=== PATIENT | male | born 1950 | race Caucasian/White ===

== ENCOUNTER → 2017-01-14 | Outpatient (CLI) | payer MEDICARE, BC ==
[2017-01-14 16:30] LABS: Anisocytosis Slight; Basophils # (A) 0.1 k/uL (0-0.2); Basophils % (A) 1 %; CHCM 30.3; Eosinophils # (A) 0.1 k/uL (0-0.7); Eosinophils % (A) 2 %; HCT 40.8 % (39.0-53.0); HDW 3.12; HGB 12.5 gm/dL (13.0-17.5); Hypochromasia Marked; Luc # (Auto) 0.08; Luc % (Auto) 1; Lymphocytes # (A) 1.4 k/uL (1.0-4.8); Lymphocytes % (A) 18 %; MCH 23.4 pg (25.0-35.0); MCHC 30.7 g/dL (31.0-37.0); MCV 76.2 fL (80.0-100.0); Mean Platelet Volume 6.6; Microcytosis Moderate; Monocytes # (A) 0.4 k/uL (0-1.0); Monocytes % (A) 5 %; Neutrophils # (A) 5.6 k/uL (1.3-7.7); Neutrophils % (A) 73 %; RBC 5.36 m/uL (4.30-5.90); RDW 18.9 % (11.5-15.5); WBC 7.6 k/uL (3.8-10.6); WBC (Perox) 7.61
[2017-01-14 16:33] LABS: INR 4.1 (<1.2); Prothrombin Time 40.1 sec (9.0-12.0)
[2017-01-14 16:42] LABS: ALT 36 U/L (21-72); AST 30 U/L (17-59); Alkaline Phosphatase 122 U/L (38-126); Anion Gap 13 mmol/L; Blood Urea Nitrogen 13 mg/dL (9-20); Calcium 9.4 mg/dL (8.4-10.2); Carbon Dioxide 23 mmol/L (22-30); Chloride 103 mmol/L (98-107); Cholesterol 140 mg/dL (<200); Glucose 105 mg/dL (74-99); HDL Cholesterol 48 mg/dL (40-60); Non-African American GFR(MDRD) >60 (>60 ml/min/1.73 sqM); Potassium 4.1 mmol/L (3.5-5.1); Sodium 139 mmol/L (137-145); Total Bilirubin 0.8 mg/dL (0.2-1.3); Total Protein 6.9 g/dL (6.3-8.2)
[2017-01-14 17:29] LABS: Prostate Specific Antigen <0.10 ng/mL (0.00-4.00)
== END | disposition home or self-care (01) ==
LOC: LABWHC1 15:42
PROVIDERS: ATTEND Family Medicine
DX: Z00.00 Encounter for general adult medical examination without abnormal findings (principal); E11.65 Type 2 diabetes mellitus with hyperglycemia; E11.628 Type 2 diabetes mellitus with other skin complications; Z85.46 Personal history of malignant neoplasm of prostate; Z79.01 Long term (current) use of anticoagulants
CPT/HCPCS: 36415; 80053; 80061; 83036; 84153; 84443; 85025; 85610; 86803

== ENCOUNTER → 2017-01-19 | Outpatient (CLI) | payer MEDICARE, BC ==
[2017-01-19 11:59] LABS: INR 2.9 (<1.2); Prothrombin Time 27.5 sec (9.0-12.0)
== END | disposition home or self-care (01) ==
LOC: LABWHC1 11:07
PROVIDERS: ATTEND Family Medicine
DX: Z51.81 Encounter for therapeutic drug level monitoring (principal); Z79.01 Long term (current) use of anticoagulants
CPT/HCPCS: 36415; 85610

== ENCOUNTER → 2017-04-18 | Outpatient (CLI) | payer MEDICARE, BC ==
[2017-04-18 10:48] LABS: INR 1.2 (<1.2); Prothrombin Time 11.5 sec (9.0-12.0)
== END | disposition home or self-care (01) ==
LOC: LABWHC1 09:55
PROVIDERS: ATTEND Dentist Oral and Maxillofacial Surgery
DX: D68.9 Coagulation defect, unspecified (principal)
CPT/HCPCS: 36415; 85610

== ENCOUNTER → 2018-05-22 | Outpatient (CLI) | payer MEDICARE, BC ==
--- NOTE | 2018-05-22 15:09 | XR ---
Lumbosacral spine HISTORY: Back pain 5 views of the lumbosacral spine Postop changes status post multiple lumbar laminectomies. There is a marked S-shaped thoracic lumbar scoliosis. Surgical clips present in the pelvis and right upper quadrant.. There are vascular calcifi cations noted. Lumbar vertebral bodies show preserved height. There is no evident spondylolysis. Bone mineralization appears reduced. Marked sclerosis present in the posterior elements is compatible wit h facet arthropathy. Anterior flowing osteophytes in the lower thoracic spine with relative preservat ion of disc base could be indicative of diffuse idiopathic skeletal hyperostosis. Multilevel loss of disc height is present, spondylosis compatible with degenerative disc disease. The aorta shows ectati c appearance. Vascular calcifications. IMPRESSION: Scoliosis, degenerative disc disease, facet arthropathy, postop changes, additional findi ngs above.
== END | disposition home or self-care (01) ==
LOC: RADXRMAIN 13:52
PROVIDERS: ATTEND Family Medicine
DX: M51.37 Other intervertebral disc degeneration, lumbosacral region (principal); M46.97 Unspecified inflammatory spondylopathy, lumbosacral region; M41.85 Other forms of scoliosis, thoracolumbar region; Z98.890 Other specified postprocedural states
CPT/HCPCS: 72110

== ENCOUNTER → 2018-08-22 | Outpatient (CLI) | payer MEDICARE, BC ==
[2018-08-22 16:03] LABS: Basophils # (A) 0.1 k/uL (0-0.2); Basophils % (A) 1 %; Eosinophils # (A) 0.2 k/uL (0-0.7); Eosinophils % (A) 3 %; HCT 37.1 % (39.0-53.0); HGB 12.1 gm/dL (13.0-17.5); Lymphocytes # (A) 1.2 k/uL (1.0-4.8); Lymphocytes % (A) 15 %; MCH 27.9 pg (25.0-35.0); MCHC 32.6 g/dL (31.0-37.0); MCV 85.7 fL (80.0-100.0); Mean Platelet Volume 6.8; Monocytes # (A) 0.3 k/uL (0-1.0); Monocytes % (A) 4 %; Neutrophils # (A) 6.2 k/uL (1.3-7.7); Neutrophils % (A) 76 %; Platelet Count 261 k/uL (150-450); RBC 4.33 m/uL (4.30-5.90); RDW 14.8 % (11.5-15.5); WBC 8.1 k/uL (3.8-10.6)
[2018-08-22 23:08] LABS: African American GFR (CKD) 100.6 (60.0-200.0); Anion Gap 12.6 mmol/L (4.00-12.00); BUN/Creat Ratio 12.22 Ratio (12.00-20.00); Calcium 8.8 mg/dL (8.7-10.3); Carbon Dioxide 24.4 mmol/L (21.6-31.8); Potassium 3.7 mmol/L (3.5-5.5)
== END | disposition home or self-care (01) ==
LOC: LABWHC1 15:02
PROVIDERS: ATTEND Family Medicine
DX: E11.9 Type 2 diabetes mellitus without complications (principal); Z79.01 Long term (current) use of anticoagulants
CPT/HCPCS: 36415; 80048; 85025

== ENCOUNTER → 2019-05-07 | Outpatient (CLI) | payer MEDICARE, BC ==
--- NOTE | 2019-05-07 11:14 | XR ---
EXAMINATION TYPE: XR chest 2V DATE OF EXAM: 05/07/2019 COMPARISON: 02/03/2015 TECHNIQUE: PA and lateral views submitted. HISTORY: Cough FINDINGS: The lungs are clear and there is no pneumothorax, pleural effusion, or focal pneumonia. Worsened in terstitial markings with bilateral pleural thickening. Arthropathy of the shoulders. Atherosclerotic change aorta. Hypertrophic and degenerative change of the spine. IMPRESSION: 1. Correlate for bronchitis or interstitial pneumonitis.
== END | disposition home or self-care (01) ==
LOC: RADXRMAIN 10:49
PROVIDERS: ATTEND Family Medicine
DX: J20.9 Acute bronchitis, unspecified (principal)
CPT/HCPCS: 71046

== ENCOUNTER → 2019-09-16 | Outpatient (CLI) | payer MEDICARE, BC ==
--- NOTE | 2019-09-16 14:55 | MR ---
EXAMINATION TYPE: MR brain wo/w con DATE OF EXAM: 09/16/2019 COMPARISON: None HISTORY: Decreased sense of smell/taste; attention to Cribiform plate per order TECHNIQUE: Multiplanar, multisequence images of the brain and brainstem is performed without and with IV contras t, utilizing 13 mL intravenous Gadavist . FINDINGS: Diffusion weighted images demonstrate no evidence of a recent infarct or other diffusion ab normality. There is no extra-axial fluid collection.. There are scattered hyperintensities on invers ion recovery T2-weighted sequences in the periventricular white matter, subcortical white matter, rachna roximately 20 lesions are present The ventricular system and cisternal spaces are normal in size and appearance. The brain volume is age appropriate. Midline structures demonstrate normal morphology. The craniocervical junction appears within normal limits. Post contrast images demonstrate no abnormal enhancement. The dural venous sinuses appear pa tent. The visualized sinuses are clear and the globes are intact. IMPRESSION: Nonspecific white matter demyelination may be due to chronic small vessel ischemia.
== END | disposition home or self-care (01) ==
LOC: RADMRIMAIN 12:46
PROVIDERS: ATTEND Otolaryngology
DX: G37.9 Demyelinating disease of central nervous system, unspecified (principal); Z88.0 Allergy status to penicillin; Z88.1 Allergy status to other antibiotic agents
CPT/HCPCS: 70553; A9585

== ENCOUNTER → 2019-11-05 | Outpatient (CLI) | payer MEDICARE, BC ==
[2019-11-05 19:09] LABS: T4, Free (Free Thyroxine) 1.3 ng/dL (0.80-1.80)
[2019-11-05 19:13] LABS: Protein, Total 6.1 g/dL (6.2-8.2)
[2019-11-06 13:34] LABS: Albumin 3.65 g/dL (3.80-4.90); Gamma Globulin 0.71 g/dL (0.70-1.50)
== END | disposition home or self-care (01) ==
LOC: LABWHC1 14:52
PROVIDERS: ATTEND Psychiatry & Neurology Neurology
DX: G62.9 Polyneuropathy, unspecified (principal)
CPT/HCPCS: 36415; 82607; 84165; 84207; 84439; 84443; 85652; 86038; 86334

== ENCOUNTER → 2020-08-03 | Outpatient (CLI) | payer MEDICARE, BC ==
--- NOTE | 2020-08-03 12:04 | XR ---
EXAMINATION TYPE: XR cervical spine comp DATE OF EXAM: 08/03/2020 COMPARISON: NONE HISTORY: Pain TECHNIQUE: Four views are submitted. FINDINGS: The odontoid is intact. There are no compression deformities. The prevertebral soft tissue structur es are within normal limits. Large anterior hypertrophic spurs are noted. Moderate to severe multile tonia degenerative disc disease and facet arthropathy. Multilevel bilateral foraminal encroachment. IMPRESSION: 1. Severe multilevel degenerative disc disease, facet arthropathy with bilateral foraminal encroachme nt.
--- NOTE | 2020-08-03 12:05 | XR ---
EXAM TYPE: LUMBAR SPINE X RAY SERIES COMPARISON: NONE HISTORY: Pain TECHNIQUE: 4 views are submitted. FINDINGS: Alignment is anatomic. The pedicles are intact. The transverse processes are intact. There is scol iosis with diffuse osteopenia and multilevel hypertrophic and degenerative changes. Postsurgical danielson ge involving the lower lumbar spine. Vascular calcifications noted. Surgical clips are seen in the pe lvis and right upper quadrant of the abdomen. Sclerotic density overlying the right iliac bone is non specific. IMPRESSION: 1. Multilevel severe degenerative disc disease with postsurgical change and scoliosis. 2. Multilevel facet arthropathy and foraminal encroachment suspected.
== END | disposition home or self-care (01) ==
LOC: RADXRMAIN 11:21
PROVIDERS: ATTEND Family Medicine
DX: M50.30 Other cervical disc degeneration, unspecified cervical region (principal); M47.812 Spondylosis without myelopathy or radiculopathy, cervical region; M99.71 Connective tissue and disc stenosis of intervertebral foramina of cervical region; M51.36 Other intervertebral disc degeneration, lumbar region; M41.86 Other forms of scoliosis, lumbar region
CPT/HCPCS: 72050; 72110

== ENCOUNTER → 2021-01-11 | Outpatient (CLI) | payer MEDICARE, BC ==
[2021-01-11 13:25] VITALS: BP 124/76; PULSE 80; RESP 18; TEMP 98.3
--- NOTE | 2021-01-11 13:40 | P.PAINCN ---
History of Present Illness - Reason for Consult Consult date: 01/11/21 - Chief Complaint Low back pain - History of Present Illness Amilcar is a 70-year-old male presenting to clinic today for initial evaluation of his chronic low back pain. He was referred to our office from Dr. Oshea. He was a patient of the clinic many years ago where he received epidural injections. He has a history of lumbar spondylosis and facet arthropathy without myelopathy, lumbar radiculopathy, cervical spondylosis and facet arthropathy without myelopathy, and cervical radiculopathy. He reports that for the last 6-8 months he has had lower back pain which she describes an inguinal right quadrant area of his back. He describes it as a sharp stabbing pain. Pain is made worse with certain positions, laying on his side and laying flat. Pain is relieved with sitting and medications. He currently takes [place]mont 10 mg every [address] Oshea. He has had physical therapy in the past he completed about 2 months ago did not offer much help. He has seen the chiroprac tor that did not further benefit either. He currently has an open wound in his lower back is being treated by Dr. Oshea. When his active infection has cleared and he is no longer taking antibiotics we can move forward with interventions. He rates his pain as a 5 or 6 out of 10 on average with increasing up to 10 out of 10 at its worse. Latest MRI shows multiple levels of degenerative changes of facet arthropathy with a large disc bulge impeding nerve roots at L3 4. Denies any saddle anesthesia, bowel or bladder dysfunction, or any other red flag symptoms. Past Medical History Past Medical History: Cancer, Diabetes Mellitus, Deep Vein Thrombosis (DVT), GERD/Reflux, Hyperlipidemia, Hypertension, Osteoarthritis (OA), Pneumonia, Prostate Disorder, Pulmonary Embolus (PE), Skin Disorder, Sleep Apnea/CPAP/BIPAP Additional Past Medical History / Comment(s): open wound to back-has visiting nurse two times per weeks,prostate ca, rt leg dvt, diverticulitis, psoriases, abd hernia,no cpap History of Any Multi-Drug Resistant Organisms: None Reported Past Surgical History: Back Surgery, Cholecystectomy, Hernia Repair, Joint Replacement, Prostate Surgery, Tonsillectomy Additional Past Surgical History / Comment(s): prostectomy, had ruptured diver ticuli -colostomy and then reversed, abd hernia, tanisha cataracts, tubes in ears,total rt hip,[facility] Clinic Procedures Past Anesthesia/Blood Transfusion Reactions: No Reported Reaction Past Psychological History: No Psychological Hx Reported Additional Psychological History / Comment(s): uses a walker when up. Smoking Status: Former smoker Past Alcohol Use History: None Reported Additional Past Alcohol Use History / Comment(s): SMOKED X 28 YEARS 1PPD. Past Drug Use History: None Reported - Past Family History Father Family Medical History: Cancer Additional Family Medical History / Comment(s): prostate CA Mother Family Medical History: Deep Vein Thrombosis (DVT), Pulmonary Embolus Additional Family Medical History / Comment(s): PROSTATE CNACER Medications and Allergies Home Medications Medication Instructions Recorded Confirmed Type Atorvastatin Calcium [Lipitor] 30 mg PO HS 02/03/15 01/11/21 History Lansoprazole 30 - 60 mg PO DAILY 02/03/15 01/11/21 History Multivit-Min/FA/Lycopen/Lutein 1 tab PO DAILY 02/03/15 01/11/21 History [Centrum Silver Tablet] Nebivolol HCl [Bystolic] 5 mg PO DAILY 02/03/15 01/11/21 History Hydrocodone/Acetaminophen [[place]mont 1 tab PO TID PRN 02/16/16 01/11/21 History 10-325] Rivaroxaban [Xarelto] 10 mg PO DAILY 01/06/21 01/11/21 History Semaglutide [Ozempic] 1 mg SQ WE 01/06/21 01/11/21 History metFORMIN HCL [Glucophage] 1,000 mg PO BID 01/06/21 01/11/21 History rOPINIRole HCL [Requip] 0.5 mg PO HS 01/06/21 01/11/21 History Allergies Allergy/AdvReac Type Severity Reaction Status Date / Time cephalexin monohydrate Allergy Rash/Hives Verified 01/06/21 13:56 [From Keflex] Penicillins Allergy Rash/Hives Verified 01/06/21 13:56 Physical Exam REVIEW OF ORGAN SYSTEMS: CONSTITUTIONAL: No fevers or chills. No recent weight loss. EYES: denies troubles with vision. HEENT: No difficulties with hearing. No nosebleeds. No difficulty swallowing. RESPIRATORY: Denies any troubles with breathing or dyspnea on exertion. CARDIOVASCULAR: Denies any chest pain, palpitations, or recent heart attacks. GASTROINTESTINAL: Denies fatty food intolerance. Has change in bowel habits and gas bloat. GENITOURINARY: Denies any blood in urine. Has increased urinary frequency. NEUROLOGICAL: + numbness and tingling along the distal extremities. No seizure disorders or headaches. MUSCULOSKELETAL: Has back pain. SKIN:no skin cancer. No rash. Open wound to lumbar region PSYCHIATRIC: Denies current depression or suicidal thoughts. ENDOCRINE: Denies current thyroid disorders. [id number] HEME/LYMPHATIC: Denies any lumps and bumps around the neck. History of deep venous thrombosis. ALLERGY/IMMUNOLOGY: No immunoglobulin therapy. No immune deficiencies. BREAST: Denies current breast lumps, pain or nipple discharge. Physical Examinations : Constitutiona : Cooperative , not in acute distress morbidly obese in a wheelchair. HEENT : nech : supple , no Lymphadenopathy , normal thyroid size . : eyes no ptosis , no icterus, no photophobia . : ENT normal of hearing , normal oropharynx , no Thrush . Respiratory : Chest clear to auscultations Bilaterally , no wheezing , no Rhonchi . Cardiovascula : regular rate and rhythem , S1 , S2 , no S3 , no S4. Gastrointestina : abdomen soft no tenderness , bowel sounds , no organomegally . Genitourinary : Defferred . neurologic : Cranial nerve II to XII intact , no focal neurological deffecit . psychatric : alert , oriented X 3 , appropriate affect , intact judgment and insight . Lymphatic : no Lymphadenopathy . musculoskeltal : Cervical Spine motor stregnth in the deltoid and biceps, normal right side , normal Left side motor stregnth biceps and the wrist extensors normal right side ,normal left side . motor stregnth in the triceps muscle . normal Right side , normal Left side deep tendon reflexes= normal at the biceps , normal at Brachioradialis , normal at triceps. cervical facet loading test: Positive Bilaterally Spurling test= positive bilaterally. Neck distraction test= positive bilaterally. Max sign= negative Lumber spine moter stegnth lower extremities ,thigh and legs 5/5 Right side , 5/5 Left side deep tendon reflexes : normal Knee Jerk , normal ankle Jerk lumber facet Loading Test= positive Right , positive Left Range of motion of the lumbar spine Flexion 30 degrees, extension 10 degrees strait leg raising test , positive at 20 degree Fabere test= positive Right , and positive left . Sever tenderness over the Sacroiliac joint on the Right , and Left sides Gaenslen test= positive bilaterally. Seated flexion test= positive bilaterally. Assessment and Plan Assessment: Assessment and plan Assessment: Cervical spondylosis and facet arthropathy without myelopathy Cervical radiculopathy Lumbar spondylosis and facet arthropathy without myelopathy Lumbar radiculopathy Morbid obesity Type 2 diabetes mellitus Open wounds Plan: When patient has completed his wound care treatment and antibiotics consider right sacroiliac joint injection. Consider right medial branch block at L4 5 and L5-S1 Consider lumbar epidural steroid injection at L3 4 Dr. Dang was available by phone for consultation during his visit. I have spent 50 minutes on patient care today. The time was used to review the medical records including relevant urine studies and Prescription history (MAPs), review of the available imaging, evaluation and examination of the patient, coordination of care with the medical staff and if applicable referring physicians, as well as creation of the medical record. - PQRS measures = - Patient's medications are documented in the chart. -Tobacco use is negative -Patient's has not received pneumococcal vaccine. -Advanced care planning discussed, patient not eligible. -Opiate contract signed. -Pain positive and follow-up visit/procedure is scheduled. -Patient's blood pressure measured 124/76 , and documented in the record ,and patient will follow up with the primary care. -Patient was not identified as an unhealthy alcohol user Time with Patient: Greater than 30 PQRS Measure Charge Sheet - Pain Location Lower Back Non-Pharmacological Interventions: Elevation, Position/Reposition Pharmacological Interventions: Medication PQRS Narrative: Smoking Status Former smoker Scale Used Numeric (1 - 10) Hx Alcohol Use (MH) No Home Medications: Ambulatory Orders Atorvastatin Calcium [Lipitor] 30 mg PO HS 02/03/15 Lansoprazole 30 - 60 mg PO DAILY 02/03/15 Multivit-Min/FA/Lycopen/Lutein [Centrum Silver Tablet] 1 tab PO DAILY 02/03/15 Nebivolol HCl [Bystolic] 5 mg PO DAILY 02/03/15 Hydrocodone/Acetaminophen [[place]mont 10-325] 1 tab PO TID PRN 02/16/16 Rivaroxaban [Xarelto] 10 mg PO DAILY 01/06/21 Semaglutide [Ozempic] 1 mg SQ WE 01/06/21 metFORMIN HCL [Glucophage] 1,000 mg PO BID 01/06/21 rOPINIRole HCL [Requip] 0.5 mg PO HS 01/06/21
== END ==
LOC: PNWHC3 12:36
PROVIDERS: ATTEND Student in an Organized Health Care Education/Training Program
DX: M47.22 Other spondylosis with radiculopathy, cervical region (principal); M47.26 Other spondylosis with radiculopathy, lumbar region; E11.9 Type 2 diabetes mellitus without complications; E78.5 Hyperlipidemia, unspecified; I10 Essential (primary) hypertension; M19.90 Unspecified osteoarthritis, unspecified site; E66.01 Morbid (severe) obesity due to excess calories; T14.8XXA Other injury of unspecified body region, initial encounter; K21.9 Gastro-esophageal reflux disease without esophagitis; Z86.718 Personal history of other venous thrombosis and embolism; Z87.891 Personal history of nicotine dependence; Z79.84 Long term (current) use of oral hypoglycemic drugs; Z79.899 Other long term (current) drug therapy; Z88.0 Allergy status to penicillin; Z68.41 Body mass index [BMI] 40.0-44.9, adult
CPT/HCPCS: 99211

== ENCOUNTER → 2021-06-14 | Outpatient (CLI) | payer MEDICARE, BC ==
--- NOTE | 2021-06-14 15:22 | US ---
LOWER EXTREMITY VENOUS INSUFFICIENCY CLINICAL HISTORY: L97.922 ULCER, I83.029 VERICOSE VEINS, I87.8 VENOUS STASIS. Morbidly obese patient with extensive leg swelling. Technically difficult. SIDE PERFORMED: Bilateral 1) Color flow is present and patency is documented in the following vessels. No DVT or SVT is noted . Common Femoral Vein Deep Femoral Vein Femoral Vein Popliteal Vein Proximal Calf Veins Greater Saph Vein Upper Small Saph Vein 2) There is venous reflux noted at the following venous levels: Right: CFV, GSV, portions of the popliteal visualized. Left: CFV, mid FV, SSV Right femoral vein through popliteal vein shows thready flow that is probable chronic DVT. Unable to pick up truck driver doppler signal in femoral vein through proximal popliteal vein due to small caliber and threa dy flow in vessel. Unable to visualize distal femoral vein, this may be due to depth. IMPRESSION: 1. Suspected right lower extremity chronic venous thrombosis. 2. Venous reflux noted within the common femoral veins bilaterally and within the right greater saphe nous vein and popliteal vein and within the left mid femoral vein and superficial saphenous vein.
--- NOTE | 2021-06-16 06:55 | US ---
EXAMINATION TYPE: US arterial LE single level DATE OF EXAM: 06/14/2021 2:01 PM CLINICAL HISTORY: L97.922 ULCER, I83.029 VERICOSE VEINS, I87.8 VENOUS STASIS. Left leg wounds for 3 m onths. History of hypertension and hyperlipidemia. History of morbid obesity. Doppler Waveforms: Right: Biphasic Left: Biphasic Ankle-Brachial Indices: Right: 1.08 Left: Toe Brachial Indices: Right: 0.59 Left: 0.68 IMPRESSION: Suboptimal study. Likely no significant stenosis as TBI values are lower limits of kevin l.
== END | disposition home or self-care (01) ==
LOC: RADUSWWP 12:09
PROVIDERS: ATTEND Family Medicine
DX: L97.922 Non-pressure chronic ulcer of unspecified part of left lower leg with fat layer exposed (principal); E66.01 Morbid (severe) obesity due to excess calories; I87.8 Other specified disorders of veins; Z86.718 Personal history of other venous thrombosis and embolism; Z79.84 Long term (current) use of oral hypoglycemic drugs
CPT/HCPCS: 93922; 93970

== ENCOUNTER 2022-06-13 08:23 | Inpatient (IN) | payer BC, MEDICARE ==
--- NOTE | 2022-06-13 08:51 | ED ---
Weakness HPI - General Chief complaint: Weakness Stated complaint: weakness Time Seen by Provider: 06/13/22 08:36 Source: patient, EMS, RN notes reviewed, old records reviewed Mode of arrival: EMS Limitations: no limitations - History of Present Illness Initial comments: 71-year-old male alert and oriented 4 presents to the emergency room via EMS from his apartment. Patient for the past month has been feeling weak. Last week he slid out of his chair and was unable to get up had to call EMS for cyst. He was called EMS twice that day. States that his legs have been increasingly swollen and he has been increasingly weak with him to come to the emergency room today. Does have a history of diabetes, DVT, hypertension and PE. Denies any chest pain. No difficulty breathing. Oxygen saturation 89% during conversation MD Complaint: generalized weakness, difficulty walking -: week(s) (1) Severity scale (1-10): 2 - Related Data Home Medications Medication Instructions Recorded Confirmed Atorvastatin Calcium [Lipitor] 40 mg PO HS 02/03/15 06/13/22 Lansoprazole 30 mg PO BID 02/03/15 06/13/22 Nebivolol HCl [Bystolic] 5 mg PO DAILY 02/03/15 06/13/22 Rivaroxaban [Xarelto] 10 mg PO DAILY 01/06/21 06/13/22 Empagliflozin/Metformin HCl 2 tab PO W/BRKFST 06/13/22 06/13/22 [Synjardy Xr 12.5-1,000 mg Tab] Furosemide [Lasix] 40 mg PO DAILY 06/13/22 06/13/22 HYDROcodone/APAP 5-325MG [[place] 2 tab PO Q8H PRN 06/13/22 06/13/22 5-325] Naloxone HCl [Narcan] 4 mg NASAL ONCE PRN 06/13/22 06/13/22 Pioglitazone [Actos] 30 mg PO DAILY 06/13/22 06/13/22 Potassium Chloride ER [K-Dur 20] 20 meq PO DAILY 06/13/22 06/13/22 Pregabalin [Lyrica] 75 mg PO BID 06/13/22 06/13/22 Semaglutide [Ozempic] 2 mg SQ WE 06/13/22 06/13/22 Allergies Allergy/AdvReac Type Severity Reaction Status Date / Time cephalexin monohydrate Allergy Rash/Hives Verified 06/13/22 12:04 [From Keflex] on neck Penicillins Allergy Rash/Hives Verified 06/13/22 12:04 on neck Review of Systems ROS Statement: Those systems with pertinent positive or pertinent negative responses have been documented in the HPI. ROS Other: All systems not noted in ROS Statement are negative. Past Medical History Past Medical History: Cancer, Diabetes Mellitus, Deep Vein Thrombosis (DVT), GERD/Reflux, Hyperlipidemia, Hypertension, Osteoarthritis (OA), Pneumonia, Prostate Disorder, Pulmonary Embolus (PE), Skin Disorder, Sleep Apnea/CPAP/BIPAP Additional Past Medical History / Comment(s): open wound to back-has visiting nurse two times per weeks,prostate ca, rt leg dvt, diverticulitis, psoriases, abd hernia,no cpap History of Any Multi-Drug Resistant Organisms: None Reported Past Surgical History: Back Surgery, Cholecystectomy, Hernia Repair, Joint Replacement, Prostate Surgery, Tonsillectomy Additional Past Surgical History / Comment(s): prostectomy, had ruptured diverticuli -colostomy and then reversed, abd hernia, tanisha cataracts, tubes in ears,total rt hip,[facility] Procedures Past Anesthesia/Blood Transfusion Reactions: No Reported Reaction Past Psychological History: No Psychological Hx Reported Smoking Status: Former smoker Past Alcohol Use History: None Reported Past Drug Use History: None Reported - Past Family History Father Family Medical History: Cancer Additional Family Medical History / Comment(s): prostate CA Mother Family Medical History: Deep Vein Thrombosis (DVT), Pulmonary Embolus Additional Family Medical History / Comment(s): PROSTATE CNACER General Exam Limitations: no limitations General appearance: alert, in no apparent distress Head exam: Present: atraumatic Eye exam: Present: normal appearance. Absent: scleral icterus, conjunctival injection, periorbital swelling, periorbital tenderness ENT exam: Present: mucous membranes moist Neck exam: Absent: tenderness, meningismus Respiratory exam: Absent: respiratory distress, accessory muscle use Cardiovascular Exam: Present: regular rate GI/Abdominal exam: Present: soft. Absent: distended, tenderness, guarding, rebound, rigid Rectal exam: Present: normal inspection External exam: Present: lesions (1cm stage 2 pressure ulcer left buttock , no drainage or surrounding erythema) Extremities exam: Present: normal capillary refill, pedal edema (Bilateral lower extremity pitting edema) Left Lower Leg exam: Present: swelling, erythema. Absent: tenderness Ankle exam: Present: swelling. Absent: tenderness Foot/Toe exam: Present: swelling. Absent: tenderness Neurovascular tendon exam: Present: no vascular compromise. Absent: abnormal cap refill, extremity cold to touch, pallor, foot drop Right Lower Leg exam: Present: swelling, erythema. Absent: tenderness Ankle exam: Present: swelling. Absent: tenderness Foot/Toe exam: Present: swelling. Absent: tenderness Neurovascular tendon exam: Present: no vascular compromise. Absent: abnormal cap refill, extremity cold to touch, pallor, foot drop Neurological exam: Present: alert, oriented X3 Psychiatric exam: Present: normal affect, normal mood Skin exam: Present: warm, dry, normal color. Absent: cyanosis, diaphoretic, petechiae, pallor Course Vital Signs 06/13/22 06/13/22 06/13/22 08:26 09:00 10:00 Temperature 98.1 F Pulse Rate 79 Respiratory 22 18 19 Rate Blood Pressure 124/68 86/72 102/54 O2 Sat by Pulse 96 90 L 90 L Oximetry 06/13/22 11:00 Temperature Pulse Rate 80 Respiratory 22 Rate Blood Pressure 113/98 O2 Sat by Pulse 96 Oximetry - Reevaluation(s) Reevaluation #1: 06/13/22 11:16 Dr. Gabriel's nurse practitioner Mariam notified of patient per Dr Gabriel, neuro and cardiology consults placed Time: 11:16 Medical Decision Making - Medical Decision Making Patient's oxygen levels dropped to 89% on room air while in the emergency room. Improves to 96% on 2 L. Chest x-ray interpreted by me shows no evidence of focal consolidation, no masses, trachea is midline. Radiologist interpretation no acute process. EKG shows sinus rhythm with occasional supraventricular premature complexes. Ventricular rate 85, WY interval 0.146, QRS 0.100, QTC 0.449. No significant change compared to old 02/03/2015 Labs show no evidence of leukocytosis. Hemoglobin and hematocrit are stable. There is a slight lactic acidosis of 2.5. Magnesium 1.3 was given replacement Patient was given IV fluids. Troponin is negative at 0.012 Bilateral lower extremities erythematous with pitting edema. Will be treated for cellulitis after discussing with Dr. Gabriel. There is also a small 1 cm pressure ulcer to the left buttock No signs of erythema or drainage. Wound car e will be consult. Patient is agreeable to admission. He is also requesting physical therapy. Case discussed with Dr. Mccormack Was pt. sent in by a medical professional or institution (SUSIE Brewer, ORTHOTIC FINISH GRINDING TECHNICIAN, urgent care, hospital, or fpc...) When possible be specific @ -No Did you speak to anyone other than the patient for history (EMS, parent, family, police, friend...)? What history was obtained from this source @ -No Did you review nursing and triage notes (agree or disagree)? Why? @ -I reviewed and agree with nursing and triage notes Were old charts reviewed (outside hosp., previous admission, EMS record, old EKG, old radiological studies, urgent care reports/EKG's, fpc records)? Report findings @ -Previous EKG Differential Diagnosis (chest pain, altered mental status, abdominal pain women, abdominal pain men, vaginal bleeding, weakness, fever, dyspnea, syncope, headache, dizziness, GI bleed, back pain, seizure, CVA, palpatations, mental health, musculoskeletal)? @ -Differential Weakness: Hypoglycemia, shock, sepsis, hyponatremia, anemia, infection, ND, ETOH, adverse medicine reaction, overdose, stroke, this is not meant to be an all-inclusive list. EKG interpreted by me (3pts min.). @ -As above X-rays interpreted by me (1pt min.). @ -Yes as above CT interpreted by me (1pt min.). @ -None done U/S interpreted by me (1pt. min.). @ -None done What testing was considered but not performed or refused? (CT, X-rays, U/S, labs)? Why? @ -None What meds were considered but not given or refused? Why? @ -None Did you discuss the management of the patient with other professionals (professionals i.e. SUSIE Brewer, ORTHOTIC FINISH GRINDING TECHNICIAN, lab, RT, psych nurse, sexual assault social worker, gore inserter, teacher, boat officer, business case analyst)? Give summary @ -Dr. Gabriel Was smoking cessation discussed for >3mins.? @ -No Was critical care preformed (if so, how long)? @ -No Were there social determinants of health that impacted care today? How? (Homelessness, low income, unemployed, alcoholism, drug addiction, transportation, low edu. Level, literacy, decrease access to med. care, fpc, rehab)? @ -No Was there de-escalation of care discussed even if they declined (Discuss DNR or withdrawal of care, Hospice)? DNR status @ -No What co-morbidities impacted this encounter? (DM, HTN, Smoking, COPD, CAD, Cancer, CVA, ARF, Chemo, Hep., AIDS, mental health diagnosis, sleep apnea, morbid obesity)? @ -Diabetes, hypertension, PE Was patient admitted / discharged? Hospital course, mention meds given and route, prescriptions, significant lab abnormalities, going to OR and other pertinent info. @ -Admitted Undiagnosed new problem with uncertain prognosis? @ -No Drug Therapy requiring intensive monitoring for toxicity (Heparin, Nitro, Insulin, Cardizem)? @ -No Were any procedures done? @ -No Diagnosis/symptom? @ -Weakness, cellulitis, hypomagnesemia, hypoxia Acute, or Chronic, or Acute on Chronic? @ -Acute Uncomplicated (without systemic symptoms) or Complicated (systemic symptoms)? @ -Complicated Side effects of treatment? @ -No Exacerbation, Progression, or Severe Exacerbation? @ -No Poses a threat to life or bodily function? How? (Chest pain, USA, ND, pneumonia, PE, COPD, DKA, ARF, appy, cholecystitis, CVA, Diverticulitis, Homicidal, Suicidal, threat to staff... and all critical care pts) @ -No - Lab Data Result diagrams: 06/13/22 08:50 06/13/22 08:50 Lab Results 06/13/22 06/13/22 06/13/22 Range/Units 08:50 08:50 08:50 WBC 6.2 (3.8-10.6) k/uL RBC 5.06 (4.30-5.90) m/uL Hgb 13.3 (13.0-17.5) gm/dL Hct 41.4 (39.0-53.0) % MCV 81.9 (80.0-100.0) fL MCH 26.4 (25.0-35.0) pg MCHC 32.2 (31.0-37.0) g/dL RDW 17.8 H (11.5-15.5) % Plt Count 223 (150-450) k/uL MPV 6.6 Neutrophils % 72 % Lymphocytes % 17 % Monocytes % 5 % Eosinophils % 3 % Basophils % 1 % Neutrophils # 4.4 (1.3-7.7) k/uL Lymphocytes # 1.1 (1.0-4.8) k/uL Monocytes # 0.3 (0-1.0) k/uL Eosinophils # 0.2 (0-0.7) k/uL Basophils # 0.0 (0-0.2) k/uL Hypochromasia Slight Anisocytosis Slight Microcytosis Slight PT (9.0-12.0) sec INR (<1.2) APTT (22.0-30.0) sec Sodium 140 (137-145) mmol/L Potassium 3.5 (3.5-5.1) mmol/L Chloride 99 (98-107) mmol/L Carbon Dioxide 31 H (22-30) mmol/L Anion Gap 10 mmol/L BUN 14 (9-20) mg/dL Creatinine 0.86 (0.66-1.25) mg/dL Est GFR (CKD-EPI)AfAm >90 (>60 ml/min/1.73 sqM) Est GFR (CKD-EPI)NonAf 87 (>60 ml/min/1.73 sqM) Glucose 121 H (74-99) mg/dL Lactic Ac Sepsis Rflx Plasma Lactic Acid Clint 2.5 H* (0.7-2.0) mmol/L Calcium 8.8 (8.4-10.2) mg/dL Magnesium 1.3 L (1.6-2.3) mg/dL Total Bilirubin 1.0 (0.2-1.3) mg/dL AST 30 (17-59) U/L ALT 21 (4-49) U/L Alkaline Phosphatase 100 (38-126) U/L Troponin I (0.000-0.034) ng/mL NT-Pro-B Natriuret Pep pg/mL Total Protein 6.5 (6.3-8.2) g/dL Albumin 3.9 (3.5-5.0) g/dL Urine Color Urine Appearance (Clear) Urine pH (5.0-8.0) Ur Specific Dana (1.001-1.035) Urine Protein (Negative) Urine Glucose (UA) (Negative) Urine Ketones (Negative) Urine Blood (Negative) Urine Nitrite (Negative) Urine Bilirubin (Negative) Urine Urobilinogen (<2.0) mg/dL Ur Leukocyte Esterase (Negative) 06/13/22 06/13/22 06/13/22 Range/Units 08:50 08:50 08:50 WBC (3.8-10.6) k/uL RBC (4.30-5.90) m/uL Hgb (13.0-17.5) gm/dL Hct (39.0-53.0) % MCV (80.0-100.0) fL MCH (25.0-35.0) pg MCHC (31.0-37.0) g/dL RDW (11.5-15.5) % Plt Count (150-450) k/uL MPV Neutrophils % % Lymphocytes % % Monocytes % % Eosinophils % % Basophils % % Neutrophils # (1.3-7.7) k/uL Lymphocytes # (1.0-4.8) k/uL Monocytes # (0-1.0) k/uL Eosinophils # (0-0.7) k/uL Basophils # (0-0.2) k/uL Hypochromasia Anisocytosis Microcytosis PT (9.0-12.0) sec INR (<1.2) APTT (22.0-30.0) sec Sodium (137-145) mmol/L Potassium (3.5-5.1) mmol/L Chloride (98-107) mmol/L Carbon Dioxide (22-30) mmol/L Anion Gap mmol/L BUN (9-20) mg/dL Creatinine (0.66-1.25) mg/dL Est GFR (CKD-EPI)AfAm (>60 ml/min/1.73 sqM) Est GFR (CKD-EPI)NonAf (>60 ml/min/1.73 sqM) Glucose (74-99) mg/dL Lactic Ac Sepsis Rflx Plasma Lactic Acid Clint (0.7-2.0) mmol/L Calcium (8.4-10.2) mg/dL Magnesium (1.6-2.3) mg/dL Total Bilirubin (0.2-1.3) mg/dL AST (17-59) U/L ALT (4-49) U/L Alkaline Phosphatase (38-126) U/L Troponin I <0.012 (0.000-0.034) ng/mL NT-Pro-B Natriuret Pep 484 pg/mL Total Protein (6.3-8.2) g/dL Albumin (3.5-5.0) g/dL Urine Color Yellow Urine Appearance Clear (Clear) Urine pH 5.5 (5.0-8.0) Ur Specific [place] 1.017 (1.001-1.035) Urine Protein Trace H (Negative) Urine Glucose (UA) 4+ H (Negative) Urine Ketones Negative (Negative) Urine Blood Negative (Negative) Urine Nitrite Negative (Negative) Urine Bilirubin Negative (Negative) Urine Urobilinogen <2.0 (<2.0) mg/dL Ur Leukocyte Esterase Negative (Negative) 06/13/22 06/13/22 Range/Units 09:51 11:20 WBC (3.8-10.6) k/uL RBC (4.30-5.90) m/uL Hgb (13.0-17.5) gm/dL Hct (39.0-53.0) % MCV (80.0-100.0) fL MCH (25.0-35.0) pg MCHC (31.0-37.0) g/dL RDW (11.5-15.5) % Plt Count (150-450) k/uL MPV Neutrophils % % Lymphocytes % % Monocytes % % Eosinophils % % Basophils % % Neutrophils # (1.3-7.7) k/uL Lymphocytes # (1.0-4.8) k/uL Monocytes # (0-1.0) k/uL Eosinophils # (0-0.7) k/uL Basophils # (0-0.2) k/uL Hypochromasia Anisocytosis Microcytosis PT 11.9 (9.0-12.0) sec INR 1.1 (<1.2) APTT 27.9 (22.0-30.0) sec Sodium (137-145) mmol/L Potassium (3.5-5.1) mmol/L Chloride (98-107) mmol/L Carbon Dioxide (22-30) mmol/L Anion Gap mmol/L BUN (9-20) mg/dL Creatinine (0.66-1.25) mg/dL Est GFR (CKD-EPI)AfAm (>60 ml/min/1.73 sqM) Est GFR (CKD-EPI)NonAf (>60 ml/min/1.73 sqM) Glucose (74-99) mg/dL Lactic Ac Sepsis Rflx Y Plasma Lactic Acid Clint (0.7-2.0) mmol/L Calcium (8.4-10.2) mg/dL Magnesium (1.6-2.3) mg/dL Total Bilirubin (0.2-1.3) mg/dL AST (17-59) U/L ALT (4-49) U/L Alkaline Phosphatase (38-126) U/L Troponin I (0.000-0.034) ng/mL NT-Pro-B Natriuret Pep pg/mL Total Protein (6.3-8.2) g/dL Albumin (3.5-5.0) g/dL Urine Color Urine Appearance (Clear) Urine pH (5.0-8.0) Ur Specific [place] (1.001-1.035) Urine Protein (Negative) Urine Glucose (UA) (Negative) Urine Ketones (Negative) Urine Blood (Negative) Urine Nitrite (Negative) Urine Bilirubin (Negative) Urine Urobilinogen (<2.0) mg/dL Ur Leukocyte Esterase (Negative) - EKG Data EKG shows normal: sinus rhythm (Sinus rhythm with a ventricular rate of 85, WY interval 0.146, QRS 0.100, QTC 0.449) Disposition Clinical Impression: Weakness, Cellulitis, Hypomagnesemia Disposition: ADMITTED IP TO THIS HOSP Decision Date: 06/13/22
[2022-06-13 09:19] LABS: Anisocytosis Slight; Basophils % (A) 1 %; Eosinophils # (A) 0.2 k/uL (0-0.7); Eosinophils % (A) 3 %; HCT 41.4 % (39.0-53.0); HGB 13.3 gm/dL (13.0-17.5); Hypochromasia Slight; Lymphocytes # (A) 1.1 k/uL (1.0-4.8); Lymphocytes % (A) 17 %; MCH 26.4 pg (25.0-35.0); MCHC 32.2 g/dL (31.0-37.0); MCV 81.9 fL (80.0-100.0); Mean Platelet Volume 6.6; Microcytosis Slight; Monocytes # (A) 0.3 k/uL (0-1.0); Monocytes % (A) 5 %; Neutrophils # (A) 4.4 k/uL (1.3-7.7); Neutrophils % (A) 72 %; Platelet Count 223 k/uL (150-450); RBC 5.06 m/uL (4.30-5.90); RDW 17.8 % (11.5-15.5); WBC 6.2 k/uL (3.8-10.6)
--- NOTE | 2022-06-13 09:22 | XR ---
EXAMINATION TYPE: XR chest 2V DATE OF EXAM: 06/13/2022 COMPARISON: 05/07/2019 TECHNIQUE: PA and lateral views submitted. HISTORY: Weakness FINDINGS: The lungs are clear and there is no pneumothorax, pleural effusion, or focal pneumonia. Heart size normal and no overt failure. Osseous structures demonstrate hypertrophic and degenerative changes of the spine. Atherosclerotic change aorta. Arthropathy of the shoulders. Coarsened interstitium stable correlate for chronic interstitial lung disease. IMPRESSION: 1. No acute process.
[2022-06-13 09:25] LABS: Appearance,Urine Clear (Clear); Bilirubin,Urine Negative (Negative); Blood,Urine Negative (Negative); Color,Urine Yellow; Glucose,Urine (UA) 4+ (Negative); Ketones,Urine Negative (Negative); Leukocyte Esterase,Urine Negative (Negative); Nitrite,Urine Negative (Negative); PH, Urine 5.5 (5.0-8.0); Protein,Urine Trace (Negative); Specific Gravity,Urine 1.017 (1.001-1.035); Urobilinogen,Urine <2.0 mg/dL (<2.0)
[2022-06-13 09:26] LABS: ALT 21 U/L (4-49); AST 30 U/L (17-59); African American GFR (CKD) >90 (>60 ml/min/1.73 sqM); Albumin 3.9 g/dL (3.5-5.0); Alkaline Phosphatase 100 U/L (38-126); Anion Gap 10 mmol/L; Blood Urea Nitrogen 14 mg/dL (9-20); Calcium 8.8 mg/dL (8.4-10.2); Carbon Dioxide 31 mmol/L (22-30); Chloride 99 mmol/L (98-107); Glucose 121 mg/dL (74-99); Magnesium 1.3 mg/dL (1.6-2.3); Non-African American GFR(CKD) 87 (>60 ml/min/1.73 sqM); Potassium 3.5 mmol/L (3.5-5.1); Sodium 140 mmol/L (137-145); Total Protein 6.5 g/dL (6.3-8.2)
[2022-06-13 10:18] LABS: INR 1.1 (<1.2); Partial Thromboplastin Time 27.9 sec (22.0-30.0); Prothrombin Time 11.9 sec (9.0-12.0)
[2022-06-13] MEDS ORDERED: MORPHINE SULFATE 2 MG/ML SYRINGE IVP ONE (10:36)
[2022-06-13] MEDS ORDERED: Magnesium Replacement Protocol 1 EACH MISC MISCELLANE PRN (11:08)
[2022-06-13] MEDS ORDERED: NALOXONE 0.4 MG/ML 1 ML VIAL IV PRN (11:09)
[2022-06-13] MEDS: MAGNESIUM SULFATE-D5W PMX 1 GM in DEXTROSE/WATER 1 100ML.BAG IVPB SCH ×2 (12:20→13:31)
[2022-06-13] MEDS ORDERED: NON FORMULARY DRUG (Semaglutide [Ozempic] 2 MG/0.75 ML Pen.Injctr) SQ SCH ×2 (13:45→16:36)
[2022-06-13] MEDS ORDERED: ONDANSETRON 4 MG/2 ML VIAL IVP STA (13:49)
[2022-06-13] MEDS ORDERED: SODIUM CHLORIDE 0.9% 500 ML 500 ML IV ONE (14:21)
[2022-06-13] MEDS ORDERED: VANCOMYCIN 1,000 MG in SODIUM CHLORIDE 0.9% 250 ML IVPB STA (14:23)
[2022-06-13] MEDS ORDERED: VANCOMYCIN 2,000 MG in SODIUM CHLORIDE 0.9% 500 ML 500 ML IVPB STA (14:25)
[2022-06-13] MEDS ORDERED: VANCOMYCIN IV PER PHARMACY 1 EACH MISC MISCELLANE PRN (14:26)
[2022-06-13] MEDS ORDERED: Potassium Replacement Protocol 1 EACH MISC MISCELLANE PRN (16:15)
[2022-06-13] MEDS ORDERED: DEXTROSE 50% SYRINGE 50 ML IVP PRN ×2 (16:16)
--- NOTE | 2022-06-13 16:38 | P.HPIM ---
History of Present Illness H&P Date: 06/13/22 Chief Complaint: Cellulitis, increased lower extremity weakness Patient has a medical history significant for type 2 diabetes mellitus, GERD, hyperlipidemia, osteoarthritis, pneumonia, obstructive sleep apnea with home CPAP, diverticulitis, psoriasis, prostate cancer, bilateral legs DVT/pulmonary embolism on Xarelto , back surgery, former nicotine dependence, gait dysfunction and uses a walker provided and GERD a EMS for worsening generalized weakness times one month, cellulitis/edema of lower extremities. Reports over the last week his lower extremity weakness progressively worsened, slid out of his chair, multiple times, couldn't get up and called EMS for assistance. Positive bowel control. Chronic urinary incontinence. Denies chest pain, palpitations or shortn ess of breath. Troponin negative 1, proBNP 484, EKG reported- O2 sat on room air 93% on admission, decreased to 90%, requiring 2 L nasal cannula. Chest x- ray reported no acute process. Afebrile, normal WBC, unremarkable hematology panel, INR 1.1, sodium 140, potassium 3.5, bicarb 31, BUN 14, creatinine 0.86, glucose 121, lactic acid 2.5, magnesium 1.3, UA 4+ glucose. Received IV fluid hydration, antibiotics initiated. PCP reports patient has a history of MRSA. Review of Systems ROS Statement: Those systems with pertinent positive or pertinent negative responses have been documented in the HPI. ROS Other: All systems not noted in ROS Statement are negative. Past Medical History Past Medical History: Cancer, Diabetes Mellitus, Deep Vein Thrombosis (DVT), GERD/Reflux, Hyperlipidemia, Hypertension, Osteoarthritis (OA), Pneumonia, Prostate Disorder, Pulmonary Embolus (PE), Skin Disorder, Sleep Apnea/CPAP/BIPAP Additional Past Medical History / Comment(s): open wound to back-has visiting nurse two times per weeks,prostate ca, rt leg dvt, diverticulitis, psoriases, abd hernia,no cpap History of Any Multi-Drug Resistant Organisms: None Reported Past Surgical History: Back Surgery, Cholecystectomy, Hernia Repair, Joint Replacement, Prostate Surgery, Tonsillectomy Additional Past Surgical History / Comment(s): prostectomy, had ruptured diverticuli -colostomy and then reversed, abd hernia, tanisha cataracts, tubes in ears,total rt hip,[facility] Clinic Procedures Past Anesthesia/Blood Transfusion Reactions: No Reported Reaction Past Psychological History: No Psychological Hx Reported Smoking Status: Former smoker Past Alcohol Use History: None Reported Past Drug Use History: None Reported - Past Family History Father Family Medical History: Cancer Additional Family Medical History / Comment(s): prostate CA Mother Family Medical History: Deep Vein Thrombosis (DVT), Pulmonary Embolus Additional Family Medical History / Comment(s): PROSTATE CNACER Medications and Allergies Home Medications Medication Instructions Recorded Confirmed Type Atorvastatin Calcium [Lipitor] 40 mg PO HS 02/03/15 06/13/22 History Lansoprazole 30 mg PO BID 02/03/15 06/13/22 History Nebivolol HCl [Bystolic] 5 mg PO DAILY 02/03/15 06/13/22 History Rivaroxaban [Xarelto] 10 mg PO DAILY 01/06/21 06/13/22 History Empagliflozin/Metformin HCl 2 tab PO W/BRKFST 06/13/22 06/13/22 History [Synjardy Xr 12.5-1,000 mg Tab] Furosemide [Lasix] 40 mg PO DAILY 06/13/22 06/13/22 History HYDROcodone/APAP 5-325MG [[employer] 2 tab PO Q8H PRN 06/13/22 06/13/22 History 5-325] Naloxone HCl [Narcan] 4 mg NASAL ONCE PRN 06/13/22 06/13/22 History Pioglitazone [Actos] 30 mg PO DAILY 06/13/22 06/13/22 History Potassium Chloride ER [K-Dur 20] 20 meq PO DAILY 06/13/22 06/13/22 History Pregabalin [Lyrica] 75 mg PO BID 06/13/22 06/13/22 History Semaglutide [Ozempic] 2 mg SQ WE 06/13/22 06/13/22 History Allergies Allergy/AdvReac Type Severity Reaction Status Date / Time cephalexin monohydrate Allergy Rash/Hives Verified 06/13/22 12:04 [From Keflex] on neck Penicillins Allergy Rash/Hives Verified 06/13/22 12:04 on neck Physical Exam Vitals: Vital Signs Temp Pulse Resp BP Pulse Ox 06/13/22 11:00 80 22 113/98 96 06/13/22 10:00 19 102/54 90 L 06/13/22 09:00 18 86/72 90 L 06/13/22 08:26 98.1 F 79 22 124/68 96 Intake and Output 06/12/22 06/13/22 06/13/22 22:59 06:59 14:59 Other: Weight 134.717 kg - Exam GENERAL: Pt awake and alert, well-nourished, and in no acute distress. HEENT: Atraumatic, normocephalic, Pupils equal, round, and reactive to light, extraocular movements intact, sclera anicteric, conjunctiva are normal.MMM. NECK:Supple, no JVD,without lymphadenopathy. LUNGS:Unlabored, Breath sounds clear to auscultation bilaterally. No wheezes, rales, or rhonchi. HEART: Heart S1, S2, no S3 or S4. No murmurs, rubs or gallops. ABDOMEN: Soft, obese, nontender, nondistended, normoactive bowel sounds. No guarding, no rebound. No masses or organomegaly appreciated. EXTREMITIES: 2+ peripheral pulses. Bilateral lower extremity edema, erythema, cellulitis appearing. Nontender NEUROLOGICAL: Cranial nerves II through XII grossly intact. Generalized weakness of extremities with lower extremities weaker than upper. PSYCH: Alert and Oriented X 3, mood and affect WNL, SKIN: Warm, dry, No rashes, left buttock 1 cm ulcer-stage II without erythema ,drainage Results CBC & Chem 7: 06/13/22 08:50 06/13/22 08:50 Labs: Abnormal Lab Results - Last 24 Hours (Table) 06/13/22 06/13/22 06/13/22 Range/Units 08:50 08:50 08:50 RDW 17.8 H (11.5-15.5) % Carbon Dioxide 31 H (22-30) mmol/L Glucose 121 H (74-99) mg/dL Plasma Lactic Acid Clint 2.5 H* (0.7-2.0) mmol/L Magnesium 1.3 L (1.6-2.3) mg/dL Urine Protein (Negative) Urine Glucose (UA) (Negative) 06/13/22 Range/Units 08:50 RDW (11.5-15.5) % Carbon Dioxide (22-30) mmol/L Glucose (74-99) mg/dL Plasma Lactic Acid Clint (0.7-2.0) mmol/L Magnesium (1.6-2.3) mg/dL Urine Protein Trace H (Negative) Urine Glucose (UA) 4+ H (Negative) Assessment and Plan Assessment: Bilateral lower extremity cellulitis Increased generalized weakness Acute hypoxic respiratory failure Lactic acidosis Left buttock 1 cm ulcer, stage II, present on admission History of DVTs, PE on Xarelto Diabetes mellitus,II controlled Diabetic neuropathy GERD. Hyperlipidemia. Hypertension. Osteoarthritis. Obstructive Sleep apnea with home CPAP use. History of prostate cancer with prostatectomy. Morbid obesity. BMI 45.2 Medical debility, gait dysfunction, uses walker. History of back surgery Chronic urinary incontinence Formal nicotine dependence. Patient smoked a pack a day for more than 28 years. Hypomagnesemia Plan: Continue on current medication regime ,monitoring and symptomatic treatment. IV fluid resuscitation. Magnesium supplementation. Echo ordered. Cellulitis wound care with Silvadene , gauze , Nolan wrap .Neurology, cardiology consult in place, recommendations pending. PT/OT. SW consulted for discharge planning -Potential subacute rehab at discharge. Prognosis guarded given multiple complex medical issues. The impression and plan of care has been dictated as directed. : I performed a history and examination of this patient, discussed the same with the dictator. I agree with the dictator's note ,documented as a scribe. Any additional findings or plans will be noted.
[2022-06-13 17:40] LABS: Glucose,Whole Blood 131 mg/dL (70-110)
[2022-06-13] MEDS: INSULIN ASPART (NovoLOG) 100 UNIT/ML VIAL SQ SCH ×2 (17:41→22:33)
[2022-06-13] MEDS: HYDROcodone/APAP 5-325MG 1 EACH TAB PO PRN (17:51)
[2022-06-13] MEDS: PANTOPRAZOLE 40 MG TABLET PO SCH (17:55)
[2022-06-13 20:05] LABS: Glucose,Whole Blood 146 mg/dL (70-110)
[2022-06-13] MEDS: ATORVASTATIN 40 MG TAB PO SCH (20:40)
[2022-06-13] MEDS: PREGABALIN 75 MG CAP PO SCH (20:40)
[2022-06-13] MEDS: SILVER sulfADIAZINE Cream 400 GM 1 APPLIC APPLIC TOPICAL SCH (22:42)
[2022-06-14 03:12] LABS: Creatine Kinase 454 U/L (35-257)
[2022-06-14 05:30] LABS: Glucose,Whole Blood 119 mg/dL (70-110)
[2022-06-14] MEDS: VANCOMYCIN 2,000 MG in SODIUM CHLORIDE 0.9% 500 ML 500 ML IVPB SCH ×2 (06:14→23:08)
[2022-06-14] MEDS: metFORMIN 500 MG TAB PO SCH ×2 (06:19→17:43)
[2022-06-14] MEDS: DAPAGLIFLOZIN PROPANEDIOL 10 MG TABLET PO SCH (06:20)
[2022-06-14] MEDS: INSULIN ASPART (NovoLOG) 100 UNIT/ML VIAL SQ SCH ×4 (06:20→22:22)
[2022-06-14] MEDS: PANTOPRAZOLE 40 MG TABLET PO SCH ×2 (06:20→17:43)
[2022-06-14] MEDS: HYDROcodone/APAP 5-325MG 1 EACH TAB PO PRN ×2 (06:23→19:55)
[2022-06-14] MEDS: PREGABALIN 75 MG CAP PO SCH ×2 (07:01→22:23)
[2022-06-14] MEDS: FUROSEMIDE 40 MG TAB PO SCH (07:01)
[2022-06-14] MEDS: POTASSIUM CHLORIDE ER 20 MEQ TAB.ER PO SCH ×3 (07:01→16:23)
[2022-06-14] MEDS: PIOGLITAZONE 30 MG TAB PO SCH (07:02)
[2022-06-14] MEDS: NEBIVOLOL 5 MG TAB PO SCH (07:02)
[2022-06-14] MEDS ORDERED: RIVAROXABAN 10 MG TAB PO STA (08:59)
[2022-06-14] MEDS ORDERED: RIVAROXABAN 10 MG TAB PO SCH ×2 (09:00)
[2022-06-14] MEDS: CYANOCOBALAMIN 1,000 MCG/ML 1 ML VIAL IM SCH (10:06)
--- NOTE | 2022-06-14 10:15 | P.CRDCN ---
History of Present Illness Consult date: 06/14/22 History of present illness: HISTORY OF PRESENT ILLNESS: This is a 71-year-old male with a past medical history significant for on a embolism on Xarelto, diabetes, hyperlipidemia, hypertension, obstructive sleep apnea and morbid obesity. 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 We have been asked to see the patient in consultation for weakness. Patient examined at the bedside. Patient presented to the hospital with lower extremity weakness. The patient was found to have lower extremity cellulitis and is being treated with antibiotics. His legs are currently wrapped in Nolan bandages. The patient denied any chest pain or pressure. He denies any shortness of breath. He denies any palpitations. EKG on admission revealed atrial flutter. The patient denies a history of atrial flutter or fibrillation. His rates have been controlled. Blood pressure stable. * EKG reveals atrial flutter with controlled ventricular rates * Chest xray negative for acute process * Laboratory data: WBC 6.2. Hemoglobin 13.3. Platelet count 223. Sodium 140. Potassium 3.5. BUN 14. Creatinine 0.86. ProBNP 484. TSH 1.000. Troponin negative 2. * Current home cardiac medications include Xarelto 10 mg daily, Lasix 40 mg daily, Lipitor 40 mg at night, and Bystolic 5 mg daily REVIEW OF SYSTEMS: At the time of my exam: CONSTITUTIONAL: Denies fever or chills. HEENT: Denies blurred vision, vision changes, or eye pain. Denies hemoptysis CARDIOVASCULAR: Denies chest pain. Denies orthopnea. Denies PND. Denies palpitations RESPIRATORY: Denies shortness of breath. GASTROINTESTINAL: Denies abdominal pain. Denies nausea or vomiting. HEMATOLOGIC: Denies bleeding disorders. GENITOURINARY: Denies any blood in urine. SKIN: Denies pruitis. Denies rash. PHYSICAL EXAM: VITAL SIGNS: Reviewed. GENERAL: Well-developed in no acute distress. HEENT: Head is normocephalic. Pupils are equal, round. Sclerae anicteric. Mucous membranes of the mouth are moist. Neck supple. No JVD or thyromegaly LUNGS: Respirations even and unlabored. Lungs essentially clear to auscultation bilaterally. HEART: Regular rate and rhythm. S1 and S2 heard. ABDOMEN: Soft. Nondistended. Nontender. EXTREMITIES: Normal range of motion. No clubbing or cyanosis. Peripheral pulses intact. Bilateral lower extremities with nolan wraps noted. NEUROLOGIC: Awake and alert. Oriented x 3. ASSESSMENT: Weakness Bilateral lower extremity cellulitis New onset typical atrial flutter with controlled ventricular rates History of pulmonary embolism Hypertension Hyperlipidemia Diabetes Obstructive sleep apnea Morbid obesity PLAN: Increase Xarelto to 20 mg daily for thromboembolic protection Continue additional cardiac medications Obtain 2-D echo to assess cardiac structure and function Patient is stable from a cardiac standpoint We will follow on an as-needed basis. Please call with questions or concerns. He is to follow up outpatient with Dr. Zhou Nurse practitioner note has been reviewed by physician. Signing provider agrees with the documented findings, assessment, and plan of care. Past Medical History Past Medical History: Cancer, Diabetes Mellitus, Deep Vein Thrombosis (DVT), GERD/Reflux, Hyperlipidemia, Hypertension, Osteoarthritis (OA), Pneumonia, Prostate Disorder, Pulmonary Embolus (PE), Skin Disorder, Sleep Apnea/CPAP/BIPAP Additional Past Medical History / Comment(s): open wound to back-has visiting nurse two times per weeks,prostate ca, rt leg dvt, diverticulitis, psoriases, abd hernia,no cpap History of Any Multi-Drug Resistant Organisms: None Reported Past Surgical History: Back Surgery, Cholecystectomy, Hernia Repair, Joint Replacement, Prostate Surgery, Tonsillectomy Additional Past Surgical History / Comment(s): prostectomy, had ruptured diverticuli -colostomy and then reversed, abd hernia, tanisha cataracts, tubes in ears,total rt hip,[facility] Procedures Past Anesthesia/Blood Transfusion Reactions: No Reported Reaction Past Psychological History: No Psychological Hx Reported Additional Psychological History / Comment(s): uses a walker when up. Smoking Status: Former smoker Past Alcohol Use History: None Reported Additional Past Alcohol Use History / Comment(s): SMOKED X 28 YEARS 1PPD. Past Drug Use History: None Reported - Past Family History Father Family Medical History: Cancer Additional Family Medical History / Comment(s): prostate CA Mother Family Medical History: Deep Vein Thrombosis (DVT), Pulmonary Embolus Additional Family Medical History / Comment(s): PROSTATE CNACER Medications and Allergies Home Medications Medication Instructions Recorded Confirmed Type Atorvastatin Calcium [Lipitor] 40 mg PO HS 02/03/15 06/13/22 History Lansoprazole 30 mg PO BID 02/03/15 06/13/22 History Nebivolol HCl [Bystolic] 5 mg PO DAILY 02/03/15 06/13/22 History Empagliflozin/Metformin HCl 2 tab PO W/BRKFST 06/13/22 06/13/22 History [Synjardy Xr 12.5-1,000 mg Tab] Furosemide [Lasix] 40 mg PO DAILY 06/13/22 06/13/22 History HYDROcodone/APAP 5-325MG [[place] 2 tab PO Q8H PRN 06/13/22 06/13/22 History 5-325] Naloxone HCl [Narcan] 4 mg NASAL ONCE PRN 06/13/22 06/13/22 History Pioglitazone [Actos] 30 mg PO DAILY 06/13/22 06/13/22 History Potassium Chloride ER [K-Dur 20] 20 meq PO DAILY 06/13/22 06/13/22 History Pregabalin [Lyrica] 75 mg PO BID 06/13/22 06/13/22 History Semaglutide [Ozempic] 2 mg SQ WE 06/13/22 06/13/22 History Rivaroxaban [Xarelto] 20 mg PO DAILY #90 tab 06/14/22 Rx Allergies Allergy/AdvReac Type Severity Reaction Status Date / Time cephalexin monohydrate Allergy Rash/Hives Verified 06/13/22 12:04 [From Keflex] on neck Penicillins Allergy Rash/Hives Verified 06/13/22 12:04 on neck Physical Exam Vitals: Vital Signs Temp Pulse Pulse Resp BP BP BP 06/14/22 08:56 74 15 06/14/22 07:14 98.5 F 74 15 107/61 06/14/22 01:32 98.1 F 63 20 100/63 06/13/22 20:00 97.3 F L 20 99/62 06/13/22 17:56 98.2 F 80 20 109/50 06/13/22 11:00 80 22 113/98 Pulse Ox 06/14/22 08:56 06/14/22 07:14 96 06/14/22 01:32 95 06/13/22 20:00 96 06/13/22 17:56 95 06/13/22 11:00 96 Intake and Output 06/13/22 06/14/22 06/14/22 22:59 06:59 14:59 Intake Total 580 Output Total 500 450 Balance -500 130 Intake: Intake, IV Titration 100 Amount ceFAZolin 2 gm In Sodium 100 Chloride 0.9% 50 ml @ 100 mls/hr IVPB ONCE ONE Rx# :[id number] Oral 480 Output: Urine 500 450 Other: # Voids 1 Weight 134.717 kg Results 06/13/22 08:50 06/13/22 08:50 Cardiac Enzymes 06/13/22 06/13/22 Range/Units 08:50 17:32 Troponin I <0.012 <0.012 (0.000-0.034) ng/mL Coagulation 06/13/22 Range/Units 09:51 PT 11.9 (9.0-12.0) sec APTT 27.9 (22.0-30.0) sec Current Medications Generic Name Dose Route Start Last Admin Trade Name Freq PRN Reason Stop Dose Admin Hydrocodone Bitart/Acetaminophen 2 each 06/13/22 13:45 06/14/22 06:23 Hydrocodone/Apap 5-325mg 1 Each Tab PO 2 each Q8H PRN Administration Pain Atorvastatin Calcium 40 mg 06/13/22 21:00 06/13/22 20:40 Atorvastatin 40 Mg Tab PO 40 mg HS LORA Administration Cyanocobalamin 1,000 mcg 06/14/22 09:00 06/14/22 10:06 Cyanocobalamin 1,000 Mcg/Ml 1 Ml Vial IM 06/16/22 23:00 1,000 mcg DAILY LORA Administration Dapagliflozin 10 mg 06/14/22 07:30 06/14/22 06:20 Dapagliflozin Propanediol 10 Mg Tablet PO 10 mg W/BRKFST LORA Administration Dextrose/Water 25 ml 06/13/22 16:16 Dextrose 50% Syringe 50 Ml IVP PER PROTOCOL PRN Hypoglycemia Protocol Dextrose/Water 50 ml 06/13/22 16:16 Dextrose 50% Syringe 50 Ml IVP PER PROTOCOL PRN Hypoglycemia Protocol Furosemide 40 mg 06/14/22 09:00 06/14/22 07:01 Furosemide 40 Mg Tab PO 40 mg DAILY LORA Administration Vancomycin HCl 2,000 mg/ 500 mls @ 167 mls/hr 06/14/22 06:00 06/14/22 06:14 Sodium Chloride IVPB 167 mls/hr Q16H LORA Administration Insulin Aspart 0 unit 06/13/22 17:30 06/14/22 06:20 Insulin Aspart (Novolog) 100 Unit/Ml Vial SQ Not Given ACHS LORA Protocol Metformin HCl 1,000 mg 06/14/22 07:30 06/14/22 06:19 Metformin 500 Mg Tab PO 1,000 mg BID-W/MEALS LORA Administration Miscellaneous Information 1 each 06/13/22 11:08 Magnesium Replacement Protocol 1 Each Misc MISCELLANE DAILY PRN Per Protocol Protocol Miscellaneous Information 1 each 06/13/22 16:15 Potassium Replacement Protocol 1 Each Misc MISCELLANE DAILY PRN Per Protocol Protocol Naloxone HCl 0.2 mg 06/13/22 11:09 Naloxone 0.4 Mg/Ml 1 Ml Vial IV Q2M PRN Opioid Reversal Nebivolol 5 mg 06/14/22 09:00 06/14/22 07:02 Nebivolol 5 Mg Tab PO Not Given DAILY [facility] Non-Formulary Medication 2 mg 06/13/22 16:36 06/13/22 17:14 Semaglutide [Ozempic] SQ Not Given [facility] Pantoprazole Sodium 40 mg 06/13/22 17:30 06/14/22 06:20 Pantoprazole 40 Mg Tablet PO 40 mg AC-BID LORA Administration Pioglitazone HCl 30 mg 06/14/22 09:00 06/14/22 07:02 Pioglitazone 30 Mg Tab PO Not Given DAILY [facility] Potassium Chloride 20 meq 06/14/22 09:00 06/14/22 07:01 Potassium Chloride Er 20 Meq Tab.Er PO 20 meq DAILY LORA Administration Pregabalin 75 mg 06/13/22 21:00 06/14/22 07:01 Pregabalin 75 Mg Cap PO 75 mg BID LORA Administration Rivaroxaban 20 mg 06/15/22 09:00 Rivaroxaban 20 Mg Tab PO DAILY [facility] Protocol Silver Sulfadiazine 1 applic 06/13/22 17:30 06/13/22 22:42 Silver Sulfadiazine Cream 400 Gm 1 Applic Applic TOPICAL 1 applic DAILY LORA Administration Protocol Intake and Output 06/13/22 06/14/22 06/14/22 22:59 06:59 14:59 Intake Total 580 Output Total 500 450 Balance -500 130 Intake: Intake, IV Titration 100 Amount ceFAZolin 2 gm In Sodium 100 Chloride 0.9% 50 ml @ 100 mls/hr IVPB ONCE ONE Rx# :[id number] Oral 480 Output: Urine 500 450 Other: # Voids 1 Weight 134.717 kg 06/13/22 08:50 06/13/22 08:50
[2022-06-14 10:47] LABS: Basophils # (A) 0.06 X 10*3/uL (0.00-0.10); Basophils % (A) 0.8 %; Eosinophils # (A) 0.22 X 10*3/uL (0.04-0.35); HGB 11.2 g/dL (13.0-17.0); Immature Grans, Automated 0.4 %; Lymphocytes % (A) 14.9 %; MCH 25.2 pg (27.0-32.0); MCHC 29.5 g/dL (32.0-37.0); MCV 85.4 fL (80.0-97.0); Mean Platelet Volume 8.9 fL (9.5-12.2); Monocytes # (A) 0.57 X 10*3/uL (0.20-1.00); Monocytes % (A) 7.7 %; NRBC Per 100 WBC 0 /100 WBCS (0.0-0.0); Neutrophils # (A) 5.39 X 10*3/uL (1.80-7.70); Neutrophils % (A) 73.2 %; Platelet Count 220 X 10*3/uL (140-440); RBC 4.45 X 10*6/uL (4.40-5.60); RDW 18.6 % (11.5-14.5); WBC 7.37 X 10*3/uL (4.50-10.00)
[2022-06-14 11:14] LABS: Glucose,Whole Blood 115 mg/dL (70-110)
[2022-06-14 11:15] LABS: Anion Gap 10.6 mmol/L (10.00-18.00); BUN/Creat Ratio 9.72 Ratio (12.00-20.00); Blood Urea Nitrogen 8.5 mg/dL (9.0-27.0); Calcium 8.4 mg/dL (8.7-10.3); Carbon Dioxide 30.2 mmol/L (20.0-27.5); Magnesium 1.7 mg/dL (1.5-2.4); Non-African American GFR(CKD) 86.3 (60.0-200.0); Potassium 3.4 mmol/L (3.5-5.5)
--- NOTE | 2022-06-14 11:37 | P.CONS ---
History of Present Illness - Reason for Consult Consult date: 06/14/22 wound care - History of Present Illness This is a 71-year-old patient with history of a pressure ulceration to the right buttocks that has healed previously. Patient currently has a pressure ulcer to the left buttocks measuring approximately 0.6 x 0.6 x 0.1 cm ulceration has fat layer exposure with granulation noted within the wound bed the wound edges are attached to the wound base there is no tunneling or undermining. The periwound does not show any maceration or excoriation. Patient's past medical history significant for diabetes. Review Of Systems: Constitutional: No fever, no chills, no night sweats. No weight change. No weakness, fatigue or lethargy. No daytime sleepiness. Integumentary:reports wounds, no lesions. No rash or pruritus. No unusual bruising. No change in hair or nails. Physical exam: General Appearance: Alert, cooperative, no distress, appears stated age. Skin: See HPI all other Skin color, texture, tugor normal, no rashes or lesions. Neurologic: Alert oriented x3 Assessment: 1. Stage II pressure ulcer left buttocks 2. Diabetes with skin ulceration Plan: 1. Apply honey gel and border foam to the site change Saturday. Patient is unable to tolerate the border foam may apply triad daily to the site. Thank you for the consultation any questions was contact the wound care center DNP note has been reviewed and discussed with Dr. Marcus and the impression and plan of care has been directed as dictated. Past Medical History Past Medical History: Cancer, Diabetes Mellitus, Deep Vein Thrombosis (DVT), GERD/Reflux, Hyperlipidemia, Hypertension, Osteoarthritis (OA), Pneumonia, Prostate Disorder, Pulmonary Embolus (PE), Skin Disorder, Sleep Apnea/CPAP/BIPAP Additional Past Medical History / Comment(s): open wound to back-has visiting nurse two times per weeks,prostate ca, rt leg dvt, diverticulitis, psoriases, abd hernia,no cpap History of Any Multi-Drug Resistant Organisms: None Reported Past Surgical History: Back Surgery, Cholecystectomy, Hernia Repair, Joint Replacement, Prostate Surgery, Tonsillectomy Additional Past Surgical History / Comment(s): prostectomy, had ruptured diverticuli -colostomy and then reversed, abd hernia, tanisha cataracts, tubes in ears,total rt hip,[facility] Procedures Past Anesthesia/Blood Transfusion Reactions: No Reported Reaction Past Psychological History: No Psychological Hx Reported Additional Psychological History / Comment(s): uses a walker when up. Smoking Status: Former smoker Past Alcohol Use History: None Reported Additional Past Alcohol Use History / Comment(s): SMOKED X 28 YEARS 1PPD. Past Drug Use History: None Reported - Past Family History Father Family Medical History: Cancer Additional Family Medical History / Comment(s): prostate CA Mother Family Medical History: Deep Vein Thrombosis (DVT), Pulmonary Embolus Additional Family Medical History / Comment(s): PROSTATE CNACER Medications and Allergies Home Medications Medication Instructions Recorded Confirmed Type Atorvastatin Calcium [Lipitor] 40 mg PO HS 02/03/15 06/13/22 History Lansoprazole 30 mg PO BID 02/03/15 06/13/22 History Nebivolol HCl [Bystolic] 5 mg PO DAILY 02/03/15 06/13/22 History Empagliflozin/Metformin HCl 2 tab PO W/BRKFST 06/13/22 06/13/22 History [Synjardy Xr 12.5-1,000 mg Tab] Furosemide [Lasix] 40 mg PO DAILY 06/13/22 06/13/22 History HYDROcodone/APAP 5-325MG [[place] 2 tab PO Q8H PRN 06/13/22 06/13/22 History 5-325] Naloxone HCl [Narcan] 4 mg NASAL ONCE PRN 06/13/22 06/13/22 History Pioglitazone [Actos] 30 mg PO DAILY 06/13/22 06/13/22 History Potassium Chloride ER [K-Dur 20] 20 meq PO DAILY 06/13/22 06/13/22 History Pregabalin [Lyrica] 75 mg PO BID 06/13/22 06/13/22 History Semaglutide [Ozempic] 2 mg SQ WE 06/13/22 06/13/22 History Rivaroxaban [Xarelto] 20 mg PO DAILY #90 tab 06/14/22 Rx Allergies Allergy/AdvReac Type Severity Reaction Status Date / Time cephalexin monohydrate Allergy Rash/Hives Verified 06/13/22 12:04 [From Keflex] on neck Penicillins Allergy Rash/Hives Verified 06/13/22 12:04 on neck Physical Exam Vitals: Vital Signs Temp Pulse Pulse Resp BP BP BP 06/14/22 08:56 74 15 06/14/22 07:14 98.5 F 74 15 107/61 06/14/22 01:32 98.1 F 63 20 100/63 06/13/22 20:00 97.3 F L 20 99/62 06/13/22 17:56 98.2 F 80 20 109/50 Pulse Ox 06/14/22 08:56 06/14/22 07:14 96 06/14/22 01:32 95 06/13/22 20:00 96 06/13/22 17:56 95 Intake and Output 06/13/22 06/14/22 06/14/22 22:59 06:59 14:59 Intake Total 580 Output Total 500 450 Balance -500 130 Intake: Intake, IV Titration 100 Amount ceFAZolin 2 gm In Sodium 100 Chloride 0.9% 50 ml @ 100 mls/hr IVPB ONCE ONE Rx# :[id number] Oral 480 Output: Urine 500 450 Other: # Voids 1 Weight 134.717 kg Results CBC & Chem 7: 06/14/22 08:00 06/14/22 08:00 Labs: Abnormal Lab Results - Last 24 Hours (Table) 06/13/22 06/13/22 06/13/22 Range/Units 16:39 17:32 17:39 Hgb (13.0-17.0) g/dL Hct (39.6-50.0) % MCH (27.0-32.0) pg MCHC (32.0-37.0) g/dL RDW (11.5-14.5) % MPV (9.5-12.2) fL Sodium (135-145) mmol/L Potassium (3.5-5.5) mmol/L Carbon Dioxide (20.0-27.5) mmol/L BUN (9.0-27.0) mg/dL BUN/Creatinine Ratio (12.00-20.00) Ratio Glucose (70-110) mg/dL POC Glucose (mg/dL) 131 H (70-110) mg/dL Hemoglobin A1c (0.0-6.0) % Plasma Lactic Acid Clint 2.2 H* (0.7-2.0) mmol/L Calcium (8.7-10.3) mg/dL Creatine Kinase 454 H (35-257) U/L 06/13/22 06/14/22 06/14/22 Range/Units 20:04 05:29 08:00 Hgb (13.0-17.0) g/dL Hct (39.6-50.0) % MCH (27.0-32.0) pg MCHC (32.0-37.0) g/dL RDW (11.5-14.5) % MPV (9.5-12.2) fL Sodium (135-145) mmol/L Potassium (3.5-5.5) mmol/L Carbon Dioxide (20.0-27.5) mmol/L BUN (9.0-27.0) mg/dL BUN/Creatinine Ratio (12.00-20.00) Ratio Glucose (70-110) mg/dL POC Glucose (mg/dL) 146 H 119 H (70-110) mg/dL Hemoglobin A1c 6.8 H (0.0-6.0) % Plasma Lactic Acid Clint (0.7-2.0) mmol/L Calcium (8.7-10.3) mg/dL Creatine Kinase (35-257) U/L 06/14/22 06/14/22 06/14/22 Range/Units 08:00 08:00 11:13 Hgb 11.2 L (13.0-17.0) g/dL Hct 38.0 L (39.6-50.0) % MCH 25.2 L (27.0-32.0) pg MCHC 29.5 L (32.0-37.0) g/dL RDW 18.6 H (11.5-14.5) % MPV 8.9 L (9.5-12.2) fL Sodium 146 H (135-145) mmol/L Potassium 3.4 L (3.5-5.5) mmol/L Carbon Dioxide 30.2 H (20.0-27.5) mmol/L BUN 8.5 L (9.0-27.0) mg/dL BUN/Creatinine Ratio 9.72 L (12.00-20.00) Ratio Glucose 122 H (70-110) mg/dL POC Glucose (mg/dL) 115 H (70-110) mg/dL Hemoglobin A1c (0.0-6.0) % Plasma Lactic Acid Clint (0.7-2.0) mmol/L Calcium 8.4 L (8.7-10.3) mg/dL Creatine Kinase (35-257) U/L Assessment and Plan (1) Stage II pressure ulcer of left buttock Current Visit: Yes Status: Acute Code(s): L89.322 - PRESSURE ULCER OF LEFT BUTTOCK, STAGE 2 SNOMED Code(s): 21280243101261 (2) Diabetes mellitus with skin ulcer Current Visit: Yes Status: Acute Code(s): E11.622 - TYPE 2 DIABETES MELLITUS WITH OTHER SKIN ULCER; L98.499 - NON-PRESSURE CHRONIC ULCER OF SKIN OF SITES W UNSP SEVERITY SNOMED Code(s): 25354843
--- NOTE | 2022-06-14 12:13 | P.CNNES ---
History of Present Illness Consult date: 06/14/22 Requesting physician: Robert Meyer Reason for Consult: weakness History of Present Illness: This is a 71-year-old gentleman who presented emergency department via EMS because of weakness in his lower extremity. Patient stated that with the past 1 week he is having weakness in the legs and the usually uses able to walk with a walker for the past 1 week and he is even having a hard time getting out of the chair. His legs has been increasingly swollen. He does have history of DVT and pulmonary embolism. He does have a chronic lower back pain but feels somewhat worse and it's over the entire lower back pain but denies any radiation. He denies any worsening of the weakness in the beginning the day or the end of the day at. Denies any falls. Denies any ptosis. Denies any diplopia. Denies any difficulty swallowing. Denies any weakness of upper extremity. Of note per the ED the patient has a small 1 cm pressure ulcer in the left buttocks. Also the ED felt the patient has bilateral lower extremity isn't e rythematous with pitting edema and the patient will be treated for cellulitis. Some other workup during his hospital visit consisted of: CK level is 454 (normal is between 35-257) TSH is 1.0 Vitamin B12 is 286 and the serum folate is 24. Plasma Lactic acid vein initially is 2.5 and repeat was 2.2. Otherwise the glucose is 121. Calcium is normal magnesium is slightly low as 1.3. 18 ALTs within normal limits. Review of Systems Review of system: The 12 point system was reviewed and apparent positive and negative per HPI. Past Medical History Past Medical History: Cancer, Diabetes Mellitus, Deep Vein Thrombosis (DVT), GERD/Reflux, Hyperlipidemia, Hypertension, Osteoarthritis (OA), Pneumonia, Prostate Disorder, Pulmonary Embolus (PE), Skin Disorder, Sleep Apnea/CPAP/BIPAP Additional Past Medical History / Comment(s): open wound to back-has visiting nurse two times per weeks,prostate ca, rt leg dvt, diverticulitis, psoriases, abd hernia,no cpap History of Any Multi-Drug Resistant Organisms: None Reported Past Surgical History: Back Surgery, Cholecystectomy, Hernia Repair, Joint Replacement, Prostate Surgery, Tonsillectomy Additional Past Surgical History / Comment(s): prostectomy, had ruptured diverticuli -colostomy and then reversed, abd hernia, tanisha cataracts, tubes in ears,total rt hip,[facility] Procedures Past Anesthesia/Blood Transfusion Reactions: No Reported Reaction Past Psychological History: No Psychological Hx Reported Additional Psychological History / Comment(s): uses a walker when up. Smoking Status: Former smoker Past Alcohol Use History: None Reported Additional Past Alcohol Use History / Comment(s): SMOKED X 28 YEARS 1PPD. Past Drug Use History: None Reported - Past Family History Father Family Medical History: Cancer Additional Family Medical History / Comment(s): prostate CA Mother Family Medical History: Deep Vein Thrombosis (DVT), Pulmonary Embolus Additional Family Medical History / Comment(s): PROSTATE CNACER Medications and Allergies Home Medications Medication Instructions Recorded Confirmed Type Atorvastatin Calcium [Lipitor] 40 mg PO HS 02/03/15 06/13/22 History Lansoprazole 30 mg PO BID 02/03/15 06/13/22 History Nebivolol HCl [Bystolic] 5 mg PO DAILY 02/03/15 06/13/22 History Empagliflozin/Metformin HCl 2 tab PO W/BRKFST 06/13/22 06/13/22 History [Synjardy Xr 12.5-1,000 mg Tab] Furosemide [Lasix] 40 mg PO DAILY 06/13/22 06/13/22 History HYDROcodone/APAP 5-325MG [Alda 2 tab PO Q8H PRN 06/13/22 06/13/22 History 5-325] Naloxone HCl [Narcan] 4 mg NASAL ONCE PRN 06/13/22 06/13/22 History Pioglitazone [Actos] 30 mg PO DAILY 06/13/22 06/13/22 History Potassium Chloride ER [K-Dur 20] 20 meq PO DAILY 06/13/22 06/13/22 History Pregabalin [Lyrica] 75 mg PO BID 06/13/22 06/13/22 History Semaglutide [Ozempic] 2 mg SQ WE 06/13/22 06/13/22 History Rivaroxaban [Xarelto] 20 mg PO DAILY #90 tab 06/14/22 Rx Allergies Allergy/AdvReac Type Severity Reaction Status Date / Time cephalexin monohydrate Allergy Rash/Hives Verified 06/13/22 12:04 [From Keflex] on neck Penicillins Allergy Rash/Hives Verified 06/13/22 12:04 on neck Physical Examination - Vital Signs Vital Signs: Vital Signs Temp Pulse Pulse Resp BP BP BP 06/14/22 08:56 74 15 06/14/22 07:14 98.5 F 74 15 107/61 06/14/22 01:32 98.1 F 63 20 100/63 06/13/22 20:00 97.3 F L 20 99/62 06/13/22 17:56 98.2 F 80 20 109/50 Pulse Ox 06/14/22 08:56 06/14/22 07:14 96 06/14/22 01:32 95 06/13/22 20:00 96 06/13/22 17:56 95 Intake and Output 06/13/22 06/14/22 06/14/22 22:59 06:59 14:59 Intake Total 580 Output Total 500 450 Balance -500 130 Intake: Intake, IV Titration 100 Amount ceFAZolin 2 gm In Sodium 100 Chloride 0.9% 50 ml @ 100 mls/hr IVPB ONCE ONE Rx# :[id number] Oral 480 Output: Urine 500 450 Other: # Voids 1 Weight 134.717 kg GENERAL: The patient is lying in bed and is not in acute distress. CHEST: The heart rate is regular rate rhythm. No murmurs to auscultation. LUNG: Clear to auscultation bilaterally no wheezing noted throughout. Not labored breathing. ABDOMEN/GI: Bowel sounds present in all 4 quadrants. No tenderness to palpation throughout. INTEGUMENTARY: Lowers are wrapped. NEUROLOGICAL: Higher mental function: The patient is awake, alert, oriented to self, place and time. Patient is following commands. No aphasia and no neglect. Cranial nerves: The pupils are round, equal and reactive to light and accommodation. Visual neal are full to confrontation throughout. Extraocular movement is intact no nystagmus is noted. Facial sensation is normal to touch throughout. The facial strength is normal throughout. Hearing is normal bilaterally to hand rub. Tongue is midline and moved [id number] without any difficulty. No dysarthria is noted. Shoulder shrug is normal bilaterally. Motor: The strength is hard to assess individual muscle in lowers because edema but seems strong without any focality. Uppers are 5 over 5 throughout. Has edema in lower. Normal tone. Cerebellum: Normal finger to nose heel to chin bilaterally. Sensation: Sensation is normal to touch throughout. Reflexes (right/left): 1+ in uppers while lowers are hard to assess. Plantars are downgoing bilaterally. Results - Laboratory Findings CBC and BMP: 06/14/22 08:00 06/14/22 08:00 Abnormal Lab Findings: Abnormal Labs 06/13/22 06/13/22 06/13/22 08:50 08:50 08:50 Hgb Hct MCH MCHC RDW 17.8 H MPV Sodium Potassium Carbon Dioxide 31 H BUN BUN/Creatinine Ratio Glucose 121 H POC Glucose (mg/dL) Hemoglobin A1c Plasma Lactic Acid Clint 2.5 H* Calcium Magnesium 1.3 L Creatine Kinase Urine Protein Urine Glucose (UA) 06/13/22 06/13/22 06/13/22 08:50 16:39 17:32 Hgb Hct MCH MCHC RDW MPV Sodium Potassium Carbon Dioxide BUN BUN/Creatinine Ratio Glucose POC Glucose (mg/dL) Hemoglobin A1c Plasma Lactic Acid Clint 2.2 H* Calcium Magnesium Creatine Kinase 454 H Urine Protein Trace H Urine Glucose (UA) 4+ H 06/13/22 06/13/22 06/14/22 17:39 20:04 05:29 Hgb Hct MCH MCHC RDW MPV Sodium Potassium Carbon Dioxide BUN BUN/Creatinine Ratio Glucose POC Glucose (mg/dL) 131 H 146 H 119 H Hemoglobin A1c Plasma Lactic Acid Clint Calcium Magnesium Creatine Kinase Urine Protein Urine Glucose (UA) 06/14/22 06/14/22 06/14/22 08:00 08:00 08:00 Hgb 11.2 L Hct 38.0 L MCH 25.2 L MCHC 29.5 L RDW 18.6 H MPV 8.9 L Sodium 146 H Potassium 3.4 L Carbon Dioxide 30.2 H BUN 8.5 L BUN/Creatinine Ratio 9.72 L Glucose 122 H POC Glucose (mg/dL) Hemoglobin A1c 6.8 H Plasma Lactic Acid Clint Calcium 8.4 L Magnesium Creatine Kinase Urine Protein Urine Glucose (UA) 06/14/22 11:13 Hgb Hct MCH MCHC RDW MPV Sodium Potassium Carbon Dioxide BUN BUN/Creatinine Ratio Glucose POC Glucose (mg/dL) 115 H Hemoglobin A1c Plasma Lactic Acid Clint Calcium Magnesium Creatine Kinase Urine Protein Urine Glucose (UA) Assessment and Plan Assessment: Lower extremity weakness seems possible bilateral lower extremity edema and it w as felt has possible cellutlitis. No focality on examination. Chronic lower back pain Very Low normal vitamin B12 Pressure ulcer in the left buttock Diabetes mellitus Hypertension History of DVT History of pulmonary embolism Plan: I started the patient on the vitamin B12 [address] lumbar. PT OT are consulted Cardiology ordered a 2-D echo. One fears consulted We'll defer the rest of the medical management to primary team The plan was discussed with the patient. Thank you for the consultation. Time with Patient: Greater than 30
[2022-06-14] MEDS: SILVER sulfADIAZINE Cream 400 GM 1 APPLIC APPLIC TOPICAL SCH ×2 (12:18→23:02)
--- NOTE | 2022-06-14 13:30 | CT ---
EXAMINATION TYPE: CT lumbar spine wo con DATE OF EXAM: 06/14/2022 1:16 PM COMPARISON: Plain film 08/11/2020 HISTORY: Bilateral leg numbness and lower back pain. CT DLP: 1888.4 mGycm Automated exposure control for dose reduction was used. Unenhanced CT of the lumbar spine was performed. Bone and soft tissue window settings are submitted as well as coronal and sagittal reconstructions. Rotoscoliosis convex to the left. L1-L2: There is moderate disc desiccation noted with posterior disc bulge. Mild encapsulating spur re sulting in disc endplate complex. There is constriction of the thecal sac with borderline stenosis pr esent. Facet joint arthropathy with mild bilateral foraminal encroachment. L2-L3: There is moderate disc desiccation noted with posterior disc bulge. Mild encapsulating spur re sulting in disc endplate complex. There is constriction of the thecal sac with borderline stenosis pr esent. Facet joint arthropathy with mild bilateral foraminal encroachment. L3-L4: Vacuum disc noted with posterior disc bulge enlarging capsulating squared resulting in a disc endplate complex. Changes of decompressive laminectomy. Lack of contrast limits evaluation for recurr ent or residual disease. Suspect bilateral lateral recess stenosis and bilateral foraminal encroachme nt. L4-L5: Vacuum disc noted with posterior disc bulge enlarging capsulating squared resulting in a disc endplate complex. Changes of decompressive laminectomy. Lack of contrast limits evaluation for recurr ent or residual disease. Suspect bilateral lateral recess stenosis and bilateral foraminal encroachme nt. L5-S1: Moderate degenerative disc space narrowing with posterior disc bulge. Decompressive laminectom y. Bilateral foraminal encroachment. No evidence for recurrent or residual disease although lack of c ontrast limits evaluation. No evidence for fracture or malalignment. Large left renal cyst upper pole left kidney as well as non obstructing nephrolithiasis. Nonobstructing nephrolithiasis right kidney. IMPRESSION: 1. Rotoscoliosis convex to the left with multilevel degenerative disc disease as outlined above. 2. Decompressive laminectomy L3-L5 S1
[2022-06-14] MEDS ORDERED: Potassium Replacement Protocol 1 EACH MISC MISCELLANE PRN (13:35)
[2022-06-14] MEDS ORDERED: Magnesium Replacement Protocol 1 EACH MISC MISCELLANE PRN (13:35)
--- NOTE | 2022-06-14 13:59 | P.PN ---
Subjective Progress Note Date: 06/14/22 H&P Date: 06/13/22 Chief Complaint: Cellulitis, increased lower extremity weakness Patient has a medical history significant for type 2 diabetes mellitus, GERD, hyperlipidemia, osteoarthritis, pneumonia, obstructive sleep apnea with home CPAP, diverticulitis, psoriasis, prostate cancer, bilateral legs DVT/pulmonary embolism on Xarelto , back surgery, former nicotine dependence, gait dysfunction and uses a walker provided and GERD a EMS for worsening generalized weakness times one month, cellulitis/edema of lower extremities. Reports over the last we ek his lower extremity weakness progressively worsened, slid out of his chair, multiple times, couldn't get up and called EMS for assistance. Positive bowel control. Chronic urinary incontinence. Denies chest pain, palpitations or shortness of breath. Troponin negative 1, proBNP 484, EKG reported new onset a-flutter, O2 sat on room air 93% on admission, decreased to 90%, requiring 2 L nasal cannula. Chest x-ray reported no acute process. Afebrile, normal WBC, unremarkable hematology panel, INR 1.1, sodium 140, potassium 3.5, bicarb 31, BUN 14, creatinine 0.86, glucose 121, lactic acid 2.5, magnesium 1.3, UA 4+ glucose. Received IV fluid hydration, antibiotics initiated. PCP reports cheryl jaimes has a history of MRSA. 06/14/2022 maintained on IV fluid hydration, lactic acid now WNL.Continues on local wound care of bilateral lower extremities with Silvadene/Nolan wraps, vancomycin secondary to cellulitis with history of MRSA, renal function stable.afebrile, normal WBC.Complains of worsened lower mid back pain this morning, nonradiating. Evaluated by cardiology and wound care team with recommendations noted and appreciated. Positive diet intake. Denies nausea vomiting or diarrhea. Denies chest pain, palpitations or shortness of breath. Maintaining O2 sats of mid 90s on 2 L nasal cannula. Echo completed, results pending. Feels better this morning, acknowledges his significant weakness and asking to go to subacute rehab at discharge. Potassium 3.4, magnesium 1.7, replacement protocols ordered. Hemoglobin A1c 6.8. Objective - Vital Signs Vital signs: Vital Signs Temp 98.5 F 06/14/22 07:14 Pulse 74 06/14/22 08:56 Resp 15 06/14/22 08:56 BP 107/61 06/14/22 07:14 Pulse Ox 96 06/14/22 07:14 FiO2 Intake & Output 06/13/22 06/14/22 06/14/22 18:59 06:59 18:59 Intake Total 580 Output Total 950 Balance -370 Weight 134.717 kg 134.717 kg Intake: Intake, IV Titration 100 Amount ceFAZolin 2 gm In Sodium 100 Chloride 0.9% 50 ml @ 100 mls/hr IVPB ONCE ONE Rx# :[id number] Oral 480 Output: Urine 950 Other: # Voids 1 - Exam - Exam GENERAL: Alert and oriented 3, Sitting up in bed,NAD HEENT: Atraumatic, normocephalic, Pupils equal, round, and reactive to light, conjunctiva are normal.MMM. NECK:Supple, no JVD LUNGS:Unlabored, Breath sounds clear to auscultation bilaterally. No wheezes, rales, or rhonchi. HEART: Heart S1, S2, no S3 or S4. No murmurs, rubs or gallops. ABDOMEN: Soft, obese, nontender, nondistended, normoactive bowel sounds. No guarding, no rebound. No masses or organomegaly appreciated. EXTREMITIES: 2+ peripheral pulses. Bilateral lower extremity edema, Nolan wrapped, toes warm NEUROLOGICAL: Cranial nerves II through XII grossly intact. Lower extremities weakness. SKIN: Warm, dry, No rashes, left buttock ulcer dressing clean, dry and intact. - Labs CBC & Chem 7: 06/14/22 08:00 06/14/22 08:00 Labs: Abnormal Lab Results - Last 24 Hours (Table) 06/13/22 06/13/22 06/13/22 Range/Units 08:50 16:39 17:32 POC Glucose (mg/dL) (70-110) mg/dL Plasma Lactic Acid Clint 2.5 H* 2.2 H* (0.7-2.0) mmol/L Creatine Kinase 454 H (35-257) U/L 06/13/22 06/13/22 06/14/22 Range/Units 17:39 20:04 05:29 POC Glucose (mg/dL) 131 H 146 H 119 H (70-110) mg/dL Plasma Lactic Acid Clint (0.7-2.0) mmol/L Creatine Kinase (35-257) U/L Assessment and Plan Assessment: Bilateral lower extremity cellulitis Increased generalized weakness Atrial flutter, new onset. Acute hypoxic respiratory failure Lactic acidosis Left buttock 1 cm ulcer, stage II, present on admission History of DVTs, PE on Xarelto Diabetes mellitus,II controlled, hemoglobin A1c 6.8 Diabetic neuropathy GERD. Hyperlipidemia. Hypertension. Osteoarthritis. Obstructive Sleep apnea with home CPAP use. History of prostate cancer with prostatectomy. Morbid obesity. BMI 45.2 Medical debility, gait dysfunction, uses walker. History of back surgery Chronic urinary incontinence Formal nicotine dependence. Patient smoked a pack a day for more than 28 years. COPD,stable Hypomagnesemia Plan: Continue on current medication regime ,monitoring and symptomatic treatment. Potassium and Magnesium supplementation per replacement protocols ordered. Xarelto dose increased secondary to atrial flutter.Echo results pending. Local wound care of bilateral lower extremities and left buttock ulcer as ordered.Neurology consult in place, recommendations pending. PT/OT. Discharge planning in progress for subacute rehab at discharge. Prognosis guarded given multiple complex medical issues. The impression and plan of care has been dictated as directed. : I performed a history and examination of this patient, discussed the same with the dictator. I agree with the dictator's note ,documented as a scribe. Any additional findings or plans will be noted.
[2022-06-14] MEDS: HYDROPHILIC CREAM 180 GM TUBE TOPICAL SCH (14:23)
--- NOTE | 2022-06-14 15:53 | CA ---
Transthoracic Echo Report Name: Amilcar Mccarty Age: 71 Gender: M : 1950 Exam Date: 06/14/2022 09:34 Exam Location: [facility] Ht (in): 68 Wt (lb): 297 Ordering Physician: Rody Denton Attending/Referring Phys: Experimental Display Builder Tomasa Rock RDCS Procedure CPT: Indications: Increased generalized weakness, hypoxia Cardiac Hx: Technical Quality: Fair Contrast 1: Total Dose (mL): Contrast 2: Total Dose (mL): MEASUREMENTS (Male / Female) Normal Values 2D ECHO LV Diastolic Diameter PLAX 5.9 cm 4.2 - 5.9 / 3.9 - 5.3 cm LV Systolic Diameter PLAX 4.8 cm IVS Diastolic Thickness 1.3 cm 0.6 - 1.0 / 0.6 - 0.9 cm LVPW Diastolic Thickness 1.3 cm 0.6 - 1.0 / 0.6 - 0.9 cm LV Relative Wall Thickness 0.4 RV Internal Dim ED PLAX 3.8 cm LA Systolic Diameter LX 4.4 cm 3.0 - 4.0 / 2.7 - 3.8 cm LA Volume 64.5 cm??? 18 - 58 / 22 - 52 cm??? M-MODE Aortic Root Diameter MM 3.9 cm MV E Point Septal Separation 0.6 cm AV Cusp Separation MM 2.5 cm DOPPLER AV Peak Velocity 200.4 cm/s AV Peak Gradient 16.1 mmHg AV Mean Velocity 132.5 cm/s AV Mean Gradient 8.0 mmHg AV Velocity Time Integral 39.8 cm MV Area PHT 3.2 cm??? MV Deceleration Time 260.3 ms TR Peak Velocity 228.7 cm/s TR Peak Gradient 20.9 mmHg Right Ventricular Systolic Press 25.2 mmHg FINDINGS Left Ventricle Left ventricular ejection fraction is estimated at 50-55 %. Left ventricular cavity size normal. Mild concentric left ventricular hypertrophy. Normal left ventricular wall motion. Right Ventricle Moderate right ventricular dilatation. Right ventricular systolic pressure within normal limits. Right Atrium Normal right atrial size. Left Atrium Mildly increased left atrial diameter. Mildly increased left atrial volume. Mitral Valve Structurally normal mitral valve. No mitral stenosis. No evidence for mitral valve prolapse. Trace to mild mitral regurgitation. Aortic Valve Trileaflet aortic valve. Aortic valve sclerosis. Mild aortic stenosis with a peak gradient of 16 mmHg and a mean gradient of 8 trileaflet aortic valve. mmHg. Tricuspid Valve Structurally normal tricuspid valve. Mild tricuspid regurgitation. Pulmonic Valve Structurally normal pulmonic valve. Trace pulmonic regurgitation. Pericardium Normal pericardium. No pericardial effusion. Aorta Mild aortic dilatation at the level of the sinuses of valsalva 39 mm CONCLUSIONS LVH with ejection fraction of 50-55% RV enlargement Mild aortic stenosis, calcific Previewed by: Dr. Getachew Zhou MD (Electronically Signed) Final Date: 14 June 2022 15:52
[2022-06-14 16:32] LABS: Chol/HDL Ratio 2.67 Ratio; LDL Cholesterol,Calculated 34.6 mg/dL (0.0-131.0)
[2022-06-14 16:45] LABS: Glucose,Whole Blood 112 mg/dL (70-110)
[2022-06-14 20:25] LABS: Glucose,Whole Blood 129 mg/dL (70-110)
[2022-06-14] MEDS: ATORVASTATIN 40 MG TAB PO SCH (22:23)
[2022-06-15] MEDS: metFORMIN 500 MG TAB PO SCH ×2 (06:26→17:11)
[2022-06-15] MEDS: INSULIN ASPART (NovoLOG) 100 UNIT/ML VIAL SQ SCH ×4 (06:26→21:20)
[2022-06-15] MEDS: PANTOPRAZOLE 40 MG TABLET PO SCH ×2 (06:26→17:10)
[2022-06-15] MEDS: DAPAGLIFLOZIN PROPANEDIOL 10 MG TABLET PO SCH (06:26)
[2022-06-15 06:27] LABS: Glucose,Whole Blood 97 mg/dL (70-110)
[2022-06-15 07:23] LABS: African American GFR (CKD) >90 (>60 ml/min/1.73 sqM); Non-African American GFR(CKD) >90 (>60 ml/min/1.73 sqM)
[2022-06-15 07:36] LABS: Magnesium 1.5 mg/dL (1.6-2.3)
[2022-06-15] MEDS: PIOGLITAZONE 30 MG TAB PO SCH (09:15)
[2022-06-15] MEDS: POTASSIUM CHLORIDE ER 20 MEQ TAB.ER PO SCH (09:15)
[2022-06-15] MEDS: FUROSEMIDE 40 MG TAB PO SCH (09:15)
[2022-06-15] MEDS: PREGABALIN 75 MG CAP PO SCH ×2 (09:15→21:17)
[2022-06-15] MEDS: CYANOCOBALAMIN 1,000 MCG/ML 1 ML VIAL IM SCH (09:15)
[2022-06-15] MEDS: HYDROPHILIC CREAM 180 GM TUBE TOPICAL SCH (09:15)
[2022-06-15] MEDS: RIVAROXABAN 20 MG TAB PO SCH (09:15)
[2022-06-15] MEDS: NEBIVOLOL 5 MG TAB PO SCH (09:15)
[2022-06-15] MEDS ORDERED: Magnesium Replacement Protocol 1 EACH MISC MISCELLANE PRN ×2 (09:21→11:44)
[2022-06-15] MEDS: HYDROcodone/APAP 5-325MG 1 EACH TAB PO PRN (09:24)
--- NOTE | 2022-06-15 10:11 | P.DS ---
Providers Date of admission: 06/13/22 11:25 Expected date of discharge: 06/15/22 Attending physician: Sourav Gabriel Consults: 06/13/22 11:09 Consult Physician Routine Consulting Provider: Matias Marte Consult Reason/Comments: weakness Do you want consulting provider notified?: Yes, Notify in am Consult Physician Routine Consulting Provider: John Denis Consult Reason/Comments: weakness Do you want consulting provider notified?: Yes, Notify in am 06/15/22 08:54 Consult Physician Routine Consulting Provider: Adriel Talley Consult Reason/Comments: Abn Lumbar spine ct Do you want consulting provider notified?: Yes Primary care physician: Venu Oshea [facility] Course: Final Diagnoses: Bilateral lower extremity cellulitis, in a patient with history of MRSA Increased generalized weakness Atrial flutter, new onset. Xarelto dose adjusted. Acute hypoxic respiratory failure Low-normal Vitamin B12,286, oral vitamin B12 initiated Lactic acidosis, resolved Left buttock 1 cm ulcer, stage II, present on admission Mild aortic stenosis History of DVTs, PE on Xarelto Diabetes mellitus,II controlled, hemoglobin A1c 6.8 Diabetic neuropathy GERD. Hyperlipidemia. Hypertension. Osteoarthritis. Obstructive Sleep apnea with home CPAP use. History of prostate cancer with prostatectomy. Morbid obesity. BMI 45.2 Medical debility, gait dysfunction, uses walker. History of back surgery, chronic lower back pain, lumbar CT reporting rotoscoliosis convex to the left multilevel degenerative disc disease, decompressive laminectomy L3-L5 space S1. orthopedic spine following Chronic urinary incontinence Formal nicotine dependence. Patient smoked a pack a day for more than 28 years. COPD,stable Hypomagnesemia, supplemented Hospital course: Patient has a medical history significant for type 2 diabetes mellitus, GERD, hyperlipidemia, osteoarthritis, pneumonia, obstructive sleep apnea with home CPAP, diverticulitis, psoriasis, prostate cancer, bilateral legs DVT/pulmonary embolism on Xarelto , back surgery, former nicotine dependence, gait dysfunction and uses a walker provided and GERD a EMS for worsening generalized weakness times one month, cellulitis/edema of lower extremities. Reports over the last week his lower extremity weakness progressively worsened, slid out of his chair, multiple times, couldn't get up and called EMS for assistance. Positive bowel control. Chronic urinary incontinence. Denies chest pain, palpitations or shortness of breath. Troponin negative 1, proBNP 484, EKG reported new onset a-flutter, O2 sat on room air 93% on admission, decreased to 90%, requiring 2 L nasal cannula. Chest x-ray reported no acute process. Afebrile, normal WBC, unremarkable hematology panel, INR 1.1, sodium 140, potassium 3.5, bicarb 31, BUN 14, creatinine 0.86, glucose 121, lactic acid 2.5, magnesium 1.3, UA 4+ glucose. Received IV fluid hydration, antibiotics initiated. PCP reports patient has a history of MRSA. 06/14/2022 maintained on IV fluid hydration, lactic acid now WNL.Continues on local wound care of bilateral lower extremities with Silvadene/Nolan wraps, vancomycin secondary to cellulitis with history of MRSA, renal function st able.afebrile, normal WBC.Complains of worsened lower mid back pain this morning, nonradiating. Evaluated by cardiology and wound care team with recommendations noted and appreciated. Positive diet intake. Denies nausea vomiting or diarrhea. Denies chest pain, palpitations or shortness of breath. Maintaining O2 sats of mid 90s on 2 L nasal cannula. Echo completed, results pending. Feels better this morning, acknowledges his significant weakness and asking to go to subacute rehab at discharge. Potassium 3.4, magnesium 1.7, replacement protocols ordered. Hemoglobin A1c 6.8. 2-D echo reported LVH with EF of 5055%, RV enlargement, mild aortic stenosis, calcific .Evaluated by neurology. lumbar spine CT completed reporting rotoscoliosis convex to the left multilevel degenerative disc disease, decompressive laminectomy L3-L5 space S1. Further review of CT per orthopedic spine pending. Patient will be discharged to [facility] subacute rehab today in a stable condition with guarded prognosis pending final DC recommendations and clearance per neurology and orthopedic spine. The impression and plan of care has been dictated as directed. : I performed a history and examination of this patient, discussed the same with the dictator. I agree with the dictator's note ,documented as a scribe. Any additional findings or plans will be noted. Patient Condition at Discharge: Stable Plan - Discharge Summary Discharge Rx Participant: No New Discharge Prescriptions: New Rivaroxaban [Xarelto] 20 mg PO DAILY #90 tab INSULIN LISPRO (HumaLOG) [humaLOG] 0 unit SQ ACHS #10 ml Sulfamethox-Tmp 800-160Mg [Bactrim DS 800-160 mg] 1 tab PO BID #10 tab SILVER sulfADIAZINE Cream [Silvadene 1% Cream] 1 applic TOPICAL DAILY #400 gm Hydrophilic Cream [Triad (Kerodex geq)] 1 applic TOPICAL DAILY #71 gm Continue Nebivolol HCl [Bystolic] 5 mg PO DAILY Atorvastatin Calcium [Lipitor] 40 mg PO HS Lansoprazole 30 mg PO BID Semaglutide [Ozempic] 2 mg SQ WE Potassium Chloride ER [K-Dur 20] 20 meq PO DAILY Pioglitazone [Actos] 30 mg PO DAILY Furosemide [Lasix] 40 mg PO DAILY Naloxone HCl [Narcan] 4 mg NASAL ONCE PRN PRN Reason: Overdose Empagliflozin/Metformin HCl [Synjardy Xr 12.5-1,000 mg Tab] 2 tab PO W/BRKFST Pregabalin [Lyrica] 75 mg PO BID #6 cap HYDROcodone/APAP 5-325MG [[place] 5-325] 2 tab PO Q8H PRN #18 tab PRN Reason: Pain Discontinued Rivaroxaban [Xarelto] 10 mg PO DAILY Discharge Medication List Atorvastatin Calcium [Lipitor] 40 mg PO HS 02/03/15 [History] Lansoprazole 30 mg PO BID 02/03/15 [History] Nebivolol HCl [Bystolic] 5 mg PO DAILY 02/03/15 [History] Empagliflozin/Metformin HCl [Synjardy Xr 12.5-1,000 mg Tab] 2 tab PO W/BRKFST 06/13/22 [History] Furosemide [Lasix] 40 mg PO DAILY 06/13/22 [History] Naloxone HCl [Narcan] 4 mg NASAL ONCE PRN 06/13/22 [History] Pioglitazone [Actos] 30 mg PO DAILY 06/13/22 [History] Potassium Chloride ER [K-Dur 20] 20 meq PO DAILY 06/13/22 [History] Semaglutide [Ozempic] 2 mg SQ WE 06/13/22 [History] Rivaroxaban [Xarelto] 20 mg PO DAILY #90 tab 06/14/22 [Rx] HYDROcodone/APAP 5-325MG [[place] 5-325] 2 tab PO Q8H PRN #18 tab 06/15/22 [Rx] Hydrophilic Cream [Triad (Kerodex geq)] 1 applic TOPICAL DAILY #71 gm 06/15/22 [Rx] INSULIN LISPRO (HumaLOG) [humaLOG] 0 unit SQ ACHS #10 ml 06/15/22 [Rx] Pregabalin [Lyrica] 75 mg PO BID #6 cap 06/15/22 [Rx] SILVER sulfADIAZINE Cream [Silvadene 1% Cream] 1 applic TOPICAL DAILY #400 gm 06/15/22 [Rx] Sulfamethox-Tmp 800-160Mg [Bactrim DS 800-160 mg] 1 tab PO BID #10 tab 06/15/22 [Rx] Follow up Appointment(s)/Referral(s): Getachew Zhou MD [STAFF PHYSICIAN] - 1 Week Venu Oshea MD [Primary Care Provider] - 1-2 days Activity/Diet/Wound Care/Special Instructions: Rajiv DUNLAP CBC, BMP,Magnesium in 3 days Close monitoring of renal function, on Bactrim Discharge Disposition: TRANSFER TO SNF/ECF
--- NOTE | 2022-06-15 10:51 | P.PN ---
Subjective Progress Note Date: 06/15/22 HISTORY OF PRESENT ILLNESS: This is a 71-year-old male with a past medical history significant for on a embolism on Xarelto, diabetes, hyperlipidemia, hypertension, obstructive sleep apnea and morbid obesity. Patient has not followed with a organ fixer in almost 10 years. We have been asked to see the patient in consultation for weakness. Patient examined at the bedside. Patient presented to the hospital with lower extremity weakness. The patient was found to have lower extremity cellulitis and is being treated with antibiotics. His legs are currently wrapped in Nolan bandages. The patient denied any chest pain or pressure. He denies any shortness of breath. He denies any palpitations. EKG on admission revealed atrial flutter. The patient denies a history of atrial flutter or fibrillation. His rates have been controlled. Blood pressure stable. * EKG reveals atrial flutter with controlled ventricular rates * Chest xray negative for acute process * Laboratory data: WBC 6.2. Hemoglobin 13.3. Platelet count 223. Sodium 140. Potassium 3.5. BUN 14. Creatinine 0.86. ProBNP 484. TSH 1.000. Troponin negative 2. * Current home cardiac medications include Xarelto 10 mg daily, Lasix 40 mg daily, Lipitor 40 mg at night, and Bystolic 5 mg daily 06/15/2022 Patient examined this morning at the bedside. Patient denies chest pain or pressure. He denies shortness of breath. Vital signs are stable. Patient is hoping to be discharged home today. PHYSICAL EXAM: VITAL SIGNS: Reviewed. GENERAL: Well-developed in no acute distress. HEENT: Head is normocephalic. Pupils are equal, round. Sclerae anicteric. Mucous membranes of the mouth are moist. Neck supple. No JVD or thyromegaly LUNGS: Respirations even and unlabored. Lungs essentially clear to auscultation bilaterally. HEART: Regular rate and rhythm. S1 and S2 heard. ABDOMEN: Soft. Nondistended. Nontender. EXTREMITIES: Normal range of motion. No clubbing or cyanosis. Peripheral pulses intact. Bilateral lower extremities with nolan wraps noted. NEUROLOGIC: Awake and alert. Oriented x 3. ASSESSMENT: Weakness Bilateral lower extremity cellulitis New onset typical atrial flutter with controlled ventricular rates History of pulmonary embolism Hypertension Hyperlipidemia Diabetes Obstructive sleep apnea Morbid obesity PLAN: Continue anticoagulation with Xarelto Patient is stable for discharge home today from a cardiac standpoint We will sign off. Please reconsult if needed. He is to follow up outpatient with Dr. Zhou We'll discuss possible ablation at follow-up appointment Nurse practitioner note has been reviewed by physician. Signing provider agrees with the documented findings, assessment, and plan of care. Objective - Vital Signs Vital signs: Vital Signs Temp 97.5 F L 06/15/22 07:15 Pulse 85 06/15/22 07:15 Resp 16 06/15/22 07:15 BP 148/77 06/15/22 07:15 Pulse Ox 93 L 06/15/22 07:15 FiO2 Intake & Output 06/14/22 06/15/22 06/15/22 18:59 06:59 18:59 Intake Total 1460 Output Total 1500 650 300 Balance -1500 810 -300 Intake: Intake, IV Titration 500 Amount Vancomycin 2,000 mg In 500 Sodium Chloride 0.9% 500 ml 500 ml @ 167 mls/hr IVPB Q16H [facility] Rx#: [id number] Oral 960 Output: Urine 1500 650 300 Other: # Voids 2 - Labs CBC & Chem 7: 06/14/22 08:00 06/15/22 06:03 Labs: Abnormal Lab Results - Last 24 Hours (Table) 06/14/22 06/14/22 06/14/22 Range/Units 08:00 08:00 08:00 Sodium 146 H (135-145) mmol/L Potassium 3.4 L (3.5-5.5) mmol/L Carbon Dioxide 30.2 H (20.0-27.5) mmol/L BUN 8.5 L (9.0-27.0) mg/dL BUN/Creatinine Ratio 9.72 L (12.00-20.00) Ratio Glucose 122 H (70-110) mg/dL POC Glucose (mg/dL) (70-110) mg/dL Hemoglobin A1c 6.8 H (0.0-6.0) % Calcium 8.4 L (8.7-10.3) mg/dL Magnesium (1.6-2.3) mg/dL HDL Cholesterol 33.60 L (40.00-60.00) mg/dL 06/14/22 06/14/22 06/14/22 Range/Units 11:13 16:41 20:24 Sodium (135-145) mmol/L Potassium (3.5-5.5) mmol/L Carbon Dioxide (20.0-27.5) mmol/L BUN (9.0-27.0) mg/dL BUN/Creatinine Ratio (12.00-20.00) Ratio Glucose (70-110) mg/dL POC Glucose (mg/dL) 115 H 112 H 129 H (70-110) mg/dL Hemoglobin A1c (0.0-6.0) % Calcium (8.7-10.3) mg/dL Magnesium (1.6-2.3) mg/dL HDL Cholesterol (40.00-60.00) mg/dL 06/15/22 Range/Units 06:03 Sodium (135-145) mmol/L Potassium (3.5-5.5) mmol/L Carbon Dioxide (20.0-27.5) mmol/L BUN (9.0-27.0) mg/dL BUN/Creatinine Ratio (12.00-20.00) Ratio Glucose (70-110) mg/dL POC Glucose (mg/dL) (70-110) mg/dL Hemoglobin A1c (0.0-6.0) % Calcium (8.7-10.3) mg/dL Magnesium 1.5 L (1.6-2.3) mg/dL HDL Cholesterol (40.00-60.00) mg/dL Microbiology - Last 24 Hours (Table) 06/13/22 15:10 Blood Culture - Preliminary Blood No Growth after 24 hours 06/13/22 14:55 Blood Culture - Preliminary Blood No Growth after 24 hours
[2022-06-15 11:41] LABS: Glucose,Whole Blood 124 mg/dL (70-110)
[2022-06-15] MEDS: MAGNESIUM SULFATE-D5W PMX 1 GM in DEXTROSE/WATER 1 100ML.BAG IVPB SCH ×2 (12:02→13:51)
[2022-06-15 12:34] LABS: Chloride 106 mmol/L (98-107)
[2022-06-15 12:36] LABS: African American GFR (CKD) >90 (>60 ml/min/1.73 sqM); Anion Gap 7 mmol/L; Blood Urea Nitrogen 9 mg/dL (9-20); Calcium 8.2 mg/dL (8.4-10.2); Carbon Dioxide 27 mmol/L (22-30); Glucose 93 mg/dL (74-99); Non-African American GFR(CKD) >90 (>60 ml/min/1.73 sqM); Sodium 140 mmol/L (137-145)
[2022-06-15 12:44] LABS: Potassium 3.5 mmol/L (3.5-5.1)
--- NOTE | 2022-06-15 13:52 | P.CNOR ---
History of Present Illness - [facility] Consult date: 06/15/22 Consult reason: other (CT results lumbar spine) History of present illness: Patient is a 71-year-old male who presents to the emergency department at [facility] chief complaint of weakness in his lower extremities. Orthopedics has been consulted for results of computed tomography scan of lumbar spine. Patient does have a past medical history of diabetes, DVT, hypertension, previous total hip arthroplasty and spine surgery. Patient says he does spine surgery performed by Dr. Rodríguez out of the [facility] about 15-20 years ago where he had a laminectomy at several levels in the lumbar spine. Patient says he does live at home alone and normally ambulates with a walker. Patient says over the past week or so he has had issues getting up out of his chair. Patient says he did have an episode a few days ago where he was unable stand up on his chair so he slid down onto the floor onto his bottom. Patient denies any other injuries/trauma's. Patient also mentions he has some right upper extremity pain at this time. This started about 1 week ago and he says he does have a difficult time raising his right arm. Patient denies any significant bowel/bladder issues. Patient says he has had urinary issues over the past 10 years at least. Patient denies any genital numbness/tingling. Patient says he is having some low back pain at this time. Patient denies any radiation of pain down the legs. Patient says since he has been admitted to the hospital he has walked around the room a little bit with staff by his side. Neurology, medicine, wound care have been following as well. Computed tomography scan of the lumbar spine does show some generalized mild neural foraminal stenosis throughout the lumbar spine. Patient denies chest pain, fever, shortness of breath, nausea, vomiting, change in vision, loss of bowel/bladder control. Past Medical History Past Medical History: Cancer, Diabetes Mellitus, Deep Vein Thrombosis (DVT), GERD/Reflux, Hyperlipidemia, Hypertension, Osteoarthritis (OA), Pneumonia, Prostate Disorder, Pulmonary Embolus (PE), Skin Disorder, Sleep Apnea/CPAP/BIPAP Additional Past Medical History / Comment(s): open wound to back-has visiting nurse two times per weeks,prostate ca, rt leg dvt, diverticulitis, psoriases, abd hernia,no cpap History of Any Multi-Drug Resistant Organisms: None Reported Past Surgical History: Back Surgery, Cholecystectomy, Hernia Repair, Joint Replacement, Prostate Surgery, Tonsillectomy Additional Past Surgical History / Comment(s): prostectomy, had ruptured diverticuli -colostomy and then reversed, abd hernia, tanisha cataracts, tubes in ears,total rt hip,[facility] Procedures Past Anesthesia/Blood Transfusion Reactions: No Reported Reaction Past Psychological History: No Psychological Hx Reported Additional Psychological History / Comment(s): uses a walker when up. Smoking Status: Former smoker Past Alcohol Use History: None Reported Additional Past Alcohol Use History / Comment(s): SMOKED X 28 YEARS 1PPD. Past Drug Use History: None Reported - Past Family History Father Family Medical History: Cancer Additional Family Medical History / Comment(s): prostate CA Mother Family Medical History: Deep Vein Thrombosis (DVT), Pulmonary Embolus Additional Family Medical History / Comment(s): PROSTATE CNACER Medications and Allergies Home Medications Medication Instructions Recorded Confirmed Type Atorvastatin Calcium [Lipitor] 40 mg PO HS 02/03/15 06/13/22 History Lansoprazole 30 mg PO BID 02/03/15 06/13/22 History Nebivolol HCl [Bystolic] 5 mg PO DAILY 02/03/15 06/13/22 History Empagliflozin/Metformin HCl 2 tab PO W/BRKFST 06/13/22 06/13/22 History [Synjardy Xr 12.5-1,000 mg Tab] Furosemide [Lasix] 40 mg PO DAILY 06/13/22 06/13/22 History Naloxone HCl [Narcan] 4 mg NASAL ONCE PRN 06/13/22 06/13/22 History Pioglitazone [Actos] 30 mg PO DAILY 06/13/22 06/13/22 History Potassium Chloride ER [K-Dur 20] 20 meq PO DAILY 06/13/22 06/13/22 History Semaglutide [Ozempic] 2 mg SQ WE 06/13/22 06/13/22 History Rivaroxaban [Xarelto] 20 mg PO DAILY #90 tab 06/14/22 Rx Cyanocobalamin (Vitamin B-12) 1,000 mcg PO DAILY #1 tablet 06/15/22 Rx [Vitamin B-12] HYDROcodone/APAP 5-325MG [[place] 2 tab PO Q8H PRN #18 tab 06/15/22 Rx 5-325] Hydrophilic Cream [Triad (Kerodex 1 applic TOPICAL DAILY #71 gm 06/15/22 Rx geq)] INSULIN LISPRO (HumaLOG) [humaLOG] 0 unit SQ ACHS #10 ml 06/15/22 Rx Pregabalin [Lyrica] 75 mg PO BID #6 cap 06/15/22 Rx SILVER sulfADIAZINE Cream 1 applic TOPICAL DAILY #400 gm 06/15/22 Rx [Silvadene 1% Cream] Sulfamethox-Tmp 800-160Mg [Bactrim 1 tab PO BID #10 tab 06/15/22 Rx DS 800-160 mg] Allergies Allergy/AdvReac Type Severity Reaction Status Date / Time cephalexin monohydrate Allergy Rash/Hives Verified 06/13/22 12:04 [From Keflex] on neck Penicillins Allergy Rash/Hives Verified 06/13/22 12:04 on neck Physical Examination Inspection: Scoliosis throughout spine. Negative for any open fractures, significant ecchymosis. Wound care is following patient for stage II ulcer on the buttocks. Sensation: Sensation is equal, symmetric, bilaterally intact throughout the upper and lower extremities. Palpation: There is some mild tenderness to palpation throughout the lower lumbar spine. Nontender to palpation throughout rest of exam. Range of motion: Patient does have some limited range of motion in bilateral lower extremities and hip flexion/extension due to referred pain from the low back. Patient has full range of motion in the bilateral lower extremity knee flexion/extension and ankle dorsi/plantar flexion. There is some limited range of motion in the right shoulder and forward elevation, abduction and internal/external rotation secondary to pain. Patient has full range of motion throughout left upper extremity. Motor: 5/5 in all major motor groups in left upper extremity. 4-/5 in resisted right shoulder abduction, forward elevation, internal/external rotation. 5/5 in all other major motor groups in right upper extremity. 4+/5 coremaker supervisor strength bilaterally. 4/5 in bilateral hip flexion/extension. 5/5 in all other major motor groups in bilateral lower extremities. Neurovascular status: Radial pulses intact, 2+ bilaterally. Cap refill under 3 seconds in digits upper extremities. Special tests: Negative Homans bilaterally. Negative Max by. Negative clonus bilaterally. Results - Labs Labs: Abnormal Lab Results - Last 24 Hours (Table) 06/14/22 06/14/22 06/14/22 Range/Units 08:00 08:00 08:00 Hgb 11.2 L (13.0-17.0) g/dL Hct 38.0 L (39.6-50.0) % MCH 25.2 L (27.0-32.0) pg MCHC 29.5 L (32.0-37.0) g/dL RDW 18.6 H (11.5-14.5) % MPV 8.9 L (9.5-12.2) fL Sodium 146 H (135-145) mmol/L Potassium 3.4 L (3.5-5.5) mmol/L Carbon Dioxide 30.2 H (20.0-27.5) mmol/L BUN 8.5 L (9.0-27.0) mg/dL BUN/Creatinine Ratio 9.72 L (12.00-20.00) Ratio Glucose 122 H (70-110) mg/dL POC Glucose (mg/dL) (70-110) mg/dL Hemoglobin A1c 6.8 H (0.0-6.0) % Calcium 8.4 L (8.7-10.3) mg/dL Magnesium (1.6-2.3) mg/dL HDL Cholesterol (40.00-60.00) mg/dL 06/14/22 06/14/22 06/14/22 Range/Units 08:00 11:13 16:41 Hgb (13.0-17.0) g/dL Hct (39.6-50.0) % MCH (27.0-32.0) pg MCHC (32.0-37.0) g/dL RDW (11.5-14.5) % MPV (9.5-12.2) fL Sodium (135-145) mmol/L Potassium (3.5-5.5) mmol/L Carbon Dioxide (20.0-27.5) mmol/L BUN (9.0-27.0) mg/dL BUN/Creatinine Ratio (12.00-20.00) Ratio Glucose (70-110) mg/dL POC Glucose (mg/dL) 115 H 112 H (70-110) mg/dL Hemoglobin A1c (0.0-6.0) % Calcium (8.7-10.3) mg/dL Magnesium (1.6-2.3) mg/dL HDL Cholesterol 33.60 L (40.00-60.00) mg/dL 06/14/22 06/15/22 Range/Units 20:24 06:03 Hgb (13.0-17.0) g/dL Hct (39.6-50.0) % MCH (27.0-32.0) pg MCHC (32.0-37.0) g/dL RDW (11.5-14.5) % MPV (9.5-12.2) fL Sodium (135-145) mmol/L Potassium (3.5-5.5) mmol/L Carbon Dioxide (20.0-27.5) mmol/L BUN (9.0-27.0) mg/dL BUN/Creatinine Ratio (12.00-20.00) Ratio Glucose (70-110) mg/dL POC Glucose (mg/dL) 129 H (70-110) mg/dL Hemoglobin A1c (0.0-6.0) % Calcium (8.7-10.3) mg/dL Magnesium 1.5 L (1.6-2.3) mg/dL HDL Cholesterol (40.00-60.00) mg/dL Microbiology - Last 24 Hours (Table) 06/13/22 15:10 Blood Culture - Preliminary Blood No Growth after 24 hours 06/13/22 14:55 Blood Culture - Preliminary Blood No Growth after 24 hours H & H 06/13/22 06/14/22 Range/Units 08:50 08:00 Hgb 13.3 11.2 L (13.0-17.5) gm/dL Hct 41.4 38.0 L (39.0-53.0) % Coagulation 06/13/22 Range/Units 09:51 INR 1.1 (<1.2) Result Diagrams: 06/14/22 08:00 06/15/22 06:03 - Diagnostic results CT Scan - lumbar: report reviewed, image reviewed (computed tomography scan of lumbar spine does show scoliosis as well as neural foraminal stenosis throughout the lumbar spine. There is degenerative disc disease as well as previous laminectomy at several levels in the lumbar spine.) Assessment and Plan Assessment: 1. Low back pain; scoliosis; neural foraminal stenosis lumbar spine; degenerative disc disease; history of lumbar laminectomy 2. Multiple medical comorbidities Plan: 1. Low back pain; scoliosis; neural foraminal stenosis lumbar spine; degenerative disc disease; history of lumbar laminectomy - computed tomography scan of lumbar spine does show scoliosis as well as neural foraminal stenosis throughout the lumbar spine. There is degenerative disc disease as well as previous laminectomy at several levels in the lumbar spine. Negative for any fractures/spondylolisthesis. At this time we are not recommending any emergent/urgent orthopedic surgical intervention. We are recommending conservative measures at this time with pain medication and potential use for steroids. Patient may follow-up in the outpatient setting with Dr. Talley for further evaluation. Patient is stable from orthopedic standpoint for discharge home. Orthopedics is signing off at this time. Please do not hesitate to contact us for either questions. 2. Appreciate medical management 3. Pain management - Lyrica; [place] 4. DVT prophylaxis - Xarelto 5. GI prophylaxis - Protonix 6. PT/OT - weightbearing as tolerated with walker/assistance 7. Encourage incentive spirometer use 8. Appreciate consult Time with Patient: Less than 30
[2022-06-15] MEDS: VANCOMYCIN 2,000 MG in SODIUM CHLORIDE 0.9% 500 ML 500 ML IVPB SCH (14:53)
[2022-06-15 16:47] LABS: Glucose,Whole Blood 129 mg/dL (70-110)
--- NOTE | 2022-06-15 17:35 | P.PN ---
Subjective Progress Note Date: 06/15/22 The patient is seen as follow-up and feels doing better. Denies any new neurological issues. Objective - Vital Signs Vital signs: Vital Signs Temp 98.2 F 06/15/22 14:00 Pulse 70 06/15/22 14:00 Resp 16 06/15/22 14:00 BP 113/58 06/15/22 14:00 Pulse Ox 93 L 06/15/22 14:00 FiO2 Intake & Output 06/14/22 06/15/22 06/15/22 18:59 06:59 18:59 Intake Total 1460 Output Total 1500 650 300 Balance -1500 810 -300 Intake: Intake, IV Titration 500 Amount Vancomycin 2,000 mg In 500 Sodium Chloride 0.9% 500 ml 500 ml @ 167 mls/hr IVPB Q16H LORA Rx#: [id number] Oral 960 Output: Urine 1500 650 300 Other: # Voids 2 # Bowel Movements 1 - Exam GENERAL: The patient is sitting in recliner chair and is not in acute distress. NEUROLOGICAL: Higher mental function: The patient is awake, alert, oriented to self, place and time. Patient is following commands. No aphasia and no neglect. Cranial nerves: The pupils are round, equal and reactive to light and accommodation. Visual neal are full to confrontation throughout. Extraocular movement is intact no nystagmus is noted. Facial sensation is normal to touch throughout. The facial strength is normal throughout. Hearing is normal bilaterally to hand rub. Tongue is midline and moved [id number] without any difficulty. No dysarthria is noted. Shoulder shrug is normal bilaterally. Motor: The strength is hard to assess individual muscle in lowers because edema but seems strong without any focality. Uppers is somewhat limited in right upper extremity because of chronic right shoulder pain but otherwise are 5 over 5 throughout. Has edema in lower. Normal tone. Cerebellum: Normal finger to nose heel to chin bilaterally. Sensation: Sensation is normal to touch throughout. Reflexes (right/left): 1+ in uppers while lowers are hard to assess. Plantars are downgoing bilaterally. Some other workup during his hospital visit consisted of: CK level is 454 (normal is between 35-257) TSH is 1.0 Vitamin B12 is 286 and the serum folate is 24. Plasma Lactic acid vein initially is 2.5 and repeat was 2.2. Otherwise the glucose is 121. Calcium is normal magnesium is slightly low as 1.3. 18 ALTs w ithin normal limits. Ct lumbar spine is reported as Rotoscoliosis convex to the left with multilevel degenerative disc diseas. Decompressive laminectomy L3-L5 S1. - Labs CBC & Chem 7: 06/14/22 08:00 06/15/22 06:03 Labs: Abnormal Lab Results - Last 24 Hours (Table) 06/14/22 06/15/22 06/15/22 Range/Units 20:24 06:03 06:03 POC Glucose (mg/dL) 129 H (70-110) mg/dL Calcium 8.2 L (8.4-10.2) mg/dL Magnesium 1.5 L (1.6-2.3) mg/dL 06/15/22 06/15/22 Range/Units 11:39 16:45 POC Glucose (mg/dL) 124 H 129 H (70-110) mg/dL Calcium (8.4-10.2) mg/dL Magnesium (1.6-2.3) mg/dL Microbiology - Last 24 Hours (Table) 06/13/22 15:10 Blood Culture - Preliminary Blood No Growth after 24 hours 06/13/22 14:55 Blood Culture - Preliminary Blood No Growth after 24 hours Assessment and Plan Assessment: Lower extremity weakness seems possible bilateral lower extremity edema and it was felt has possible cellutlitis. No focality on examination. Chronic lower back pain Very Low normal vitamin B12 Pressure ulcer in the left buttock Diabetes mellitus Hypertension History of DVT History of pulmonary embolism Plan: I started the patient on the vitamin B12 1000 g daily. Orthopedic team is consulted by primary team for low back pain and they recommend conservative management. I recommend EMG nerve conduction study of the lowers and possibly upwards except at especially that the patient has some right shoulder pain. Coming the patient to follow-up with orthopedic team as an outpatient. PT OT are consulted Cardiology is on board. One fears consulted We'll defer the rest of the medical management to primary team The plan was discussed with the patient. There is no further neurological workup.
[2022-06-15] MEDS: ATORVASTATIN 40 MG TAB PO SCH (21:17)
[2022-06-15 21:19] LABS: Glucose,Whole Blood 132 mg/dL (70-110)
[2022-06-16] MEDS: HYDROcodone/APAP 5-325MG 1 EACH TAB PO PRN ×2 (00:10→15:25)
[2022-06-16] MEDS ORDERED: VANCOMYCIN TROUGH DUE 1 EACH MISC MISCELLANE ONE (05:00)
[2022-06-16] MEDS: PANTOPRAZOLE 40 MG TABLET PO SCH ×2 (06:31→16:50)
[2022-06-16] MEDS: metFORMIN 500 MG TAB PO SCH ×2 (06:31→16:50)
[2022-06-16] MEDS: VANCOMYCIN 2,000 MG in SODIUM CHLORIDE 0.9% 500 ML 500 ML IVPB SCH ×2 (06:31→21:28)
[2022-06-16] MEDS: DAPAGLIFLOZIN PROPANEDIOL 10 MG TABLET PO SCH (06:31)
[2022-06-16] MEDS: INSULIN ASPART (NovoLOG) 100 UNIT/ML VIAL SQ SCH ×4 (06:34→21:23)
[2022-06-16 06:35] LABS: Glucose,Whole Blood 142 mg/dL (70-110)
[2022-06-16] MEDS: POTASSIUM CHLORIDE ER 20 MEQ TAB.ER PO SCH (07:27)
[2022-06-16] MEDS: NEBIVOLOL 5 MG TAB PO SCH (07:28)
[2022-06-16] MEDS: FUROSEMIDE 40 MG TAB PO SCH (07:28)
[2022-06-16] MEDS: RIVAROXABAN 20 MG TAB PO SCH (07:28)
[2022-06-16] MEDS: PIOGLITAZONE 30 MG TAB PO SCH (07:28)
[2022-06-16] MEDS: PREGABALIN 75 MG CAP PO SCH ×2 (07:28→21:28)
[2022-06-16] MEDS: CYANOCOBALAMIN 1,000 MCG/ML 1 ML VIAL IM SCH (07:28)
[2022-06-16] MEDS: HYDROPHILIC CREAM 180 GM TUBE TOPICAL SCH (07:32)
[2022-06-16] MEDS: SILVER sulfADIAZINE Cream 400 GM 1 APPLIC APPLIC TOPICAL SCH (07:32)
[2022-06-16 08:07] LABS: African American GFR (CKD) >90 (>60 ml/min/1.73 sqM); Magnesium 1.7 mg/dL (1.6-2.3); Non-African American GFR(CKD) >90 (>60 ml/min/1.73 sqM)
[2022-06-16 11:32] LABS: Glucose,Whole Blood 123 mg/dL (70-110)
[2022-06-16 13:35] VITALS: BMI 45.1
[2022-06-16 16:37] LABS: Glucose,Whole Blood 125 mg/dL (70-110)
[2022-06-16 21:02] LABS: Glucose,Whole Blood 114 mg/dL (70-110)
[2022-06-16] MEDS: ATORVASTATIN 40 MG TAB PO SCH (21:28)
[2022-06-17] MEDS: HYDROcodone/APAP 5-325MG 1 EACH TAB PO PRN ×2 (02:37→20:27)
[2022-06-17 06:09] LABS: Glucose,Whole Blood 123 mg/dL (70-110)
[2022-06-17] MEDS: INSULIN ASPART (NovoLOG) 100 UNIT/ML VIAL SQ SCH ×4 (06:14→21:17)
[2022-06-17] MEDS: PANTOPRAZOLE 40 MG TABLET PO SCH ×2 (06:16→17:59)
[2022-06-17] MEDS: DAPAGLIFLOZIN PROPANEDIOL 10 MG TABLET PO SCH (06:16)
[2022-06-17] MEDS: metFORMIN 500 MG TAB PO SCH ×2 (06:16→17:59)
[2022-06-17 07:34] LABS: African American GFR (CKD) >90 (>60 ml/min/1.73 sqM); Non-African American GFR(CKD) >90 (>60 ml/min/1.73 sqM)
[2022-06-17] MEDS: POTASSIUM CHLORIDE ER 20 MEQ TAB.ER PO SCH (09:16)
[2022-06-17] MEDS: PREGABALIN 75 MG CAP PO SCH ×2 (09:16→20:18)
[2022-06-17] MEDS: FUROSEMIDE 40 MG TAB PO SCH (09:16)
[2022-06-17] MEDS: RIVAROXABAN 20 MG TAB PO SCH (09:17)
[2022-06-17] MEDS: NEBIVOLOL 5 MG TAB PO SCH (09:17)
[2022-06-17] MEDS: PIOGLITAZONE 30 MG TAB PO SCH (09:17)
[2022-06-17] MEDS: SILVER sulfADIAZINE Cream 400 GM 1 APPLIC APPLIC TOPICAL SCH (09:19)
[2022-06-17] MEDS: HYDROPHILIC CREAM 180 GM TUBE TOPICAL SCH (09:19)
[2022-06-17 11:25] LABS: Glucose,Whole Blood 116 mg/dL (70-110)
--- NOTE | 2022-06-17 13:19 | P.PN ---
Subjective Progress Note Date: 06/17/22 The patient is seen at bedside and states doing well. Denies of any new neurological issues. Objective - Vital Signs Vital signs: Vital Signs Temp 98.9 F 06/17/22 07:15 Pulse 78 06/17/22 07:15 Resp 17 06/17/22 07:15 BP 119/74 06/17/22 07:15 Pulse Ox 94 L 06/17/22 10:08 FiO2 Intake & Output 06/16/22 06/17/22 06/17/22 18:59 06:59 18:59 Output Total 700 300 Balance -700 -300 Weight 134.717 kg Output: Urine 700 300 Other: # Voids 4 4 1 # Bowel Movements 1 1 - Exam GENERAL: The patient is sitting in recliner chair and is not in acute distress. NEUROLOGICAL: Higher mental function: The patient is awake, alert, oriented to self, place and time. Patient is following commands. No aphasia and no neglect. Cranial nerves: The pupils are round, equal and reactive to light and accommodation. Visual neal are full to confrontation throughout. Extraocular movement is intact no nystagmus is noted. Facial sensation is normal to touch throughout. The facial strength is normal throughout. Hearing is normal bilaterally to hand rub. Tongue is midline and moved [id number] without any difficulty. No dysarthria is noted. Shoulder shrug is normal bilaterally. Motor: The strength is hard to assess individual muscle in lowers because edema but seems strong without any focality. Uppers is somewhat limited in right uppe r extremity because of chronic right shoulder pain but otherwise are 5 over 5 throughout. Has edema in lower. Normal tone. Cerebellum: Normal finger to nose heel to chin bilaterally. Sensation: Sensation is normal to touch throughout. Reflexes (right/left): 1+ in uppers while lowers are hard to assess. Plantars are downgoing bilaterally. Some other workup during his hospital visit consisted of: CK level is 454 (normal is between 35-257) TSH is 1.0 Vitamin B12 is 286 and the serum folate is 24. Plasma Lactic acid vein initially is 2.5 and repeat was 2.2. Otherwise the gluc ose is 121. Calcium is normal magnesium is slightly low as 1.3. 18 ALTs within normal limits. Ct lumbar spine is reported as Rotoscoliosis convex to the left with multilevel degenerative disc diseas. Decompressive laminectomy L3-L5 S1. - Labs CBC & Chem 7: 06/14/22 08:00 06/17/22 06:09 Labs: Abnormal Lab Results - Last 24 Hours (Table) 06/16/22 06/16/22 06/17/22 Range/Units 16:36 21:01 06:08 POC Glucose (mg/dL) 125 H 114 H 123 H (70-110) mg/dL 06/17/22 Range/Units 11:23 POC Glucose (mg/dL) 116 H (70-110) mg/dL Microbiology - Last 24 Hours (Table) 06/13/22 15:10 Blood Culture - Preliminary Blood No Growth after 72 hours 06/13/22 14:55 Blood Culture - Preliminary Blood No Growth after 72 hours Assessment and Plan Assessment: Lower extremity weakness seems possible bilateral lower extremity edema and it was felt has possible cellutlitis. No focality on examination. Chronic lower back pain Very Low normal vitamin B12 Pressure ulcer in the left buttock Diabetes mellitus Hypertension History of DVT History of pulmonary embolism Plan: Continue vitamin B12 1000 g daily. Orthopedic team is consulted by primary team for low back pain and they recommend conservative management. I recommend EMG nerve conduction study of the lowers and possibly upwards except at especially that the patient has some right shoulder pain. Coming the patient to follow-up with orthopedic team as an outpatient. PT OT are consulted Cardiology is on board. One fears consulted We'll defer the rest of the medical management to primary team The plan was discussed with the patient. There is no further neurological workup. Will sign off. Please reconsult if needed. Time with Patient: Less than 30
[2022-06-17] MEDS: VANCOMYCIN 2,000 MG in SODIUM CHLORIDE 0.9% 500 ML 500 ML IVPB SCH (14:49)
[2022-06-17 16:37] LABS: Glucose,Whole Blood 111 mg/dL (70-110)
[2022-06-17] MEDS: ATORVASTATIN 40 MG TAB PO SCH (20:18)
[2022-06-17 20:27] VITALS: RESP 18
[2022-06-17 20:54] LABS: Glucose,Whole Blood 159 mg/dL (70-110)
[2022-06-18 06:08] LABS: Glucose,Whole Blood 100 mg/dL (70-110)
[2022-06-18] MEDS: INSULIN ASPART (NovoLOG) 100 UNIT/ML VIAL SQ SCH ×2 (06:14→11:43)
[2022-06-18] MEDS: metFORMIN 500 MG TAB PO SCH (06:17)
[2022-06-18] MEDS: VANCOMYCIN 2,000 MG in SODIUM CHLORIDE 0.9% 500 ML 500 ML IVPB SCH (06:17)
[2022-06-18] MEDS: DAPAGLIFLOZIN PROPANEDIOL 10 MG TABLET PO SCH (06:17)
[2022-06-18] MEDS: PANTOPRAZOLE 40 MG TABLET PO SCH (06:17)
[2022-06-18 07:24] VITALS: BP 135/77; PULSE 80; TEMP 98.1
[2022-06-18] MEDS: HYDROcodone/APAP 5-325MG 1 EACH TAB PO PRN (08:06)
[2022-06-18] MEDS: PIOGLITAZONE 30 MG TAB PO SCH (09:40)
[2022-06-18] MEDS: FUROSEMIDE 40 MG TAB PO SCH (09:40)
[2022-06-18] MEDS: POTASSIUM CHLORIDE ER 20 MEQ TAB.ER PO SCH (09:40)
[2022-06-18] MEDS: PREGABALIN 75 MG CAP PO SCH (09:40)
[2022-06-18] MEDS: RIVAROXABAN 20 MG TAB PO SCH (09:40)
[2022-06-18] MEDS: HYDROPHILIC CREAM 180 GM TUBE TOPICAL SCH (09:41)
[2022-06-18] MEDS: NEBIVOLOL 5 MG TAB PO SCH (09:41)
[2022-06-18] MEDS: SILVER sulfADIAZINE Cream 400 GM 1 APPLIC APPLIC TOPICAL SCH (09:41)
[2022-06-18 11:26] LABS: Glucose,Whole Blood 116 mg/dL (70-110)
--- NOTE | 2022-06-20 09:17 | CDI ---
Documentation Clarification Form Date: 06/20/2022 9:05:58 AM From: Emily Langford Admit Date: 06/13/2022 11:25:00 AM Patient Name: Amilcar Mccarty Visit Number: [id number] Discharge Date: 06/18/2022 1:41:00 PM ATTENTION: The Clinical Documentation Specialists (CDI) and [facility] Coding Staff appreciate your assistance in clarifying documentation. Please respond to the clarification below the line at the bottom and electronically sign. The CDI & [facility] Coding staff will review the response and follow-up if needed. Please note: Queries are made part of the Legal Health Record. If you have any questions, please contact the author of this message via ITS. Dr. Sourav Gabriel Bilateral LE cellulitis and Diabetes type II controlled is documented throughout charts and in Final Diagnosis in [facility]. Please clarify if there is a relationship between the patient's cellulitis and diabetes. History/Risk Factors: Diabetic neuropathy and cellulitis Patient with ulcers Clinical Indicators: Treatment: Vancomycin, Kefzol, Insulin, So;vadene cream Please clarify the relationship, if any, which is clinically appropriate for this patient: [ x ] Bilateral LE cellulitis is related to diabetes type II [ ] Bilateral LE cellulitis is not related to diabetes type II [ ] Other explanation of clinical findings (please specify) [ ] Unable to determine (no explanation for clinical findings) MTDD
== END 2022-06-18 13:41 | DRG 637 ==
LOC: EC 08:23 → 4SSUR 11:25
PROVIDERS: ADMIT Family Medicine; ATTEND Family Medicine
DX: E11.628 Type 2 diabetes mellitus with other skin complications (principal); J96.01 Acute respiratory failure with hypoxia; L03.116 Cellulitis of left lower limb; E87.1 Hypo-osmolality and hyponatremia; Z68.42 Body mass index [BMI] 45.0-49.9, adult; I48.3 Typical atrial flutter; L03.115 Cellulitis of right lower limb; E78.5 Hyperlipidemia, unspecified; E11.40 Type 2 diabetes mellitus with diabetic neuropathy, unspecified; E11.622 Type 2 diabetes mellitus with other skin ulcer; E66.01 Morbid (severe) obesity due to excess calories; E83.42 Hypomagnesemia; Z28.310 Unvaccinated for COVID-19; K21.9 Gastro-esophageal reflux disease without esophagitis; Z87.891 Personal history of nicotine dependence; G47.33 Obstructive sleep apnea (adult) (pediatric); G89.29 Other chronic pain; I49.1 Atrial premature depolarization; Z20.822 Contact with and (suspected) exposure to COVID-19; J44.9 Chronic obstructive pulmonary disease, unspecified; L89.322 Pressure ulcer of left buttock, stage 2; L98.499 Non-pressure chronic ulcer of skin of other sites with unspecified severity; L40.9 Psoriasis, unspecified; I35.0 Nonrheumatic aortic (valve) stenosis; M19.90 Unspecified osteoarthritis, unspecified site; M41.9 Scoliosis, unspecified; M48.061 Spinal stenosis, lumbar region without neurogenic claudication; M51.36 Other intervertebral disc degeneration, lumbar region; E53.8 Deficiency of other specified B group vitamins; R53.81 Other malaise; R32 Unspecified urinary incontinence; R26.9 Unspecified abnormalities of gait and mobility; Z79.01 Long term (current) use of anticoagulants; Z79.4 Long term (current) use of insulin; Z79.84 Long term (current) use of oral hypoglycemic drugs; Z79.899 Other long term (current) drug therapy; Z80.42 Family history of malignant neoplasm of prostate; Z85.46 Personal history of malignant neoplasm of prostate; Z86.14 Personal history of Methicillin resistant Staphylococcus aureus infection; Z86.711 Personal history of pulmonary embolism; Z86.718 Personal history of other venous thrombosis and embolism; Z96.649 Presence of unspecified artificial hip joint; Z87.01 Personal history of pneumonia (recurrent); Z88.1 Allergy status to other antibiotic agents; Z88.0 Allergy status to penicillin; Z90.79 Acquired absence of other genital organ(s); Z71.3 Dietary counseling and surveillance
CPT/HCPCS: 36415; 71046; 72131; 80048; 80053; 80061; 80202; 81003; 82550; 82565; 82607; 82746; 83036; 83605; 83735; 83880; 84443; 84484; 85025; 85610; 85730; 87040; 87324; 87635; 93005; 93306; 94760; 96365; 96366; 96367; 96368; 96375; 99285

== ENCOUNTER → 2022-09-11 | Outpatient (CLI) | payer MEDICARE ==
--- NOTE | 2022-09-12 08:15 | MR ---
EXAMINATION TYPE: MR lumbar spine wo con DATE OF EXAM: 09/11/2022 4:38 PM COMPARISON: CT 06/14/2022. CLINICAL INDICATION: Male, 72 years old with history of M51.36 OTHER INTERVERTEBRAL DISC DEGENERATION , LUM; Low back pain that radiates down legs, trouble walking. TECHNIQUE: Multi planar, multi sequence imaging was performed utilizing: T1-weighted, T2-weighted, a nd turbo inversion recovery imaging of the lumbar spine. IV Contrast: None. FINDINGS: Alignment: The lumbar vertebral bodies have preserved heights. There is scoliotic alignment similar t o prior CT. Cord: The conus medullaris and the distal spinal cord appear unremarkable with regards to their signal intensity and morphology. Bones/Discs: Modic endplate changes seen throughout the spine with osteophyte formation, scoliosis ch anges, disc space narrowing and facet joint arthropathy. Some reactive bony edema noted at the adjoin ing endplates of L3-L4.. Multilevel disc desiccation is present. T12-L1: Central disc protrusion which effaces the nerve roots anteriorly. There is moderate to severe right and mild left neural foraminal stenosis. L1-L2: Disc degeneration with osteophyte with moderate to severe right neural foraminal stenosis. Mil d left neural foraminal stenosis. Spinal canal is patent. Disc bulging is also present is L2-L3: Osteophytes disc space narrowing result in mild spinal canal stenosis. There is moderate to se tara right and mild to moderate left neural foraminal stenosis. L3-L4: Rotation somewhat limits evaluation at this level there is right central disc protrusion witho ut significant spinal canal stenosis. There is facet joint arthropathy which results in moderate to s evere bilateral neural foraminal stenosis. L4-L5: Right central and central disc extrusion without significant spinal canal stenosis. Facet arth ropathy with moderate bilateral neural foraminal stenosis. L5-S1: Right posterior central annular tear without disc extrusion which results in mild to moderate right neural foraminal stenosis and effacement of the forming nerves. Moderate left neural foraminal stenosis. No significant spinal canal or neural foraminal stenosis in the remainder of the visualized levels. Other findings: None. IMPRESSION: Severe multilevel degeneration changes partially secondary to scoliotic curvature. Overall the spinal canal canal is patent. There is multilevel areas of disc herniations scattered throughout the spine. As well as moderate and moderate to severe neural foraminal stenosis scattered throughout the lumbar spine.
== END | disposition home or self-care (01) ==
LOC: RADMRIMAIN 15:33
PROVIDERS: ATTEND Family Medicine
DX: M51.16 Intervertebral disc disorders with radiculopathy, lumbar region (principal); M48.061 Spinal stenosis, lumbar region without neurogenic claudication; M47.26 Other spondylosis with radiculopathy, lumbar region
CPT/HCPCS: 72148

== ENCOUNTER → 2022-10-24 | Outpatient (CLI) | payer MEDICARE ==
[2022-10-24 12:04] VITALS: BP 136/64; PULSE 92; RESP 15; TEMP 97.2
--- NOTE | 2022-10-24 15:15 | P.PAINPG ---
PQRS Measure Charge Sheet Comment: HISTORY OF PRESENT ILLNESS: 72 yr old male presents today as a referral from Dr Fernandez childers severe and chronic LBP x 2 yrs secondary to DDD, spondylosis and facet arthropathy without myelopathy for evaluation. Pt states pain level is provoked at 6/10 in intensity, constant, localized in the lower lumbar spine, achy in character w shooting pain towards the BLEs. Pain is provoked by standing/ walking for periods of 5 min or more, bending, or lifting. Pain is alleviated by medications (Hawley), heat, PT x 6wks which was completed in Sep 2022, repositoning and rest . Oswestry axial pain score at 39 . PMH: OA, Prostate CA, DM II, DVT, GERD, Hyperlipidemia, HTN, OA, BPH, PE, Skin Disorder, KIRSTIN PSH: Cholecystectomy, Colostomy, Hernia Repair, Total R Hip Replacement, Prostatectomy, Tonsillectomy, BL Cataract Surgery, BL Ear Tubes, SH: 28 pack/ yr former tobacco user, No ETOH use, No illicit drug use . Uses a walker for ambulatory assistance FH: Fa- Prostate CA. Mo- DVT, PE. All: See list Meds: See list REVIEW OF ORGAN SYSTEMS: CONSTITUTIONAL: No fevers or chills. No recent weight loss. NEUROLOGICAL: + numbness and tingling along the distal extremities. No seizure disorders or headaches. MUSCULOSKELETAL: + pain PSYCHIATRIC: Denies current depression or suicidal thoughts. Physical Examinations : Constitutional : Cooperative , not in acute distress . Neurologic : Cranial nerve II to XII intact. No focal neurological deficits. Psychiatric : alert & oriented x 3. Matching mood & appropriate affect. Judgment & insight intact. Musculoskeletal : Cervical Spine Motor strength in the deltoid and biceps: Normal right side. Normal Left side Motor strength biceps and the wrist extensors: Normal right side . Normal left side Motor strength in the triceps muscle: Normal right side. Normal left side Deep tendon reflexes: Normal at the biceps. Normal at Brachioradialis. Normal at triceps Vertebral body tenderness to deep palpation over Cervical facet loading test: positive bilaterally Spurling test: positive bilaterally Neck distraction test: positive bilaterally Max sign: positive bilaterally Lumbar spine Motor strength lower extremities ,thigh and legs 5/5 Right side , 5/5 Left side Deep tendon reflexes : Normal Knee Jerk. Normal Ankle Jerk Vertebral body tenderness over L5 Sol Test positive Lumbar facet Loading Test: positive Right / positive Left Range of motion of the lumbar spine Flexion 30 degrees, extension 10 degrees Straight Leg Raise test: Left/ Right positive at 35 degrees Oscar test: positive right / positive left. Severe tenderness over the Sacroiliac joint on the Right / Left sides Gaenslen test: positive bilaterally Seated flexion test: positive bilaterally. Sacral spine : Severe tenderness over the Sacroiliac joint: right side / left side Range of motion: Flexion of the lumbar spine <60 degrees Range of motion: Extension of the lumbar spine <20 degrees Gaenslen's Test positive Ramin's Test positive Oscar test: positive right side / left side Thigh Thrust Test Sacral Thrust Test Imaging: MRI non contrast of the lumbar spine from 09/11/22 reviewed Assessment/ Plan : Lumbar DDD Recommendation of MAURILIO L5-S1 #1. May need a series of injections for optimal pain relief. Risks, benefits of procedure discussed and patient verbalized understanding. Admits to aspirin or anti- coagulant use or medical history of diabetes. Protocol for discontinuation/ continuation of medications patsy procedure discussed. Minimal anesthesia provided, if clinically indicated, consisting of Versed and Fentanyl. All questions answered. I have spent greater than 30 minutes on patient care today. Dr Dang was jayjay ilable by phone for the evaluation of this patient. The time was used to review the medical records including relevant urine studies and Prescription history (MAPs), review of the available imaging, evaluation and examination of the patient, coordination of care with the medical staff and if applicable referring physicians, as well as creation of the medical record PQRS Narrative: Smoking Status Former smoker Hx Alcohol Use (MH) No Home Medications: Ambulatory Orders Atorvastatin Calcium [Lipitor] 40 mg PO HS 02/03/15 Lansoprazole 30 mg PO BID 02/03/15 Nebivolol HCl [Bystolic] 5 mg PO DAILY 02/03/15 Empagliflozin/Metformin HCl [Synjardy Xr 12.5-1,000 mg Tab] 2 tab PO W/BRKFST 06/13/22 Furosemide [Lasix] 40 mg PO DAILY 06/13/22 Naloxone HCl [Narcan] 4 mg NASAL ONCE PRN 06/13/22 Pioglitazone [Actos] 30 mg PO DAILY 06/13/22 Potassium Chloride ER [K-Dur 20] 20 meq PO DAILY 06/13/22 Semaglutide [Ozempic] 2 mg SQ WE 06/13/22 Rivaroxaban [Xarelto] 20 mg PO DAILY #90 tab 06/14/22 Cyanocobalamin (Vitamin B-12) [Vitamin B-12] 1,000 mcg PO DAILY #1 tablet 06/15/22 HYDROcodone/APAP 5-325MG [Hawley 5-325] 2 tab PO Q8H PRN #18 tab 06/15/22 Hydrophilic Cream [Triad (Kerodex geq)] 1 applic TOPICAL DAILY #71 gm 06/15/22 INSULIN LISPRO (HumaLOG) [humaLOG] 0 unit SQ ACHS #10 ml 06/15/22 Pregabalin [Lyrica] 75 mg PO BID #6 cap 06/15/22 SILVER sulfADIAZINE Cream [Silvadene 1% Cream] 1 applic TOPICAL DAILY #400 gm 06/15/22 Sulfamethox-Tmp 800-160Mg [Bactrim DS 800-160 mg] 1 tab PO BID #10 tab 06/15/22 Controlled Substance Measures - Controlled Substance Measures Is patient prescribed a controlled substance at discharge?: No
== END ==
LOC: PNWHC3 11:10
PROVIDERS: ATTEND Specialist
DX: M51.36 Other intervertebral disc degeneration, lumbar region (principal); M19.90 Unspecified osteoarthritis, unspecified site; E11.9 Type 2 diabetes mellitus without complications; I10 Essential (primary) hypertension; K21.9 Gastro-esophageal reflux disease without esophagitis; N40.0 Benign prostatic hyperplasia without lower urinary tract symptoms; G47.33 Obstructive sleep apnea (adult) (pediatric); I26.99 Other pulmonary embolism without acute cor pulmonale; E78.5 Hyperlipidemia, unspecified; Z85.46 Personal history of malignant neoplasm of prostate; Z86.718 Personal history of other venous thrombosis and embolism; Z87.891 Personal history of nicotine dependence; Z79.4 Long term (current) use of insulin; Z79.84 Long term (current) use of oral hypoglycemic drugs; Z88.0 Allergy status to penicillin; Z88.8 Allergy status to other drugs, medicaments and biological substances; Z79.01 Long term (current) use of anticoagulants
CPT/HCPCS: 99211

== ENCOUNTER 2023-01-02 11:57 | Inpatient (IN) | payer MEDICARE ==
--- NOTE | 2023-01-02 12:38 | ED ---
General Adult HPI - General Chief complaint: Neuro Symptoms/Deficit Stated complaint: Altered Mental Status Time Seen by Provider: 01/02/23 12:05 Source: patient, EMS, RN notes reviewed, old records reviewed Mode of arrival: EMS Limitations: no limitations - History of Present Illness Initial comments: This is a 72-year-old male who presents emergency Department stating he just doesn't feel right. Patient states the symptoms started yesterday. Patient was being told by friends today just wasn't acting quite right. Patient states he is finding it difficult to remember what month or year it is. Patient states she just doesn't seem to be is clear minded and she used to be. Patient denies any headache patient denies focal numbness weakness. Patient denies any fever chills or cough. Patient denies chest pain palpitations difficulty breathing or shortness of breath. Patient denies any abdominal pain patient denies nausea vomiting diarrhea. Patient states he has been eating normally. - Related Data Home Medications Medication Instructions Recorded Confirmed Atorvastatin Calcium [Lipitor] 40 mg PO HS 02/03/15 01/02/23 Lansoprazole 30 mg PO DAILY 02/03/15 01/02/23 Empagliflozin/Metformin HCl 2 tab PO W/BRKFST 06/13/22 01/02/23 [Synjardy Xr 12.5-1,000 mg Tab] Furosemide [Lasix] 40 mg PO DAILY PRN 06/13/22 01/02/23 Naloxone HCl [Narcan] 4 mg NASAL ONCE PRN 06/13/22 01/02/23 Pioglitazone [Actos] 30 mg PO DAILY 06/13/22 01/02/23 Potassium Chloride ER [K-Dur 20] 20 meq PO DAILY PRN 06/13/22 01/02/23 Amitriptyline HCl [Elavil] 25 mg PO HS 01/02/23 01/02/23 Cholecalciferol [Vitamin D3 (125 125 mcg PO DAILY 01/02/23 01/02/23 Mcg = 5000 Iu)] Fexofenadine HCl [Nikia Allergy] 180 mg PO DAILY 01/02/23 01/02/23 HYDROcodone/APAP 10-325MG [[place] 1 tab PO Q6H PRN 01/02/23 01/02/23 10-325] Losartan [Cozaar] 12.5 mg PO DAILY 01/02/23 01/02/23 Pramipexole [Mirapex] 0.5 mg PO BID@1200,1800 01/02/23 01/02/23 Semaglutide [Ozempic] 1 mg SQ WE 01/02/23 01/02/23 Previous Rx's Medication Instructions Recorded Rivaroxaban [Xarelto] 20 mg PO DAILY #90 tab 06/14/22 Cyanocobalamin (Vitamin B-12) 1,000 mcg PO DAILY #1 tablet 06/15/22 [Vitamin B-12] Pregabalin [Lyrica] 75 mg PO BID #6 cap 06/15/22 Allergies Allergy/AdvReac Type Severity Reaction Status Date / Time cephalexin monohydrate Allergy Rash/Hives Verified 01/02/23 13:53 [From Keflex] on neck Penicillins Allergy Rash/Hives Verified 01/02/23 13:53 on neck Review of Systems ROS Statement: Those systems with pertinent positive or pertinent negative responses have been documented in the HPI. ROS Other: All systems not noted in ROS Statement are negative. Past Medical History Past Medical History: Cancer, Diabetes Mellitus, Deep Vein Thrombosis (DVT), GERD/Reflux, Hyperlipidemia, Hypertension, Osteoarthritis (OA), Pneumonia, Prostate Disorder, Pulmonary Embolus (PE), Skin Disorder, Sleep Apnea/CPAP/BIPAP Additional Past Medical History / Comment(s): open wound to back-has visiting nurse two times per weeks,prostate ca, rt leg dvt, diverticulitis, psoriases, abd hernia,no cpap History of Any Multi-Drug Resistant Organisms: None Reported Past Surgical History: Back Surgery, Cholecystectomy, Hernia Repair, Joint Replacement, Prostate Surgery, Tonsillectomy Additional Past Surgical History / Comment(s): prostectomy, had ruptured diverticuli -colostomy and then reversed, abd hernia, tanisha cataracts, tubes in ears,total rt hip,[facility] Procedures Past Anesthesia/Blood Transfusion Reactions: No Reported Reaction Past Psychological History: No Psychological Hx Reported Smoking Status: Former smoker Past Alcohol Use History: None Reported Past Drug Use History: None Reported - Past Family History Father Family Medical History: Cancer Additional Family Medical History / Comment(s): prostate CA Mother Family Medical History: Deep Vein Thrombosis (DVT), Pulmonary Embolus Additional Family Medical History / Comment(s): PROSTATE CNACER General Exam - General Exam Comments Initial Comments: GENERAL: Patient is well-developed and well-nourished. Patient is nontoxic and well- hydrated and is in no acute distress. ENT: Neck is soft and supple. No significant lymphadenopathy is noted. Oropharynx is clear. Moist mucous membranes. Neck has full range of motion without eliciting any pain. EYES: The sclera were anicteric and conjunctiva were pink and moist. Extraocular movements were intact and pupils were equal round and reactive to light. Eyelids were unremarkable. PULMONARY: Unlabored respirations. Good breath sounds bilaterally. No audible rales rhonchi or wheezing was noted. CARDIOVASCULAR: There is a regular rate and rhythm without any murmurs gallops or rubs. ABDOMEN: Soft and nontender with normal bowel sounds. SKIN: Skin is clear with no lesions or rashes and otherwise unremarkable. NEUROLOGIC: Patient is alert and oriented x3 but is slow to give you the right answer and he states this is not normal. Cranial nerves II through XII are grossly intact. Motor and sensory are also intact. Normal speech, volume and content. S ymmetrical smile. NIH is 0 MUSCULOSKELETAL: Normal extremities with adequate strength and full range of motion. No lower extremity swelling or edema. No calf tenderness. LYMPHATICS: No significant lymphadenopathy is noted PSYCHIATRIC: Normal psychiatric evaluation. Limitations: no limitations Course Vital Signs 01/02/23 12:01 Temperature 97.5 F L Pulse Rate 84 Respiratory 18 Rate Blood Pressure 153/70 O2 Sat by Pulse 98 Oximetry Medical Decision Making - Medical Decision Making EKG is interpreted by myself. EKG shows atrial flutter at 77 bpm QRS is under 4 QT interval 416 QTC is 448. Patient's EKG shows no ST segment patient or depression. Was pt. sent in by a medical professional or institution (, PA, SHEET ROCK APPLICATOR, urgent c are, hospital, or senior care...) When possible be specific @ -No Did you speak to anyone other than the patient for history (EMS, parent, family, police, friend...)? What history was obtained from this source @ -No Did you review nursing and triage notes (agree or disagree)? Why? @ -I reviewed and agree with nursing and triage notes Were old charts reviewed (outside hosp., previous admission, EMS record, old EKG, old radiological studies, urgent care reports/EKG's, senior care records)? Report findings @ -I reviewed prior to prior lab work on this patient Differential Diagnosis (chest pain, altered mental status, abdominal pain women, abdominal pain men, vaginal bleeding, weakness, fever, dyspnea, syncope, headache, dizziness, GI bleed, back pain, seizure, CVA, palpatations, mental health, musculoskeletal)? @ -Differential Altered Mental Status: Hypoglycemia, DKA, hypercapnia, ETOH, overdose, CO poisoning, trauma, myxedema coma, HTN encephalopathy, infection, encephalitis, psychosis, intercranial hemorrhage, hepatic encephalopathy, meningitis, CVA, this is not meant to be an all-inclusive list EKG interpreted by me (3pts min.). @ -As above X-rays interpreted by me (1pt min.). @ -Chest x-ray shows small pleural effusion CT interpreted by me (1pt min.). @ -CT of the brain shows no acute abnormality U/S interpreted by me (1pt. min.). @ -None done What testing was considered but not performed or refused? (CT, X-rays, U/S, labs)? Why? @ -None What meds were considered but not given or refused? Why? @ -None Did you discuss the management of the patient with other professionals (professionals i.e. Dr., PA, SHEET ROCK APPLICATOR, lab, RT, psych nurse, social worker aide, race car mechanic, teacher, business development officer, case briefer)? Give summary @ -I spoke with Dr. Kearney the order entry specialist and informed him that the patient's troponin was elevated and he will see the patient on consult. I spoke with Dr. Oshea he agreed to admit the patient. Was smoking cessation discussed for >3mins.? @ -No Was critical care preformed (if so, how long)? @ -No Were there social determinants of health that impacted care today? How? (Homelessness, low income, unemployed, alcoholism, drug addiction, transportation, low edu. Level, literacy, decrease access to med. care, half-way, rehab)? @ -No Was there de-escalation of care discussed even if they declined (Discuss DNR or withdrawal of care, Hospice)? DNR status @ -No What co-morbidities impacted this encounter? (DM, HTN, Smoking, COPD, CAD, Cancer, CVA, ARF, Chemo, Hep., AIDS, mental health diagnosis, sleep apnea, morbid obesity)? @ -None Was patient admitted / discharged? Hospital course, mention meds given and rout e, prescriptions, significant lab abnormalities, going to OR and other pertinent info. @ -Patient had lab work done CAT scan of the chest x-ray there was no explanation for the patient's feeling that he was unable to think as quickly as she normally did patient still remained chest pain-free was not short of breath. Patient's troponin was elevated however he was already on a blood thinner so no heparin was started. I admitted the patient wrote admitting orders and consult to cardiology Undiagnosed new problem with uncertain prognosis? @ -No Drug Therapy requiring intensive monitoring for toxicity (Heparin, Nitro, Insulin, Cardizem)? @ -No Were any procedures done? @ -No Diagnosis/symptom? @ -NSTEMI Acute, or Chronic, or Acute on Chronic? @ -Acute Uncomplicated (without systemic symptoms) or Complicated (systemic symptoms)? @ -Complicated Side effects of treatment? @ -No Exacerbation, Progression, or Severe Exacerbation? @ -No Poses a threat to life or bodily function? How? (Chest pain, [place], [place], pneumonia, PE, COPD, DKA, ARF, appy, cholecystitis, CVA, Diverticulitis, Homicidal, Suicidal, threat to staff... and all critical care pts) @ -Yes this could lead to an [place] in leads end organ dysfunction - Lab Data Result diagrams: 01/02/23 12:35 01/02/23 12:35 Lab Results 01/02/23 01/02/23 01/02/23 Range/Units 12:35 12:35 12:35 WBC 6.0 (3.8-10.6) k/uL RBC 4.38 (4.30-5.90) m/uL Hgb 12.2 L (13.0-17.5) gm/dL Hct 38.1 L (39.0-53.0) % MCV 87.1 (80.0-100.0) fL MCH 27.8 (25.0-35.0) pg MCHC 31.9 (31.0-37.0) g/dL RDW 15.2 (11.5-15.5) % Plt Count 116 L (150-450) k/uL MPV 7.8 Neutrophils % 70 % Lymphocytes % 16 % Monocytes % 5 % Eosinophils % 6 % Basophils % 0 % Neutrophils # 4.2 (1.3-7.7) k/uL Lymphocytes # 1.0 (1.0-4.8) k/uL Monocytes # 0.3 (0-1.0) k/uL Eosinophils # 0.4 (0-0.7) k/uL Basophils # 0.0 (0-0.2) k/uL Hypochromasia Slight Sodium 135 L (137-145) mmol/L Potassium 5.1 (3.5-5.1) mmol/L Chloride 99 (98-107) mmol/L Carbon Dioxide 24 (22-30) mmol/L Anion Gap 12 mmol/L BUN 12 (9-20) mg/dL Creatinine 0.72 (0.66-1.25) mg/dL Est GFR (CKD-EPI)AfAm >90 (>60 ml/min/1.73 sqM) Est GFR (CKD-EPI)NonAf >90 (>60 ml/min/1.73 sqM) Glucose 79 (74-99) mg/dL POC Glucose (mg/dL) (70-110) mg/dL POC Glu Audio/Visual Operator ID Calcium 9.8 (8.4-10.2) mg/dL Total Bilirubin 1.3 (0.2-1.3) mg/dL AST 34 (17-59) U/L ALT 13 (4-49) U/L Alkaline Phosphatase 208 H (38-126) U/L Troponin I (0.000-0.034) ng/mL Total Protein 7.2 (6.3-8.2) g/dL Albumin 4.0 (3.5-5.0) g/dL Urine Color Light Yellow Urine Appearance Clear (Clear) Urine pH 6.0 (5.0-8.0) Ur Specific [place] 1.013 (1.001-1.035) Urine Protein Negative (Negative) Urine Glucose (UA) 4+ H (Negative) Urine Ketones 1+ H (Negative) Urine Blood Small H (Negative) Urine Nitrite Negative (Negative) Urine Bilirubin Negative (Negative) Urine Urobilinogen <2.0 (<2.0) mg/dL Ur Leukocyte Esterase Negative (Negative) Urine RBC 25 H (0-5) /hpf Urine WBC 2 (0-5) /hpf Ur Squamous Epith Cells 1 (0-4) /hpf Urine Mucus Occasional H (None) /hpf Urine Opiates Screen Detected H (NotDetected) Ur Oxycodone Screen Not Detected (NotDetected) Urine Methadone Screen Not Detected (NotDetected) Ur Propoxyphene Screen Not Detected (NotDetected) Ur Barbiturates Screen Not Detected (NotDetected) U Tricyclic Antidepress Detected H (NotDetected) Ur Phencyclidine Scrn Not Detected (NotDetected) Ur Amphetamines Screen Not Detected (NotDetected) U Methamphetamines Scrn Not Detected (NotDetected) U Benzodiazepines Scrn Not Detected (NotDetected) Urine Cocaine Screen Not Detected (NotDetected) U Marijuana (THC) Screen Not Detected (NotDetected) 01/02/23 01/02/23 01/02/23 Range/Units 12:35 13:07 13:09 WBC (3.8-10.6) k/uL RBC (4.30-5.90) m/uL Hgb (13.0-17.5) gm/dL Hct (39.0-53.0) % MCV (80.0-100.0) fL MCH (25.0-35.0) pg MCHC (31.0-37.0) g/dL RDW (11.5-15.5) % Plt Count (150-450) k/uL MPV Neutrophils % % Lymphocytes % % Monocytes % % Eosinophils % % Basophils % % Neutrophils # (1.3-7.7) k/uL Lymphocytes # (1.0-4.8) k/uL Monocytes # (0-1.0) k/uL Eosinophils # (0-0.7) k/uL Basophils # (0-0.2) k/uL Hypochromasia Sodium (137-145) mmol/L Potassium (3.5-5.1) mmol/L Chloride (98-107) mmol/L Carbon Dioxide (22-30) mmol/L Anion Gap mmol/L BUN (9-20) mg/dL Creatinine (0.66-1.25) mg/dL Est GFR (CKD-EPI)AfAm (>60 ml/min/1.73 sqM) Est GFR (CKD-EPI)NonAf (>60 ml/min/1.73 sqM) Glucose (74-99) mg/dL POC Glucose (mg/dL) 66 L 75 (70-110) mg/dL POC Glu Audio/Visual Operator ID Phuong Frias Elizabeth Calcium (8.4-10.2) mg/dL Total Bilirubin (0.2-1.3) mg/dL AST (17-59) U/L ALT (4-49) U/L Alkaline Phosphatase (38-126) U/L Troponin I 0.115 H* (0.000-0.034) ng/mL Total Protein (6.3-8.2) g/dL Albumin (3.5-5.0) g/dL Urine Color Urine Appearance (Clear) Urine pH (5.0-8.0) Ur Specific [place] (1.001-1.035) Urine Protein (Negative) Urine Glucose (UA) (Negative) Urine Ketones (Negative) Urine Blood (Negative) Urine Nitrite (Negative) Urine Bilirubin (Negative) Urine Urobilinogen (<2.0) mg/dL Ur Leukocyte Esterase (Negative) Urine RBC (0-5) /hpf Urine WBC (0-5) /hpf Ur Squamous Epith Cells (0-4) /hpf Urine Mucus (None) /hpf Urine Opiates Screen (NotDetected) Ur Oxycodone Screen (NotDetected) Urine Methadone Screen (NotDetected) Ur Propoxyphene Screen (NotDetected) Ur Barbiturates Screen (NotDetected) U Tricyclic Antidepress (NotDetected) Ur Phencyclidine Scrn (NotDetected) Ur Amphetamines Screen (NotDetected) U Methamphetamines Scrn (NotDetected) U Benzodiazepines Scrn (NotDetected) Urine Cocaine Screen (NotDetected) U Marijuana (THC) Screen (NotDetected) Disposition Clinical Impression: Non-STEMI (non-ST elevated myocardial infarction) Disposition: ADMITTED IP TO THIS HOSP Referrals: Venu Oshea MD [Primary Care Provider] - 1-2 days Time of Disposition: 15:54
--- NOTE | 2023-01-02 13:02 | XR ---
EXAMINATION TYPE: XR chest 2V DATE OF EXAM: 01/02/2023 12:55 PM COMPARISON: Chest radiographs from 06/13/2022 TECHNIQUE: XR chest 2V Frontal and lateral views of the chest. CLINICAL INDICATION:Male, 72 years old with history of altered mental status; FINDINGS: Lungs/Pleura: Trace right pleural effusion on the lateral view. No focal consolidation or pneumothora x. Chronic interstitial prominence. Heart/mediastinum: Cardiomediastinal silhouette is enlarged and stable. Atherosclerotic calcificatio ns are seen in the aorta. Musculoskeletal: Multiple level degenerative disc disease changes seen throughout the spine. IMPRESSION: 1. Trace right pleural effusion. 2. Chronic interstitial prominence. Correlate for interstitial lung disease.
[2023-01-02 13:12] LABS: Glucose,Whole Blood 66 mg/dL (70-110)
[2023-01-02 13:12] LABS: Glucose,Whole Blood 75 mg/dL (70-110)
[2023-01-02 13:20] LABS: Basophils % (A) 0 %; Eosinophils # (A) 0.4 k/uL (0-0.7); Eosinophils % (A) 6 %; HCT 38.1 % (39.0-53.0); HGB 12.2 gm/dL (13.0-17.5); Hypochromasia Slight; Lymphocytes % (A) 16 %; MCH 27.8 pg (25.0-35.0); MCHC 31.9 g/dL (31.0-37.0); MCV 87.1 fL (80.0-100.0); Mean Platelet Volume 7.8; Monocytes # (A) 0.3 k/uL (0-1.0); Monocytes % (A) 5 %; Neutrophils # (A) 4.2 k/uL (1.3-7.7); Neutrophils % (A) 70 %; Platelet Count 116 k/uL (150-450); RBC 4.38 m/uL (4.30-5.90); RDW 15.2 % (11.5-15.5)
[2023-01-02 13:32] LABS: ALT 13 U/L (4-49); African American GFR (CKD) >90 (>60 ml/min/1.73 sqM); Anion Gap 12 mmol/L; Blood Urea Nitrogen 12 mg/dL (9-20); Calcium 9.8 mg/dL (8.4-10.2); Carbon Dioxide 24 mmol/L (22-30); Chloride 99 mmol/L (98-107); Glucose 79 mg/dL (74-99); Non-African American GFR(CKD) >90 (>60 ml/min/1.73 sqM); Sodium 135 mmol/L (137-145); Total Bilirubin 1.3 mg/dL (0.2-1.3); Total Protein 7.2 g/dL (6.3-8.2)
[2023-01-02 13:34] LABS: Potassium 5.1 mmol/L (3.5-5.1)
[2023-01-02 13:35] LABS: AST 34 U/L (17-59); Alkaline Phosphatase 208 U/L (38-126)
--- NOTE | 2023-01-02 14:28 | CT ---
EXAMINATION TYPE: CT brain wo con CT DLP: 1135 mGycm, Automated exposure control for dose reduction was used. DATE OF EXAM: 01/02/2023 2:20 PM COMPARISON: None. CLINICAL INDICATION:Male, 72 years old with history of Altered mental status, TECHNIQUE: Brain: Axial CT images of the brain were obtained with coronal and sagittal reformats created and rev iewed. Contrast used: None. Oral contrast used: None. FINDINGS: Brain: Extra-axial spaces: No abnormal extra-axial fluid collections. Ventricular system: Dilatation in proportion to cerebral atrophy. Cerebral parenchyma: Cerebral atrophy. No acute intraparenchymal hemorrhage or mass effect. The no -white junction is well differentiated. Scattered hypoattenuating areas are seen within the white mat ter. Cerebellum: Unremarkable. Mass effect: No evidence of midline shift. Intracranial vasculature: Atherosclerotic calcifications of the intracranial vessels. Soft tissues: Normal. Calvarium/osseous structures: No depressed skull fracture. Paranasal sinuses and mastoid air cells: Mild scattered paranasal sinus disease. Visualized orbits: Bilateral aphakia IMPRESSION: 1. No acute intracranial process. 2. Nonspecific white matter changes, likely secondary to chronic small vessel ischemic disease.
[2023-01-02 15:19] LABS: Appearance,Urine Clear (Clear); Bilirubin,Urine Negative (Negative); Blood,Urine Small (Negative); Color,Urine Light Yellow; Glucose,Urine (UA) 4+ (Negative); Ketones,Urine 1+ (Negative); Leukocyte Esterase,Urine Negative (Negative); Mucus,Urine Occasional /hpf; Nitrite,Urine Negative (Negative); Protein,Urine Negative (Negative); RBC,Urine 25 /hpf (0-5); Specific Gravity,Urine 1.013 (1.001-1.035); Squamous Epithelial Cell,Urine 1 /hpf (0-4); Urobilinogen,Urine <2.0 mg/dL (<2.0); WBC,Urine 2 /hpf (0-5)
[2023-01-02 15:25] LABS: Amphetamine Screen,Urine Not Detected (NotDetected); Benzodiazepines Screen,Urine Not Detected (NotDetected); Cocaine Screen,Urine Not Detected (NotDetected); Opiate Screen,Urine Detected (NotDetected); Phencyclidine Screen,Urine Not Detected (NotDetected); Tricyclic Antidepressant,Urine Detected (NotDetected); Urn Cannabinoid Scrn Not Detected (NotDetected)
[2023-01-02 15:26] LABS: Barbiturate Screen,Urine Not Detected (NotDetected); Methadone Screen, Urine Not Detected (NotDetected); Oxycodone Screen, Urine Not Detected (NotDetected)
[2023-01-02] MEDS ORDERED: HEPARIN SODIUM 1,000 UN/ML (10ML VL) IV ONE (15:38)
[2023-01-02] MEDS ORDERED: HEPARIN SOD,PORK IN 0.45% NACL 25,000 UNIT in 0.45% NACL 1 250ML.BAG IV SCH (15:45)
[2023-01-02] MEDS ORDERED: ASPIRIN 81 MG PO STA (15:54)
[2023-01-02] MEDS ORDERED: NITROGLYCERIN SL TABS 0.4 MG TAB SUBLINGUAL PRN (15:54)
[2023-01-02] MEDS: NITROGLYCERIN OINT 1 INCH/GM PACKET TOPICAL SCH (17:23)
[2023-01-02] MEDS ORDERED: POTASSIUM CHLORIDE ER 20 MEQ TAB.ER PO PRN (18:49)
[2023-01-02] MEDS ORDERED: FUROSEMIDE 40 MG TAB PO PRN (18:49)
[2023-01-02] MEDS: PREGABALIN 75 MG CAP PO SCH (21:01)
[2023-01-02] MEDS: AMITRIPTYLINE HCL 25 MG TAB PO SCH (21:01)
[2023-01-02] MEDS: HYDROcodone/APAP 10-325MG 1 EACH TAB PO PRN (21:01)
[2023-01-02] MEDS: NON FORMULARY DRUG (Semaglutide [Ozempic] 1 MG/0.75 ML Each) SQ SCH (23:32)
[2023-01-02] MEDS: ATORVASTATIN 40 MG TAB PO SCH (23:32)
[2023-01-03] MEDS: NITROGLYCERIN OINT 1 INCH/GM PACKET TOPICAL SCH ×2 (03:49→07:14)
[2023-01-03 06:54] LABS: Glucose,Whole Blood 100 mg/dL (70-110)
[2023-01-03] MEDS: metFORMIN 500 MG TAB PO SCH ×2 (07:13→17:21)
[2023-01-03] MEDS: DAPAGLIFLOZIN PROPANEDIOL 10 MG TABLET PO SCH (07:14)
[2023-01-03] MEDS ORDERED: ASPIRIN 325 MG TAB PO SCH (09:00)
[2023-01-03] MEDS: RIVAROXABAN 20 MG TAB PO SCH (09:40)
[2023-01-03] MEDS: CHOLECALCIFEROL 125 MCG (5000 IU) TABLET PO SCH (09:40)
[2023-01-03] MEDS: LORATADINE 10 MG TAB PO SCH (09:41)
[2023-01-03] MEDS: PREGABALIN 75 MG CAP PO SCH ×2 (09:41→19:32)
[2023-01-03] MEDS: LOSARTAN 25 MG TAB PO SCH (09:42)
[2023-01-03] MEDS: PIOGLITAZONE 30 MG TAB PO SCH (09:44)
[2023-01-03] MEDS: HYDROcodone/APAP 10-325MG 1 EACH TAB PO PRN ×2 (09:45→21:57)
[2023-01-03] MEDS: CYANOCOBALAMIN 500 MCG TAB PO SCH (09:49)
--- NOTE | 2023-01-03 09:57 | P.CRDCN ---
History of Present Illness History of present illness: HISTORY OF PRESENT ILLNESS: This is a 72-year-old male with a past medical history significant for congestive heart failure, mild aortic stenosis, atrial flutter, diabetes, hypertension, and hyperlipidemia. Patient follows in the office with Dr. Zhou. We have been asked to see the patient in consultation for abnormal troponins. Patient examined at the bedside. Patient states he came to the hospital because he has having trouble finding the words to speak. He felt as though he really had to concentrate on what he wanted to say and felt like it was difficult to carry on a conversation. The patient denied having any chest pain or pressure. He denies any shortness of breath. Patient's vital signs are stable. * EKG reveals atrial flutter with controlled ventricular rate * Chest xray trace right pleural effusion. Chronic interstitial prominence. * Laboratory data: Significant for troponin 0.115. 0.126. * Current home cardiac medications include losartan 12.5 mg daily, Xarelto 20 mg daily, Lasix 40 mg daily as needed, and atorvastatin 40 mg at night * Most recent echocardiogram obtained in June 2022 revealed ejection fraction 50-55%, mild aortic stenosis, mild tricuspid regurgitation trace to mild mitral regurgitation * Patient underwent Gabrielle scan in November 2022 which was negative for ischemia REVIEW OF SYSTEMS: At the time of my exam: CONSTITUTIONAL: Denies fever or chills. HEENT: Denies blurred vision, vision changes, or eye pain. Denies hemoptysis CARDIOVASCULAR: Denies chest pain. Denies orthopnea. Denies PND. Denies palpitations RESPIRATORY: Denies shortness of breath. GASTROINTESTINAL: Denies abdominal pain. Denies nausea or vomiting. HEMATOLOGIC: Denies bleeding disorders. GENITOURINARY: Denies any blood in urine. SKIN: Denies pruitis. Denies rash. PHYSICAL EXAM: VITAL SIGNS: Reviewed. GENERAL: Well-developed in no acute distress. HEENT: Head is normocephalic. Pupils are equal, round. Sclerae anicteric. Mucous membranes of the mouth are moist. Neck supple. No JVD or thyromegaly LUNGS: Respirations even and unlabored. Lungs essentially clear to auscultation bilaterally. HEART: Irregular rate and rhythm. S1 and S2 heard. + systolic murmur ABDOMEN: Soft. Nondistended. Nontender. EXTREMITIES: Normal range of motion. No clubbing or cyanosis. Peripheral pulses intact. No lower extremity edema NEUROLOGIC: Awake and alert. Oriented x 3. ASSESSMENT: Altered mental status, patient states he is unable to find the correct words to carry on a conversation Abnormal troponin, not suggestive of primary myocardial injury Persistent typical atrial flutter with controlled ventricular rate Chronic congestive heart failure with preserved ejection fraction Mild aortic stenosis Hypertension Hyperlipidemia Diabetes PLAN: Preliminary echo completed at the bedside reveals preserved LV systolic function It is noted the patient underwent Lexiscan stress test in the office in November 2022 which was negative for ischemia An acute coronary event has been ruled out Resume home cardiac mediations Continue anticoagulation with Xarelto Consult neurology for evaluation Further recommendations pending patient's course Nurse practitioner note has been reviewed by physician. Signing provider agrees with the documented findings, assessment, and plan of care. Past Medical History Past Medical History: Atrial Fibrillation, Cancer, Diabetes Mellitus, Deep Vein Thrombosis (DVT), GERD/Reflux, Hyperlipidemia, Hypertension, Osteoarthritis (OA), Pneumonia, Prostate Disorder, Pulmonary Embolus (PE), Skin Disorder, Sleep Apnea/CPAP/BIPAP Additional Past Medical History / Comment(s): open wound to back-has visiting nurse two times per weeks,prostate ca, rt leg dvt, diverticulitis, psoriases, abd hernia,no cpap History of Any Multi-Drug Resistant Organisms: None Reported Past Surgical History: Back Surgery, Cholecystectomy, Hernia Repair, Joint Replacement, Prostate Surgery, Tonsillectomy Additional Past Surgical History / Comment(s): prostectomy, had ruptured diverticuli -colostomy and then reversed, abd hernia, tanisha cataracts, tubes in ears,total rt hip,[facility] Procedures Past Anesthesia/Blood Transfusion Reactions: No Reported Reaction Past Psychological History: No Psychological Hx Reported Additional Psychological History / Comment(s): uses a walker when up. Smoking Status: Former smoker Past Alcohol Use History: None Reported Additional Past Alcohol Use History / Comment(s): SMOKED X 28 YEARS 1PPD. Past Drug Use History: None Reported - Past Family History Father Family Medical History: Cancer Additional Family Medical History / Comment(s): prostate CA Mother Family Medical History: Deep Vein Thrombosis (DVT), Pulmonary Embolus Additional Family Medical History / Comment(s): PROSTATE CNACER Medications and Allergies Home Medications Medication Instructions Recorded Confirmed Type Atorvastatin Calcium [Lipitor] 40 mg PO HS 02/03/15 01/02/23 History Lansoprazole 30 mg PO DAILY 02/03/15 01/02/23 History Empagliflozin/Metformin HCl 2 tab PO W/BRKFST 06/13/22 01/02/23 History [Synjardy Xr 12.5-1,000 mg Tab] Furosemide [Lasix] 40 mg PO DAILY PRN 06/13/22 01/02/23 History Naloxone HCl [Narcan] 4 mg NASAL ONCE PRN 06/13/22 01/02/23 History Pioglitazone [Actos] 30 mg PO DAILY 06/13/22 01/02/23 History Potassium Chloride ER [K-Dur 20] 20 meq PO DAILY PRN 06/13/22 01/02/23 History Rivaroxaban [Xarelto] 20 mg PO DAILY #90 tab 06/14/22 01/02/23 Rx Cyanocobalamin (Vitamin B-12) 1,000 mcg PO DAILY #1 tablet 06/15/22 01/02/23 Rx [Vitamin B-12] Pregabalin [Lyrica] 75 mg PO BID #6 cap 06/15/22 01/02/23 Rx Amitriptyline HCl [Elavil] 25 mg PO HS 01/02/23 01/02/23 History Cholecalciferol [Vitamin D3 (125 125 mcg PO DAILY 01/02/23 01/02/23 History Mcg = 5000 Iu)] Fexofenadine HCl [Nikia Allergy] 180 mg PO DAILY 01/02/23 01/02/23 History HYDROcodone/APAP 10-325MG [[place] 1 tab PO Q6H PRN 01/02/23 01/02/23 History 10-325] Losartan [Cozaar] 12.5 mg PO DAILY 01/02/23 01/02/23 History Pramipexole [Mirapex] 0.5 mg PO BID@1200,1800 01/02/23 01/02/23 History Semaglutide [Ozempic] 1 mg SQ WE 01/02/23 01/02/23 History Allergies Allergy/AdvReac Type Severity Reaction Status Date / Time cephalexin monohydrate Allergy Rash/Hives Verified 01/02/23 13:53 [From Keflex] on neck Penicillins Allergy Rash/Hives Verified 01/02/23 13:53 on neck Physical Exam Vitals: Vital Signs Temp Pulse Pulse Pulse Resp BP BP 01/03/23 04:00 97.7 F 78 18 111/66 01/03/23 02:00 76 80 18 01/03/23 00:00 97.4 F L 80 18 117/69 01/02/23 20:00 97.5 F L 76 76 18 131/63 01/02/23 18:32 98 F 71 18 137/76 01/02/23 18:23 98.5 F 74 18 121/73 01/02/23 17:22 82 18 119/69 01/02/23 12:01 97.5 F L 84 18 153/70 Pulse Ox 01/03/23 04:00 96 01/03/23 02:00 01/03/23 00:00 96 01/02/23 20:00 96 01/02/23 18:32 97 01/02/23 18:23 99 01/02/23 17:22 97 01/02/23 12:01 98 Intake and Output 01/02/23 01/03/23 01/03/23 22:59 06:59 14:59 Output Total 1150 Balance -1150 Output: Urine 1150 Other: Voiding Method Urinal # Voids 1 Weight 99.79 kg Results 01/02/23 12:35 01/02/23 12:35 Cardiac Enzymes 01/02/23 01/02/23 01/02/23 Range/Units 12:35 12:35 17:14 AST 34 (17-59) U/L Troponin I 0.115 H* 0.126 H* (0.000-0.034) ng/mL CBC 01/02/23 Range/Units 12:35 WBC 6.0 (3.8-10.6) k/uL RBC 4.38 (4.30-5.90) m/uL Hgb 12.2 L (13.0-17.5) gm/dL Hct 38.1 L (39.0-53.0) % Plt Count 116 L (150-450) k/uL Comprehensive Metabolic Panel 01/02/23 Range/Units 12:35 Sodium 135 L (137-145) mmol/L Potassium 5.1 (3.5-5.1) mmol/L Chloride 99 (98-107) mmol/L Carbon Dioxide 24 (22-30) mmol/L BUN 12 (9-20) mg/dL Creatinine 0.72 (0.66-1.25) mg/dL Glucose 79 (74-99) mg/dL Calcium 9.8 (8.4-10.2) mg/dL AST 34 (17-59) U/L ALT 13 (4-49) U/L Alkaline Phosphatase 208 H (38-126) U/L Total Protein 7.2 (6.3-8.2) g/dL Albumin 4.0 (3.5-5.0) g/dL Current Medications Generic Name Dose Route Start Last Admin Trade Name Freq PRN Reason Stop Dose Admin Hydrocodone Bitart/Acetaminophen 1 each 01/02/23 18:49 01/02/23 21:01 Hydrocodone/Apap 10-325mg 1 Each Tab PO 1 each Q6H PRN Administration Pain Amitriptyline HCl 25 mg 01/02/23 21:00 01/02/23 21:01 Amitriptyline Hcl 25 Mg Tab PO 25 mg HS [facility] Administration Aspirin 325 mg 01/03/23 09:00 Aspirin 325 Mg Tab PO DAILY [facility] Atorvastatin Calcium 40 mg 01/02/23 21:00 01/02/23 23:32 Atorvastatin 40 Mg Tab PO Not Given HS [facility] Cholecalciferol 125 mcg 01/03/23 09:00 Cholecalciferol 125 Mcg (5000 Iu) Tablet PO DAILY [facility] Cyanocobalamin 1,000 mcg 01/03/23 09:00 Cyanocobalamin 500 Mcg Tab PO DAILY [facility] Dapagliflozin 10 mg 01/03/23 07:30 01/03/23 07:14 Dapagliflozin Propanediol 10 Mg Tablet PO 10 mg W/BRKFST [facility] Administration Furosemide 40 mg 01/02/23 18:49 Furosemide 40 Mg Tab PO DAILY PRN Edema Loratadine 10 mg 01/03/23 09:00 Loratadine 10 Mg Tab PO DAILY [facility] Losartan Potassium 12.5 mg 01/03/23 09:00 Losartan 25 Mg Tab PO DAILY [facility] Metformin HCl 1,000 mg 01/03/23 07:30 01/03/23 07:13 Metformin 500 Mg Tab PO 1,000 mg BID-W/MEALS [facility] Administration Nitroglycerin 0.4 mg 01/02/23 15:54 Nitroglycerin Sl Tabs 0.4 Mg Tab SUBLINGUAL Q5M PRN Chest Pain Nitroglycerin 1 inch 01/02/23 18:00 01/03/23 07:14 Nitroglycerin Oint 1 Inch/Gm Packet TOPICAL 1 inch Q6HR [facility] Administration Non-Formulary Medication 1 mg 01/02/23 19:00 01/02/23 23:32 Semaglutide [Ozempic] SQ Not Given We@0900 [facility] Pioglitazone HCl 30 mg 01/03/23 09:00 Pioglitazone 30 Mg Tab PO DAILY [facility] Potassium Chloride 20 meq 01/02/23 18:49 Potassium Chloride Er 20 Meq Tab.Er PO DAILY PRN with lasix Pramipexole Dihydrochloride 0.5 mg 01/03/23 12:00 Pramipexole 0.5 Mg Tab PO BID@1200,1800 [facility] Pregabalin 75 mg 01/02/23 21:00 01/02/23 21:01 Pregabalin 75 Mg Cap PO 75 mg BID [facility] Administration Rivaroxaban 20 mg 01/03/23 09:00 Rivaroxaban 20 Mg Tab PO 01/12/23 08:59 DAILY [facility] Taper Protocol Intake and Output 01/02/23 01/03/23 01/03/23 22:59 06:59 14:59 Output Total 1150 Balance -1150 Output: Urine 1150 Other: Voiding Method Urinal # Voids 1 Weight 99.79 kg 01/02/23 12:35 01/02/23 12:35
[2023-01-03 10:14] LABS: Basophils % (A) 1 %; Eosinophils # (A) 0.5 k/uL (0-0.7); Eosinophils % (A) 8 %; HCT 39.8 % (39.0-53.0); HGB 12.2 gm/dL (13.0-17.5); Hypochromasia Moderate; Lymphocytes # (A) 0.8 k/uL (1.0-4.8); Lymphocytes % (A) 13 %; MCH 27.1 pg (25.0-35.0); MCHC 30.7 g/dL (31.0-37.0); MCV 88.3 fL (80.0-100.0); Mean Platelet Volume 7.5; Monocytes # (A) 0.3 k/uL (0-1.0); Monocytes % (A) 5 %; Neutrophils # (A) 4.1 k/uL (1.3-7.7); Neutrophils % (A) 72 %; Platelet Count 125 k/uL (150-450); RBC 4.51 m/uL (4.30-5.90); RDW 15.3 % (11.5-15.5); WBC 5.8 k/uL (3.8-10.6)
[2023-01-03 10:31] LABS: African American GFR (CKD) >90 (>60 ml/min/1.73 sqM); Anion Gap 9 mmol/L; Blood Urea Nitrogen 10 mg/dL (9-20); Calcium 9.4 mg/dL (8.4-10.2); Carbon Dioxide 27 mmol/L (22-30); Chloride 101 mmol/L (98-107); Glucose 100 mg/dL (74-99); Non-African American GFR(CKD) >90 (>60 ml/min/1.73 sqM); Potassium 4.1 mmol/L (3.5-5.1); Sodium 137 mmol/L (137-145)
[2023-01-03] MEDS: PRAMIPEXOLE 0.5 MG TAB PO SCH ×2 (11:08→17:21)
[2023-01-03 11:47] LABS: Glucose,Whole Blood 83 mg/dL (70-110)
--- NOTE | 2023-01-03 12:47 | CA ---
Transthoracic Echo Report Name: Amilcar Mccarty Age: 72 Gender: M : 1950 Exam Date: 01/03/2023 08:42 Exam Location: [place] [facility] Ht (in): 63 Wt (lb): 220 Ordering Physician: Deven Topete MD Attending/Referring Phys: Assistant Professor Of English Radha Chaney [facility] Procedure CPT: Indications: elevated troponin Cardiac Hx: Technical Quality: Fair Contrast 1: Total Dose (mL): Contrast 2: Total Dose (mL): MEASUREMENTS (Male / Female) Normal Values 2D ECHO LV Diastolic Diameter PLAX 5.0 cm 4.2 - 5.9 / 3.9 - 5.3 cm LV Systolic Diameter PLAX 3.2 cm IVS Diastolic Thickness 1.0 cm 0.6 - 1.0 / 0.6 - 0.9 cm LVPW Diastolic Thickness 1.0 cm 0.6 - 1.0 / 0.6 - 0.9 cm LV Relative Wall Thickness 0.4 LVOT Diameter 2.1 cm Ascending Aorta Diameter 3.7 cm M-MODE Aortic Root Diameter MM 2.6 cm LA Systolic Diameter MM 4.7 cm LA Ao Ratio MM 1.8 AV Cusp Separation MM 2.2 cm DOPPLER AV Peak Velocity 252.1 cm/s AV Peak Gradient 25.4 mmHg AV Mean Velocity 180.0 cm/s AV Mean Gradient 14.6 mmHg AV Velocity Time Integral 49.8 cm AI Peak Velocity 432.7 cm/s AI Peak Gradient 74.9 mmHg AI Pressure Half Time 690.0 ms LVOT Peak Velocity 128.2 cm/s LVOT Peak Gradient 6.6 mmHg LVOT Velocity Time Integral 27.1 cm LVOT Stroke Volume 91.1 cm??? LVOT Stroke Volume Index 45.2 ml/m??? LVOT Cardiac Index 3251.5 cm???/min???m??? AV Area Cont Eq vti 1.8 cm??? AV Area Cont Eq pk 1.7 cm??? Mitral E Point Velocity 107.2 cm/s MV Deceleration Time 140.5 ms LV E' Lateral Velocity 8.1 cm/s Mitral E to LV E' Lateral Ratio 13.3 LV E' Septal Velocity 13.7 cm/s Mitral E to LV E' Septal Ratio 7.8 TR Peak Velocity 253.1 cm/s TR Peak Gradient 25.6 mmHg Right Atrial Pressure 8.0 mmHg Pulmonary Artery Systolic Pressu 33.6 mmHg Right Ventricular Systolic Press 33.6 mmHg FINDINGS Left Ventricle Left ventricular wall thickness normal. Left ventricular cavity size normal. Normal left ventricular systolic function with no obvious regional wall motion abnormalities. Left ventricular ejection fraction is estimated at 55-60%. Right Ventricle Mild right ventricular dilatation. Right Atrium Moderate right atrial dilatation. Left Atrium Severe left atrial dilatation. Mitral Valve Mitral valve thickened. mild mitral regurgitation. Aortic Valve Trileaflet aortic valve. Thickening of the aortic valve cusps. Aortic valve sclerosis. Moderate aortic regurgitation. Tricuspid Valve Structurally normal tricuspid valve. Mild tricuspid regurgitation. Pulmonic Valve Pulmonic valve not well visualized. Pericardium No pericardial effusion. Echo free space anterior to the right ventricle likely represents a fat pad. Aorta Normal size aortic root and upper normal proximal ascending aorta. CONCLUSIONS 1. Normal left ventricular size and systolic function 2. Moderate aortic with mild mitral and tricuspid regurgitation Previewed by: Dr. Fortunato Tena MD (Electronically Signed) Final Date: 03 January 2023 12:46
--- NOTE | 2023-01-03 16:02 | P.HPIM ---
History of Present Illness H&P Date: 01/03/23 Chief Complaint: Altered mental status This is a 72-year-old gentleman with past medical history significant for atrial flutter, CHF, mild aortic stenosis ,type 2 diabetes mellitus, GERD, hyperlipidemia, osteoarthritis, pneumonia, obstructive sleep apnea with home CPAP, diverticulitis, psoriasis, prostate cancer, bilateral legs DVT/pulmonary embolism, back surgery, former nicotine dependence, gait dysfunction and multiple other medical issues presented to the ER with complaints of memory impairment, confusion 2-3 days. Currently does not know the day of the week. "States he is having difficulty with expressing himself, sometimes at a loss for words ".Reports he was having episodic right eye blurred vision times a few weeks and followed up with stadium manager Dr. Khoa Ambriz, stating possibly related to carotid stenosis and had recommended vascular workup. Currently denies headache, lightheadedness or dizziness. Currently no blurred vision. Once in the ER, noted troponins elevated, 0.115, 0.126, and consulted cardiology. EKG reporting atrial flutter with controlled ventricular rate, chronic. Echo pending. Denies chest pain, palpitations or shortness of breath. Afebrile, normal WBC. Hemoglobin 12.2, platelets 125. Electrolytes within normal limits, renal function stable, blood sugars controlled. Chest x-ray reported trace right pleural effusion, chronic interstitial prominence. Brain CT reported no acute intracranial process, nonspecific white matter changes likely secondary to chronic small vessel ischemic disease. Review of Systems ROS Statement: Those systems with pertinent positive or pertinent negative responses have been documented in the HPI. ROS Other: All systems not noted in ROS Statement are negative. Past Medical History Past Medical History: Atrial Fibrillation, Cancer, Diabetes Mellitus, Deep Vein Thrombosis (DVT), GERD/Reflux, Hyperlipidemia, Hypertension, Osteoarthritis (OA), Pneumonia, Prostate Disorder, Pulmonary Embolus (PE), Skin Disorder, Sleep Apnea/CPAP/BIPAP Additional Past Medical History / Comment(s): open wound to back-has visiting nurse two times per weeks,prostate ca, rt leg dvt, diverticulitis, psoriases, abd hernia,no cpap History of Any Multi-Drug Resistant Organisms: None Reported Past Surgical History: Back Surgery, Cholecystectomy, Hernia Repair, Joint Replacement, Prostate Surgery, Tonsillectomy Additional Past Surgical History / Comment(s): prostectomy, had ruptured diver ticuli -colostomy and then reversed, abd hernia, tanisha cataracts, tubes in ears,total rt hip,[facility] Procedures Past Anesthesia/Blood Transfusion Reactions: No Reported Reaction Past Psychological History: No Psychological Hx Reported Additional Psychological History / Comment(s): uses a walker when up. Smoking Status: Former smoker Past Alcohol Use History: None Reported Additional Past Alcohol Use History / Comment(s): SMOKED X 28 YEARS 1PPD. Past Drug Use History: None Reported - Past Family History Father Family Medical History: Cancer Additional Family Medical History / Comment(s): prostate CA Mother Family Medical History: Deep Vein Thrombosis (DVT), Pulmonary Embolus Additional Family Medical History / Comment(s): PROSTATE CNACER Medications and Allergies Home Medications Medication Instructions Recorded Confirmed Type Atorvastatin Calcium [Lipitor] 40 mg PO HS 02/03/15 01/02/23 History Lansoprazole 30 mg PO DAILY 02/03/15 01/02/23 History Empagliflozin/Metformin HCl 2 tab PO W/BRKFST 06/13/22 01/02/23 History [Synjardy Xr 12.5-1,000 mg Tab] Furosemide [Lasix] 40 mg PO DAILY PRN 06/13/22 01/02/23 History Naloxone HCl [Narcan] 4 mg NASAL ONCE PRN 06/13/22 01/02/23 History Pioglitazone [Actos] 30 mg PO DAILY 06/13/22 01/02/23 History Potassium Chloride ER [K-Dur 20] 20 meq PO DAILY PRN 06/13/22 01/02/23 History Rivaroxaban [Xarelto] 20 mg PO DAILY #90 tab 06/14/22 01/02/23 Rx Cyanocobalamin (Vitamin B-12) 1,000 mcg PO DAILY #1 tablet 06/15/22 01/02/23 Rx [Vitamin B-12] Pregabalin [Lyrica] 75 mg PO BID #6 cap 06/15/22 01/02/23 Rx Amitriptyline HCl [Elavil] 25 mg PO HS 01/02/23 01/02/23 History Cholecalciferol [Vitamin D3 (125 125 mcg PO DAILY 01/02/23 01/02/23 History Mcg = 5000 Iu)] Fexofenadine HCl [Nikia Allergy] 180 mg PO DAILY 01/02/23 01/02/23 History HYDROcodone/APAP 10-325MG [[place] 1 tab PO Q6H PRN 01/02/23 01/02/23 History 10-325] Losartan [Cozaar] 12.5 mg PO DAILY 01/02/23 01/02/23 History Pramipexole [Mirapex] 0.5 mg PO BID@1200,1800 01/02/23 01/02/23 History Semaglutide [Ozempic] 1 mg SQ WE 01/02/23 01/02/23 History Allergies Allergy/AdvReac Type Severity Reaction Status Date / Time cephalexin monohydrate Allergy Rash/Hives Verified 01/02/23 13:53 [From Keflex] on neck Penicillins Allergy Rash/Hives Verified 01/02/23 13:53 on neck Physical Exam Vitals: Vital Signs Temp Pulse Pulse Pulse Resp BP BP 01/03/23 04:00 97.7 F 78 18 111/66 01/03/23 02:00 76 80 18 01/03/23 00:00 97.4 F L 80 18 117/69 01/02/23 20:00 97.5 F L 76 76 18 131/63 01/02/23 18:32 98 F 71 18 137/76 01/02/23 18:23 98.5 F 74 18 121/73 01/02/23 17:22 82 18 119/69 01/02/23 12:01 97.5 F L 84 18 153/70 Pulse Ox 01/03/23 04:00 96 01/03/23 02:00 01/03/23 00:00 96 01/02/23 20:00 96 01/02/23 18:32 97 01/02/23 18:23 99 01/02/23 17:22 97 01/02/23 12:01 98 Intake and Output 01/02/23 01/03/23 01/03/23 22:59 06:59 14:59 Output Total 1150 Balance -1150 Output: Urine 1150 Other: Voiding Method Urinal # Voids 1 Weight 99.79 kg - Exam GENERAL: Pt awake, alert, well-nourished, sitting up in chair, no acute distress. Speaking fluently sometimes searching for words. HEENT: Atraumatic, normocephalic, Pupils equal, round, and reactive to light, e xtraocular movements intact, sclera anicteric, conjunctiva are normal.MMM. NECK:Supple, no JVD,without lymphadenopathy. LUNGS:Unlabored, Breath sounds clear to auscultation bilaterally. No wheezes, rales, or rhonchi. HEART: Heart S1, S2, no S3 or S4. No murmurs, rubs or gallops. ABDOMEN: Soft, obese, nontender, nondistended, normoactive bowel sounds. No guarding, no rebound. No masses or organomegaly appreciated. EXTREMITIES: 2+ peripheral pulses. No edema. NEUROLOGICAL: Cranial nerves II through XII grossly intact. PSYCH: Alert and Oriented X 2, disoriented to date, mood and affect WNL, SKIN: Warm, dry, no rashes noted. Results CBC & Chem 7: 01/03/23 10:01 01/03/23 10:01 Labs: Abnormal Lab Results - Last 24 Hours (Table) 01/02/23 01/02/23 01/02/23 Range/Units 12:35 12:35 12:35 Hgb 12.2 L (13.0-17.5) gm/dL Hct 38.1 L (39.0-53.0) % Plt Count 116 L (150-450) k/uL Sodium 135 L (137-145) mmol/L POC Glucose (mg/dL) (70-110) mg/dL Alkaline Phosphatase 208 H (38-126) U/L Troponin I (0.000-0.034) ng/mL Urine Glucose (UA) 4+ H (Negative) Urine Ketones 1+ H (Negative) Urine Blood Small H (Negative) Urine RBC 25 H (0-5) /hpf Urine Mucus Occasional H (None) /hpf Urine Opiates Screen Detected H (NotDetected) U Tricyclic Antidepress Detected H (NotDetected) 01/02/23 01/02/23 01/02/23 Range/Units 12:35 13:07 17:14 Hgb (13.0-17.5) gm/dL Hct (39.0-53.0) % Plt Count (150-450) k/uL Sodium (137-145) mmol/L POC Glucose (mg/dL) 66 L (70-110) mg/dL Alkaline Phosphatase (38-126) U/L Troponin I 0.115 H* 0.126 H* (0.000-0.034) ng/mL Urine Glucose (UA) (Negative) Urine Ketones (Negative) Urine Blood (Negative) Urine RBC (0-5) /hpf Urine Mucus (None) /hpf Urine Opiates Screen (NotDetected) U Tricyclic Antidepress (NotDetected) Thrombosis Risk Factor Assmnt - Choose All That Apply Each Factor Represents 1 point: Obesity (BMI >25) Each Risk Factor Represents 2 Points: Age 61-74 years Thrombosis Risk Factor Assessment Total Risk Factor Score: 3 Thrombosis Risk Factor Assessment Level: Moderate Risk Assessment and Plan Assessment: Altered mental status, reports confusion 2-3 days associated with memory im pairment ,acute metabolic encephalopathy, etiology unclear. Episodic right eye blurred vision times a few weeks, worked up outpatient with Dr. Khoa Ambriz Elevated troponins, 0.115, 0.126, cardiology following COPD, stable Persistent atrial flutter on Xarelto Chronic congestive heart failure with diastolic dysfunction Mild aortic stenosis History of DVTs, PE Diabetes mellitus,II controlled Diabetic neuropathy GERD. Hyperlipidemia. Hypertension. Osteoarthritis. Obstructive Sleep apnea with home CPAP use. History of prostate cancer with prostatectomy. Morbid obesity. BMI 39 Medical debility, gait dysfunction, uses walker. History of back surgery, chronic back pain Chronic urinary incontinence Formal nicotine dependence. Patient smoked a pack a day for more than 28 years. Plan: Continue on current medication regime ,monitoring and symptomatic treatment. Echo pending . IV fluid resuscitation.Neurology, cardiology consult in place, recommendations pending. cardiology reporting normal Lexiscan stress test in office November 2022 .ST/PT/OT consulted . The impression and plan of care has been dictated as directed. : I performed a history and examination of this patient, discussed the same with the dictator. I agree with the dictator's note ,documented as a scribe. Any additional findings or plans will be noted.
[2023-01-03 17:05] LABS: Glucose,Whole Blood 103 mg/dL (70-110)
[2023-01-03] MEDS: ASPIRIN 81 MG PO SCH (17:21)
[2023-01-03 19:06] LABS: Glucose,Whole Blood 95 mg/dL (70-110)
[2023-01-03] MEDS: AMITRIPTYLINE HCL 25 MG TAB PO SCH (19:32)
[2023-01-03] MEDS: ATORVASTATIN 40 MG TAB PO SCH (19:32)
[2023-01-04 06:21] LABS: Glucose,Whole Blood 84 mg/dL (70-110)
--- NOTE | 2023-01-04 09:30 | P.CNNES ---
History of Present Illness Consult date: 01/03/23 Requesting physician: Amaris Dubois Reason for Consult: Confusion History of Present Illness: Patient is a 72-year-old right-handed male came to the hospital by ambulance yesterday at 11:57 AM for memory disturbance and forget fullness. Patient states that symptoms started 1 day prior to arrival as he would keep forgetting staff. He states that he cannot make things together. He states that he knows in his thought, but cannot make or put things together. He believes that his speech fluency is affected and sometimes cannot make sense what he is saying. He stayed home for one day but as the symptoms persisted, decided to come to the hospital the following day. He denies any facial droop, focal numbness, tingling or focal weakness. Patient states that in the last 2-3 weeks, he had about 10 episodes of amaurosis fugax, in which he would lose vision of the altitudinal lower half of the vision of the right eye. It only involved the right eye, and the left eye was completely normal. The symptoms would last for about 10-20 seconds max, and resolves. The last episode was about a week ago. He saw an eye doctor, who wanted him to go to the ER. Patient denies any history of seizures, no passing out. As per EMS flow sheet, it was reported patient has been having intermittent confusion and difficulty in coming up with his words for the past 24 hours. Patient's vitals at the scene was blood pressure 143/66, pulse rate 81, respiratory 20, saturation 99% and blood sugar 122, temperature 98.2. Blood tests with hemoglobin 12.2, platelets 416. Sodium 135, normal potassium, renal functions and hepatic panel. Troponin is mildly elevated 0.115. UA shows negative leukocyte esterase. Urine drug screen positive for opiates and tricyclics. CT head revealed no acute intracranial process, nonspecific white matter changes, likely secondary to chronic small vessel ischemic disease. I personally reviewed CT head, agree with the findings. Chest x-ray showed trace right pleural effusion. Chronic interstitial prominence. Correlate for interstitial lung disease. EKG shows atrial flutter/tachycardia. Patient is being seen by Dr. Marte on 06/17/2022 for lower extremity weakness which was felt to be related to edema and cellulitis. Patient has vitamin B12 deficiency, chronic back pain, pressure ulcer in the left buttock, diabetes hypertension history of DVT and pulmonary embolism. Patient states he is very compliant with his medication including Xarelto, does not miss the dose. Patient has history of diabetes for 10 years, hypertension, hyperlipidemia. She smoked 1 pack per day for 20 years, quit 20 years ago. Denies any alcohol use. Review of Systems Constitutional: Reports weight loss, Denies chills, Denies fever Eyes: right tunnel vision/blind spots, denies blurred vision, denies diplopia, denies pain Ears: deny: decreased hearing, ear discharge Ears, nose, mouth and throat: Denies headache, Denies sore throat Cardiovascular: Denies chest pain, Denies shortness of breath Respiratory: Reports cough (Every once in a while), Reports excessive sputum Gastrointestinal: Reports diarrhea, Denies abdominal pain, Denies nausea, Denies vomiting Genitourinary: Reports incontinence, Reports urinary frequency, Denies dysuria, Denies flank pain Musculoskeletal: Reports low back pain, Denies myalgias, Denies neck pain Integumentary: Reports rash, Denies pruritus Neurological: Reports as per HPI Psychiatric: Denies anxiety, Denies depression Endocrine: Reports fatigue, Reports weight change Hematologic/Lymphatic: Denies easy bleeding, Denies easy bruising Past Medical History Past Medical History: Atrial Fibrillation, Cancer, Diabetes Mellitus, Deep Vein Thrombosis (DVT), GERD/Reflux, Hyperlipidemia, Hypertension, Osteoarthritis (OA), Pneumonia, Prostate Disorder, Pulmonary Embolus (PE), Skin Disorder, Sleep Apnea/CPAP/BIPAP Additional Past Medical History / Comment(s): open wound to back-has visiting nurse two times per weeks,prostate ca, rt leg dvt, diverticulitis, psoriases, abd hernia,no cpap History of Any Multi-Drug Resistant Organisms: None Reported Past Surgical History: Back Surgery, Cholecystectomy, Hernia Repair, Joint Replacement, Prostate Surgery, Tonsillectomy Additional Past Surgical History / Comment(s): prostectomy, had ruptured di verticuli -colostomy and then reversed, abd hernia, tanisha cataracts, tubes in ears,total rt hip,[facility] Procedures Past Anesthesia/Blood Transfusion Reactions: No Reported Reaction Past Psychological History: No Psychological Hx Reported Additional Psychological History / Comment(s): uses a walker when up. Smoking Status: Former smoker Past Alcohol Use History: None Reported Additional Past Alcohol Use History / Comment(s): SMOKED X 28 YEARS 1PPD. Past Drug Use History: None Reported - Past Family History Father Family Medical History: Cancer Additional Family Medical History / Comment(s): prostate CA Mother Family Medical History: Deep Vein Thrombosis (DVT), Pulmonary Embolus Additional Family Medical History / Comment(s): PROSTATE CNACER Medications and Allergies Home Medications Medication Instructions Recorded Confirmed Type Atorvastatin Calcium [Lipitor] 40 mg PO HS 02/03/15 01/02/23 History Lansoprazole 30 mg PO DAILY 02/03/15 01/02/23 History Empagliflozin/Metformin HCl 2 tab PO W/BRKFST 06/13/22 01/02/23 History [Synjardy Xr 12.5-1,000 mg Tab] Furosemide [Lasix] 40 mg PO DAILY PRN 06/13/22 01/02/23 History Naloxone HCl [Narcan] 4 mg NASAL ONCE PRN 06/13/22 01/02/23 History Pioglitazone [Actos] 30 mg PO DAILY 06/13/22 01/02/23 History Potassium Chloride ER [K-Dur 20] 20 meq PO DAILY PRN 06/13/22 01/02/23 History Rivaroxaban [Xarelto] 20 mg PO DAILY #90 tab 06/14/22 01/02/23 Rx Cyanocobalamin (Vitamin B-12) 1,000 mcg PO DAILY #1 tablet 06/15/22 01/02/23 Rx [Vitamin B-12] Pregabalin [Lyrica] 75 mg PO BID #6 cap 06/15/22 01/02/23 Rx Amitriptyline HCl [Elavil] 25 mg PO HS 01/02/23 01/02/23 History Cholecalciferol [Vitamin D3 (125 125 mcg PO DAILY 01/02/23 01/02/23 History Mcg = 5000 Iu)] Fexofenadine HCl [Nikia Allergy] 180 mg PO DAILY 01/02/23 01/02/23 History HYDROcodone/APAP 10-325MG [Corbin 1 tab PO Q6H PRN 01/02/23 01/02/23 History 10-325] Losartan [Cozaar] 12.5 mg PO DAILY 01/02/23 01/02/23 History Pramipexole [Mirapex] 0.5 mg PO BID@1200,1800 01/02/23 01/02/23 History Semaglutide [Ozempic] 1 mg SQ WE 01/02/23 01/02/23 History Allergies Allergy/AdvReac Type Severity Reaction Status Date / Time cephalexin monohydrate Allergy Rash/Hives Verified 01/02/23 13:53 [From Keflex] on neck Penicillins Allergy Rash/Hives Verified 01/02/23 13:53 on neck Physical Examination - Vital Signs Vital Signs: Vital Signs Temp Pulse Pulse Pulse Resp BP BP 01/03/23 12:07 97.9 F 82 16 108/55 01/03/23 08:49 72 01/03/23 08:00 98.2 F 72 16 119/91 01/03/23 04:00 97.7 F 78 18 111/66 01/03/23 02:00 76 80 18 01/03/23 00:00 97.4 F L 80 18 117/69 01/02/23 20:00 97.5 F L 76 76 18 131/63 01/02/23 18:32 98 F 71 18 137/76 01/02/23 18:23 98.5 F 74 18 121/73 01/02/23 17:22 82 18 119/69 Pulse Ox 01/03/23 12:07 95 01/03/23 08:49 01/03/23 08:00 95 01/03/23 04:00 96 01/03/23 02:00 01/03/23 00:00 96 01/02/23 20:00 96 01/02/23 18:32 97 01/02/23 18:23 99 01/02/23 17:22 97 Intake and Output 01/02/23 01/03/23 01/03/23 22:59 06:59 14:59 Intake Total 240 Output Total 1150 250 Balance -1150 -10 Intake: Oral 240 Output: Urine 1150 250 Other: Voiding Method Urinal Urinal # Voids 1 1 # Bowel Movements 1 Weight 99.79 kg Patient is an elderly male, very pleasant, in no acute distress. Patient is alert awake oriented to time place and person. Patient knows it is January 2023, but says he is in [facility] in [place]. He knows that he is in [facility] and knows name of the current president and his date of . Speech is mildly dysarthric and language functions revealed mild expressive aphasia. Patient has some paraphasic errors. Patient was able to name simple objects like fist, collar, thumb, but could not name knuckles and for earlobe patient says "ear dobe" and for button, patient said "Bill". Patient has problems with repetition as well particularly longer sentences. He has some word finding difficulty with routine conversation as well. Patient was able to read with some errors. He was able to write "" without any problem. Attention, concentration and fund of knowledge is adequate. On cranial nerve examination, pupils are equal, round and reacting to light, visual neal are full on confrontation, with no neglect on double simultaneous stimulation. Extraocular muscles are intact with no nystagmus. Face is symmetric, tongue protrudes to the midline. Palatal elevation and sensation normal, hearing and shoulder shrug normal, facial sensation normal. On muscle strength testing, there is no pronator drift and the strength is normal in arms and legs distally and proximally. Deep tendon reflexes are symmetric and trace at the biceps but absent at the brachioradialis, knees and ankles. (right/left) Sensory to touch is equal with no neglect on double simultaneous stimulation. Cerebellar function showed no ataxia for [id number] testing. No dysdiadochokinesia. No ataxia for [id number] testing on either side. Tone and bulk of muscles normal. Gait deferred.. On general examination, there is no carotid bruit or murmur, S1-S2 audible. Chest is clear on consultation. Abdomen is soft nontender. No organomegaly, bowel sounds present. Peripheral pulses are present. Patient has moderate peripheral edema. Results - Laboratory Findings CBC and BMP: 01/03/23 10:01 01/03/23 10:01 Abnormal Lab Findings: Abnormal Labs 01/02/23 01/02/23 01/02/23 12:35 12:35 12:35 Hgb 12.2 L Hct 38.1 L MCHC Plt Count 116 L Lymphocytes # Sodium 135 L Glucose POC Glucose (mg/dL) Alkaline Phosphatase 208 H Troponin I Urine Glucose (UA) 4+ H Urine Ketones 1+ H Urine Blood Small H Urine RBC 25 H Urine Mucus Occasional H Urine Opiates Screen Detected H U Tricyclic Antidepress Detected H 01/02/23 01/02/23 01/02/23 12:35 13:07 17:14 Hgb Hct MCHC Plt Count Lymphocytes # Sodium Glucose POC Glucose (mg/dL) 66 L Alkaline Phosphatase Troponin I 0.115 H* 0.126 H* Urine Glucose (UA) Urine Ketones Urine Blood Urine RBC Urine Mucus Urine Opiates Screen U Tricyclic Antidepress 01/03/23 01/03/23 10:01 10:01 Hgb 12.2 L Hct MCHC 30.7 L Plt Count 125 L Lymphocytes # 0.8 L Sodium Glucose 100 H POC Glucose (mg/dL) Alkaline Phosphatase Troponin I Urine Glucose (UA) Urine Ketones Urine Blood Urine RBC Urine Mucus Urine Opiates Screen U Tricyclic Antidepress Assessment and Plan Assessment: * Probable acute ischemic stroke, manifesting with expressive aphasia. Patient's current NIH stroke scale is 2. Patient not a candidate for TPA, as he came to the hospital 24 hours after onset of symptoms. * Recurrent episodes of amaurosis fugax (x10 times in the last 2-3 weeks), with involvement of lower altitudinal visual field defect, only the right eye. Symptoms resolved in 10-20 seconds each time. Rule out carotid stenosis. * Atrial fibrillation, on Xarelto * History of DVT * Diabetes * Hypertension * Hyperlipidemia * X tobacco use * Peripheral edema. Plan: * Patient has presented with acute ischemic stroke with expressive aphasia. Patient not a candidate for TPA because he came outside the window for TPA and also on anticoagulation with Xarelto. Patient is compliant with medication and does not miss a dose. Exact cause of CVA uncertain. Patient is also having recurrent amaurosis fugax, therefore need to rule out vascular disease. * MRI of the brain without contrast, evaluate for acute CVA * 2-D echo revealed normal left-ventricular size and systolic function with EF 55-60%. No obvious regional wall motion abnormalities. Severe left atrial dilation. Moderate aortic with mild mitral and tricuspid regurgitation. * CTA head and neck evaluate for carotid or MCA stenosis. * Fasting a.m. lipid panel * Hemoglobin A1c * ESR, CRP * Continue Xarelto 20 mg daily for stroke prevention related to atrial fibrillation. Patient was given a loading dose of aspirin 324 mg in the ER. We will start aspirin 81 mg daily for stroke prevention related to vascular disease. * Permissive hypertension for next 24-48 hours * Neuro checks every shift. * Telemetry monitoring rule out any arrhythmia * PT, OT, speech therapy * DVT prophylaxis: Patient on Xarelto. * Neurology will continue to follow. Thank you for the consult. Time with Patient: Greater than 30
[2023-01-04] MEDS: metFORMIN 500 MG TAB PO SCH ×2 (11:00→17:19)
[2023-01-04] MEDS: PREGABALIN 75 MG CAP PO SCH ×2 (11:00→19:45)
[2023-01-04] MEDS: LOSARTAN 25 MG TAB PO SCH (11:00)
[2023-01-04] MEDS: CYANOCOBALAMIN 500 MCG TAB PO SCH (11:00)
[2023-01-04] MEDS: CHOLECALCIFEROL 125 MCG (5000 IU) TABLET PO SCH (11:01)
[2023-01-04] MEDS: PIOGLITAZONE 30 MG TAB PO SCH (11:01)
[2023-01-04] MEDS: LORATADINE 10 MG TAB PO SCH (11:01)
[2023-01-04] MEDS: RIVAROXABAN 20 MG TAB PO SCH (11:01)
[2023-01-04] MEDS: PRAMIPEXOLE 0.5 MG TAB PO SCH ×2 (11:01→17:19)
[2023-01-04] MEDS: ASPIRIN 81 MG PO SCH (11:01)
[2023-01-04] MEDS: DAPAGLIFLOZIN PROPANEDIOL 10 MG TABLET PO SCH (11:02)
--- NOTE | 2023-01-04 11:13 | MR ---
EXAMINATION TYPE: MR brain wo con DATE OF EXAM: 01/04/2023 10:51 AM CLINICAL INDICATION:Male, 72 years old with history of CVA; PHH, Altered mental status. COMPARISON: CT Head same day.. TECHNIQUE: Multi planar, multi sequence imaging was performed through the brain including: T1, T2, In version recovery, Diffusion weighted imaging, and gradient echo imaging. No gadolinium was given. FINDINGS: Scattered areas of restricted diffusion within the cerebrum at least 5 areas in the left te mporal lobe and left parietal region. T2 shine through within the right frontal lobe. Additional foci of restricted diffusion within the right balbir. Additional focus within the left occipital, left insu lar cortex also present. Mild cerebral atrophy with proportional dilation of ventricular system. The no-white junctions, yonas tricular system, and cisterns appear unremarkable. Scattered foci of high T2 signal intensity are se en within the periventricular white matter. Midline structures show no abnormality. The susceptibilit y weighted images do not reveal any evidence for micro-hemorrhage. The bone marrow signal is within normal limits. Paranasal sinuses and mastoid air cells: No significant paranasal sinus disease. Visualized orbits: Orbital contents are intact. IMPRESSION: 1. Scattered microinfarcts throughout the left temporal, parietal and occipital lobes as well as left insular cortex and right balbir. 2. Nonspecific white matter changes, likely secondary to small vessel ischemic disease.
[2023-01-04 11:22] LABS: Glucose,Whole Blood 79 mg/dL (70-110)
--- NOTE | 2023-01-04 12:16 | CT ---
EXAMINATION TYPE: CT angio head neck DATE OF EXAM: 01/04/2023 COMPARISON: MRI brain 01/04/[address] chest 02/16/2016 HISTORY: 72-year-old male follow-up CVA TECHNIQUE: Contiguous axial scanning of the head and neck performed with IV Contrast, patient injecte d with 65 mL of Isovue 370. Coronal/sagittal reconstructions performed. 3-D reconstructions generated on a dedicated independent workstation. CT DLP: 392 mGycm Automated exposure control for dose reduction was used. FINDINGS: NECK: Small left pleural effusion. Similar left apical pleural parenchymal scarring. There is conventional arch vessel branching anatomy. The left vertebral artery is slightly more dominant. Otherwise, the vertebral arteries are patent thr oughout the course. The right common carotid artery is patent. There is mild atherosclerotic change at the right carotid bifurcation with mild, less than 15% proxim al right ICA narrowing. Right ICA otherwise patent. NASCET criteria is utilized. The left common carotid artery is patent. Mild atelectatic change at the left carotid bifurcation wit h mild, less than 15 % proximal ICA narrowing. Retropharyngeal course mid to lower left ICA. Bulky anterior endplate spondylosis throughout the thoracic spine. HEAD: The V4 segment right vertebral artery becomes even more diminutive after the PICA takeoff. Vertebral and basilar arteries otherwise patent as is the remainder of the posterior circulation. The bilateral internal carotid arteries and remainder of the anterior circulation is patent. No aneurysmal change is seen. Dural venous sinuses are patent. IMPRESSION: NECK: 1. SMALL LEFT PLEURAL EFFUSION. CORRELATE FOR FLUID OVERLOAD STATE. 2. DOMINANT LEFT VERTEBRAL ARTERY. 3. MILD ATELECTATIC CHANGE AT THE CAROTID BIFURCATIONS. NO SIGNIFICANT CAROTID OR VERTEBRAL ARTERY ST ENOSIS ON EITHER SIDE. HEAD: 4. NO LARGE VESSEL INTRACRANIAL ARTERIAL OCCLUSION, SIGNIFICANT STENOSIS, OR ANEURYSMAL CHANGE IS SEE N.
--- NOTE | 2023-01-04 13:53 | PN ---
PROGRESS NOTE SUBJECTIVE: This is a 72-year-old gentleman with a chronic atrial flutter, came in with some confusion and cardiac-maldonado stable. Rate control is good. He has been compliant with Xarelto anticoagulation. However, I requested neurology evaluation and the patient is more confused yesterday afternoon and today MRI suggested multiple emboli. We will await further input from Neurology and he may require a transesophageal echo, although I am not sure if it will alter the management. The patient has been anticoagulated. He is also on aspirin in addition to Xarelto. We will await further recommendation from Neurology. OBJECTIVE: VITALS: Stable. HEART: S1, S2 heard normally, irregular rhythm noted, short systolic murmur noted. LUNGS: Clear. ABDOMEN: Soft, nontender. NEUROLOGIC: Central nervous system exam revealed no focal deficits, but the patient seems confused and has some difficulty organizing his thought. MMODL / IJN: [id number] /
[2023-01-04 16:34] LABS: Glucose,Whole Blood 173 mg/dL (70-110)
[2023-01-04 16:44] LABS: Chol/HDL Ratio 2.24 Ratio; LDL Cholesterol,Calculated 33.4 mg/dL (0.0-131.0)
[2023-01-04] MEDS: AMITRIPTYLINE HCL 25 MG TAB PO SCH (19:44)
[2023-01-04] MEDS: ATORVASTATIN 40 MG TAB PO SCH (19:44)
[2023-01-04 20:24] LABS: Glucose,Whole Blood 98 mg/dL (70-110)
--- NOTE | 2023-01-04 21:30 | P.PN ---
Subjective Progress Note Date: 01/04/23 H&P Date: 01/03/23 Chief Complaint: Altered mental status This is a 72-year-old gentleman with past medical history significant for atrial flutter, CHF, mild aortic stenosis ,type 2 diabetes mellitus, GERD, hyperlipidemia, osteoarthritis, pneumonia, obstructive sleep apnea with home CPAP, diverticulitis, psoriasis, prostate cancer, bilateral legs DVT/pulmonary embolism, back surgery, former nicotine dependence, gait dysfunction and multiple other medical issues presented to the ER with complaints of memory impairment, confusion 2-3 days. Currently does not know the day of the week. "States he is having difficulty with expressing himself, sometimes at a loss for words ".Reports he was having episodic right eye blurred vision times a few weeks and followed up with assistant superintendent for curriculum Dr. Khoa Ambriz, stating possibly related to carotid stenosis and had recommended vascular workup. Currently denies headache, lightheadedness or dizziness. Currently no blurred vision. Once in the ER, noted troponins elevated, 0.115, 0.126, and consulted cardio logy. EKG reporting atrial flutter with controlled ventricular rate, chronic. Echo pending. Denies chest pain, palpitations or shortness of breath. Afebrile, normal WBC. Hemoglobin 12.2, platelets 125. Electrolytes within normal limits, renal function stable, blood sugars controlled. Chest x-ray reported trace right pleural effusion, chronic interstitial prominence. Brain CT reported no acute intracranial process, nonspecific white matter changes likely secondary to chronic small vessel ischemic disease. 12/04/2022 brain MRI reported scattered microinfarcts throughout the left temp oral parietal and occipital lobes as well as left insular cortex and right balbir nonspecific white matter changes likely secondary to small vessel ischemic disease. Currently on aspirin and Xarelto- further recommendations from neurology pending. CTA pending. Ambulating in room with walker, complains of increased weakness. Echo reported normal EF 55-60%. Afebrile, normal WBC. Telemetry atrial fibrillation with controlled ventricular response. Denies chest pain, palpitations or shortness of breath. Objective - Vital Signs Vital signs: Vital Signs Temp 98.5 F 01/04/23 20:00 Pulse 86 01/04/23 20:00 Resp 16 01/04/23 20:00 BP 123/63 01/04/23 20:00 Pulse Ox 94 L 01/04/23 20:00 FiO2 Intake & Output 01/04/23 01/04/23 01/05/23 06:59 18:59 06:59 Intake Total 1080 595 Balance 1080 595 Intake: Oral 1080 595 Other: Voiding Method Urinal Urinal # Voids 1 2 - Exam - Exam GENERAL: Pt awake, alert, well-nourished, sitting up in chair, no acute distress. Aphasic HEENT: Atraumatic, normocephalic, Pupils equal, round, and reactive to light, extraocular movements intact, sclera anicteric, conjunctiva are normal.MMM. NECK:Supple, no JVD,without lymphadenopathy. LUNGS:Unlabored, Breath sounds clear to auscultation bilaterally. No wheezes, rales, or rhonchi. HEART: Heart S1, S2, no S3 or S4. No murmurs, rubs or gallops. ABDOMEN: Soft, obese, nontender, nondistended, normoactive bowel sounds. No g uarding, no rebound. No masses or organomegaly appreciated. EXTREMITIES: 2+ peripheral pulses. No edema. NEUROLOGICAL: Cranial nerves II through XII grossly intact. PSYCH: Alert and Oriented X 2, disoriented to date, mood and affect WNL, SKIN: Warm, dry, no rashes noted. - Labs CBC & Chem 7: 01/03/23 10:01 01/03/23 10:01 Labs: Abnormal Lab Results - Last 24 Hours (Table) 01/04/23 Range/Units 16:33 POC Glucose (mg/dL) 173 H (70-110) mg/dL Assessment and Plan Assessment: Altered mental status, reports confusion 2-3 days associated with memory impairment ,acute metabolic encephalopathy, etiology unclear.Brain MRI reporting scattered macular infarcts throughout the left temporal, parietal and occipital lobes as well as left insular cortex and right balbir. Neurology following Episodic right eye blurred vision times a few weeks, worked up outpatient with Dr. Khoa Ambriz Elevated troponins, 0.115, 0.126, cardiology following COPD, stable Persistent atrial flutter on Xarelto Chronic congestive heart failure with diastolic dysfunction Mild aortic stenosis History of DVTs, PE Diabetes mellitus,II controlled Diabetic neuropathy GERD. Hyperlipidemia. Hypertension. Osteoarthritis. Obstructive Sleep apnea with home CPAP use. History of prostate cancer with prostatectomy. Morbid obesity. BMI 39 Medical debility, gait dysfunction, uses walker. History of back surgery, chronic back pain Chronic urinary incontinence Formal nicotine dependence. Patient smoked a pack a day for more than 28 years. Plan: Continue on current medication regime ,monitoring and symptomatic treatment. Currently on aspirin and Xarelto. Further recommendations from neurology pending. CTA pending. Evaluated by PT with subacute rehab recommended at discharge. Patient is agreeable to subacute rehab. The impression and plan of care has been dictated as directed. : I performed a history and examination of this patient, discussed the same with the dictator. I agree with the dictator's note ,documented as a scribe. Any additional findings or plans will be noted.
[2023-01-04] MEDS: HYDROcodone/APAP 10-325MG 1 EACH TAB PO PRN (22:53)
--- NOTE | 2023-01-05 01:16 | P.PN ---
Subjective Progress Note Date: 01/04/23 Patient was seen for a follow-up. Patient states he is still having problem with speech. Patient states that yesterday he was having pain in the legs and more weakness. Left leg was hurting, and he was not walking as well as the day prior. He had some headache yesterday from the test, but no headache at this time. Objective - Vital Signs Vital signs: Vital Signs Temp 98.4 F 01/04/23 16:00 Pulse 87 01/04/23 16:00 Resp 16 01/04/23 16:00 BP 116/62 01/04/23 16:00 Pulse Ox 97 01/04/23 16:00 FiO2 Intake & Output 01/03/23 01/04/23 01/04/23 18:59 06:59 18:59 Intake Total 1140 1080 355 Output Total 250 Balance 890 1080 355 Intake: Oral 1140 1080 355 Output: Urine 250 Other: Voiding Method Urinal Urinal # Voids 2 1 1 # Bowel Movements 2 - Exam Patient is alert and awake in no distress. Sitting comfortably in the recliner. Speech has mild expressive aphasia. Face is symmetric. No pronator drift. In the strength is normal. Sensations equal. No ataxia. - Labs CBC & Chem 7: 01/03/23 10:01 01/03/23 10:01 Labs: Abnormal Lab Results - Last 24 Hours (Table) 01/03/23 01/04/23 Range/Units 10:01 16:33 POC Glucose (mg/dL) 173 H (70-110) mg/dL C-Reactive Protein 3.3 H (<1.0) mg/dL Assessment and Plan Assessment: * Acute ischemic stroke, manifesting with expressive aphasia. Patient's current NIH stroke scale is 2. Patient not a candidate for TPA, as he came to the hospital 24 hours after onset of symptoms. * Recurrent episodes of amaurosis fugax (x10 times in the last 2-3 weeks), with involvement of lower altitudinal visual field defect, only the right eye. Symptoms resolved in 10-20 seconds each time. Carotid stenosis ruled out. * Atrial fibrillation, on Xarelto * History of DVT * Diabetes * Hypertension * Hyperlipidemia * X tobacco use * Peripheral edema. Plan: * Patient has presented with acute ischemic stroke with expressive aphasia. Patient not a candidate for TPA because he came outside the window for TPA and also on anticoagulation with Xarelto. Patient is compliant with medication and does not miss a dose. Exact cause of CVA uncertain. Patient is also having recurrent amaurosis fugax, therefore need to rule out vascular disease. * MRI of the brain without contrast revealed scattered microinfarcts throughout the left temporal, parietal and occipital lobes as well as the left insular cortex and right balbir. Nonspecific white matter changes, likely secondary to small vessel ischemic disease. I personally reviewed MRI agree with the findings. * 2-D echo revealed normal left-ventricular size and systolic function with EF 55-60%. No obvious regional wall motion abnormalities. Severe left atrial dilation. Moderate aortic with mild mitral and tricuspid regurgitation. * CTA head and neck revealed mild atherosclerotic change at the carotid bifurcations. No significant carotid or vertebral artery stenosis on either side. No large vessel intracranial arterial occlusion, significant stenosis or aneurysmal change.. * Patient had embolic strokes, highly suggestive of cardioembolism. No vascular stenosis identified. Recommend COLTEN to evaluate for embolic source. * Fasting a.m. lipid panel cholesterol 100, LDL 33, HDL 44, triglycerides 110. * Hemoglobin A1c 5.8 * ESR 7, CRP minimally elevated 3.3. * Continue Xarelto 20 mg daily for stroke prevention related to atrial fibrillation. Patient was given a loading dose of aspirin 324 mg in the ER. We will start aspirin 81 mg daily for stroke prevention related to vascular disease. * Optimize control of blood pressure. * Neuro checks every shift. * Telemetry monitoring rule out any arrhythmia * PT, OT, speech therapy * DVT prophylaxis: Patient on Xarelto. * Dr. Maki Will resume neurology service over the weekend.
[2023-01-05 05:50] LABS: Glucose,Whole Blood 96 mg/dL (70-110)
[2023-01-05] MEDS: LOSARTAN 25 MG TAB PO SCH (08:03)
[2023-01-05] MEDS: LORATADINE 10 MG TAB PO SCH (08:03)
[2023-01-05] MEDS: PIOGLITAZONE 30 MG TAB PO SCH (08:03)
[2023-01-05] MEDS: ASPIRIN 81 MG PO SCH (08:03)
[2023-01-05] MEDS: PREGABALIN 75 MG CAP PO SCH ×2 (08:04→20:09)
[2023-01-05] MEDS: CYANOCOBALAMIN 500 MCG TAB PO SCH (08:04)
[2023-01-05] MEDS: CHOLECALCIFEROL 125 MCG (5000 IU) TABLET PO SCH (08:04)
[2023-01-05] MEDS: RIVAROXABAN 20 MG TAB PO SCH (08:04)
[2023-01-05 11:28] LABS: Glucose,Whole Blood 93 mg/dL (70-110)
[2023-01-05] MEDS: metFORMIN 500 MG TAB PO SCH ×2 (11:56→16:45)
[2023-01-05] MEDS: DAPAGLIFLOZIN PROPANEDIOL 10 MG TABLET PO SCH (11:56)
[2023-01-05] MEDS: PRAMIPEXOLE 0.5 MG TAB PO SCH ×2 (11:56→16:45)
--- NOTE | 2023-01-05 12:33 | P.PN ---
Subjective Progress Note Date: 01/05/23 This is a pleasant 72-year-old gentleman with history of chronic atrial flutter, follows with Dr. Zhou in the office. Came to the hospital because some aphasia. MRI of the brain suggested multiple emboli despite being on Xarelto and aspirin. A followed by neurology for requesting transesophageal echo cardiogram. Upon examination patient is resting comfortably in bed. He denies complaints of chest discomfort, palpitations, dizziness or lightheadedness. He is complaining of some difficulty finding his words. He remains anticoagulated. Objective - Vital Signs Vital signs: Vital Signs Temp 97.8 F 01/05/23 11:59 Pulse 83 01/05/23 11:59 Resp 16 01/05/23 11:59 BP 121/57 01/05/23 11:59 Pulse Ox 97 01/05/23 11:59 FiO2 Intake & Output 01/04/23 01/05/23 01/05/23 18:59 06:59 18:59 Intake Total 595 540 20 Output Total 175 Balance 595 540 -155 Intake: IV 20 Invasive Line 3 10 Invasive Line 4 10 Oral 595 540 Output: Urine 175 Other: Voiding Method Urinal Toilet Urinal # Voids 2 2 1 - Exam PHYSICAL EXAMINATION: HEENT: Head is atraumatic, normocephalic. Pupils equal, round. Neck is supple. There is no elevated jugular venous pressure. HEART EXAMINATION: Heart sounds irregular rate and rhythm, S1 and S2 normal. Systolic murmur. CHEST EXAMINATION: Lungs are clear to auscultation and precussion. No chest wall tenderness is noted on palpation or with deep breathing. ABDOMEN: Soft, nontender. Bowel sounds are heard. No organomegaly noted. EXTREMITIES: 2+ peripheral pulses with no evidence of peripheral edema and no calf tenderness noted. NEUROLOGIC patient is awake, alert and oriented x3 with mild expressive aphasia noted. . - Labs CBC & Chem 7: 01/03/23 10:01 01/03/23 10:01 Labs: Abnormal Lab Results - Last 24 Hours (Table) 01/04/23 Range/Units 16:33 POC Glucose (mg/dL) 173 H (70-110) mg/dL Assessment and Plan Assessment: #1 CVA #2 abnormal troponin not suggestive of primary myocardial injury 3 persistent typical atrial flutter with controlled ventricular rate #4 chronic heart failure with preserved ejection fraction 5 hypertension 6 hyperlipidemia 7 diabetes Plan: From cardiology's perspective medications were reviewed and we will continue the same. Discussed transesophageal echocardiogram with the patient including rationale, risks and benefits. Patient is in agreement. We will tentatively schedule the patient to undergo COLTEN on Saturday. BATH MIX OPERATOR note has been reviewed, I agree with a documented findings and plan of care. Patient was seen and examined.
--- NOTE | 2023-01-05 14:04 | P.PN ---
Subjective Progress Note Date: 01/05/23 This is a 72-year-old gentleman with past medical history significant for atrial flutter, CHF, mild aortic stenosis ,type 2 diabetes mellitus, GERD, hyperlipidemia, osteoarthritis, pneumonia, obstructive sleep apnea with home CPAP, diverticulitis, psoriasis, prostate cancer, bilateral legs DVT/pulmonary embolism, back surgery, former nicotine dependence, gait dysfunction and multiple other medical issues presented to the ER with complaints of memory impairment, confusion 2-3 days. Currently does not know the day of the week. "States he is having difficulty with expressing himself, sometimes at a loss for words ".Reports he was having episodic right eye blurred vision times a few weeks and followed up with shell molding roller blast operator Dr. Khoa Ambriz, stating possibly related to carotid stenosis and had recommended vascular workup. Currently denies headache, lightheadedness or dizziness. Currently no blurred vision. Once in the ER, noted troponins elevated, 0.115, 0.126, and consulted cardiology. EKG reporting atrial flutter with controlled ventricular rate, chronic. Echo pending. Denies chest pain, palpitations or shortness of breath. Afebrile, normal WBC. Hemoglobin 12.2, platelets 125. Electrolytes within normal limits, renal function stable, blood sugars controlled. Chest x-ray rep orted trace right pleural effusion, chronic interstitial prominence. Brain CT reported no acute intracranial process, nonspecific white matter changes likely secondary to chronic small vessel ischemic disease. 01/04/2023 brain MRI reported scattered microinfarcts throughout the left temporal parietal and occipital lobes as well as left insular cortex and right balbir nonspecific white matter changes likely secondary to small vessel ischemic disease. Currently on aspirin and Xarelto- further recommendations from neurology pending. CTA pending. Ambulating in room with walker, complains of increased weakness. Echo reported normal EF 55-60%. Afebrile, normal WBC. Telemetry atrial fibrillation with controlled ventricular response. Denies chest pain, palpitations or shortness of breath. 01/05/2023: Patient is reevaluated for his multiple CVAs. Neurology is recommending a COLTEN. Continue his current medication. His MRI of the brain and CT reviewed. I had ordered this morning a venous Doppler of his lower extremities since he does have a history of DVT and was anticoagulated for this before he developed atrial flutter. His history diabetes as well. He is currently improved slightly. He still does have complaints of vision issues in his left eye. He is awaiting walker to the toilet which is his baseline. He denies any chest pains pressures or shortness breath right at this moment. Nursing staff indicating is been doing well. Objective - Vital Signs Vital signs: Vital Signs Temp 97.8 F 01/05/23 11:59 Pulse 83 01/05/23 11:59 Resp 16 01/05/23 11:59 BP 121/57 01/05/23 11:59 Pulse Ox 97 01/05/23 11:59 FiO2 Intake & Output 01/04/23 01/05/23 01/05/23 18:59 06:59 18:59 Intake Total 595 540 450 Output Total 175 Balance 595 540 275 Intake: IV 20 Invasive Line 3 10 Invasive Line 4 10 Oral 595 540 430 Output: Urine 175 Other: Voiding Method Urinal Toilet Urinal # Voids 2 2 1 # Bowel Movements 1 - Exam General: The patient is awake and alert, in no distress, and does not appear acutely ill. This is a morbidly obese male with a walker Neck: The neck is supple, there is no thyromegaly, lymphadenopathy, tenderness or JVD. Cardiovascular: S1S2 is normal, There is a regular rate and rhythm. No rub or gallop is appreciated. Over 6 systolic ejection murmur Respiratory: Lungs are slightly coarse and diminished, but no wheezes rales or crackles this time Gastrointestinal: Soft, non-distended, non-tender abdomen without masses or organomegaly noted. There is no rebound or guarding present. Bowel sounds are unremarkable. Musculoskeletal: Normal ROM, no tenderness, There is no calf tenderness or swelling. No cords were appreciated. He has +2 pedal edema. There is no compression in place. Neurological: CN II-XII intact, there are no obvious motor or sensory deficits. Coordination appears grossly intact. Speech is normal. Skin: Skin is warm and dry and no rashes or lesions are noted. - Labs CBC & Chem 7: 01/03/23 10:01 01/03/23 10:01 Labs: Abnormal Lab Results - Last 24 Hours (Table) 01/04/23 Range/Units 16:33 POC Glucose (mg/dL) 173 H (70-110) mg/dL Assessment and Plan (1) CVA (cerebral vascular accident) Current Visit: Yes Status: Acute Code(s): I63.9 - CEREBRAL INFARCTION, UNSPECIFIED SNOMED Code(s): 393726491 (2) Elevated troponin Current Visit: Yes Status: Acute Code(s): R79.89 - OTHER SPECIFIED ABNORMAL FINDINGS OF BLOOD CHEMISTRY SNOMED Code(s): 396141010 (3) Atrial flutter Current Visit: Yes Status: Acute Code(s): I48.92 - UNSPECIFIED ATRIAL FLUTTER SNOMED Code(s): 7242256 (4) Chronic diastolic CHF (congestive heart failure) Current Visit: Yes Status: Acute Code(s): I50.32 - CHRONIC DIASTOLIC (CONGESTIVE) HEART FAILURE SNOMED Code(s): 829750165 (5) Aortic stenosis Current Visit: Yes Status: Acute Code(s): I35.0 - NONRHEUMATIC AORTIC (VALVE) STENOSIS SNOMED Code(s): 75063276 (6) H/O deep venous thrombosis Current Visit: Yes Status: Acute Code(s): Z86.718 - PERSONAL HISTORY OF OTHER VENOUS THROMBOSIS AND EMBOLISM SNOMED Code(s): 057393323 (7) Hx of pulmonary embolus Current Visit: Yes Status: Acute Code(s): Z86.711 - PERSONAL HISTORY OF PULMONARY EMBOLISM SNOMED Code(s): 259079461 (8) Essential (primary) hypertension Current Visit: Yes Status: Acute Code(s): I10 - ESSENTIAL (PRIMARY) HYPERTENSION SNOMED Code(s): 36747621 (9) Type 2 diabetes mellitus with other specified complication Current Visit: Yes Status: Acute Code(s): E11.69 - TYPE 2 DIABETES MELLITUS WITH OTHER SPECIFIED COMPLICATION SNOMED Code(s): 28666295 (10) Mixed hyperlipidemia Current Visit: Yes Status: Acute Code(s): E78.2 - MIXED HYPERLIPIDEMIA SNOMED Code(s): 831906402 (11) KIRSTIN on CPAP Current Visit: Yes Status: Acute Code(s): G47.33 - OBSTRUCTIVE SLEEP APNEA (ADULT) (PEDIATRIC) SNOMED Code(s): 27593650 (12) Morbid obesity Current Visit: Yes Status: Acute Code(s): E66.01 - MORBID (SEVERE) OBESITY DUE TO EXCESS CALORIES SNOMED Code(s): 979953402 Plan: We'll await on the plan to the on Saturday. He'll continue his current medications. We'll obtain a venous Dopplers lower extremity to rule out worsening DVT as he does have a history. I'll add compression hose to his lower extremities. Repeat labs in a.m. he'll be reevaluated in the next 24 hours.
[2023-01-05 16:39] LABS: Glucose,Whole Blood 120 mg/dL (70-110)
--- NOTE | 2023-01-05 17:32 | US ---
EXAMINATION TYPE: US venous doppler duplex LE BI DATE OF EXAM: 01/05/2023 5:14 PM COMPARISON: NONE CLINICAL INDICATION: Male, 72 years old with history of edema, embolic CVA; History of DVT, edema SIDE PERFORMED: Bilateral TECHNIQUE: The lower extremity deep venous system is examined utilizing real time linear array sonog daniel with graded compression, doppler sonography and color-flow sonography. VESSELS IMAGED: Common Femoral Vein Deep Femoral Vein Greater Saphenous Vein * Femoral Vein Popliteal Vein Small Saphenous Vein * Proximal Calf Veins (* superficial vessels) Right Leg: positive for DVT. thready flow with partial compression right femoral vein extending into popliteal vein Left Leg: positive for DVT. thready flow with partial compression left distal femoral vein extending into popliteal vein IMPRESSION Mild decreased flow and compressibility in the bilateral femoral veins extending into the popliteal v eins. The findings are most consistent with chronic bilateral lower extremity DVT.
[2023-01-05 19:40] LABS: Glucose,Whole Blood 102 mg/dL (70-110)
[2023-01-05] MEDS: AMITRIPTYLINE HCL 25 MG TAB PO SCH (20:09)
[2023-01-05] MEDS: ATORVASTATIN 40 MG TAB PO SCH (20:09)
[2023-01-05] MEDS: HYDROcodone/APAP 10-325MG 1 EACH TAB PO PRN (21:38)
[2023-01-06 05:54] LABS: Glucose,Whole Blood 100 mg/dL (70-110)
[2023-01-06] MEDS: DAPAGLIFLOZIN PROPANEDIOL 10 MG TABLET PO SCH (06:12)
[2023-01-06] MEDS: metFORMIN 500 MG TAB PO SCH ×2 (06:12→16:51)
[2023-01-06 08:09] LABS: Basophils % (A) 0 %; Eosinophils # (A) 0.5 k/uL (0-0.7); Eosinophils % (A) 9 %; HCT 37.9 % (39.0-53.0); HGB 12.2 gm/dL (13.0-17.5); Hypochromasia Slight; Lymphocytes # (A) 1.1 k/uL (1.0-4.8); Lymphocytes % (A) 19 %; MCH 27.8 pg (25.0-35.0); MCHC 32.1 g/dL (31.0-37.0); MCV 86.6 fL (80.0-100.0); Mean Platelet Volume 7.3; Monocytes # (A) 0.4 k/uL (0-1.0); Monocytes % (A) 6 %; Neutrophils # (A) 3.8 k/uL (1.3-7.7); Neutrophils % (A) 65 %; Platelet Count 138 k/uL (150-450); RBC 4.38 m/uL (4.30-5.90); RDW 15.4 % (11.5-15.5); WBC 5.8 k/uL (3.8-10.6)
[2023-01-06 09:09] LABS: African American GFR (CKD) >90 (>60 ml/min/1.73 sqM); Anion Gap 8 mmol/L; Blood Urea Nitrogen 13 mg/dL (9-20); Calcium 9.5 mg/dL (8.4-10.2); Carbon Dioxide 29 mmol/L (22-30); Chloride 100 mmol/L (98-107); Glucose 84 mg/dL (74-99); Magnesium 1.4 mg/dL (1.6-2.3); Non-African American GFR(CKD) >90 (>60 ml/min/1.73 sqM); Sodium 137 mmol/L (137-145)
[2023-01-06] MEDS: LOSARTAN 25 MG TAB PO SCH (09:21)
[2023-01-06] MEDS: LORATADINE 10 MG TAB PO SCH (09:21)
[2023-01-06] MEDS: CHOLECALCIFEROL 125 MCG (5000 IU) TABLET PO SCH (09:21)
[2023-01-06] MEDS: RIVAROXABAN 20 MG TAB PO SCH (09:21)
[2023-01-06] MEDS: PREGABALIN 75 MG CAP PO SCH ×2 (09:21→21:07)
[2023-01-06] MEDS: PIOGLITAZONE 30 MG TAB PO SCH (09:21)
[2023-01-06] MEDS: ASPIRIN 81 MG PO SCH (09:21)
[2023-01-06] MEDS: CYANOCOBALAMIN 500 MCG TAB PO SCH (09:21)
[2023-01-06] MEDS ORDERED: Magnesium Replacement Protocol 1 EACH MISC MISCELLANE PRN (11:21)
[2023-01-06 11:39] LABS: Glucose,Whole Blood 86 mg/dL (70-110)
--- NOTE | 2023-01-06 12:40 | P.PN ---
Subjective Progress Note Date: 01/06/23 This is a pleasant 72-year-old gentleman with history of chronic atrial flutter, follows with Dr. Zhou in the office. Came to the hospital because some aphasia. MRI of the brain suggested multiple emboli despite being on Xarelto and aspirin. A followed by neurology for requesting transesophageal echo cardiogram. Upon examination patient is resting comfortably in bed. He denies complaints of chest discomfort, palpitations, dizziness or lightheadedness. He is complaining of some difficulty finding his words. He remains anticoagulated. 01/06/2023 Patient was seen and examined resting comfortably chair at the bedside. Underwent ultrasound of lower extremities which showed bilateral DVTs. He verbalizes compliance with anticoagulation at home. He's been initiated on aspirin in addition to Xarelto. Objective - Vital Signs Vital signs: Vital Signs Temp 97.8 F 01/06/23 11:01 Pulse 76 01/06/23 11:01 Resp 18 01/06/23 11:01 BP 130/60 01/06/23 11:01 Pulse Ox 98 01/06/23 11:01 FiO2 Intake & Output 01/05/23 01/06/23 01/06/23 19:59 06:59 18:59 Intake Total 260 Output Total Balance 260 Intake: IV 20 Invasive Line 3 10 Invasive Line 4 10 Oral 240 Output: Urine Other: Voiding Method Toilet Urinal # Voids 1 # Bowel Movements 1 - Exam PHYSICAL EXAMINATION: HEENT: Head is atraumatic, normocephalic. Pupils equal, round. Neck is supple. There is no elevated jugular venous pressure. HEART EXAMINATION: Heart sounds irregular rate and rhythm, S1 and S2 normal. Systolic murmur. CHEST EXAMINATION: Lungs are clear to auscultation and precussion. No chest wall tenderness is noted on palpation or with deep breathing. ABDOMEN: Soft, nontender. Bowel sounds are heard. No organomegaly noted. EXTREMITIES: 2+ peripheral pulses with no evidence of peripheral edema and no calf tenderness noted. NEUROLOGIC patient is awake, alert and oriented x3 with mild expressive aphasia noted. . - Labs CBC & Chem 7: 01/06/23 07:38 01/06/23 07:38 Labs: Abnormal Lab Results - Last 24 Hours (Table) 01/05/23 01/06/23 01/06/23 Range/Units 16:38 07:38 07:38 Hgb 12.2 L (13.0-17.5) gm/dL Hct 37.9 L (39.0-53.0) % Plt Count 138 L (150-450) k/uL POC Glucose (mg/dL) 120 H (70-110) mg/dL Magnesium 1.4 L (1.6-2.3) mg/dL Assessment and Plan Assessment: #1 CVA #2 abnormal troponin not suggestive of primary myocardial injury 3 persistent typical atrial flutter with controlled ventricular rate #4 chronic heart failure with preserved ejection fraction 5 hypertension 6 hyperlipidemia 7 diabetes 8 bilateral DVTs Plan: From cardiology's perspective medications were reviewed and we will continue the same. Discussed with the patient again transesophageal echocardiogram including rationale, risks and benefits. Patient is in agreement. We will schedule the patient to undergo COLTEN tomorrow. SUPERINTENDENT JOB note has been reviewed, I agree with a documented findings and plan of care. Patient was seen and examined.
[2023-01-06] MEDS: MAGNESIUM SULFATE-D5W PMX 1 GM in DEXTROSE/WATER 1 100ML.BAG IVPB SCH ×2 (12:42→14:04)
[2023-01-06] MEDS: PRAMIPEXOLE 0.5 MG TAB PO SCH ×2 (12:42→16:52)
--- NOTE | 2023-01-06 12:52 | P.PN ---
Subjective This is a 72-year-old gentleman with past medical history significant for atrial flutter, CHF, mild aortic stenosis ,type 2 diabetes mellitus, GERD, hyperlipidemia, osteoarthritis, pneumonia, obstructive sleep apnea with home CPAP, diverticulitis, psoriasis, prostate cancer, bilateral legs DVT/pulmonary embolism, back surgery, former nicotine dependence, gait dysfunction and multiple other medical issues presented to the ER with complaints of memory impairment, confusion 2-3 days. Currently does not know the day of the week. "States he is having difficulty with expressing himself, sometimes at a loss for words ".Reports he was having episodic right eye blurred vision times a few weeks and followed up with steward/stewardess tourist class Dr. Khoa Ambriz, stating possibly related to carotid stenosis and had recommended vascular workup. Currently de nies headache, lightheadedness or dizziness. Currently no blurred vision. Once in the ER, noted troponins elevated, 0.115, 0.126, and consulted cardiology. EKG reporting atrial flutter with controlled ventricular rate, chronic. Echo pending. Denies chest pain, palpitations or shortness of breath. Afebrile, normal WBC. Hemoglobin 12.2, platelets 125. Electrolytes within normal limits, renal function stable, blood sugars controlled. Chest x-ray reported trace right pleural effusion, chronic interstitial prominence. Brain CT reported no acute intracranial process, nonspecific white matter changes likely secondary to chronic small vessel ischemic disease. 01/04/2023 brain MRI reported scattered microinfarcts throughout the left temporal parietal and occipital lobes as well as left insular cortex and right balbir nonspecific white matter changes likely secondary to small vessel ischemic disease. Currently on aspirin and Xarelto- further recommendations from neurology pending. CTA pending. Ambulating in room with walker, complains of increased weakness. Echo reported normal EF 55-60%. Afebrile, normal WBC. Telemetry atrial fibrillation with controlled ventricular response. Denies chest pain, palpitations or shortness of breath. 01/05/2023: Patient is reevaluated for his multiple CVAs. Neurology is recommending a COLTEN. Continue his current medication. His MRI of the brain and CT reviewed. I had ordered this morning a venous Doppler of his lower extremities since he does have a history of DVT and was anticoagulated for this before he developed atrial flutter. His history diabetes as well. He is currently improved slightly. He still does have complaints of vision issues in his left eye. He is awaiting walker to the toilet which is his baseline. He denies any chest pains pressures or shortness breath right at this moment. Nursing staff indicating is been doing well. 01/06/2023: Patient is pending a COLTEN tomorrow morning. He is in the hospital for multiple mini CVAs and vision troubles related this along with balance difficulty. MRI and CT bradycardia been reviewed. Neurology is following along with cardiology as he has atrial fibrillation. He is anticoagulated with Xarelto. He is a type II diabetic and remains on pioglitazone and metformin. He takes a medical malpractice paralegal weekly and was on Jardianceat home. he continues on atorvastatin for hyperlipidemia He denies any new complaints this morning. No chest pain pressure shortness of breath. Heart rate rest her rate is temperature and pulse oximetry stable. Labs are essentially normal with the exception of magnesium 1.4. Ultrasound yesterday did show chronic bilateral DVTs Objective - Vital Signs Vital signs: Vital Signs Temp 97.8 F 01/06/23 11:01 Pulse 76 01/06/23 11:01 Resp 18 01/06/23 11:01 BP 130/60 01/06/23 11:01 Pulse Ox 98 01/06/23 11:01 FiO2 Intake & Output 01/05/23 01/06/23 01/06/23 19:59 06:59 18:59 Intake Total 260 Output Total Balance 260 Intake: IV 20 Invasive Line 3 10 Invasive Line 4 10 Oral 240 Output: Urine Other: Voiding Method Toilet Urinal # Voids 1 # Bowel Movements 1 - Exam General: The patient is awake and alert, in no distress, and does not appear acutely ill. This is a morbidly obese male with a walker, resting comfortably in the chair Neck: The neck is supple, there is no thyromegaly, lymphadenopathy, tenderness or JVD. Cardiovascular: S1S2 is normal, There is a regular rate and rhythm. No rub or gallop is appreciated. Over 6 systolic ejection murmur Respiratory: Lungs are slightly coarse and diminished, but no wheezes rales or crackles this time Gastrointestinal: Soft, non-distended, non-tender abdomen without masses or organomegaly noted. There is no rebound or guarding present. Bowel sounds are unremarkable. Musculoskeletal: Normal ROM, no tenderness, There is no calf tenderness or swelling. No cords were appreciated. He has +2 pedal edema. There is no compression in place. Neurological: CN II-XII intact, there are no obvious motor or sensory deficits. Coordination appears grossly intact. Speech is normal. Skin: Skin is warm and dry and no rashes or lesions are noted. - Labs CBC & Chem 7: 01/06/23 07:38 01/06/23 07:38 Labs: Abnormal Lab Results - Last 24 Hours (Table) 01/05/23 01/06/23 01/06/23 Range/Units 16:38 07:38 07:38 Hgb 12.2 L (13.0-17.5) gm/dL Hct 37.9 L (39.0-53.0) % Plt Count 138 L (150-450) k/uL POC Glucose (mg/dL) 120 H (70-110) mg/dL Magnesium 1.4 L (1.6-2.3) mg/dL Assessment and Plan (1) CVA (cerebral vascular accident) Current Visit: Yes Status: Acute Code(s): I63.9 - CEREBRAL INFARCTION, UNSPECIFIED SNOMED Code(s): 643943084 (2) Elevated troponin Current Visit: Yes Status: Acute Code(s): R79.89 - OTHER SPECIFIED ABNORMAL FINDINGS OF BLOOD CHEMISTRY SNOMED Code(s): 025733598 (3) Atrial flutter Current Visit: Yes Status: Acute Code(s): I48.92 - UNSPECIFIED ATRIAL FLUTTER SNOMED Code(s): 0205772 (4) Chronic diastolic CHF (congestive heart failure) Current Visit: Yes Status: Acute Code(s): I50.32 - CHRONIC DIASTOLIC (CONGESTIVE) HEART FAILURE SNOMED Code(s): 001904945 (5) Aortic stenosis Current Visit: Yes Status: Acute Code(s): I35.0 - NONRHEUMATIC AORTIC (VALVE) STENOSIS SNOMED Code(s): 09033155 (6) H/O deep venous thrombosis Current Visit: Yes Status: Acute Code(s): Z86.718 - PERSONAL HISTORY OF OTH ER VENOUS THROMBOSIS AND EMBOLISM SNOMED Code(s): 372213639 (7) Hx of pulmonary embolus Current Visit: Yes Status: Acute Code(s): Z86.711 - PERSONAL HISTORY OF PULMONARY EMBOLISM SNOMED Code(s): 861741435 (8) Essential (primary) hypertension Current Visit: Yes Status: Acute Code(s): I10 - ESSENTIAL (PRIMARY) HYPERTENSION SNOMED Code(s): 13621340 (9) Type 2 diabetes mellitus with other specified complication Current Visit: Yes Status: Acute Code(s): E11.69 - TYPE 2 DIABETES MELLITUS WITH OTHER SPECIFIED COMPLICATION SNOMED Code(s): 76421217 (10) Mixed hyperlipidemia Current Visit: Yes Status: Acute Code(s): E78.2 - MIXED HYPERLIPIDEMIA SNOMED Code(s): 345930309 (11) KIRSTIN on CPAP Current Visit: Yes Status: Acute Code(s): G47.33 - OBSTRUCTIVE SLEEP APNEA (ADULT) (PEDIATRIC) SNOMED Code(s): 58643508 (12) Morbid obesity Current Visit: Yes Status: Acute Code(s): E66.01 - MORBID (SEVERE) OBESITY DUE TO EXCESS CALORIES SNOMED Code(s): 337425236 Plan: COLTEN planned for tomorrow. He'll continue on his current medications as ordered. Repeat labs in a.m. Magnesium replacement protocol. He'll be reevaluated in the next 24 hours
[2023-01-06 16:19] LABS: Glucose,Whole Blood 96 mg/dL (70-110)
--- NOTE | 2023-01-06 19:42 | P.PN ---
Subjective Progress Note Date: 01/06/23 The pt is seen in neurologic follow up on 2022,in collaboration with Virginia Pina, via teleneurology. The pt is sitting up in the chair. He reports feeling better. He continues to have difficulty with word finding. COLTEN was rescheduled to Saturday. Objective - Vital Signs Vital signs: Vital Signs Temp 98 F 01/05/23 20:00 Pulse 92 01/06/23 04:00 Resp 16 01/06/23 04:00 BP 123/58 01/06/23 04:00 Pulse Ox 93 L 01/06/23 04:00 FiO2 Intake & Output 01/05/23 01/06/23 01/06/23 19:59 06:59 18:59 Intake Total Output Total Balance Intake: IV Invasive Line 3 Invasive Line 4 Oral Output: Urine Other: Voiding Method # Voids # Bowel Movements - Exam General: the pt is seated in the chair. He is in no distress HEENT: Head is atraumatic, normocephalic. Neurological The pt is able to name "Pen". He is able to name "watch" with cueing. - Labs CBC & Chem 7: 01/06/23 07:38 01/06/23 07:38 Labs: Abnormal Lab Results - Last 24 Hours (Table) 01/05/23 Range/Units 16:38 POC Glucose (mg/dL) 120 H (70-110) mg/dL Assessment and Plan Assessment: Acute ischemic stroke, manifesting with expressive aphasia. * Recurrent episodes of amaurosis fugax (x10 times in the last 2-3 weeks), with involvement of lower altitudinal visual field defect, only the right eye. Symptoms resolved in 10-20 seconds each time. Carotid stenosis ruled out. * Atrial fibrillation, on Xarelto * History of DVT * Diabetes * Hypertension * Hyperlipidemia * X tobacco use * Peripheral edema Plan: 1. COLTEN to be performed on Saturday 2. continue Xarelto and ASA 81 mg at this time 3. If COLTEN positive for embolus, may consider change to Eliquis 4. Poss. inpt rehab transfer Time with Patient: Less than 30
[2023-01-06] MEDS: AMITRIPTYLINE HCL 25 MG TAB PO SCH (21:07)
[2023-01-06] MEDS: ATORVASTATIN 40 MG TAB PO SCH (21:07)
[2023-01-06] MEDS: HYDROcodone/APAP 10-325MG 1 EACH TAB PO PRN (21:10)
[2023-01-07 06:21] LABS: Glucose,Whole Blood 87 mg/dL (70-110)
[2023-01-07 09:02] LABS: African American GFR (CKD) >90 (>60 ml/min/1.73 sqM); Anion Gap 8 mmol/L; Blood Urea Nitrogen 14 mg/dL (9-20); Carbon Dioxide 26 mmol/L (22-30); Chloride 101 mmol/L (98-107); Glucose 77 mg/dL (74-99); Magnesium 1.7 mg/dL (1.6-2.3); Non-African American GFR(CKD) >90 (>60 ml/min/1.73 sqM); Potassium 3.9 mmol/L (3.5-5.1); Sodium 135 mmol/L (137-145)
[2023-01-07] MEDS: metFORMIN 500 MG TAB PO SCH ×2 (09:08→17:00)
[2023-01-07] MEDS: DAPAGLIFLOZIN PROPANEDIOL 10 MG TABLET PO SCH (09:08)
[2023-01-07] MEDS: RIVAROXABAN 20 MG TAB PO SCH (09:11)
[2023-01-07] MEDS: LORATADINE 10 MG TAB PO SCH (09:12)
[2023-01-07] MEDS: ASPIRIN 81 MG PO SCH (09:12)
[2023-01-07] MEDS: LOSARTAN 25 MG TAB PO SCH (09:12)
[2023-01-07] MEDS: CYANOCOBALAMIN 500 MCG TAB PO SCH (09:12)
[2023-01-07] MEDS: CHOLECALCIFEROL 125 MCG (5000 IU) TABLET PO SCH (09:12)
[2023-01-07] MEDS: PIOGLITAZONE 30 MG TAB PO SCH (09:12)
[2023-01-07] MEDS: PREGABALIN 75 MG CAP PO SCH ×2 (09:12→20:39)
[2023-01-07] MEDS: HYDROcodone/APAP 10-325MG 1 EACH TAB PO PRN ×3 (09:16→22:47)
[2023-01-07] MEDS: BENZOCAINE SPRAY 1 CAN TOPICAL ONE ×2 (10:27→10:28)
[2023-01-07] MEDS ORDERED: SODIUM CHLORIDE 0.9% 500 ML 500 ML IV ONE (10:27)
[2023-01-07] MEDS ORDERED: MIDAZOLAM 2 MG/2 ML VIAL IVP ONE (10:28)
[2023-01-07] MEDS ORDERED: fentaNYL (PF) 50 MCG/ML 2 ML AMP IVP ONE (10:28)
--- NOTE | 2023-01-07 10:48 | P.PCN ---
Date of Procedure: 01/07/23 Description of Procedure: Indication: CVA Procedure Description: After explaining the procedure to the patient, it's risk and complications, blood pressure, heart rate and O2 saturation were monitored. The throat was sprayed with Cetacaine. Patient received 2 mg intravenous Versed, 50 mcg intravenous fentanyl. The probe was introduced into the esophagus without difficulty. Images were obtained. Following that, the probe was removed. There was no immediate complication. Findings: Left atrial size is dilated, left atrial appendage is normal. Left ventricular size and systolic function are normal. The mitral valve revealed mild thickening of the leaflets. The aortic valve is tricuspid with evidence of calcification and thickening. Filaments were noted that could represent Lambl's excrescence. Descending thoracic aorta revealed mild atherosclerotic changes. No pericardial effusion was noted. Contrast bubble study revealed no shunting across the intra-atrial septum. Doppler: Pulse wave and color Doppler were obtained, and revealed moderate aortic with mild to moderate mitral and mild tricuspid regurgitation. There was no shunting by color Doppler study. Conclusion: 1. Dilated left atrium with normal appearance of the left atrial appendage 2. Normal in ventricle size and systolic function 3. Mild to moderate mitral with moderate aortic regurgitation and mild tricuspid regurgitation 4. And aortic sclerosis and thickening was possible Lambl's excrescence 5. Mild atherosclerotic changes of the descending thoracic aorta 6. No shunting across the interatrial septum
[2023-01-07] MEDS: SODIUM CHLORIDE 0.9% 1,000 ML IV SCH (11:14)
[2023-01-07] MEDS: PRAMIPEXOLE 0.5 MG TAB PO SCH ×2 (11:16→17:00)
[2023-01-07 12:10] LABS: Glucose,Whole Blood 79 mg/dL (70-110)
--- NOTE | 2023-01-07 15:51 | P.PN ---
Subjective Progress Note Date: 01/07/23 I am seeing the patient for the first time during this admission and he stated he presented to the hospital because of speech difficulty, with difficulty getting word out and difficulty others understanding him with some leg weakness. He has history of atrial fibrillation and is on Xarelto. Today he had COLTEN which reported as possible Laml's excrescences but otherwise was negative for thrombus or PFO. Please refer to Dr. Conner's and Shanthi's notes for further details. Objective - Vital Signs Vital signs: Vital Signs Temp 98.1 F 01/07/23 09:06 Pulse 84 01/07/23 14:15 Resp 16 01/07/23 11:17 BP 124/62 01/07/23 11:17 Pulse Ox 96 01/07/23 11:17 FiO2 Intake & Output 01/06/23 01/07/23 01/07/23 18:59 06:59 18:59 Intake Total 942 200 Output Total 500 375 850 Balance 442 375 -650 Weight 102.5 kg Intake: IV 40 100 Invasive Line 3 20 Invasive Line 4 20 Intake, IV Titration 200 Amount Magnesium Sulfate-D5w Pmx 200 1 gm In Dextrose/Water 1 100ml.bag @ 100 mls/hr IVPB Q1H [facility] Rx#: [id number] Oral 702 100 Output: Urine 500 375 850 Other: Voiding Method Toilet Toilet Urinal Urinal Urinal # Voids 1 1 # Bowel Movements 1 - Exam General: Sitting in a recliner chair and is not in acute distress. Neuro: The patient is awake, alert, oriented to self, place and time. He has expressive aphasia. No neglect. Pupils are round, equal and reactive to light. Visual field are full to confrontation. No facial weakness. No dysarthria. Motor: Moving bilateral uppers above gravity as well lowers and seems symmetrical. - Labs CBC & Chem 7: 01/06/23 07:38 01/07/23 07:24 Labs: Abnormal Lab Results - Last 24 Hours (Table) 01/07/23 Range/Units 07:24 Sodium 135 L (137-145) mmol/L Creatinine 0.65 L (0.66-1.25) mg/dL Assessment and Plan Assessment: * Acute ischemic stroke, manifesting with expressive aphasia. Patient's current NIH stroke scale is 2. Patient not a candidate for TPA, as he came to the hospital 24 hours after onset of symptoms and also on anticoagulation with Xarelto. Patient is compliant with medication and does not miss a dose. Exact cause of CVA uncertain. Patient had embolic strokes, highly suggestive of cardioembolism * Recurrent episodes of amaurosis fugax (x10 times in the last 2-3 weeks), with involvement of lower altitudinal visual field defect, only the right eye. Symptoms resolved in 10-20 seconds each time. Carotid stenosis ruled out. * Atrial fibrillation, on Xarelto * History of DVT * Diabetes * Hypertension * Hyperlipidemia * X tobacco use * Peripheral edema. Plan: * MRI of the brain without contrast revealed scattered microinfarcts throughout the left temporal, parietal and occipital lobes as well as the left insular cortex and right balbir. Nonspecific white matter changes, likely secondary to small vessel ischemic disease. I personally reviewed MRI agree with the findings. * 2-D echo revealed normal left-ventricular size and systolic function with EF 55-60%. No obvious regional wall motion abnormalities. Severe left atrial dilation. Moderate aortic with mild mitral and tricuspid regurgitation. * CTA head and neck revealed mild atherosclerotic change at the carotid bifurcations. No significant carotid or vertebral artery stenosis on either s marilee. No large vessel intracranial arterial occlusion, significant stenosis or aneurysmal change.. * COLTEN: * 1. Dilated left atrium with normal appearance of the left atrial appendage * 2. Normal in ventricle size and systolic function * 3. Mild to moderate mitral with moderate aortic regurgitation and mild tricuspid regurgitation * 4. 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 Mild atherosclerotic changes of the descending thoracic aorta * 6. No shunting across the interatrial septum Will discuss with cardiology team regarding "possible Lambl's escrescence" * Fasting a.m. lipid panel cholesterol 100, LDL 33, HDL 44, triglycerides 110. * Hemoglobin A1c 5.8 * ESR 7, CRP minimally elevated 3.3. * Continue Xarelto 20 mg daily for stroke prevention related to atrial fib rillation. Patient was given a loading dose of aspirin 324 mg in the ER then was started aspirin 81 mg daily for stroke prevention related to vascular disease. * Optimize control of blood pressure. * Neuro checks every shift. * Telemetry monitoring rule out any arrhythmia * PT, OT, speech therapy * DVT prophylaxis: Patient on Xarelto. The plan is discussed with patient. Will continue to follow. Time with Patient: Less than 30
--- NOTE | 2023-01-07 16:38 | P.PN ---
Subjective Progress Note Date: 01/07/23 H&P Date: 01/03/23 Chief Complaint: Altered mental status This is a 72-year-old gentleman with past medical history significant for atrial flutter, CHF, mild aortic stenosis ,type 2 diabetes mellitus, GERD, hyperlipidemia, osteoarthritis, pneumonia, obstructive sleep apnea with home CPAP, diverticulitis, psoriasis, prostate cancer, bilateral legs DVT/pulmonary embolism, back surgery, former nicotine dependence, gait dysfunction and multiple other medical issues presented to the ER with complaints of memory impairment, confusion 2-3 days. Currently does not know the day of the week. "States he is having difficulty with expressing himself, sometimes at a loss for words ".Reports he was having episodic right eye blurred vision times a few weeks and followed up with concrete vibrator operator Dr. Khoa Ambriz, stating possibly related to carotid stenosis and had recommended vascular workup. Currently denies headache, lightheadedness or dizziness. Currently no blurred vision. Once in the ER, noted troponins elevated, 0.115, 0.126, and consulted cardio logy. EKG reporting atrial flutter with controlled ventricular rate, chronic. Echo pending. Denies chest pain, palpitations or shortness of breath. Afebrile, normal WBC. Hemoglobin 12.2, platelets 125. Electrolytes within normal limits, renal function stable, blood sugars controlled. Chest x-ray reported trace right pleural effusion, chronic interstitial prominence. Brain CT reported no acute intracranial process, nonspecific white matter changes likely secondary to chronic small vessel ischemic disease. 12/04/2022 brain MRI reported scattered microinfarcts throughout the left temp oral parietal and occipital lobes as well as left insular cortex and right balbir nonspecific white matter changes likely secondary to small vessel ischemic disease. Currently on aspirin and Xarelto- further recommendations from neurology pending. CTA pending. Ambulating in room with walker, complains of increased weakness. Echo reported normal EF 55-60%. Afebrile, normal WBC. Telemetry atrial fibrillation with controlled ventricular response. Denies chest pain, palpitations or shortness of breath. 01/05/2023: Patient is reevaluated for his multiple CVAs. Neurology is recommending a COLTEN. Continue his current medication. His MRI of the brain and CT reviewed. I had ordered this morning a venous Doppler of his lower extremities since he does have a history of DVT and was anticoagulated for this before he developed atrial flutter. His history diabetes as well. He is currently improved slightly. He still does have complaints of vision issues in his left eye. He is awaiting walker to the toilet which is his baseline. He denies any chest pains pressures or shortness breath right at this moment. Nursing staff indicating is been doing well. 01/06/2023: Patient is pending a COLTEN tomorrow morning. He is in the hospital for multiple mini CVAs and vision troubles related this along with balance difficulty. MRI and CT bradycardia been reviewed. Neurology is following along with cardiology as he has atrial fibrillation. He is anticoagulated with Xarelto. He is a type II diabetic and remains on pioglitazone and metformin. He takes a chief medical director weekly and was on Jardianceat home. he continues on atorvastatin for hyperlipidemia He denies any new complaints this morning. No chest pain pressure shortness of breath. Heart rate rest her rate is temperature and pulse oximetry stable. Labs are essentially normal with the exception of magnesium 1.4. Ultrasound yes terday did show chronic bilateral DVTs 01/07/2023 COLTEN performed this morning, reporting aortic sclerosis and thickening, possible Lambl's excrescence, no shunting or thrombus. Denies chest pain, palpitations or shortness of breath, maintaining O2 sats in the 90s on room air. Denies lightheadedness dizziness or focal deficits. Objective - Vital Signs Vital signs: Vital Signs Temp 98.1 F 01/07/23 09:06 Pulse 84 01/07/23 14:15 Resp 16 01/07/23 11:17 BP 124/62 01/07/23 11:17 Pulse Ox 96 01/07/23 11:17 FiO2 Intake & Output 01/06/23 01/07/23 01/07/23 18:59 06:59 18:59 Intake Total 942 200 Output Total 500 375 850 Balance 442 375 650 Weight 102.5 kg Intake: IV 40 100 Invasive Line 3 20 Invasive Line 4 20 Intake, IV Titration 200 Amount Magnesium Sulfate-D5w Pmx 200 1 gm In Dextrose/Water 1 100ml.bag @ 100 mls/hr IVPB Q1H [facility] Rx#: [id number] Oral 702 100 Output: Urine 500 375 850 Other: Voiding Method Toilet Toilet Urinal Urinal Urinal # Voids 1 1 # Bowel Movements 1 - Exam - Exam GENERAL: Alert and oriented 3, obese, sitting up in chair, no acute distress. HEENT: Atraumatic, normocephalic, Pupils equal, round, and reactive to light,conjunctiva are normal.MMM. NECK:Supple, no JVD,without lymphadenopathy. LUNGS:Unlabored, Breath sounds clear to auscultation bilaterally. No wheezes, rales, or rhonchi. HEART: S1, S2, regular. Systolic murmur. ABDOMEN: Soft, obese, nontender, nondistended, normoactive bowel sounds. No guarding, no rebound. Positive bowel sounds EXTREMITIES: 2+ peripheral pulses. No edema. NEUROLOGICAL: Cranial nerves II through XII grossly intact. SKIN: Warm, dry, no rashes noted. - Labs CBC & Chem 7: 01/06/23 07:38 01/07/23 07:24 Labs: Abnormal Lab Results - Last 24 Hours (Table) 01/07/23 Range/Units 07:24 Sodium 135 L (137-145) mmol/L Creatinine 0.65 L (0.66-1.25) mg/dL Assessment and Plan Assessment: Altered mental status, reports confusion 2-3 days associated with memory impairment ,acute metabolic encephalopathy, etiology unclear.Brain MRI reporting scattered macular infarcts throughout the left temporal, parietal and occipital lobes as well as left insular cortex and right balbir. Neurology following Episodic right eye blurred vision times a few weeks, worked up outpatient with Dr. Khoa Ambriz Elevated troponins, 0.115, 0.126, cardiology following COPD, stable Persistent atrial flutter on Xarelto Chronic congestive heart failure with diastolic dysfunction Mild aortic stenosis History of DVTs, PE Diabetes mellitus,II controlled Diabetic neuropathy GERD. Hyperlipidemia. Hypertension. Osteoarthritis. Obstructive Sleep apnea with home CPAP use. History of prostate cancer with prostatectomy. Morbid obesity. BMI 39 Medical debility, gait dysfunction, uses walker. History of back surgery, chronic back pain Chronic urinary incontinence Formal nicotine dependence. Patient smoked a pack a day for more than 28 years. Plan: Continue on current medication regime ,monitoring and symptomatic treatment. Magnesium to be supplemented as per replacement protocol previously ordered. Currently on aspirin and Xarelto. COLTEN mentioned possible Lambl's excrescence-being discussed between cardiology and neurology .Discharge planning in progress to subacute rehab pending neurology and cardiology's final DC r ecommendations and clearance. The impression and plan of care has been dictated as directed. : I performed a history and examination of this patient, discussed the same with the dictator. I agree with the dictator's note ,documented as a scribe. Any additional findings or plans will be noted.
[2023-01-07 16:49] LABS: Glucose,Whole Blood 84 mg/dL (70-110)
[2023-01-07 20:30] LABS: Glucose,Whole Blood 97 mg/dL (70-110)
[2023-01-07] MEDS: AMITRIPTYLINE HCL 25 MG TAB PO SCH (20:39)
[2023-01-07] MEDS: ATORVASTATIN 40 MG TAB PO SCH (20:39)
[2023-01-08 06:12] LABS: Glucose,Whole Blood 86 mg/dL (70-110)
[2023-01-08] MEDS: metFORMIN 500 MG TAB PO SCH ×2 (06:38→16:44)
[2023-01-08] MEDS: DAPAGLIFLOZIN PROPANEDIOL 10 MG TABLET PO SCH (06:39)
[2023-01-08] MEDS: HYDROcodone/APAP 10-325MG 1 EACH TAB PO PRN ×2 (08:15→21:58)
[2023-01-08] MEDS: ASPIRIN 81 MG PO SCH (08:15)
[2023-01-08] MEDS: LORATADINE 10 MG TAB PO SCH (08:15)
[2023-01-08] MEDS: PREGABALIN 75 MG CAP PO SCH ×2 (08:17→20:07)
[2023-01-08] MEDS: LOSARTAN 25 MG TAB PO SCH (08:17)
[2023-01-08] MEDS: CHOLECALCIFEROL 125 MCG (5000 IU) TABLET PO SCH (08:17)
[2023-01-08] MEDS: CYANOCOBALAMIN 500 MCG TAB PO SCH (08:17)
[2023-01-08] MEDS: RIVAROXABAN 20 MG TAB PO SCH (08:17)
[2023-01-08] MEDS: PIOGLITAZONE 30 MG TAB PO SCH (08:17)
[2023-01-08] MEDS: PANTOPRAZOLE 40 MG TABLET PO SCH (09:04)
[2023-01-08 10:03] LABS: African American GFR (CKD) >90 (>60 ml/min/1.73 sqM); Anion Gap 11 mmol/L; Blood Urea Nitrogen 14 mg/dL (9-20); Calcium 9.3 mg/dL (8.4-10.2); Carbon Dioxide 25 mmol/L (22-30); Chloride 100 mmol/L (98-107); Glucose 99 mg/dL (74-99); Magnesium 1.6 mg/dL (1.6-2.3); Non-African American GFR(CKD) >90 (>60 ml/min/1.73 sqM); Potassium 3.9 mmol/L (3.5-5.1); Sodium 136 mmol/L (137-145)
[2023-01-08 11:42] LABS: Glucose,Whole Blood 94 mg/dL (70-110)
--- NOTE | 2023-01-08 12:11 | P.DS ---
Providers Date of admission: 01/02/23 16:06 Expected date of discharge: 01/08/23 Attending physician: Venu Oshea Consults: 01/02/23 15:54 Consult Physician Urgent Consulting Provider: [facility] Consult Reason/Comments: Non-STEMI Do you want consulting provider notified?: Yes 01/03/23 08:43 Consult Physician Routine Consulting Provider: Matias Marte Consult Reason/Comments: confusion Do you want consulting provider notified?: Yes Primary care physician: Venu Oshea Hospital Course: Final Diagnoses: Altered mental status, reports confusion 2-3 days associated with memory impairment ,acute metabolic encephalopathy, etiology unclear.Brain MRI reporting scattered macular infarcts throughout the left temporal, parietal and occipital lobes as well as left insular cortex and right balbir. Neurology following Episodic right eye blurred vision times a few weeks, worked up outpatient with Dr. Khoa Ambriz Elevated troponins, 0.115, 0.126, cardiology following COPD, stable Persistent atrial flutter on Xarelto Chronic congestive heart failure with diastolic dysfunction Mild aortic stenosis History of DVTs, PE Diabetes mellitus,II controlled Diabetic neuropathy GERD. Hyperlipidemia. Hypertension. Osteoarthritis. Obstructive Sleep apnea with home CPAP use. History of prostate cancer with prostatectomy. Morbid obesity. BMI 39 Medical debility, gait dysfunction, uses walker. History of back surgery, chronic back pain Chronic urinary incontinence Formal nicotine dependence. Patient smoked a pack a day for more than 28 years. Hospital course:This is a 72-year-old gentleman with past medical history significant for atrial flutter, CHF, mild aortic stenosis ,type 2 diabetes mellitus, GERD, hyperlipidemia, osteoarthritis, pneumonia, obstructive sleep apnea with home CPAP, diverticulitis, psoriasis, prostate cancer, bilateral legs DVT/pulmonary embolism, back surgery, former nicotine dependence, gait dysfunction and multiple other medical issues presented to the ER with complaints of memory impairment, confusion 2-3 days. Currently does not know the day of the week. "States he is having difficulty with expressing himself, sometimes at a loss for words ".Reports he was having episodic right eye blurred vision times a few weeks and followed up with farrowing worker Dr. Khoa Ambriz, stating possibly related to carotid stenosis and had recommended vascular workup. Currently denies headache, lightheadedness or dizziness. Currently no blurred vision. Once in the ER, noted troponins elevated, 0.115, 0.126, and consulted cardiology. EKG reporting atrial flutter with controlled ventricular rate, chronic. Echo pending. Denies chest pain, palpitations or shortness of breath. Afebrile, normal WBC. Hemoglobin 12.2, platelets 125. Electrolytes within normal limits, renal function stable, blood sugars controlled. Chest x- ray reported trace right pleural effusion, chronic interstitial prominence. Brain CT reported no acute intracranial process, nonspecific white matter changes likely secondary to chronic small vessel ischemic disease. 12/04/2022 brain MRI reported scattered microinfarcts throughout the left temporal parietal and occipital lobes as well as left insular cortex and right balbir nonspecific white matter changes likely secondary to small vessel ischemic disease. Currently on aspirin and Xarelto- further recommendations from neurology pending. CTA pending. Ambulating in room with walker, complains of increased weakness. Echo reported normal EF 55-60%. Afebrile, normal WBC. Telemetry atrial fibrillation with controlled ventricular response. Denies chest pain, palpitations or shortness of breath. 01/05/2023: Patient is reevaluated for his multiple CVAs. Neurology is recommending a COLTEN. Continue his current medication. His MRI of the brain and CT reviewed. I had ordered this morning a venous Doppler of his lower extremities since he does have a history of DVT and was anticoagulated for this before he developed atrial flutter. His history diabetes as well. He is currently improved slightly. He still does have complaints of vision issues in his left eye. He is awaiting walker to the toilet which is his baseline. He denies any chest pains pressures or shortness breath right at this moment. Nursing staff indicating is been doing well. 01/06/2023: Patient is pending a COLTEN tomorrow morning. He is in the hospital for multiple mini CVAs and vision troubles related this along with balance difficulty. MRI and CT bradycardia been reviewed. Neurology is following along with cardiology as he has atrial fibrillation. He is anticoagulated with Xarelto. He is a type II diabetic and remains on pioglitazone and metformin. He takes a medical grade shoemaker weekly and was on Jardianceat home. he continues on atorvastatin for hyperlipidemia He denies any new complaints this morning. No chest pain pressure shortness of breath. Heart rate rest her rate is temperature and pulse oximetry stable. Labs are essentially normal with the exception of magnesium 1.4. 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 Denies chest pain, palpitations or shortness of breath, maintaining O2 sats in the 90s on room air. Denies lightheadedness dizziness or focal deficits. Magnesium to be supplemented as per replacement protocol previously ordered. Currently on aspirin and Xarelto. COLTEN mentioned possible Lambl's excrescence-being discussed between cardiology and neurology .[facility]charge planning [facility] subacute rehab pending neurology and cardiology's final DC recommendations and clearance. The impression and plan of care has been dictated as directed. : I performed a history and examination of this patient, discussed the same with the dictator. I agree with the dictator's note ,documented as a scribe. Any additional findings or plans will be noted. Patient Condition at Discharge: Stable Plan - Discharge Summary Discharge Rx Participant: No New Discharge Prescriptions: New Aspirin 81 mg PO DAILY tab Nitroglycerin Sl Tabs [Nitrostat] 0.4 mg SUBLINGUAL Q5M PRN tab PRN Reason: Chest Pain INSULIN LISPRO (HumaLOG) [humaLOG] 0 unit SQ ACHS #10 ml Continue Atorvastatin Calcium [Lipitor] 40 mg PO HS Lansoprazole 30 mg PO DAILY Potassium Chloride ER [K-Dur 20] 20 meq PO DAILY PRN PRN Reason: with lasix Rivaroxaban [Xarelto] 20 mg PO DAILY #90 tab Amitriptyline HCl [Elavil] 25 mg PO HS Cholecalciferol [Vitamin D3 (125 Mcg = 5000 Iu)] 125 mcg PO DAILY Fexofenadine HCl [Nikia Allergy] 180 mg PO DAILY Semaglutide [Ozempic] 1 mg SQ WE Pregabalin [Lyrica] 75 mg PO BID #6 cap HYDROcodone/APAP 10-325MG [[place] 10-325] 1 tab PO Q6H PRN #12 tab PRN Reason: Pain Pioglitazone [Actos] 30 mg PO DAILY Furosemide [Lasix] 40 mg PO DAILY PRN PRN Reason: Edema Naloxone HCl [Narcan] 4 mg NASAL ONCE PRN PRN Reason: Overdose Empagliflozin/Metformin HCl [Synjardy Xr 12.5-1,000 mg Tab] 2 tab PO W/BRKFST Cyanocobalamin (Vitamin B-12) [Vitamin B-12] 1,000 mcg PO DAILY #1 tablet Losartan [Cozaar] 12.5 mg PO DAILY Pramipexole [Mirapex] 0.5 mg PO BID@1200,1800 Discharge Medication List Atorvastatin Calcium [Lipitor] 40 mg PO HS 02/03/15 [History] Lansoprazole 30 mg PO DAILY 02/03/15 [History] Empagliflozin/Metformin HCl [Synjardy Xr 12.5-1,000 mg Tab] 2 tab PO W/BRKFST 06/13/22 [History] Furosemide [Lasix] 40 mg PO DAILY PRN 06/13/22 [History] Naloxone HCl [Narcan] 4 mg NASAL ONCE PRN 06/13/22 [History] Pioglitazone [Actos] 30 mg PO DAILY 06/13/22 [History] Potassium Chloride ER [K-Dur 20] 20 meq PO DAILY PRN 06/13/22 [History] Rivaroxaban [Xarelto] 20 mg PO DAILY #90 tab 06/14/22 [Rx] Cyanocobalamin (Vitamin B-12) [Vitamin B-12] 1,000 mcg PO DAILY #1 tablet 06/15/22 [Rx] Amitriptyline HCl [Elavil] 25 mg PO HS 01/02/23 [History] Cholecalciferol [Vitamin D3 (125 Mcg = 5000 Iu)] 125 mcg PO DAILY 01/02/23 [History] Fexofenadine HCl [Nikia Allergy] 180 mg PO DAILY 01/02/23 [History] Losartan [Cozaar] 12.5 mg PO DAILY 01/02/23 [History] Pramipexole [Mirapex] 0.5 mg PO BID@1200,1800 01/02/23 [History] Semaglutide [Ozempic] 1 mg SQ WE 01/02/23 [History] Aspirin 81 mg PO DAILY tab 01/08/23 [Rx] HYDROcodone/APAP 10-325MG [[place] 10-325] 1 tab PO Q6H PRN #12 tab 01/08/23 [Rx] INSULIN LISPRO (HumaLOG) [humaLOG] 0 unit SQ ACHS #10 ml 01/08/23 [Rx] Nitroglycerin Sl Tabs [Nitrostat] 0.4 mg SUBLINGUAL Q5M PRN tab 01/08/23 [Rx] Pregabalin [Lyrica] 75 mg PO BID #6 cap 01/08/23 [Rx] Follow up Appointment(s)/Referral(s): Krystin Taveras NPC [Nurse Practitioner] - 2 Weeks Venu Oshea MD [Primary Care Provider] - 3 Days Activity/Diet/Wound Care/Special Instructions: GERMÁN: Rajiv Speech Therapy CBC, BMP, magnesium in 3 days Discharge Disposition: TRANSFER TO SNF/ECF
[2023-01-08] MEDS: MAGNESIUM SULFATE-D5W PMX 1 GM in DEXTROSE/WATER 1 100ML.BAG IVPB SCH ×2 (12:13→14:02)
[2023-01-08] MEDS: PRAMIPEXOLE 0.5 MG TAB PO SCH ×2 (12:14→16:44)
--- NOTE | 2023-01-08 13:39 | P.PN ---
Subjective Progress Note Date: 01/08/23 History of present illness: This is a pleasant 72-year-old gentleman with history of chronic atrial flutter, follows with Dr. Zhou in the office. Came to the hospital because some aphasia. MRI of the brain suggested multiple emboli despite being on Xarelto and aspirin. A followed by neurology for requesting transesophageal echocardiogram. Upon examination patient is resting comfortably in bed. He denies complaints of chest discomfort, palpitations, dizziness or lightheadedness. He is complaining of some difficulty finding his words. He remains anticoagulated. 01/06/2023 Patient was seen and examined resting comfortably chair at the bedside. Underwent ultrasound of lower extremities which showed bilateral DVTs. He verbalizes compliance with anticoagulation at home. He's been initiated on aspirin in addition to Xarelto. 01/08 Yesterday, patient underwent COLTEN with Dr. Tena which revealed no cardiac source for stroke. There was mention of possible Lambls' excrescence but this would not contribute to causing a stroke. Discharge plan is for rehab. Blood pressure 131/62, heart rate in the 80s. Physical examination: Gen: This is a 72-year-old male sitting in chair and appears to be in no acute distress VS: reviewed HEENT: Head is atraumatic, normocephalic. Pupils equal, round. Sclerae is anicteric. NECK: Supple. No JVD. . LUNGS: Clear to auscultation. No wheezes or rhonchi. No intercostal retractions. HEART: Irregular rate and rhythm. Systolic murmur. EXTREMITIES: No pedal edema. No calf tenderness. NEUROLOGICAL: Patient is awake, alert and oriented x3. Assessment: CVA Abnormal troponin suggestive primary myocardial injury Persistent typical atrial flutter with controlled ventricular rate Chronic heart failure with preserved EF Hypertension Hyperlipidemia Diabetes Bilateral DVTs Plan: Continue patient on current cardiac medications Patient is cleared for discharge from cardiology Nurse practitioner note has been reviewed, I agree with documented findings and plan of care. Patient was seen and examined. Objective - Vital Signs Vital signs: Vital Signs Temp 98.1 F 01/08/23 08:00 Pulse 89 01/08/23 08:00 Resp 20 01/08/23 08:00 BP 129/61 01/08/23 08:00 Pulse Ox 94 L 01/08/23 08:00 FiO2 Intake & Output 01/07/23 01/08/23 01/08/23 18:59 06:59 18:59 Intake Total 320 180 Output Total 1250 525 Balance -930 -525 180 Intake: IV 100 Oral 220 180 Output: Urine 1250 525 Other: Voiding Method Urinal Urinal # Voids 1 # Bowel Movements 0 - Labs CBC & Chem 7: 01/06/23 07:38 01/08/23 09:25 Labs: Abnormal Lab Results - Last 24 Hours (Table) 01/08/23 Range/Units 09:25 Sodium 136 L (137-145) mmol/L
[2023-01-08] MEDS ORDERED: PANTOPRAZOLE 40 MG/10 ML VIAL IVP ONE (14:15)
[2023-01-08] MEDS ORDERED: CALCIUM CARBONATE 500 MG CHEWABLE PO PRN (14:36)
--- NOTE | 2023-01-08 14:53 | P.PN ---
Subjective Progress Note Date: 01/08/23 I am follow-up with the patient and he feels about the same. Denies of any neurological issues. Objective - Vital Signs Vital signs: Vital Signs Temp 98.9 F 01/08/23 12:00 Pulse 85 01/08/23 12:00 Resp 18 01/08/23 12:00 BP 131/62 01/08/23 12:00 Pulse Ox 95 01/08/23 12:00 FiO2 Intake & Output 01/07/23 01/08/23 01/08/23 18:59 06:59 18:59 Intake Total 320 360 Output Total 1250 525 Balance -930 -525 360 Intake: IV 100 Oral 220 360 Output: Urine 1250 525 Other: Voiding Method Urinal Urinal # Voids 1 # Bowel Movements 0 - Exam General: Sitting in a recliner chair and is not in acute distress. Neuro: The patient is awake, alert, oriented to self, place and time. He has expressive aphasia. No neglect. Pupils are round, equal and reactive to light. Visual field are full to confrontation. No facial weakness. No dysarthria. Motor: Moving bilateral uppers above gravity as well lowers and seems symmetrical. - Labs CBC & Chem 7: 01/06/23 07:38 01/08/23 09:25 Labs: Abnormal Lab Results - Last 24 Hours (Table) 01/08/23 Range/Units 09:25 Sodium 136 L (137-145) mmol/L Assessment and Plan Assessment: * Acute ischemic stroke, manifesting with expressive aphasia. Patient's current NIH stroke scale is 2. Patient not a candidate for TPA, as he came to the hospital 24 hours after onset of symptoms and also on anticoagulation with Xarelto. Patient is compliant with medication and does not miss a dose. Exact cause of CVA uncertain. Patient had embolic strokes, highly suggestive of cardioembolism * Recurrent episodes of amaurosis fugax (x10 times in the last 2-3 weeks), with involvement of lower altitudinal visual field defect, only the right eye. Symptoms resolved in 10-20 seconds each time. Carotid stenosis ruled out. * Atrial fibrillation, on Xarelto * History of DVT * Diabetes * Hypertension * Hyperlipidemia * X tobacco use * Peripheral edema. Plan: * MRI of the brain without contrast revealed scattered microinfarcts throughout the left temporal, parietal and occipital lobes as well as the left insular cortex and right ablbir. Nonspecific white matter changes, likely secondary to small vessel ischemic disease. I personally reviewed MRI agree with the findings. * 2-D echo revealed normal left-ventricular size and systolic function with EF 55-60%. No obvious regional wall motion abnormalities. Severe left atrial dilation. Moderate aortic with mild mitral and tricuspid regurgitation. * CTA head and neck revealed mild atherosclerotic change at the carotid bifurcations. No significant carotid or vertebral artery stenosis on either side. No large vessel intracranial arterial occlusion, significant stenosis or aneurysmal change.. * COLTEN: * 1. Dilated left atrium with normal appearance of the left atrial appendage * 2. Normal in ventricle size and systolic function * 3. Mild to moderate mitral with moderate aortic regurgitation and mild tricuspid regurgitation * 4. 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 Mild atherosclerotic changes of the descending thoracic aorta * 6. No shunting across the interatrial septum * Regarding "possible Lambl's escrescence": Per cardiology this would not contribute to stroke. * Fasting a.m. lipid panel cholesterol 100, LDL 33, HDL 44, triglycerides 110. * Hemoglobin A1c 5.8 * ESR 7, CRP minimally elevated 3.3. * Continue Xarelto 20 mg daily for stroke prevention related to atrial fibrillation. Patient was given a loading dose of aspirin 324 mg in the ER then was started aspirin 81 mg daily for stroke prevention related to vascular disease. * Optimize control of blood pressure. * Neuro checks every shift. * Telemetry monitoring rule out any arrhythmia * PT, OT, speech therapy * DVT prophylaxis: Patient on Xarelto. * Upon discharge recommend the patient to follow-up with a neurologist within 2 weeks as well as I would highly recommend to follow-up with a cardiology team as outpatient. The plan is discussed with patient and his nurse. There is no further neurological workup. Will sign off. Please notify neurology team if any further concerns. Time with Patient: Less than 30
[2023-01-08 16:38] LABS: Glucose,Whole Blood 136 mg/dL (70-110)
[2023-01-08] MEDS: ATORVASTATIN 40 MG TAB PO SCH (20:07)
[2023-01-08] MEDS: AMITRIPTYLINE HCL 25 MG TAB PO SCH (20:07)
[2023-01-08 20:12] LABS: Glucose,Whole Blood 100 mg/dL (70-110)
[2023-01-08] MEDS: SODIUM CHLORIDE 0.9% 1,000 ML IV SCH (22:03)
[2023-01-09] MEDS: HYDROcodone/APAP 10-325MG 1 EACH TAB PO PRN (04:34)
[2023-01-09 04:49] VITALS: TEMP 98.1
[2023-01-09 05:53] LABS: Glucose,Whole Blood 96 mg/dL (70-110)
[2023-01-09] MEDS: metFORMIN 500 MG TAB PO SCH (06:02)
[2023-01-09] MEDS: DAPAGLIFLOZIN PROPANEDIOL 10 MG TABLET PO SCH (06:02)
[2023-01-09] MEDS: CHOLECALCIFEROL 125 MCG (5000 IU) TABLET PO SCH (08:41)
[2023-01-09] MEDS: CYANOCOBALAMIN 500 MCG TAB PO SCH (08:41)
[2023-01-09] MEDS: RIVAROXABAN 20 MG TAB PO SCH (08:41)
[2023-01-09] MEDS: LOSARTAN 25 MG TAB PO SCH (08:41)
[2023-01-09] MEDS: ASPIRIN 81 MG PO SCH (08:41)
[2023-01-09] MEDS: LORATADINE 10 MG TAB PO SCH (08:42)
[2023-01-09] MEDS: NON FORMULARY DRUG (Semaglutide [Ozempic] 1 MG/0.75 ML Each) SQ SCH (08:42)
[2023-01-09] MEDS: PREGABALIN 75 MG CAP PO SCH (08:42)
[2023-01-09] MEDS: PANTOPRAZOLE 40 MG TABLET PO SCH (08:42)
[2023-01-09 09:01] VITALS: BP 111/67; PULSE 103; RESP 15
== END 2023-01-09 10:41 | DRG 64 ==
LOC: EC 11:57 → 3SCARD 16:06 → UNDODISIN 18:08
PROVIDERS: ADMIT Family Medicine; ATTEND Family Medicine
DX: I63.40 Cerebral infarction due to embolism of unspecified cerebral artery (principal); G93.41 Metabolic encephalopathy; I48.92 Unspecified atrial flutter; I50.32 Chronic diastolic (congestive) heart failure; G45.3 Amaurosis fugax; J44.9 Chronic obstructive pulmonary disease, unspecified; I11.0 Hypertensive heart disease with heart failure; E11.42 Type 2 diabetes mellitus with diabetic polyneuropathy; E66.01 Morbid (severe) obesity due to excess calories; I70.0 Atherosclerosis of aorta; I48.91 Unspecified atrial fibrillation; S21.209A Unspecified open wound of unspecified back wall of thorax without penetration into thoracic cavity, initial encounter; R47.01 Aphasia; E53.8 Deficiency of other specified B group vitamins; H53.8 Other visual disturbances; K21.9 Gastro-esophageal reflux disease without esophagitis; M19.90 Unspecified osteoarthritis, unspecified site; G47.33 Obstructive sleep apnea (adult) (pediatric); M54.9 Dorsalgia, unspecified; G47.30 Sleep apnea, unspecified; I08.3 Combined rheumatic disorders of mitral, aortic and tricuspid valves; G89.29 Other chronic pain; H53.40 Unspecified visual field defects; E78.2 Mixed hyperlipidemia; R29.702 NIHSS score 2; R41.3 Other amnesia; R47.1 Dysarthria and anarthria; R47.02 Dysphasia; R26.9 Unspecified abnormalities of gait and mobility; R32 Unspecified urinary incontinence; Z96.641 Presence of right artificial hip joint; Z68.39 Body mass index [BMI] 39.0-39.9, adult; Z85.46 Personal history of malignant neoplasm of prostate; Z87.891 Personal history of nicotine dependence; Z86.711 Personal history of pulmonary embolism; Z86.718 Personal history of other venous thrombosis and embolism; Z79.899 Other long term (current) drug therapy; Z90.79 Acquired absence of other genital organ(s); Z79.84 Long term (current) use of oral hypoglycemic drugs; Z79.85 Long-term (current) use of injectable non-insulin antidiabetic drugs; Z79.01 Long term (current) use of anticoagulants; Z88.0 Allergy status to penicillin; Z88.1 Allergy status to other antibiotic agents; Z87.19 Personal history of other diseases of the digestive system; Z86.73 Personal history of transient ischemic attack (TIA), and cerebral infarction without residual deficits
CPT/HCPCS: 36410; 36415; 70450; 70496; 70498; 70551; 71046; 76937; 80048; 80053; 80061; 80306; 81001; 83036; 83735; 84484; 85025; 85652; 86140; 93005; 93306; 93312; 93320; 93325; 93970; 94760; 99285

== ENCOUNTER 2023-01-15 10:45 | Inpatient (IN) | payer MEDICARE ==
[2023-01-15] MEDS ORDERED: SODIUM CHLORIDE 0.9% 500 ML 500 ML IV STA (11:27)
--- NOTE | 2023-01-15 11:45 | ED ---
General Adult HPI - General Chief complaint: Dizziness Stated complaint: dizziness Time Seen by Provider: 01/15/23 11:13 Source: patient, EMS, RN notes reviewed Mode of arrival: EMS Limitations: physical limitation - History of Present Illness Initial comments: 72-year-old male presents emergency Department from snf for evaluation of increasing weakness. Patient stated on the toilet to get dressed but states that he had some difficulty getting up. He felt that he is more weak he did have episode of dizziness but has resolved he has no with dizziness. He has had recent CVA states he has difficulty forming words seems to be better and worse on other days. He states he had a worse this morning but now feels like he is at his baseline. Patient denies any chest pain shortness breath abdominal pain no fevers or chills no other associated symptoms. - Related Data Home Medications Medication Instructions Recorded Confirmed Atorvastatin Calcium [Lipitor] 40 mg PO HS 02/03/15 01/15/23 Lansoprazole 30 mg PO DAILY 02/03/15 01/15/23 Empagliflozin/Metformin HCl 2 tab PO W/BRKFST 06/13/22 01/15/23 [Synjardy Xr 12.5-1,000 mg Tab] Furosemide [Lasix] 40 mg PO DAILY PRN 06/13/22 01/15/23 Naloxone HCl [Narcan] 4 mg NASAL ONCE PRN 06/13/22 01/15/23 Pioglitazone [Actos] 30 mg PO DAILY 06/13/22 01/15/23 Potassium Chloride ER [K-Dur 20] 20 meq PO DAILY PRN 06/13/22 01/15/23 Amitriptyline HCl [Elavil] 25 mg PO HS 01/02/23 01/15/23 Cholecalciferol [Vitamin D3 (125 125 mcg PO DAILY 01/02/23 01/15/23 Mcg = 5000 Iu)] Fexofenadine HCl [Nikia Allergy] 180 mg PO DAILY 01/02/23 01/15/23 Losartan [Cozaar] 12.5 mg PO DAILY 01/02/23 01/15/23 Pramipexole [Mirapex] 0.5 mg PO BID@1200,1800 01/02/23 01/15/23 Semaglutide [Ozempic] 1 mg SQ WE 01/02/23 01/15/23 INSULIN LISPRO (HumaLOG) [humaLOG] See Protocol SQ ACHS 01/15/23 01/15/23 Magnesium Hydroxide [Milk of 7,200 mg PO Q48H PRN 01/15/23 01/15/23 Magnesia Concentrate] Na Phos,M-B/Na Phos,Di-Ba [Fleet 133 ml RECTAL DAILY PRN 01/15/23 01/15/23 Adult] Pregabalin [Lyrica] 75 mg PO BID@0800,1700 01/15/23 01/15/23 bisacodyL [Dulcolax] 10 mg RECTAL DAILY PRN 01/15/23 01/15/23 Previous Rx's Medication Instructions Recorded Rivaroxaban [Xarelto] 20 mg PO DAILY #90 tab 06/14/22 Cyanocobalamin (Vitamin B-12) 1,000 mcg PO DAILY #1 tablet 06/15/22 [Vitamin B-12] Aspirin 81 mg PO DAILY tab 01/08/23 HYDROcodone/APAP 10-325MG [[place] 1 tab PO Q6H PRN #12 tab 01/08/23 10-325] Nitroglycerin Sl Tabs [Nitrostat] 0.4 mg SUBLINGUAL Q5M PRN tab 01/08/23 Allergies Allergy/AdvReac Type Severity Reaction Status Date / Time cephalexin monohydrate Allergy Rash/Hives Verified 01/15/23 11:51 [From Keflex] on neck Penicillins Allergy Rash/Hives Verified 01/15/23 11:51 on neck Review of Systems ROS Statement: Those systems with pertinent positive or pertinent negative responses have been documented in the HPI. ROS Other: All systems not noted in ROS Statement are negative. Past Medical History Past Medical History: Atrial Fibrillation, Cancer, Diabetes Mellitus, Deep Vein Thrombosis (DVT), GERD/Reflux, Hyperlipidemia, Hypertension, Osteoarthritis (OA), Pneumonia, Prostate Disorder, Pulmonary Embolus (PE), Skin Disorder, Sleep Apnea/CPAP/BIPAP Additional Past Medical History / Comment(s): open wound to back-has visiting nurse two times per weeks,prostate ca, rt leg dvt, diverticulitis, psoriases, abd hernia,no cpap History of Any Multi-Drug Resistant Organisms: None Reported Past Surgical History: Back Surgery, Cholecystectomy, Hernia Repair, Joint Replacement, Prostate Surgery, Tonsillectomy Additional Past Surgical History / Comment(s): prostectomy, had ruptured diverticuli -colostomy and then reversed, abd hernia, tanisha cataracts, tubes in ears,total rt hip,[facility] Procedures Past Anesthesia/Blood Transfusion Reactions: No Reported Reaction Past Psychological History: No Psychological Hx Reported Smoking Status: Former smoker Past Alcohol Use History: None Reported Past Drug Use History: None Reported - Past Family History Father Family Medical History: Cancer Additional Family Medical History / Comment(s): prostate CA Mother Family Medical History: Deep Vein Thrombosis (DVT), Pulmonary Embolus Additional Family Medical History / Comment(s): PROSTATE CNACER General Exam Limitations: physical limitation General appearance: alert, in no apparent distress Head exam: Present: atraumatic, normocephalic, normal inspection Eye exam: Present: normal appearance, PERRL, EOMI. Absent: scleral icterus, conjunctival injection, periorbital swelling ENT exam: Present: normal exam, normal oropharynx, mucous membranes moist Neck exam: Present: normal inspection, full ROM. Absent: tenderness, meningismus, lymphadenopathy Respiratory exam: Present: normal lung sounds bilaterally. Absent: respiratory distress, wheezes, rales, rhonchi, stridor Cardiovascular Exam: Present: regular rate, normal rhythm, normal heart sounds. Absent: systolic murmur, diastolic murmur, rubs, gallop, clicks GI/Abdominal exam: Present: soft, normal bowel sounds. Absent: distended, tenderness, guarding, rebound, rigid Extremities exam: Present: normal inspection, full ROM, normal capillary refill. Absent: tenderness, pedal edema, joint swelling, calf tenderness Neurological exam: Present: alert, oriented X3, CN II-XII intact, reflexes normal. Absent: motor sensory deficit Skin exam: Present: warm, dry, intact, normal color. Absent: rash Course Vital Signs 01/15/23 01/15/23 01/15/23 10:53 11:35 13:53 Temperature 97.0 F L Pulse Rate 99 104 H 80 Respiratory 18 18 20 Rate Blood Pressure 120/49 116/83 102/53 O2 Sat by Pulse 96 98 97 Oximetry EKG Findings - EKG Comments: EKG Findings:: EKG upon 11:27 atrial flutter rate of 97 QRS 117 QT/QTC 350/405 - EKG Results: EKG: interpreted by DIANE Medical Decision Making - Medical Decision Making Was pt. sent in by a medical professional or institution (, SUSIE, CLIENT DIRECTOR, urgent care, hospital, or snf...) When possible be specific @ -shelter Did you speak to anyone other than the patient for history (EMS, parent, family, police, friend...)? What history was obtained from this source @ -No Did you review nursing and triage notes (agree or disagree)? Why? @ -I reviewed and agree with nursing and triage notes Were old charts reviewed (outside hosp., previous admission, EMS record, old EKG, old radiological studies, urgent care reports/EKG's, snf records)? Report findings @ -Reviewed recent laboratory studies, charts, admission Differential Diagnosis (chest pain, altered mental status, abdominal pain women, abdominal pain men, vaginal bleeding, weakness, fever, dyspnea, syncope, headache, dizziness, GI bleed, back pain, seizure, CVA, palpatations, mental health, musculoskeletal)? @ -Differential Dizziness: Benign paroxysmal positional Vertigo, Menieres disease, otitis media, acoustic neuroma, vertebrobasilar insufficiency, cerebellar stroke, encephalitis, hypovolemic, arrhythmia, coronary artery syndrome, anemia, this is not meant to be an all-inclusive list EKG interpreted by me (3pts min.). @ -As above X-rays interpreted by me (1pt min.). @ -None done CT interpreted by me (1pt min.). @ -CT brain shows no acute intracranial process U/S interpreted by me (1pt. min.). @ -None done What testing was considered but not performed or refused? (CT, X-rays, U/S, labs)? Why? @ -None What meds were considered but not given or refused? Why? @ -None Did you discuss the management of the patient with other professionals (professionals i.e. SUSIE Brewer, CLIENT DIRECTOR, lab, RT, psych nurse, neonatal social worker, third helper, teacher, chief administrative officer, pillowcase maker)? Give summary @ -Dr. Oshea for admission secondary to hemoglobin of 8.6 with recent 4 g drop Was smoking cessation discussed for >3mins.? @ -No Was critical care preformed (if so, how long)? @ -No Were there social determinants of health that impacted care today? How? (Homelessness, low income, unemployed, alcoholism, drug addiction, transportation, low edu. Level, literacy, decrease access to med. care, half-way, rehab)? @ -No Was there de-escalation of care discussed even if they declined (Discuss DNR or withdrawal of care, Hospice)? DNR status @ -No What co-morbidities impacted this encounter? (DM, HTN, Smoking, COPD, CAD, Cancer, CVA, ARF, Chemo, Hep., AIDS, mental health diagnosis, sleep apnea, morbid obesity)? @ -None Was patient admitted / discharged? Hospital course, mention meds given and route, prescriptions, significant lab abnormalities, going to OR and other pertinent info. @ -Admitted patient's daughter have some increasing weakness he did have some complaint of dizziness which resolved. He does not have any acute CVA symptoms he had recent CVA. Patient is found to have a hemoglobin 8.6 down from 12.2. He is Hemoccult positive. Patient was given Protonix, case discussed with admitting physician will hold Xarelto currently have evaluation by GI for further recommendations and treatment Undiagnosed new problem with uncertain prognosis? @ -No Drug Therapy requiring intensive monitoring for toxicity (Heparin, Nitro, Insulin, Cardizem)? @ -No Were any procedures done? @ -No Diagnosis/symptom? @ -Anemia, GI bleed, weakness, dizziness Acute, or Chronic, or Acute on Chronic? @ -[Acute Uncomplicated (without systemic symptoms) or Complicated (systemic symptoms)? @ -Complicated Side effects of treatment? @ -No Exacerbation, Progression, or Severe Exacerbation? @ -No Poses a threat to life or bodily function? How? (Chest pain, [place], [place], pneumonia, PE, COPD, DKA, ARF, appy, cholecystitis, CVA, Diverticulitis, Homicidal, Suicidal, threat to staff... and all critical care pts) @ -yes patient hasintestinal hemorrhage - Lab Data Result diagrams: 01/15/23 11:01/15/23 11: Lab Results 01/15/23 01/15/23 01/15/23 Range/Units 11:30 11: 11:30 WBC 7.0 (3.8-10.6) k/uL RBC 3.12 L (4.30-5.90) m/uL Hgb 8.6 L D (13.0-17.5) gm/dL Hct 26.5 L (39.0-53.0) % MCV 84.9 (80.0-100.0) fL MCH 27.5 (25.0-35.0) pg MCHC 32.3 (31.0-37.0) g/dL RDW 16.5 H (11.5-15.5) % Plt Count 208 (150-450) k/uL MPV 7.4 Neutrophils % 76 % Lymphocytes % 10 % Monocytes % 6 % Eosinophils % 7 % Basophils % 0 % Neutrophils # 5.3 (1.3-7.7) k/uL Lymphocytes # 0.7 L (1.0-4.8) k/uL Monocytes # 0.4 (0-1.0) k/uL Eosinophils # 0.5 (0-0.7) k/uL Basophils # 0.0 (0-0.2) k/uL Hypochromasia Slight Anisocytosis Slight Sodium 135 L (137-145) mmol/L Potassium 3.8 (3.5-5.1) mmol/L Chloride 98 (98-107) mmol/L Carbon Dioxide 28 (22-30) mmol/L Anion Gap 9 mmol/L BUN 22 H (9-20) mg/dL Creatinine 0.85 (0.66-1.25) mg/dL Est GFR (CKD-EPI)AfAm >90 (>60 ml/min/1.73 sqM) Est GFR (CKD-EPI)NonAf 87 (>60 ml/min/1.73 sqM) Glucose 99 (74-99) mg/dL Calcium 9.5 (8.4-10.2) mg/dL Magnesium 1.6 (1.6-2.3) mg/dL Total Bilirubin 0.9 (0.2-1.3) mg/dL AST 28 (17-59) U/L ALT 17 (4-49) U/L Alkaline Phosphatase 220 H (38-126) U/L Troponin I (0.000-0.034) ng/mL Total Protein 5.9 L (6.3-8.2) g/dL Albumin 3.3 L (3.5-5.0) g/dL Urine Color Light Yellow Urine Appearance Clear (Clear) Urine pH 5.5 (5.0-8.0) Ur Specific Sunray 1.016 (1.001-1.035) Urine Protein Negative (Negative) Urine Glucose (UA) 4+ H (Negative) Urine Ketones Negative (Negative) Urine Blood Negative (Negative) Urine Nitrite Negative (Negative) Urine Bilirubin Negative (Negative) Urine Urobilinogen <2.0 (<2.0) mg/dL Ur Leukocyte Esterase Negative (Negative) Stool Occult Blood (Negative) 01/15/23 01/15/23 Range/Units 11:30 13:00 WBC (3.8-10.6) k/uL RBC (4.30-5.90) m/uL Hgb (13.0-17.5) gm/dL Hct (39.0-53.0) % MCV (80.0-100.0) fL MCH (25.0-35.0) pg MCHC (31.0-37.0) g/dL RDW (11.5-15.5) % Plt Count (150-450) k/uL MPV Neutrophils % % Lymphocytes % % Monocytes % % Eosinophils % % Basophils % % Neutrophils # (1.3-7.7) k/uL Lymphocytes # (1.0-4.8) k/uL Monocytes # (0-1.0) k/uL Eosinophils # (0-0.7) k/uL Basophils # (0-0.2) k/uL Hypochromasia Anisocytosis Sodium (137-145) mmol/L Potassium (3.5-5.1) mmol/L Chloride (98-107) mmol/L Carbon Dioxide (22-30) mmol/L Anion Gap mmol/L BUN (9-20) mg/dL Creatinine (0.66-1.25) mg/dL Est GFR (CKD-EPI)AfAm (>60 ml/min/1.73 sqM) Est GFR (CKD-EPI)NonAf (>60 ml/min/1.73 sqM) Glucose (74-99) mg/dL Calcium (8.4-10.2) mg/dL Magnesium (1.6-2.3) mg/dL Total Bilirubin (0.2-1.3) mg/dL AST (17-59) U/L ALT (4-49) U/L Alkaline Phosphatase (38-126) U/L Troponin I 0.046 H* (0.000-0.034) ng/mL Total Protein (6.3-8.2) g/dL Albumin (3.5-5.0) g/dL Urine Color Urine Appearance (Clear) Urine pH (5.0-8.0) Ur Specific [place] (1.001-1.035) Urine Protein (Negative) Urine Glucose (UA) (Negative) Urine Ketones (Negative) Urine Blood (Negative) Urine Nitrite (Negative) Urine Bilirubin (Negative) Urine Urobilinogen (<2.0) mg/dL Ur Leukocyte Esterase (Negative) Stool Occult Blood Positive (Negative) Disposition Clinical Impression: GI bleed, Anemia, Weakness, Dizziness Disposition: ADMITTED IP TO THIS HOSP Condition: Fair Referrals: Venu Oshea MD [Primary Care Provider] - 1-2 days Time of Disposition: 14:06
--- NOTE | 2023-01-15 11:56 | CT ---
EXAMINATION TYPE: CT brain wo con DATE OF EXAM: 01/15/2023 COMPARISON: 01/02/2023 HISTORY: dizzy CT DLP: 1212.[address] of the brain was performed. The ventricles, basal cisterns and sulci overlying the cerebral convexities demonstrate mild enlargem ent. There is no evidence for intracranial hemorrhage or sulcal effacement. There is decreased attenuation about the periventricular white matter and deep white matter of both c erebral hemispheres, compatible with chronic small vessel ischemia. Differential diagnosis does inclu de demyelination. No mass effects are seen.No midline shift. Osseous calvarium is intact. If symptoms persist consider MRI. IMPRESSION: 1. Age related atrophic and chronic small vessel ischemic change without acute intracranial process s een at this time.
--- NOTE | 2023-01-15 11:57 | XR ---
EXAMINATION TYPE: XR chest 2V DATE OF EXAM: 01/15/2023 11:53 AM COMPARISON: Chest radiographs from TECHNIQUE: XR chest 2V . CLINICAL INDICATION:Male, 72 years old with history of weakness; FINDINGS: Lungs/Pleura: There is no evidence of pleural effusion, focal consolidation, or pneumothorax. Hyperin flation with flattening of the hemidiaphragms. Redemonstration of coarse interstitium. Correlate for chronic interstitial lung disease. Pulmonary vascularity: Unremarkable. Heart/mediastinum: Cardiomediastinal silhouette is enlarged and stable. Atherosclerotic calcificatio ns are seen in the aorta. Musculoskeletal: No acute osseous pathology. Degenerative changes of the thoracic spine. IMPRESSION: Chronic changes without acute pulmonary process.
[2023-01-15 12:01] LABS: ALT 17 U/L (4-49); AST 28 U/L (17-59); African American GFR (CKD) >90 (>60 ml/min/1.73 sqM); Albumin 3.3 g/dL (3.5-5.0); Alkaline Phosphatase 220 U/L (38-126); Anion Gap 9 mmol/L; Blood Urea Nitrogen 22 mg/dL (9-20); Calcium 9.5 mg/dL (8.4-10.2); Carbon Dioxide 28 mmol/L (22-30); Chloride 98 mmol/L (98-107); Glucose 99 mg/dL (74-99); Magnesium 1.6 mg/dL (1.6-2.3); Non-African American GFR(CKD) 87 (>60 ml/min/1.73 sqM); Potassium 3.8 mmol/L (3.5-5.1); Sodium 135 mmol/L (137-145); Total Bilirubin 0.9 mg/dL (0.2-1.3); Total Protein 5.9 g/dL (6.3-8.2)
[2023-01-15 12:05] LABS: Anisocytosis Slight; Basophils % (A) 0 %; Eosinophils # (A) 0.5 k/uL (0-0.7); Eosinophils % (A) 7 %; HCT 26.5 % (39.0-53.0); Hypochromasia Slight; Lymphocytes # (A) 0.7 k/uL (1.0-4.8); Lymphocytes % (A) 10 %; MCH 27.5 pg (25.0-35.0); MCHC 32.3 g/dL (31.0-37.0); MCV 84.9 fL (80.0-100.0); Mean Platelet Volume 7.4; Monocytes # (A) 0.4 k/uL (0-1.0); Monocytes % (A) 6 %; Neutrophils # (A) 5.3 k/uL (1.3-7.7); Neutrophils % (A) 76 %; Platelet Count 208 k/uL (150-450); RBC 3.12 m/uL (4.30-5.90); RDW 16.5 % (11.5-15.5)
[2023-01-15 12:14] LABS: HGB 8.6 gm/dL (13.0-17.5)
[2023-01-15 12:39] LABS: Appearance,Urine Clear (Clear); Bilirubin,Urine Negative (Negative); Blood,Urine Negative (Negative); Color,Urine Light Yellow; Glucose,Urine (UA) 4+ (Negative); Ketones,Urine Negative (Negative); Leukocyte Esterase,Urine Negative (Negative); Nitrite,Urine Negative (Negative); PH, Urine 5.5 (5.0-8.0); Protein,Urine Negative (Negative); Specific Gravity,Urine 1.016 (1.001-1.035); Urobilinogen,Urine <2.0 mg/dL (<2.0)
[2023-01-15] MEDS ORDERED: PANTOPRAZOLE 40 MG/10 ML VIAL IVP STA (14:03)
[2023-01-15] MEDS ORDERED: NALOXONE 0.4 MG/ML 1 ML VIAL IV PRN (14:06)
[2023-01-15] MEDS ORDERED: NITROGLYCERIN SL TABS 0.4 MG TAB SUBLINGUAL PRN (14:10)
[2023-01-15] MEDS ORDERED: bisacodyL 10 MG SUPP RECTAL PRN (14:10)
[2023-01-15] MEDS ORDERED: POTASSIUM CHLORIDE ER 20 MEQ TAB.ER PO PRN (14:10)
[2023-01-15] MEDS ORDERED: NA PHOS,M-B/NA PHOS,DI-BA 133 ML ENEMA RECTAL PRN (14:10)
[2023-01-15] MEDS ORDERED: FUROSEMIDE 40 MG TAB PO PRN (14:10)
[2023-01-15] MEDS ORDERED: MAGNESIUM HYDROXIDE 2,400 MG/30 ML CUP PO PRN (14:10)
[2023-01-15] MEDS: PREGABALIN 75 MG CAP PO SCH (17:21)
[2023-01-15 18:17] LABS: Glucose,Whole Blood 92 mg/dL (70-110)
[2023-01-15] MEDS: INSULIN ASPART (NovoLOG) 100 UNIT/ML VIAL SQ SCH ×2 (18:24→20:34)
[2023-01-15 20:25] LABS: Glucose,Whole Blood 92 mg/dL (70-110)
[2023-01-15] MEDS: AMITRIPTYLINE HCL 25 MG TAB PO SCH (20:37)
[2023-01-15] MEDS: ATORVASTATIN 40 MG TAB PO SCH (20:37)
[2023-01-15] MEDS: PRAMIPEXOLE 0.5 MG TAB PO SCH (20:38)
[2023-01-15] MEDS: HYDROcodone/APAP 10-325MG 1 EACH TAB PO PRN (20:38)
[2023-01-15 21:23] LABS: Anisocytosis Slight; Basophils % (A) 1 %; Eosinophils # (A) 0.5 k/uL (0-0.7); Eosinophils % (A) 8 %; HGB 8.3 gm/dL (13.0-17.5); Hypochromasia Moderate; Lymphocytes # (A) 1.1 k/uL (1.0-4.8); Lymphocytes % (A) 19 %; MCH 27.7 pg (25.0-35.0); MCV 86.4 fL (80.0-100.0); Mean Platelet Volume 7.5; Monocytes # (A) 0.4 k/uL (0-1.0); Monocytes % (A) 7 %; Neutrophils # (A) 3.8 k/uL (1.3-7.7); Neutrophils % (A) 64 %; Platelet Count 195 k/uL (150-450); RBC 3.01 m/uL (4.30-5.90); RDW 16.4 % (11.5-15.5)
[2023-01-16] MEDS: HYDROcodone/APAP 10-325MG 1 EACH TAB PO PRN ×2 (04:21→15:52)
[2023-01-16 04:44] LABS: Anisocytosis Slight; Basophils % (A) 1 %; Eosinophils # (A) 0.5 k/uL (0-0.7); Eosinophils % (A) 9 %; HCT 24.8 % (39.0-53.0); HGB 7.8 gm/dL (13.0-17.5); Hypochromasia Slight; Lymphocytes # (A) 1.2 k/uL (1.0-4.8); Lymphocytes % (A) 21 %; MCH 27.3 pg (25.0-35.0); MCHC 31.7 g/dL (31.0-37.0); MCV 86.2 fL (80.0-100.0); Mean Platelet Volume 8.4; Monocytes # (A) 0.4 k/uL (0-1.0); Monocytes % (A) 7 %; Neutrophils # (A) 3.6 k/uL (1.3-7.7); Neutrophils % (A) 63 %; Platelet Count 181 k/uL (150-450); RBC 2.87 m/uL (4.30-5.90); RDW 16.4 % (11.5-15.5); WBC 5.7 k/uL (3.8-10.6)
[2023-01-16 06:07] LABS: Glucose,Whole Blood 102 mg/dL (70-110)
[2023-01-16] MEDS: INSULIN ASPART (NovoLOG) 100 UNIT/ML VIAL SQ SCH ×3 (06:12→16:21)
[2023-01-16] MEDS: metFORMIN 500 MG TAB PO SCH ×2 (06:17→17:07)
[2023-01-16] MEDS: DAPAGLIFLOZIN PROPANEDIOL 10 MG TABLET PO SCH (06:39)
[2023-01-16] MEDS: CHOLECALCIFEROL 125 MCG (5000 IU) TABLET PO SCH (08:15)
[2023-01-16] MEDS: LORATADINE 10 MG TAB PO SCH (08:15)
[2023-01-16] MEDS: PREGABALIN 75 MG CAP PO SCH ×2 (08:15→17:07)
[2023-01-16] MEDS: LOSARTAN 25 MG TAB PO SCH (08:15)
[2023-01-16] MEDS: CYANOCOBALAMIN 500 MCG TAB PO SCH (08:15)
[2023-01-16] MEDS: PIOGLITAZONE 30 MG TAB PO SCH (08:15)
[2023-01-16] MEDS: PANTOPRAZOLE 40 MG/10 ML VIAL IV SCH (08:16)
[2023-01-16] MEDS ORDERED: NON FORMULARY DRUG (Semaglutide [Ozempic] 1 MG/0.75 ML Each) SQ SCH (09:00)
[2023-01-16] MEDS ORDERED: NON FORMULARY DRUG (Lansoprazole [Lansoprazole] 30 MG Capsule.Dr) PO SCH (09:00)
[2023-01-16] MEDS: PRAMIPEXOLE 0.5 MG TAB PO SCH ×2 (11:00→17:07)
[2023-01-16 11:54] LABS: Glucose,Whole Blood 143 mg/dL (70-110)
--- NOTE | 2023-01-16 13:03 | P.CONS ---
History of Present Illness - Reason for Consult Consult date: 01/16/23 GI bleed Requesting physician: Flex Pimentel - Chief Complaint Weakness, dizziness - History of Present Illness This a pleasant 72-year-old male who was recently hospitalized for CVA in rehab that was brought into the emergency department for concerns of weakness and dizz iness. He has a past medical history included atrial fibrillation, CVA, DVT, diabetes mellitus, diverticulitis, prostate cancer, hypertension and hyperlipidemia. He is on Xarelto 10 mg daily and aspirin 81 mg daily. Last taken yesterday. Patient does state that he had black stool 2 prior to coming into the emergency department. States he had been constipated for a few days and he was given something to help him have a bowel movement and he had to dark black bowel movements. Denies any previous history of GI bleed. On this admission he was noted to have anemia with a current hemoglobin of 7.8 with a hemoglobin of 12.2 on his last admission on 01/06/2023. Last colonoscopy was October [address] [facility] with findings of 3 polyps status post polypectomy in the ascending and transverse colon. Patient does have some residual speech and thought deficits from recent stroke. He denies any abdominal pain, nausea or vomiting. Review of Systems REVIEW OF SYSTEMS: CARDIOPULMONARY: No chest pain or shortness of breath. Gastrointestinal: No abdominal pain. No nausea or vomiting. No hematemesis, coffee-ground emesis. No rectal bleeding, did report black stool 2. GENITOURINARY: No dysuria or hematuria. MUSCULOSKELETAL: Reports normal range of motion. SKIN: No rashes. No jaundice. ENDOCRINE: No chills, fevers. No excessive weight gain or loss. No polydipsia or polyuria. PSYCHIATRIC: Unremarkable. NEUROLOGY: Recent stroke with residual speech deficits. Denies dizziness, headache. ENT: Vision unremarkable. CONSTITUTIONAL: No recent weight loss. No fever, chills, night sweats. Past Medical History Past Medical History: Atrial Fibrillation, Cancer, Diabetes Mellitus, Deep Vein Thrombosis (DVT), GERD/Reflux, Hyperlipidemia, Hypertension, Osteoarthritis (OA), Pneumonia, Prostate Disorder, Pulmonary Embolus (PE), Skin Disorder, Sleep Apnea/CPAP/BIPAP Additional Past Medical History / Comment(s): open wound to back-has visiting nurse two times per weeks,prostate ca, rt leg dvt, diverticulitis, psoriases, abd hernia,no cpap History of Any Multi-Drug Resistant Organisms: None Reported Past Surgical History: Back Surgery, Cholecystectomy, Hernia Repair, Joint Replacement, Prostate Surgery, Tonsillectomy Additional Past Surgical History / Comment(s): prostectomy, had ruptured diverticuli -colostomy and then reversed, abd hernia, tanisha cataracts, tubes in ears,total rt hip,[facility] Procedures Past Anesthesia/Blood Transfusion Reactions: No Reported Reaction Past Psychological History: No Psychological Hx Reported Additional Psychological History / Comment(s): uses a walker when up. Smoking Status: Former smoker Past Alcohol Use History: None Reported Additional Past Alcohol Use History / Comment(s): SMOKED X 28 YEARS 1PPD. Past Drug Use History: None Reported - Past Family History Father Family Medical History: Cancer Additional Family Medical History / Comment(s): prostate CA Mother Family Medical History: Deep Vein Thrombosis (DVT), Pulmonary Embolus Additional Family Medical History / Comment(s): PROSTATE CNACER Medications and Allergies Home Medications Medication Instructions Recorded Confirmed Type Atorvastatin Calcium [Lipitor] 40 mg PO HS 02/03/15 01/15/23 History Lansoprazole 30 mg PO DAILY 02/03/15 01/15/23 History Empagliflozin/Metformin HCl 2 tab PO W/BRKFST 06/13/22 01/15/23 History [Synjardy Xr 12.5-1,000 mg Tab] Furosemide [Lasix] 40 mg PO DAILY PRN 06/13/22 01/15/23 History Naloxone HCl [Narcan] 4 mg NASAL ONCE PRN 06/13/22 01/15/23 History Pioglitazone [Actos] 30 mg PO DAILY 06/13/22 01/15/23 History Potassium Chloride ER [K-Dur 20] 20 meq PO DAILY PRN 06/13/22 01/15/23 History Rivaroxaban [Xarelto] 20 mg PO DAILY #90 tab 06/14/22 01/15/23 Rx Cyanocobalamin (Vitamin B-12) 1,000 mcg PO DAILY #1 tablet 06/15/22 01/15/23 Rx [Vitamin B-12] Amitriptyline HCl [Elavil] 25 mg PO HS 01/02/23 01/15/23 History Cholecalciferol [Vitamin D3 (125 125 mcg PO DAILY 01/02/23 01/15/23 History Mcg = 5000 Iu)] Fexofenadine HCl [Nikia Allergy] 180 mg PO DAILY 01/02/23 01/15/23 History Losartan [Cozaar] 12.5 mg PO DAILY 01/02/23 01/15/23 History Pramipexole [Mirapex] 0.5 mg PO BID@1200,1800 01/02/23 01/15/23 History Semaglutide [Ozempic] 1 mg SQ WE 01/02/23 01/15/23 History Aspirin 81 mg PO DAILY tab 01/08/23 01/15/23 Rx HYDROcodone/APAP 10-325MG [[place] 1 tab PO Q6H PRN #12 tab 01/08/23 01/15/23 Rx 10-325] Nitroglycerin Sl Tabs [Nitrostat] 0.4 mg SUBLINGUAL Q5M PRN tab 01/08/23 01/15/23 Rx INSULIN LISPRO (HumaLOG) [humaLOG] See Protocol SQ ACHS 01/15/23 01/15/23 History Magnesium Hydroxide [Milk of 7,200 mg PO Q48H PRN 01/15/23 01/15/23 History Magnesia Concentrate] Na Phos,M-B/Na Phos,Di-Ba [Fleet 133 ml RECTAL DAILY PRN 01/15/23 01/15/23 History Adult] Pregabalin [Lyrica] 75 mg PO BID@0800,1700 01/15/23 01/15/23 History bisacodyL [Dulcolax] 10 mg RECTAL DAILY PRN 01/15/23 01/15/23 History Allergies Allergy/AdvReac Type Severity Reaction Status Date / Time cephalexin monohydrate Allergy Rash/Hives Verified 01/15/23 11:51 [From Keflex] on neck Penicillins Allergy Rash/Hives Verified 01/15/23 11:51 on neck Physical Exam Vitals: Vital Signs Temp Pulse Pulse Resp BP BP Pulse Ox 01/16/23 03:45 97.7 F 89 18 110/60 96 01/16/23 00:00 97.4 F L 83 18 97/51 94 L 01/15/23 21:26 97.7 F 84 18 101/58 99 01/15/23 20:12 97.7 F 84 18 101/58 99 01/15/23 17:18 96 20 112/48 96 01/15/23 15:07 81 20 113/50 98 01/15/23 13:53 80 20 102/53 97 01/15/23 11:35 104 H 18 116/83 98 01/15/23 10:53 97.0 F L 99 18 120/49 96 Intake and Output 01/15/23 01/16/23 01/16/23 22:59 06:59 14:59 Output Total 200 150 Balance -200 -150 Output: Urine 200 150 Other: Voiding Method Urinal Urinal Weight 104.326 kg General appearance: The patient is alert, oriented, appears in no acute distress. HET: Head is normocephalic and atraumatic. Conjunctiva pink. Sclera anicteric. Neck: Supple without lymphadenopathy. Trachea midline. Heart: Regular. Lungs: Equal expansion, normal respiratory effort. Abdomen: Soft, nontender, nondistended with bowel sounds. No guarding or rigidity. Skin: No rashes. No jaundice. Extremities: Normal skin color and turgor. No pedal edema. Neurological: No focal deficits. Alert and oriented x3. Results CBC & Chem 7: 01/16/23 02:06 01/15/23 11:30 Labs: Abnormal Lab Results - Last 24 Hours (Table) 01/15/23 01/15/23 01/15/23 Range/Units 11:30 11:30 11:30 RBC 3.12 L (4.30-5.90) m/uL Hgb 8.6 L D (13.0-17.5) gm/dL Hct 26.5 L (39.0-53.0) % RDW 16.5 H (11.5-15.5) % Lymphocytes # 0.7 L (1.0-4.8) k/uL Sodium 135 L (137-145) mmol/L BUN 22 H (9-20) mg/dL Alkaline Phosphatase 220 H (38-126) U/L Troponin I (0.000-0.034) ng/mL Total Protein 5.9 L (6.3-8.2) g/dL Albumin 3.3 L (3.5-5.0) g/dL Urine Glucose (UA) 4+ H (Negative) 01/15/23 01/15/23 01/15/23 Range/Units 11:30 15:43 18:05 RBC (4.30-5.90) m/uL Hgb (13.0-17.5) gm/dL Hct (39.0-53.0) % RDW (11.5-15.5) % Lymphocytes # (1.0-4.8) k/uL Sodium (137-145) mmol/L BUN (9-20) mg/dL Alkaline Phosphatase (38-126) U/L Troponin I 0.046 H* 0.041 H* 0.045 H* (0.000-0.034) ng/mL Total Protein (6.3-8.2) g/dL Albumin (3.5-5.0) g/dL Urine Glucose (UA) (Negative) 01/15/23 01/16/23 Range/Units 20:18 02:06 RBC 3.01 L 2.87 L (4.30-5.90) m/uL Hgb 8.3 L 7.8 L (13.0-17.5) gm/dL Hct 26.0 L 24.8 L (39.0-53.0) % RDW 16.4 H 16.4 H (11.5-15.5) % Lymphocytes # (1.0-4.8) k/uL Sodium (137-145) mmol/L BUN (9-20) mg/dL Alkaline Phosphatase (38-126) U/L Troponin I (0.000-0.034) ng/mL Total Protein (6.3-8.2) g/dL Albumin (3.5-5.0) g/dL Urine Glucose (UA) (Negative) Assessment and Plan (1) Symptomatic anemia Narrative/Plan: 72-year-old male who was recently admitted to the hospital with a normal hemoglobin of 12.2 presented back with generalized weakness, dizziness and hemoglobin of 8.3 on admission with a drop to 7.8 today. Patient has atrial fibrillation and history of DVT and is currently on anticoagulation which he states he has been on for 8 years. He was constipated had 2 large bowel movements that were black. He does have an elevated BUN consistent with possible upper GI bleed. No previous history of peptic ulcer disease or previous GI bleed. Last colonoscopy October 2019 significant for 3 colon polyps status post polypectomy. Unclear etiology of anemia, have to rule out GI source most likely upper GI source such as gastritis, peptic ulcer disease, esophagitis, AVM or other possible etiologies. Will proceed with holding anticoagulation and upper endoscopy tomorrow. Current Visit: Yes Status: Acute Code(s): D64.9 - ANEMIA, UNSPECIFIED SNOMED Code(s): 148633364 (2) History of CVA (cerebrovascular accident) Current Visit: Yes Status: Acute Code(s): Z86.73 - PRSNL HX OF TIA (TIA), AND CEREB INFRC W/O RESID DEFICITS SNOMED Code(s): 072947629 (3) Atrial fibrillation Current Visit: Yes Status: Acute Code(s): I48.91 - UNSPECIFIED ATRIAL FIBRILLATION SNOMED Code(s): 85245919 (4) Type 2 diabetes mellitus Current Visit: Yes Status: Acute Code(s): E11.9 - TYPE 2 DIABETES MELLITUS WITHOUT COMPLICATIONS SNOMED Code(s): 24313265 (5) Weakness Current Visit: Yes Status: Acute Code(s): R53.1 - WEAKNESS SNOMED Code(s): 21798842 (6) H/O deep venous thrombosis Current Visit: No Status: Acute Code(s): Z86.718 - PERSONAL HISTORY OF OTHER VENOUS THROMBOSIS AND EMBOLISM SNOMED Code(s): 816395901 Plan: 1. Continue symptomatic and supportive care 2. Daily CBC, transfuse for hemoglobin less than 7 3. Protonix 40 mg daily GI prophylaxis 4. Hold aspirin and Xarelto 5. Patient may have consistent carbohydrate diet, nothing by mouth after midnight 6. Plan for EGD tomorrow Thank you for this consultation, we will continue to follow. Dr. Jonathan Arevalo I agree with the dictator's note, documented as a scribe by Katya Toledo.
[2023-01-16 16:15] LABS: Glucose,Whole Blood 121 mg/dL (70-110)
--- NOTE | 2023-01-16 16:58 | P.HPIM ---
History of Present Illness H&P Date: 01/16/23 Chief Complaint: Weakness, dizziness, dark stools This is a 72-year-old gentleman with past medical history significant for atrial flutter/fib on xarelto, CHF, mild aortic stenosis ,type 2 diabetes mellitus, GERD, hyperlipidemia, osteoarthritis, pneumonia, obstructive sleep apnea with home CPAP, diverticulitis, psoriasis, prostate cancer, bilateral legs DVT/pulmonary embolism, back surgery, former nicotine dependence, gait dysfunction and multiple other medical issues recently discharged to [facility] subacute rehab on 01 08 23 with diagnosis of acute ischemic stroke with expressive aphasia.On discharge patient's hemoglobin was 12.2. At the subacute rehab patient developed progressive weakness accompanied by dizziness, ongoing expressive aphasia, developed black stools after receiving something for constipation. On admission hemoglobin had dropped to 7.8. Platelets 181. Prior colonoscopy was performed a few years ago by Dr. Holbrook-report currently not available. Denies nausea, vomiting. Denies abdominal pain. Denies chest pain, palpitations or shortness of breath. Afebrile, normal WBC, maintaining O2 sats in the high 90s on room air. Review of Systems ROS Statement: Those systems with pertinent positive or pertinent negative responses have been documented in the HPI. ROS Other: All systems not noted in ROS Statement are negative. Past Medical History Past Medical History: Atrial Fibrillation, Cancer, Diabetes Mellitus, Deep Vein Thrombosis (DVT), GERD/Reflux, Hyperlipidemia, Hypertension, Osteoarthritis (OA), Pneumonia, Prostate Disorder, Pulmonary Embolus (PE), Skin Disorder, Sleep Apnea/CPAP/BIPAP Additional Past Medical History / Comment(s): open wound to back-has visiting nurse two times per weeks,prostate ca, rt leg dvt, diverticulitis, psoriases, abd hernia,no cpap History of Any Multi-Drug Resistant Organisms: None Reported Past Surgical History: Back Surgery, Cholecystectomy, Hernia Repair, Joint Replacement, Prostate Surgery, Tonsillectomy Additional Past Surgical History / Comment(s): prostectomy, had ruptured divert iculi -colostomy and then reversed, abd hernia, tanisha cataracts, tubes in ears,total rt hip,[facility] Clinic Procedures Past Anesthesia/Blood Transfusion Reactions: No Reported Reaction Past Psychological History: No Psychological Hx Reported Additional Psychological History / Comment(s): uses a walker when up. Smoking Status: Former smoker Past Alcohol Use History: None Reported Additional Past Alcohol Use History / Comment(s): SMOKED X 28 YEARS 1PPD. Past Drug Use History: None Reported - Past Family History Father Family Medical History: Cancer Additional Family Medical History / Comment(s): prostate CA Mother Family Medical History: Deep Vein Thrombosis (DVT), Pulmonary Embolus Additional Family Medical History / Comment(s): PROSTATE CNACER Medications and Allergies Home Medications Medication Instructions Recorded Confirmed Type Atorvastatin Calcium [Lipitor] 40 mg PO HS 02/03/15 01/15/23 History Lansoprazole 30 mg PO DAILY 02/03/15 01/15/23 History Empagliflozin/Metformin HCl 2 tab PO W/BRKFST 06/13/22 01/15/23 History [Synjardy Xr 12.5-1,000 mg Tab] Furosemide [Lasix] 40 mg PO DAILY PRN 06/13/22 01/15/23 History Naloxone HCl [Narcan] 4 mg NASAL ONCE PRN 06/13/22 01/15/23 History Pioglitazone [Actos] 30 mg PO DAILY 06/13/22 01/15/23 History Potassium Chloride ER [K-Dur 20] 20 meq PO DAILY PRN 06/13/22 01/15/23 History Rivaroxaban [Xarelto] 20 mg PO DAILY #90 tab 06/14/22 01/15/23 Rx Cyanocobalamin (Vitamin B-12) 1,000 mcg PO DAILY #1 tablet 06/15/22 01/15/23 Rx [Vitamin B-12] Amitriptyline HCl [Elavil] 25 mg PO HS 01/02/23 01/15/23 History Cholecalciferol [Vitamin D3 (125 125 mcg PO DAILY 01/02/23 01/15/23 History Mcg = 5000 Iu)] Fexofenadine HCl [Nikia Allergy] 180 mg PO DAILY 01/02/23 01/15/23 History Losartan [Cozaar] 12.5 mg PO DAILY 01/02/23 01/15/23 History Pramipexole [Mirapex] 0.5 mg PO BID@1200,1800 01/02/23 01/15/23 History Semaglutide [Ozempic] 1 mg SQ WE 01/02/23 01/15/23 History Aspirin 81 mg PO DAILY tab 01/08/23 01/15/23 Rx HYDROcodone/APAP 10-325MG [[place] 1 tab PO Q6H PRN #12 tab 01/08/23 01/15/23 Rx 10-325] Nitroglycerin Sl Tabs [Nitrostat] 0.4 mg SUBLINGUAL Q5M PRN tab 01/08/23 01/15/23 Rx INSULIN LISPRO (HumaLOG) [humaLOG] See Protocol SQ ACHS 01/15/23 01/15/23 History Magnesium Hydroxide [Milk of 7,200 mg PO Q48H PRN 01/15/23 01/15/23 History Magnesia Concentrate] Na Phos,M-B/Na Phos,Di-Ba [Fleet 133 ml RECTAL DAILY PRN 01/15/23 01/15/23 History Adult] Pregabalin [Lyrica] 75 mg PO BID@0800,1700 01/15/23 01/15/23 History bisacodyL [Dulcolax] 10 mg RECTAL DAILY PRN 01/15/23 01/15/23 History Allergies Allergy/AdvReac Type Severity Reaction Status Date / Time cephalexin monohydrate Allergy Rash/Hives Verified 01/15/23 11:51 [From Keflex] on neck Penicillins Allergy Rash/Hives Verified 01/15/23 11:51 on neck Physical Exam Vitals: Vital Signs Temp Pulse Pulse Resp BP BP Pulse Ox 01/16/23 08:00 98 F 95 18 97/59 95 01/16/23 03:45 97.7 F 89 18 110/60 96 01/16/23 00:00 97.4 F L 83 18 97/51 94 L 01/15/23 21:26 97.7 F 84 18 101/58 99 01/15/23 20:12 97.7 F 84 18 101/58 99 01/15/23 17:18 96 20 112/48 96 01/15/23 15:07 81 20 113/50 98 01/15/23 13:53 80 20 102/53 97 01/15/23 11:35 104 H 18 116/83 98 Intake and Output 01/15/23 01/16/23 01/16/23 22:59 06:59 14:59 Intake Total 180 Output Total 200 150 Balance -200 -150 180 Intake: Oral 180 Output: Urine 200 150 Other: Voiding Method Urinal Urinal Urinal # Bowel Movements 1 Weight 104.326 kg GENERAL: Alert and oriented 3, obese, sitting up in chair, no acute distress. Expressive aphasia. HEENT: Atraumatic, normocephalic, Pupils equal, round, and reactive to light,con junctiva are normal.MMM. NECK:Supple, no JVD,without lymphadenopathy. LUNGS:Unlabored, Breath sounds clear to auscultation bilaterally. No wheezes, rales, or rhonchi. HEART: S1, S2, regular. Systolic murmur. ABDOMEN: Soft, obese, nontender, nondistended, normoactive bowel sounds. No guarding, no rebound. Positive bowel sounds EXTREMITIES: 2+ peripheral pulses. No edema. NEUROLOGICAL: Cranial nerves II through XII grossly intact. SKIN: Warm, dry, no rashes noted. Results CBC & Chem 7: 01/16/23 02:06 01/15/23 11: Labs: Abnormal Lab Results - Last 24 Hours (Table) 01/15/23 01/15/23 01/15/23 Range/Units 11: 11: 11:30 RBC 3.12 L (4.30-5.90) m/uL Hgb 8.6 L D (13.0-17.5) gm/dL Hct 26.5 L (39.0-53.0) % RDW 16.5 H (11.5-15.5) % Lymphocytes # 0.7 L (1.0-4.8) k/uL Sodium 135 L (137-145) mmol/L BUN 22 H (9-20) mg/dL Alkaline Phosphatase 220 H (38-126) U/L Troponin I (0.000-0.034) ng/mL Total Protein 5.9 L (6.3-8.2) g/dL Albumin 3.3 L (3.5-5.0) g/dL Urine Glucose (UA) 4+ H (Negative) 01/15/23 01/15/23 01/15/23 Range/Units : 15:43 18:05 RBC (4.30-5.90) m/uL Hgb (13.0-17.5) gm/dL Hct (39.0-53.0) % RDW (11.5-15.5) % Lymphocytes # (1.0-4.8) k/uL Sodium (137-145) mmol/L BUN (9-20) mg/dL Alkaline Phosphatase (38-126) U/L Troponin I 0.046 H* 0.041 H* 0.045 H* (0.000-0.034) ng/mL Total Protein (6.3-8.2) g/dL Albumin (3.5-5.0) g/dL Urine Glucose (UA) (Negative) 01/15/23 01/16/23 Range/Units 20:18 02:06 RBC 3.01 L 2.87 L (4.30-5.90) m/uL Hgb 8.3 L 7.8 L (13.0-17.5) gm/dL Hct 26.0 L 24.8 L (39.0-53.0) % RDW 16.4 H 16.4 H (11.5-15.5) % Lymphocytes # (1.0-4.8) k/uL Sodium (137-145) mmol/L BUN (9-20) mg/dL Alkaline Phosphatase (38-126) U/L Troponin I (0.000-0.034) ng/mL Total Protein (6.3-8.2) g/dL Albumin (3.5-5.0) g/dL Urine Glucose (UA) (Negative) Thrombosis Risk Factor Assmnt - Choose All That Apply Any of the Below Risk Factors Present?: Yes Each Factor Represents 1 point: Obesity (BMI >25), Swollen legs (current) Other Risk Factors: Yes Each Risk Factor Represents 2 Points: Age 61-74 years Each Risk Factor Represents 3 Points: History of DVT/PE Other congenital or acquired thrombophilia - If yes, enter type in comment: No Thrombosis Risk Factor Assessment Total Risk Factor Score: 7 Thrombosis Risk Factor Assessment Level: High Risk Assessment and Plan Assessment: Symptomatic blood loss anemia Recent acute ischemic stroke with expressive aphasia 01/02/23, discharged to [facility] subacute rehab on 01/08/2023 COPD, stable Persistent atrial flutter on Xarelto Chronic congestive heart failure with diastolic dysfunction Mild aortic stenosis History of DVTs, PE Diabetes mellitus,II controlled Diabetic neuropathy GERD. Hyperlipidemia. Hypertension. Osteoarthritis. Obstructive Sleep apnea with home CPAP use. History of prostate cancer with prostatectomy. Morbid obesity. BMI 39 Medical debility, gait dysfunction, uses walker. History of back surgery, chronic back pain Chronic urinary incontinence Formal nicotine dependence. Patient smoked a pack a day for more than 28 years. Plan: Continue on current medication regime ,monitoring and symptomatic treatment. Aspirin and Xarelto placed on hold. Evaluated by GI and patient is scheduled for EGD tomorrow. Nothing by mouth at midnight. Close monitoring of CBC with repeat labs ordered for a.m. The impression and plan of care has been dictated as directed. : I performed a history and examination of this patient, discussed the same with the dictator. I agree with the dictator's note ,documented as a scribe. Any additional findings or plans will be noted.
[2023-01-16] MEDS: ATORVASTATIN 40 MG TAB PO SCH (19:47)
[2023-01-16] MEDS: AMITRIPTYLINE HCL 25 MG TAB PO SCH (19:47)
[2023-01-16 21:53] LABS: Glucose,Whole Blood 126 mg/dL (70-110)
[2023-01-17] MEDS: INSULIN ASPART (NovoLOG) 100 UNIT/ML VIAL SQ SCH ×5 (00:20→20:04)
[2023-01-17] MEDS: HYDROcodone/APAP 10-325MG 1 EACH TAB PO PRN ×2 (01:53→20:07)
[2023-01-17 06:11] LABS: Glucose,Whole Blood 104 mg/dL (70-110)
[2023-01-17] MEDS: metFORMIN 500 MG TAB PO SCH ×2 (06:11→17:31)
[2023-01-17] MEDS: PIOGLITAZONE 30 MG TAB PO SCH (06:11)
[2023-01-17] MEDS: CYANOCOBALAMIN 500 MCG TAB PO SCH (06:16)
[2023-01-17] MEDS: PREGABALIN 75 MG CAP PO SCH ×2 (06:16→17:31)
[2023-01-17] MEDS: DAPAGLIFLOZIN PROPANEDIOL 10 MG TABLET PO SCH (06:16)
[2023-01-17] MEDS: LOSARTAN 25 MG TAB PO SCH (06:16)
[2023-01-17] MEDS: CHOLECALCIFEROL 125 MCG (5000 IU) TABLET PO SCH (06:16)
[2023-01-17] MEDS: PANTOPRAZOLE 40 MG/10 ML VIAL IV SCH (06:16)
[2023-01-17] MEDS: LORATADINE 10 MG TAB PO SCH (06:16)
[2023-01-17 09:54] LABS: Anisocytosis Slight; Basophils % (A) 0 %; Eosinophils # (A) 0.6 k/uL (0-0.7); Eosinophils % (A) 10 %; HCT 26.8 % (39.0-53.0); HGB 8.7 gm/dL (13.0-17.5); Hypochromasia Moderate; Lymphocytes # (A) 1.3 k/uL (1.0-4.8); Lymphocytes % (A) 21 %; MCH 27.8 pg (25.0-35.0); MCHC 32.4 g/dL (31.0-37.0); MCV 85.8 fL (80.0-100.0); Monocytes # (A) 0.4 k/uL (0-1.0); Monocytes % (A) 6 %; Neutrophils # (A) 3.7 k/uL (1.3-7.7); Neutrophils % (A) 61 %; Platelet Count 200 k/uL (150-450); RBC 3.12 m/uL (4.30-5.90); RDW 16.2 % (11.5-15.5); WBC 6.1 k/uL (3.8-10.6)
[2023-01-17] MEDS: PRAMIPEXOLE 0.5 MG TAB PO SCH ×2 (11:16→17:31)
[2023-01-17 11:40] LABS: Glucose,Whole Blood 110 mg/dL (70-110)
[2023-01-17 12:00] LABS: African American GFR (CKD) >90 (>60 ml/min/1.73 sqM); Anion Gap 8 mmol/L; Blood Urea Nitrogen 17 mg/dL (9-20); Calcium 9.2 mg/dL (8.4-10.2); Carbon Dioxide 25 mmol/L (22-30); Chloride 102 mmol/L (98-107); Glucose 85 mg/dL (74-99); Magnesium 1.5 mg/dL (1.6-2.3); Non-African American GFR(CKD) >90 (>60 ml/min/1.73 sqM); Potassium 3.8 mmol/L (3.5-5.1); Sodium 135 mmol/L (137-145)
[2023-01-17] MEDS ORDERED: Magnesium Replacement Protocol 1 EACH MISC MISCELLANE PRN (12:31)
[2023-01-17] MEDS: MAGNESIUM SULFATE-D5W PMX 1 GM in DEXTROSE/WATER 1 100ML.BAG IVPB SCH ×2 (12:42→15:19)
--- NOTE | 2023-01-17 13:23 | P.PN ---
Subjective Progress Note Date: 01/17/23 H&P Date: 01/16/23 Chief Complaint: Weakness, dizziness, dark stools This is a 72-year-old gentleman with past medical history significant for atrial flutter/fib on xarelto, CHF, mild aortic stenosis ,type 2 diabetes mellitus, GERD, hyperlipidemia, osteoarthritis, pneumonia, obstructive sleep apnea with home CPAP, diverticulitis, psoriasis, prostate cancer, bilateral legs DVT/pulmonary embolism, back surgery, former nicotine dependence, gait dysfuncti on and multiple other medical issues recently discharged to [facility] subacute rehab on 01 08 23 with diagnosis of acute ischemic stroke with expressive aphasia.On discharge patient's hemoglobin was 12.2. At the subacute rehab patient developed progressive weakness accompanied by dizziness, ongoing ex pressive aphasia, developed black stools after receiving something for constipation. On admission hemoglobin had dropped to 7.8. Platelets 181. Prior colonoscopy was performed a few years ago by Dr. Holbrook-report currently not available. Denies nausea, vomiting. Denies abdominal pain. Denies chest pain, palpitations or shortness of breath. Afebrile, normal WBC, maintaining O2 sats in the high 90s on room air. 01/17/2023 Aspirin and Xarelto remain on hold ,NPO, awaiting EGD. Denies chest pain, palpitations or shortness of breath. Afebrile, normal WBC, hemoglobin 8.7, platelets 200, renal function stable. Blood sugars controlled. Magnesium 1.5, supplementation ordered. Objective - Vital Signs Vital signs: Vital Signs Temp 97.7 F 01/17/23 11:37 Pulse 107 H 01/17/23 11:37 Resp 16 01/17/23 11:37 BP 113/57 01/17/23 11:37 Pulse Ox 98 01/17/23 11:37 FiO2 Intake & Output 01/16/23 01/17/23 01/17/23 18:59 06:59 18:59 Intake Total 540 360 Output Total 200 Balance 540 360 -200 Intake: Oral 540 360 Output: Urine 200 Other: Voiding Method Urinal Urinal Urinal # Voids 2 1 # Bowel Movements 1 - Exam GENERAL: Alert and oriented 3, obese, sitting up in chair, no acute distress. Expressive aphasia improved this morning. HEENT: Atraumatic, normocephalic, Pupils equal, round, and reactive to light ,conjunctiva are normal.MMM. NECK:Supple, no JVD LUNGS:Unlabored, Breath sounds clear to auscultation bilaterally. HEART: S1, S2, regular. Systolic murmur. ABDOMEN: Soft, obese, nontender, nondistended, +BS. No guarding, no rebound. Positive bowel sounds EXTREMITIES: 2+ peripheral pulses. No edema. NEUROLOGICAL: Cranial nerves II through XII grossly intact. SKIN: Warm, dry, no rashes noted. - Labs CBC & Chem 7: 01/17/23 08:55 01/17/23 08:55 Labs: Abnormal Lab Results - Last 24 Hours (Table) 01/16/23 01/16/23 01/17/23 Range/Units 16:14 21:51 08:55 RBC 3.12 L (4.30-5.90) m/uL Hgb 8.7 L (13.0-17.5) gm/dL Hct 26.8 L (39.0-53.0) % RDW 16.2 H (11.5-15.5) % Sodium (137-145) mmol/L POC Glucose (mg/dL) 121 H 126 H (70-110) mg/dL Magnesium (1.6-2.3) mg/dL 01/17/23 Range/Units 08:55 RBC (4.30-5.90) m/uL Hgb (13.0-17.5) gm/dL Hct (39.0-53.0) % RDW (11.5-15.5) % Sodium 135 L (137-145) mmol/L POC Glucose (mg/dL) (70-110) mg/dL Magnesium 1.5 L (1.6-2.3) mg/dL Assessment and Plan Assessment: Symptomatic blood loss anemia Recent acute ischemic stroke with expressive aphasia 01/02/23, discharged to [facility] subacute rehab on 01/08/2023 COPD, stable Persistent atrial flutter on Xarelto Chronic congestive heart failure with diastolic dysfunction Mild aortic stenosis History of DVTs, PE Diabetes mellitus,II controlled Diabetic neuropathy GERD. Hyperlipidemia. Hypertension. Osteoarthritis. Obstructive Sleep apnea with home CPAP use. History of prostate cancer with prostatectomy. Morbid obesity. BMI 39 Medical debility, gait dysfunction, uses walker. History of back surgery, chronic back pain Chronic urinary incontinence Formal nicotine dependence. Patient smoked a pack a day for more than 28 years. Plan: Continue on current medication regime ,monitoring and symptomatic treatment. Continue holding Aspirin and Xarelto.NPO. EGD pending. Close monitoring of CBC with repeat labs ordered for a.m. The impression and plan of care has been dictated as directed. : I performed a history and examination of this patient, discussed the same with the dictator. I agree with the dictator's note ,documented as a scribe. Any additional findings or plans will be noted.
[2023-01-17] MEDS ORDERED: LACTATED RINGERS 1,000 ML IV ONE (13:34)
[2023-01-17] MEDS ORDERED: LIDOCAINE 1% INJ 10MG/ML (20 ML MDV) ONE (13:46)
[2023-01-17] MEDS ORDERED: PROPOFOL 10 MG/ML 20 ML VIAL IV ONE (13:46)
--- NOTE | 2023-01-17 14:00 | P.PCN ---
Date of Procedure: 01/17/23 Procedure(s) Performed: BRIEF HISTORY: Patient is a 72-year-old, pleasant, white male admitted hospital with symptomatic anemia and hemoglobin of 7.2 g/dL. History of A. fib and recent CVA a month ago and has been i on Xarelto which has been on hold for 2 days. He scheduled for an upper endoscopy to evaluate for upper GI source of blood loss. His last coloscopy was 3 years ago. PROCEDURE PERFORMED: Esophagogastroduodenoscopy with cautery using cold. PREOPERATIVE DIAGNOSIS: Anemia and black tarry stools. IV sedation per anesthesia. PROCEDURE: After informed consent was obtained, the patient was brought into the endoscopy unit. IV sedation was administered by Anesthesia under continuous monitoring. Initially the Olympus GIF-140 video endoscope was inserted into the mouth. Esophagus intubated without any difficulty. It was gradually advanced into the stomach and duodenum and carefully examined. The bulb and the second part of the duodenum appeared normal. The scope at this time was withdrawn to the stomach, adequately insufflated with air, and upon careful examination, mucosa of the antrum, appeared normal. In the proximal body the stomach there were 3 small nonbleeding angiectasia identified which were cauterized using a cold. Rest of the body, cardia and the fundus appeared normal. The scope was then withdrawn into the esophagus. The GE junction was located at 39 cm from the incisors. The esophagus appeared normal. There were no erosions or ulcerations seen and the patient tolerated the procedure well. IMPRESSION: 1. 3 small nonbleeding angiectasia in the proximal gastric body status post cautery using a gold probe. 2. No evidence of peptic ulcer disease. RECOMMENDATIONS: The findings of this examination were discussed with the patient . Resume Xarelto today. Start on regular diet. Monitor CBC daily..
[2023-01-17 16:16] LABS: Glucose,Whole Blood 107 mg/dL (70-110)
--- NOTE | 2023-01-17 16:25 | P.DS ---
Providers Date of admission: 01/15/23 13:48 Expected date of discharge: 01/17/23 Attending physician: Venu Oshea Consults: 01/15/23 14:06 Consult Physician Urgent Consulting Provider: Lynne Arevalo Consult Reason/Comments: Anemia, GI bleed Do you want consulting provider notified?: Yes 01/16/23 11:54 Consult Physician Routine Consulting Provider: Rosalia Conner Consult Reason/Comments: recent CVA Do you want consulting provider notified?: Yes Primary care physician: Venu Oshea Hospital Course: Final Diagnoses: Symptomatic blood loss anemia Recent acute ischemic stroke with expressive aphasia 01/02/23, discharged to [facility] subacute rehab on 01/08/2023 COPD, stable Persistent atrial flutter on Xarelto Chronic congestive heart failure with diastolic dysfunction Mild aortic stenosis History of DVTs, PE Diabetes mellitus,II controlled Diabetic neuropathy GERD. Hyperlipidemia. Hypertension. Osteoarthritis. Obstructive Sleep apnea with home CPAP use. History of prostate cancer with prostatectomy. Morbid obesity. BMI 39 Medical debility, gait dysfunction, uses walker. History of back surgery, chronic back pain Chronic urinary incontinence Formal nicotine dependence. Patient smoked a pack a day for more than 28 years. This is a 72-year-old gentleman with past medical history significant for atrial flutter/fib on xarelto, CHF, mild aortic stenosis ,type 2 diabetes mellitus, GERD, hyperlipidemia, osteoarthritis, pneumonia, obstructive sleep apnea with home CPAP, diverticulitis, psoriasis, prostate cancer, bilateral legs DVT/pulmonary embolism, back surgery, former nicotine dependence, gait dysfunction and multiple other medical issues recently discharged to [facility] subacute rehab on 01 08 23 with diagnosis of acute ischemic stroke with express macey aphasia.On discharge patient's hemoglobin was 12.2. At the subacute rehab patient developed progressive weakness accompanied by dizziness, ongoing expressive aphasia, developed black stools after receiving something for constipation. On admission hemoglobin had dropped to 7.8. Platelets 181. Prior colonoscopy was performed a few years ago by Dr. Holbrook-report currently not available. Denies nausea, vomiting. Denies abdominal pain. Denies chest pain, palpitations or shortness of breath. Afebrile, normal WBC, maintaining O2 sats in the high 90s on room air. 01/17/2023 Aspirin and Xarelto remain on hold ,NPO, awaiting EGD. Denies chest pain, palpitations or shortness of breath. Afebrile, normal WBC, hemoglobin 8.7, platelets 200, renal function stable. Blood sugars controlled. Magnesium 1.5, supplementation ordered. Neurology consult in place with recommendations pending. Patient will be discharged back to [facility] rehab today, in a stable condition with guarded prognosis pending EGD results and final DC recommendations regarding anticoagulation as per both GI and neurology. Patient is a recent acute ischemic CVA initially on aspirin and Xarelto. The impression and plan of care has been dictated as directed. : I performed a history and examination of this patient, discussed the same with the dictator. I agree with the dictator's note ,documented as a scribe. Any additional findings or plans will be noted. Patient Condition at Discharge: Stable Plan - Discharge Summary New Discharge Prescriptions: Continue Atorvastatin Calcium [Lipitor] 40 mg PO HS Lansoprazole 30 mg PO DAILY Potassium Chloride ER [K-Dur 20] 20 meq PO DAILY PRN PRN Reason: with lasix Rivaroxaban [Xarelto] 20 mg PO DAILY #90 tab Amitriptyline HCl [Elavil] 25 mg PO HS Cholecalciferol [Vitamin D3 (125 Mcg = 5000 Iu)] 125 mcg PO DAILY Fexofenadine HCl [Nikia Allergy] 180 mg PO DAILY Semaglutide [Ozempic] 1 mg SQ WE Nitroglycerin Sl Tabs [Nitrostat] 0.4 mg SUBLINGUAL Q5M PRN tab PRN Reason: Chest Pain bisacodyL [Dulcolax] 10 mg RECTAL DAILY PRN PRN Reason: Constipation Na Phos,M-B/Na Phos,Di-Ba [Fleet Adult] 133 ml RECTAL DAILY PRN PRN Reason: Constipation Pioglitazone [Actos] 30 mg PO DAILY Furosemide [Lasix] 40 mg PO DAILY PRN PRN Reason: Edema Naloxone HCl [Narcan] 4 mg NASAL ONCE PRN PRN Reason: Overdose Empagliflozin/Metformin HCl [Synjardy Xr 12.5-1,000 mg Tab] 2 tab PO W/BRKFST Cyanocobalamin (Vitamin B-12) [Vitamin B-12] 1,000 mcg PO DAILY #1 tablet Losartan [Cozaar] 12.5 mg PO DAILY Pramipexole [Mirapex] 0.5 mg PO BID@1200,1800 INSULIN LISPRO (HumaLOG) [humaLOG] See Protocol SQ ACHS Magnesium Hydroxide [Milk of Magnesia Concentrate] 7,200 mg PO Q48H PRN PRN Reason: Constipation HYDROcodone/APAP 10-325MG [[place] 10-325] 1 tab PO Q6H PRN 3 Days #12 tab PRN Reason: Pain Changed Pregabalin [Lyrica] 75 mg PO BID@0800,1700 #6 cap No Action Aspirin 81 mg PO DAILY tab Discharge Medication List Atorvastatin Calcium [Lipitor] 40 mg PO HS 02/03/15 [History] Lansoprazole 30 mg PO DAILY 02/03/15 [History] Empagliflozin/Metformin HCl [Synjardy Xr 12.5-1,000 mg Tab] 2 tab PO W/BRKFST 06/13/22 [History] Furosemide [Lasix] 40 mg PO DAILY PRN 06/13/22 [History] Naloxone HCl [Narcan] 4 mg NASAL ONCE PRN 06/13/22 [History] Pioglitazone [Actos] 30 mg PO DAILY 06/13/22 [History] Potassium Chloride ER [K-Dur 20] 20 meq PO DAILY PRN 06/13/22 [History] Rivaroxaban [Xarelto] 20 mg PO DAILY #90 tab 06/14/22 [Rx] Cyanocobalamin (Vitamin B-12) [Vitamin B-12] 1,000 mcg PO DAILY #1 tablet 06/15/22 [Rx] Amitriptyline HCl [Elavil] 25 mg PO HS 01/02/23 [History] Cholecalciferol [Vitamin D3 (125 Mcg = 5000 Iu)] 125 mcg PO DAILY 01/02/23 [History] Fexofenadine HCl [Nikia Allergy] 180 mg PO DAILY 01/02/23 [History] Losartan [Cozaar] 12.5 mg PO DAILY 01/02/23 [History] Pramipexole [Mirapex] 0.5 mg PO BID@1200,1800 01/02/23 [History] Semaglutide [Ozempic] 1 mg SQ WE 01/02/23 [History] Aspirin 81 mg PO DAILY tab 01/08/23 [Rx] Nitroglycerin Sl Tabs [Nitrostat] 0.4 mg SUBLINGUAL Q5M PRN tab 01/08/23 [Rx] INSULIN LISPRO (HumaLOG) [humaLOG] See Protocol SQ ACHS 01/15/23 [History] Magnesium Hydroxide [Milk of Magnesia Concentrate] 7,200 mg PO Q48H PRN 01/15/23 [History] Na Phos,M-B/Na Phos,Di-Ba [Fleet Adult] 133 ml RECTAL DAILY PRN 01/15/23 [History] bisacodyL [Dulcolax] 10 mg RECTAL DAILY PRN 01/15/23 [History] HYDROcodone/APAP 10-325MG [[place] 10-325] 1 tab PO Q6H PRN 3 Days #12 tab 01/17/23 [Rx] Pregabalin [Lyrica] 75 mg PO BID@0800,1700 #6 cap 01/17/23 [Rx] Follow up Appointment(s)/Referral(s): Venu Oshea MD [Primary Care Provider] - 3 Days Activity/Diet/Wound Care/Special Instructions: Rajiv DUNLAP CBC,BMP in 3 days Discharge Disposition: TRANSFER TO SNF/ECF
--- NOTE | 2023-01-17 18:19 | P.CNNES ---
History of Present Illness Consult date: 01/17/23 Requesting physician: Venu Oshea Reason for Consult: Recent CVA History of Present Illness: Patient is a 72-year-old male, who came to the hospital by ambulance on 01/15/2023 at 10:45 AM. As per EMS flow sheet, and the right, patient was complaining of dizziness, increased weakness and lower extremity tremors. Staff states that patient was going to the bathroom when he began complaining of feeling dizzy and short of breath. Patient has also been having difficult time talking since last night. Patient states it seems like he is having difficulty figuring out what words he wants to use. Patient mentions that his legs have also been shaking all morning and he can't control it. No other complaints like chest pain difficulty breathing shortness of breath headaches blurred vision, tinnitus jaw pain. Patient's GCS was 15, and skin was warm. Stroke assessment scale was performed which was negative by EMS. Patient had no obvious aphasia. Patient's vitals in the scene was blood pressure 128/62, pulse rate 88, saturation 98% and blood glucose 138 mg/dL. Patient at this time tells me that he came because he was concerned of having a stroke. He states that he was at [facility], and got up and went to the bathroom, got dressed and cleaned up. Suddenly he could not remember what he was therefore, tried to communicate and he couldn't talk back. The staff got concerned if he was having a stroke and wanted him to go to the hospital. He felt that he was "out of sorts". This episode lasted for about 20-30 minutes. Patient states that yesterday while he was in the hospital, he had another spell of dizziness, couldn't stand up, and he did not remember why he was here. This episode lasted for slightly over 10 minutes. There was no associated focal numbness, tingling, or any visual disturbance. Patient's blood test shows normal WBC, hemoglobin 8.6, platelets 208. Sodium 135 potassium 3.8, normal renal functions. Hepatic panel is normal, troponin is mildly elevated. UA is negative. Stool occult blood positive. CT head revealed age-related atrophic and chronic small vessel ischemic change, without acute intracranial process seen at this time. I personally reviewed CT, agree with the findings. EKG shows atrial fibrillation. At present patient's legs are constantly jerking, which he believes is from restless leg syndrome. Patient was seen by myself on 01/03/2023 for multifocal ischemic strokes which were felt to be related to cardioembolism. He also has history of recurrent episodes of amaurosis fugax with involvement of the lower altitudinal visual field defect, only the right eye. There was no carotid stenosis noted on the CTA. Patient was diagnosed with acute ischemic stroke, recurrent amaurosis fugax, atrial fibrillation, on Xarelto, history of DVT, diabetes, hypertension, hyperlipidemia, X tobacco use. He was discharged on 01/08/2023. Patient has been seen by Dr. Marte on 06/17/2022 for lower extremity weakness which was felt to be related to edema and cellulitis. Patient has vitamin B12 deficiency, chronic back pain, pressure ulcer in the left buttock, diabetes hypertension history of DVT and pulmonary embolism. Patient states he is very compliant with his medication including Xarelto, does not miss the dose. Patient has history of diabetes for 10 years, hypertension, hyperlipidemia. She smoked 1 pack per day for 20 years, quit 20 years ago. Denies any alcohol use. Patient's workup performed last admission on 01/03/2023 include: * MRI of the brain without contrast revealed scattered microinfarcts throughout the left temporal, parietal and occipital lobes as well as the left insular cortex and right balbir. Nonspecific white matter changes, likely secondary to small vessel ischemic disease. I personally reviewed MRI agree with the findings. * 2-D echo revealed normal left-ventricular size and systolic function with EF 55-60%. No obvious regional wall motion abnormalities. Severe left atrial dilation. Moderate aortic with mild mitral and tricuspid regurgitation. * CTA head and neck revealed mild atherosclerotic change at the carotid bifurcations. No significant carotid or vertebral artery stenosis on either side. No large vessel intracranial arterial occlusion, significant stenosis or aneurysmal change. * COLTEN: * 1. Dilated left atrium with normal appearance of the left atrial appendage * 2. Normal in ventricle size and systolic function * 3. Mild to moderate mitral with moderate aortic regurgitation and mild tricuspid regurgitation * 4. 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 Mild atherosclerotic changes of the descending thoracic aorta * 6. No shunting across the interatrial septum * Dr. 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 * Fasting a.m. lipid panel cholesterol 100, LDL 33, HDL 44, triglycerides 110. * Hemoglobin A1c 5.8 * ESR 7, CRP minimally elevated 3.3. * Patient was on Xarelto 20 mg daily for stroke prevention related to atrial fibrillation. Patient was given a loading dose of aspirin 324 mg in the ER then was started aspirin 81 mg daily for stroke prevention related to vascular disease. Review of Systems Constitutional: Reports weight loss, Denies chills, Denies fever Eyes: denies blurred vision, denies diplopia, denies pain Ears: deny: decreased hearing, ear discharge Ears, nose, mouth and throat: Denies headache, Denies sore throat Cardiovascular: Reports shortness of breath, Denies chest pain Respiratory: Denies cough, Denies excessive sputum Gastrointestinal: Reports diarrhea, Reports melena, Denies abdominal pain, Denies nausea, Denies vomiting Genitourinary: Reports incontinence, Reports urinary frequency Musculoskeletal: Reports low back pain, Denies myalgias, Denies neck pain Integumentary: Denies pruritus, Denies rash Neurological: Reports as per HPI Psychiatric: Denies anxiety, Denies depression Endocrine: Reports fatigue, Reports weight change Hematologic/Lymphatic: Reports easy bleeding, Reports easy bruising Past Medical History Past Medical History: Atrial Fibrillation, Cancer, Diabetes Mellitus, Deep Vein Thrombosis (DVT), GERD/Reflux, Hyperlipidemia, Hypertension, Osteoarthritis (OA), Pneumonia, Prostate Disorder, Pulmonary Embolus (PE), Skin Disorder, Sleep Apnea/CPAP/BIPAP Additional Past Medical History / Comment(s): open wound to back-has visiting nurse two times per weeks,prostate ca, rt leg dvt, diverticulitis, psoriases, abd hernia,no cpap History of Any Multi-Drug Resistant Organisms: None Reported Past Surgical History: Back Surgery, Cholecystectomy, Hernia Repair, Joint Replacement, Prostate Surgery, Tonsillectomy Additional Past Surgical History / Comment(s): prostectomy, had ruptured diverticuli -colostomy and then reversed, abd hernia, tanisha cataracts, tubes in ears,total rt hip,[facility] Procedures Past Anesthesia/Blood Transfusion Reactions: No Reported Reaction Past Psychological History: No Psychological Hx Reported Additional Psychological History / Comment(s): uses a walker when up. Smoking Status: Former smoker Past Alcohol Use History: None Reported Additional Past Alcohol Use History / Comment(s): SMOKED X 28 YEARS 1PPD. Past Drug Use History: None Reported - Past Family History Father Family Medical History: Cancer Additional Family Medical History / Comment(s): prostate CA Mother Family Medical History: Deep Vein Thrombosis (DVT), Pulmonary Embolus Additional Family Medical History / Comment(s): PROSTATE CNACER Medications and Allergies Home Medications Medication Instructions Recorded Confirmed Type Atorvastatin Calcium [Lipitor] 40 mg PO HS 02/03/15 01/15/23 History Lansoprazole 30 mg PO DAILY 02/03/15 01/15/23 History Empagliflozin/Metformin HCl 2 tab PO W/BRKFST 06/13/22 01/15/23 History [Synjardy Xr 12.5-1,000 mg Tab] Furosemide [Lasix] 40 mg PO DAILY PRN 06/13/22 01/15/23 History Naloxone HCl [Narcan] 4 mg NASAL ONCE PRN 06/13/22 01/15/23 History Pioglitazone [Actos] 30 mg PO DAILY 06/13/22 01/15/23 History Potassium Chloride ER [K-Dur 20] 20 meq PO DAILY PRN 06/13/22 01/15/23 History Rivaroxaban [Xarelto] 20 mg PO DAILY #90 tab 06/14/22 01/15/23 Rx Cyanocobalamin (Vitamin B-12) 1,000 mcg PO DAILY #1 tablet 06/15/22 01/15/23 Rx [Vitamin B-12] Amitriptyline HCl [Elavil] 25 mg PO HS 01/02/23 01/15/23 History Cholecalciferol [Vitamin D3 (125 125 mcg PO DAILY 01/02/23 01/15/23 History Mcg = 5000 Iu)] Fexofenadine HCl [Nikia Allergy] 180 mg PO DAILY 01/02/23 01/15/23 History Losartan [Cozaar] 12.5 mg PO DAILY 01/02/23 01/15/23 History Pramipexole [Mirapex] 0.5 mg PO BID@1200,1800 01/02/23 01/15/23 History Semaglutide [Ozempic] 1 mg SQ WE 01/02/23 01/15/23 History Aspirin 81 mg PO DAILY tab 01/08/23 01/15/23 Rx Nitroglycerin Sl Tabs [Nitrostat] 0.4 mg SUBLINGUAL Q5M PRN tab 01/08/23 01/15/23 Rx INSULIN LISPRO (HumaLOG) [humaLOG] See Protocol SQ ACHS 01/15/23 01/15/23 History Magnesium Hydroxide [Milk of 7,200 mg PO Q48H PRN 01/15/23 01/15/23 History Magnesia Concentrate] Na Phos,M-B/Na Phos,Di-Ba [Fleet 133 ml RECTAL DAILY PRN 01/15/23 01/15/23 History Adult] bisacodyL [Dulcolax] 10 mg RECTAL DAILY PRN 01/15/23 01/15/23 History HYDROcodone/APAP 10-325MG [[place] 1 tab PO Q6H PRN 3 Days #12 tab 01/17/23 Rx 10-325] Pregabalin [Lyrica] 75 mg PO BID@0800,1700 #6 cap 01/17/23 Rx Allergies Allergy/AdvReac Type Severity Reaction Status Date / Time cephalexin monohydrate Allergy Rash/Hives Verified 01/15/23 11:51 [From Keflex] on neck Penicillins Allergy Rash/Hives Verified 01/15/23 11:51 on neck Physical Examination - Vital Signs Vital Signs: Vital Signs Temp Pulse Resp BP Pulse Ox 01/17/23 15:44 98 F 84 16 111/68 97 01/17/23 11:37 97.7 F 107 H 16 113/57 98 01/17/23 08:00 97.5 F L 94 18 111/65 95 01/17/23 04:00 98.1 F 70 18 102/64 94 L 01/17/23 01:40 75 18 01/17/23 00:00 75 18 94/66 98 01/16/23 20:00 97.9 F 78 18 103/61 97 Intake and Output 01/17/23 01/17/23 01/17/23 06:59 14:59 22:59 Intake Total 240 100 Output Total 200 Balance 240 -100 Intake: IV 100 Oral 240 Output: Urine 200 Other: Voiding Method Urinal Urinal # Voids 2 1 Patient is an elderly male, very pleasant, in no acute distress. Patient is alert awake oriented to time place and person. Patient knows it is 2022, but he has difficulty with remembering the month. He said it was October, but then said was February but knew that the month of February his the next one, but could not come up with January. He knows that he is in [facility] in [facility] in [facility]. He knows name of the current president Mr. Vyas. He has some word hesitancy in speaking. Some paraphasic errors. He was able to name earlobe, but said knee for knuckles. He can repeat very well. He has slight expressive aphasia, but no dysarthria. Attention, concentration is slightly decreased, fund of knowledge also slightly limited. On cranial nerve examination, pupils are equal, round and reacting to light, visual neal are full on confrontation, with no neglect on double simultaneous stimulation. Extraocular muscles are intact with no nystagmus. Face is symmetric, tongue protrudes to the midline. Palatal elevation and sensation normal, hearing and shoulder shrug normal, facial sensation normal. On muscle strength testing, there is left pronator drift and the strength is normal in arms and legs distally and proximally. Deep tendon reflexes are symmetric and trace at the biceps but absent at the brachioradialis, knees and ankles. Plantars are flat. Sensory to touch is equal with no neglect on double simultaneous stimulation. Cerebellar function showed no ataxia for [id number] testing. No dysdiadochokinesia. No ataxia for [id number] testing on either side. Tone and bulk of muscles normal. Gait deferred.. On general examination, there is no carotid bruit or murmur, S1-S2 audible. Chest is clear on consultation. Abdomen is soft nontender. No organomegaly, bowel sounds present. Peripheral pulses are present. Patient has mild peripheral edema. Results - Laboratory Findings CBC and BMP: 01/18/23 07:13 01/17/23 08:55 Abnormal Lab Findings: Abnormal Labs 01/15/23 01/15/23 01/15/23 11:30 11:30 11:30 RBC 3.12 L Hgb 8.6 L D Hct 26.5 L RDW 16.5 H Lymphocytes # 0.7 L Sodium 135 L BUN 22 H POC Glucose (mg/dL) Magnesium Alkaline Phosphatase 220 H Troponin I Total Protein 5.9 L Albumin 3.3 L Urine Glucose (UA) 4+ H 01/15/23 01/15/23 01/15/23 11:30 15:43 18:05 RBC Hgb Hct RDW Lymphocytes # Sodium BUN POC Glucose (mg/dL) Magnesium Alkaline Phosphatase Troponin I 0.046 H* 0.041 H* 0.045 H* Total Protein Albumin Urine Glucose (UA) 01/15/23 01/16/23 01/16/23 20:18 02:06 11:50 RBC 3.01 L 2.87 L Hgb 8.3 L 7.8 L Hct 26.0 L 24.8 L RDW 16.4 H 16.4 H Lymphocytes # Sodium BUN POC Glucose (mg/dL) 143 H Magnesium Alkaline Phosphatase Troponin I Total Protein Albumin Urine Glucose (UA) 01/16/23 01/16/23 01/17/23 16:14 21:51 08:55 RBC 3.12 L Hgb 8.7 L Hct 26.8 L RDW 16.2 H Lymphocytes # Sodium BUN POC Glucose (mg/dL) 121 H 126 H Magnesium Alkaline Phosphatase Troponin I Total Protein Albumin Urine Glucose (UA) 01/17/23 08:55 RBC Hgb Hct RDW Lymphocytes # Sodium 135 L BUN POC Glucose (mg/dL) Magnesium 1.5 L Alkaline Phosphatase Troponin I Total Protein Albumin Urine Glucose (UA) Assessment and Plan Assessment: * Episodes of mental confusion, dizziness, difficulty with expression, unclear etiology. Rule out stroke/TIA versus focal seizure. * Recent history of acute ischemic stroke 01/03/2023, manifesting with expressive aphasia. * Previous history of recurrent amaurosis fugax right eye. Carotid stenosis ruled out. Patient states that he had 2 more episodes of amaurosis fugax in the last 2 weeks since discharge from the hospital. * Atrial fibrillation, on Xarelto * Recent GI bleed, status post endoscopy. * History of DVT * Diabetes * Hypertension * Hyperlipidemia * X tobacco use * Peripheral edema. Plan: * Patient will undergo EEG to rule out any epileptiform activity. * Patient's examination revealed left pronator drift, which was not present on the last visit. He is having recurrent focal neurological symptoms. * Repeat MRI of the brain, evaluate for any new strokes. * Patient had a recent GI bleed. * Patient underwent EGD, which revealed 3 small nonbleeding NGT Shilpa in the proximal gastric body, status post cautery using a cold pool. No evidence of peptic ulcer disease. Gastroenterology recommended resuming Xarelto from today. Patient will be continued on Xarelto * Neurology will follow. Thank you for the consult. Time with Patient: Greater than 30
[2023-01-17 19:40] LABS: Glucose,Whole Blood 187 mg/dL (70-110)
[2023-01-17] MEDS: AMITRIPTYLINE HCL 25 MG TAB PO SCH (20:08)
[2023-01-17] MEDS: ATORVASTATIN 40 MG TAB PO SCH (20:08)
[2023-01-18] MEDS: HYDROcodone/APAP 10-325MG 1 EACH TAB PO PRN ×3 (01:37→22:33)
[2023-01-18 06:05] LABS: Glucose,Whole Blood 112 mg/dL (70-110)
[2023-01-18] MEDS: INSULIN ASPART (NovoLOG) 100 UNIT/ML VIAL SQ SCH ×4 (06:21→19:40)
[2023-01-18] MEDS: DAPAGLIFLOZIN PROPANEDIOL 10 MG TABLET PO SCH (06:24)
[2023-01-18] MEDS: metFORMIN 500 MG TAB PO SCH ×2 (06:24→18:29)
[2023-01-18 09:38] LABS: Anisocytosis Slight; Basophils % (A) 1 %; Eosinophils # (A) 0.6 k/uL (0-0.7); Eosinophils % (A) 8 %; HCT 29.3 % (39.0-53.0); HGB 9.1 gm/dL (13.0-17.5); Hypochromasia Moderate; Lymphocytes # (A) 1.4 k/uL (1.0-4.8); Lymphocytes % (A) 19 %; MCHC 31.2 g/dL (31.0-37.0); MCV 86.7 fL (80.0-100.0); Mean Platelet Volume 8.4; Monocytes # (A) 0.4 k/uL (0-1.0); Monocytes % (A) 5 %; Neutrophils # (A) 4.9 k/uL (1.3-7.7); Neutrophils % (A) 66 %; Platelet Count 232 k/uL (150-450); RBC 3.38 m/uL (4.30-5.90); WBC 7.4 k/uL (3.8-10.6)
[2023-01-18] MEDS: ASPIRIN 81 MG PO SCH (10:48)
[2023-01-18] MEDS: CYANOCOBALAMIN 500 MCG TAB PO SCH (10:48)
[2023-01-18] MEDS: PREGABALIN 75 MG CAP PO SCH ×2 (10:48→18:29)
[2023-01-18] MEDS: CHOLECALCIFEROL 125 MCG (5000 IU) TABLET PO SCH (10:49)
[2023-01-18] MEDS: RIVAROXABAN 20 MG TAB PO SCH (10:49)
[2023-01-18] MEDS: PANTOPRAZOLE 40 MG/10 ML VIAL IV SCH (10:49)
[2023-01-18] MEDS: LORATADINE 10 MG TAB PO SCH (10:49)
[2023-01-18] MEDS: LOSARTAN 25 MG TAB PO SCH (10:49)
--- NOTE | 2023-01-18 10:52 | P.PN ---
Subjective Progress Note Date: 01/18/23 H&P Date: 01/16/23 Chief Complaint: Weakness, dizziness, dark stools This is a 72-year-old gentleman with past medical history significant for atrial flutter/fib on xarelto, CHF, mild aortic stenosis ,type 2 diabetes mellitus, GERD, hyperlipidemia, osteoarthritis, pneumonia, obstructive sleep apnea with home CPAP, diverticulitis, psoriasis, prostate cancer, bilateral legs DVT/pulmonary embolism, back surgery, former nicotine dependence, gait dysfuncti on and multiple other medical issues recently discharged to [facility] subacute rehab on 01 08 23 with diagnosis of acute ischemic stroke with expressive aphasia.On discharge patient's hemoglobin was 12.2. At the subacute rehab patient developed progressive weakness accompanied by dizziness, ongoing ex pressive aphasia, developed black stools after receiving something for constipation. On admission hemoglobin had dropped to 7.8. Platelets 181. Prior colonoscopy was performed a few years ago by Dr. Holbrook-report currently not available. Denies nausea, vomiting. Denies abdominal pain. Denies chest pain, palpitations or shortness of breath. Afebrile, normal WBC, maintaining O2 sats in the high 90s on room air. 01/17/2023 Aspirin and Xarelto remain on hold ,NPO, awaiting EGD. Denies chest pain, palpitations or shortness of breath. Afebrile, normal WBC, hemoglobin 8.7, platelets 200, renal function stable. Blood sugars controlled. Magnesium 1.5, supplementation ordered. 01/18/2023 completed EGD yesterday reporting 3 small nonbleeding angiectasia in the proximal gastric body status post cautery, no evidence of peptic ulcer disease; recommended to resume Xarelto .hemoglobin increased to 9.1, platelets 232. Evaluated by neurology yesterday, further neurology workup ordered incl uding EEG, MRI related to new left pronator drift. Afebrile, normal WBC, magnesium 2. Denies chest pain, palpitations or shortness of breath. Objective - Vital Signs Vital signs: Vital Signs Temp 97.4 F L 01/17/23 20:00 Pulse 83 01/18/23 04:00 Resp 18 01/18/23 04:00 BP 118/78 01/18/23 04:00 Pulse Ox 95 01/18/23 04:00 FiO2 Intake & Output 01/17/23 01/18/23 01/18/23 18:59 06:59 18:59 Intake Total 458 240 118 Output Total 550 100 Balance -92 140 118 Intake: IV 100 Oral 358 240 118 Output: Urine 550 100 Other: Voiding Method Urinal Urinal # Voids 1 # Bowel Movements 1 - Exam GENERAL: Alert and oriented 3, obese, sitting up in chair, no acute distress. Expressive aphasia. HEENT: Atraumatic, normocephalic, Pupils equal, round, and reactive to light,conjunctiva are normal.Tongue midline, MMM. NECK:Supple, no JVD LUNGS:Unlabored, Breath sounds clear to auscultation bilaterally. HEART: S1, S2, regular. Systolic murmur. ABDOMEN: Soft, obese, nontender, nondistended, +BS. No guarding, no rebound. P ositive bowel sounds EXTREMITIES: 2+ peripheral pulses. No edema. NEUROLOGICAL: Cranial nerves II through XII grossly intact. SKIN: Warm, dry, no rashes noted. - Labs CBC & Chem 7: 01/18/23 07:13 01/17/23 08:55 Labs: Abnormal Lab Results - Last 24 Hours (Table) 01/17/23 01/17/23 01/18/23 Range/Units 08:55 19:35 06:02 RBC (4.30-5.90) m/uL Hgb (13.0-17.5) gm/dL Hct (39.0-53.0) % RDW (11.5-15.5) % Sodium 135 L (137-145) mmol/L POC Glucose (mg/dL) 187 H 112 H (70-110) mg/dL Magnesium 1.5 L (1.6-2.3) mg/dL 01/18/23 Range/Units 07:13 RBC 3.38 L (4.30-5.90) m/uL Hgb 9.1 L (13.0-17.5) gm/dL Hct 29.3 L (39.0-53.0) % RDW 16.0 H (11.5-15.5) % Sodium (137-145) mmol/L POC Glucose (mg/dL) (70-110) mg/dL Magnesium (1.6-2.3) mg/dL Assessment and Plan Assessment: Symptomatic blood loss anemia, EGD reported 3 small nonbleeding angiectasia in the proximal gastric body status post cautery, no evidence of peptic ulcer disease. Episodic, recurrent mental confusion, in a patient with recent acute ischemic CVA, etiology unclear, possible seizures possible TIA or new CVA, neurology workup in progress Recent acute ischemic stroke with expressive aphasia 01/02/23, discharged to [facility] subacute rehab on 01/08/2023 COPD, stable Persistent atrial fib,flutter on Xarelto Chronic congestive heart failure with diastolic dysfunction Mild aortic stenosis History of DVTs, PE Diabetes mellitus,II controlled Diabetic neuropathy GERD. Hyperlipidemia. Hypertension. Osteoarthritis. Obstructive Sleep apnea with home CPAP use. History of prostate cancer with prostatectomy. Morbid obesity. BMI 39 Medical debility, gait dysfunction, uses walker. History of back surgery, chronic back pain Chronic urinary incontinence Formal nicotine dependence. Patient smoked a pack a day for more than 28 years. Plan: Continue on current medication regime ,monitoring and symptomatic treatment. Xarelto resumed as per GI. Neurology workup in progress. Maintain Close monitoring of CBC with repeat labs ordered for a.m. Authorization received from [facility]. Discharge planning in progress for tomorrow to [facility] pending results of neurology workup with final DC recommendations and clearance per neurology. The impression and plan of care has been dictated as directed. : I performed a history and examination of this patient, discussed the same with the dictator. I agree with the dictator's note ,documented as a scribe. Any additional findings or plans will be noted.
[2023-01-18 11:28] LABS: Glucose,Whole Blood 117 mg/dL (70-110)
--- NOTE | 2023-01-18 13:32 | P.PN ---
Subjective Progress Note Date: 01/18/23 Principal diagnosis: GI bleed This a pleasant 72-year-old male who was recently hospitalized for CVA in rehab that was brought into the emergency department for concerns of weakness and dizziness. He has a past medical history included atrial fibrillation, CVA, DVT, diabetes mellitus, diverticulitis, prostate cancer, hypertension and hyperlipidemia. He is on Xarelto 10 mg daily and aspirin 81 mg daily. Last taken yesterday. Patient does state that he had black stool 2 prior to coming into the emergency department. States he had been constipated for a few days and he was given something to help him have a bowel movement and he had to dark black bowel movements. Denies any previous history of GI bleed. On this admission he was noted to have anemia with a current hemoglobin of 7.8 with a hemoglobin of 12.2 on his last admission on 01/06/2023. Last colonoscopy was October [address] faith [facility] with findings of 3 polyps status post polypectomy in the ascending and transverse colon. Patient does have some residual speech and thought deficits from recent stroke. He denies any abdominal pain, nausea or vomiting. 01/18/2023 Patient seen and examined today as a follow-up. Yesterday he underwent upper endoscopy that revealed 3 small nonbleeding angiectasia in the proximal gastric body status post cautery using a cold probe. No evidence of peptic ulcer disease. Recommendation was to resume Xarelto and started on a regular diet. Patient states he still had a dark stool today. He is tolerating a regular diet, denies any abdominal pain, nausea or vomiting. Hemoglobin stable at 9.1. Objective - Vital Signs Vital signs: Vital Signs Temp 98.1 F 01/18/23 10:45 Pulse 107 H 01/18/23 10:45 Resp 16 01/18/23 10:45 BP 121/68 01/18/23 10:45 Pulse Ox 96 01/18/23 10:45 FiO2 Intake & Output 01/17/23 01/18/23 01/18/23 18:59 06:59 18:59 Intake Total 458 240 118 Output Total 550 100 Balance -92 140 118 Intake: IV 100 Oral 358 240 118 Output: Urine 550 100 Other: Voiding Method Urinal Urinal Urinal # Voids 1 # Bowel Movements 1 - Exam General appearance: The patient is alert, oriented, appears in no acute distress. HET: Head is normocephalic and atraumatic. Conjunctiva pink. Sclera anicteric. Neck: Supple without lymphadenopathy. Abdomen: Soft, nontender, nondistended with bowel sounds. No guarding or rigidity. Extremities: Normal skin color and turgor. No pedal edema Skin: No rashes, no jaundice Neurological: No focal deficits. Alert and oriented. - Labs CBC & Chem 7: 01/18/23 07:13 01/17/23 08:55 Labs: Abnormal Lab Results - Last 24 Hours (Table) 01/17/23 01/18/23 01/18/23 Range/Units 19:35 06:02 07:13 RBC 3.38 L (4.30-5.90) m/uL Hgb 9.1 L (13.0-17.5) gm/dL Hct 29.3 L (39.0-53.0) % RDW 16.0 H (11.5-15.5) % POC Glucose (mg/dL) 187 H 112 H (70-110) mg/dL 01/18/23 Range/Units 11:27 RBC (4.30-5.90) m/uL Hgb (13.0-17.5) gm/dL Hct (39.0-53.0) % RDW (11.5-15.5) % POC Glucose (mg/dL) 117 H (70-110) mg/dL Assessment and Plan (1) Symptomatic anemia Narrative/Plan: 72-year-old male who was recently admitted to the hospital with a normal hemoglobin of 12.2 presented back with generalized weakness, dizziness and hemoglobin of 8.3 on admission with a drop to 7.8 today. Patient has atrial fibrillation and history of DVT and is currently on anticoagulation which he states he has been on for 8 years. He was constipated had 2 large bowel movements that were black. He does have an elevated BUN consistent with possible upper GI bleed. No previous history of peptic ulcer disease or previous GI bleed. Last colonoscopy October 2019 significant for 3 colon polyps status post polypectomy. Unclear etiology of anemia, have to rule out GI source most likely upper GI source such as gastritis, peptic ulcer disease, esophagitis, AVM or other possible etiologies. Will proceed with holding anticoagulation and upper endoscopy tomorrow. Patient status post EGD with findings of 2 small nonbleeding AVMs status post cautery and argon plasma. Hemoglobin stable. No further endoscopic evaluation recommended at this time. May resume Xarelto. Current Visit: Yes Status: Acute Code(s): D64.9 - ANEMIA, UNSPECIFIED SNOMED Code(s): 993589457 (2) History of CVA (cerebrovascular accident) Current Visit: Yes Status: Acute Code(s): Z86.73 - PRSNL HX OF TIA (TIA), AND CEREB INFRC W/O RESID DEFICITS SNOMED Code(s): 768475217 (3) Atrial fibrillation Current Visit: Yes Status: Acute Code(s): I48.91 - UNSPECIFIED ATRIAL FIBRILLATION SNOMED Code(s): 51179263 (4) Type 2 diabetes mellitus Current Visit: Yes Status: Acute Code(s): E11.9 - TYPE 2 DIABETES MELLITUS WITHOUT COMPLICATIONS SNOMED Code(s): 72647069 (5) Weakness Current Visit: Yes Status: Acute Code(s): R53.1 - WEAKNESS SNOMED Code(s): 78068652 (6) H/O deep venous thrombosis Current Visit: No Status: Acute Code(s): Z86.718 - PERSONAL HISTORY OF OTHER VENOUS THROMBOSIS AND EMBOLISM SNOMED Code(s): 077061139 Plan: 1. Continue symptomatic and supportive care 2. Monitor CBC transfuse for hemoglobin less than 7 3. Protonix 40 mg daily GI prophylaxis 4. May resume anticoagulation 5. Consistent carbohydrate diet 6. Patient status post EGD, no further endoscopic workup at this time Thank you for this consultation, we will sign off at this time. Dr. Jonathan Arevalo I agree with the dictator's note, documented as a scribe by Katya Toledo.
--- NOTE | 2023-01-18 13:55 | CDI ---
Documentation Clarification Form Date: 01/18/2023 01:36:59 PM From: mUu Leach RN, CCDS Admit Date: 01/15/2023 01:48:00 PM Patient Name: Amilcar Mccarty Visit Number: [id number] Discharge Date: ATTENTION: The Clinical Documentation Specialists (CDI) and [facility] Coding Staff appreciate your assistance in clarifying documentation. Please respond to the clarification below the line at the bottom and electronically sign. The CDI & [facility] Coding staff will review the response and follow-up if needed. Please note: Queries are made part of the Legal Health Record. If you have any questions, please contact the author of this message via ITS. Dr. Venu Oshea Symptomatic blood loss anemia is documented in the H/P and subsequent progress notes.. Additional specificity regarding the [type, acuity] of anemia is requested. History/Risk Factors: Atrial Fibrillation, Cancer, Diabetes Mellitus, Deep Vein Thrombosis (DVT), GERD/Reflux, Hyperlipidemia, Hypertension, Osteoarthritis Clinical indicators: 72-year-old male presents for evaluation of increasing weakness. 01/15 VS 120/49 99 18 97.0 01/15 Labs: HGB 8.6 HCT 26.5 Troponin 0.046, Stool Occult Blood-Positive HGB 8.3, HCT 26.0 01/16 Lab: HGB 7.8 HCT 24.8 01/17 Lab: HGB 8.7 HCT 26.8 01/17 EGD: 3 small nonbleeding angiectasia in the proximal gastric body status post cautery using a gold probe. Treatment: CBC Daily Protonix 40 MG IVP Once 01/15 Protonix 40MG IV Daily Hold ASA, Xarelto per orders Please clarify the type and acuity of anemia: [ X ] Acute blood loss anemia [ ] Acute on chronic blood loss anemia [ ] Chronic blood loss anemia [ ] Unable to determine [ ] Other, please specify (Template Last Revised: April 2020) MTDD
[2023-01-18] MEDS: PIOGLITAZONE 30 MG TAB PO SCH (15:40)
[2023-01-18] MEDS: PRAMIPEXOLE 0.5 MG TAB PO SCH ×2 (15:45→18:29)
--- NOTE | 2023-01-18 15:47 | MR ---
EXAMINATION TYPE: MR brain wo con DATE OF EXAM: 01/18/2023 3:25 PM CLINICAL INDICATION:Male, 72 years old with history of Recurrent focal symptoms, rule out TIA; PHH, R ecurrent focal symptoms, rule out TIA COMPARISON: MRI brain 01/04/2023. TECHNIQUE: Multi planar, multi sequence imaging was performed through the brain including: T1, T2, In version recovery, Diffusion weighted imaging, and gradient echo imaging. No gadolinium was given. FINDINGS: Scattered foci of restricted diffusion within the left parietal region. The right frontal l obe demonstrate what is thought to be an area of T2 shine through versus stable focus of stroke. Seri es 303 image 224. Single high DWI signal focus with associated low ADC signal within the right cerebe llum is also present Dunia acute/subacute CVA which is new from prior. Right balbir DWI signal is not visualized on today's exam. The area restricted diffusion within the insular cortex remains present. The no-white junctions, ventricular system, and cisterns appear unremarkable. Scattered foci of hi gh T2 signal intensity are seen within the periventricular white matter. Midline structures show no a bnormality. The susceptibility weighted images do not reveal any evidence for micro-hemorrhage. The bone marrow signal is within normal limits. Paranasal sinuses and mastoid air cells: No significant paranasal sinus disease. Visualized orbits: Bilateral aphakia. IMPRESSION: 1. Redemonstration of scattered acute/subacute CVA throughout the left parietal lobe and insular shoaib ex. A single focus within the right cerebellum may be new from prior also representing acute/subacute CVA. A focus within the right balbir is not visualized on today's exam. 2. Nonspecific white matter changes, likely secondary to small vessel ischemic disease.
[2023-01-18 16:21] LABS: Glucose,Whole Blood 142 mg/dL (70-110)
--- NOTE | 2023-01-18 18:10 | EEG ---
ELECTROENCEPHALOGRAM REPORT PREAMBLE: This is a 72-year-old male with episodes of confusion and leg jerking. Rule out any seizure activity. EEG FINDINGS: This is a 21-channel digital EEG recorded with video component, utilizing 10/20 International System with referential and bipolar montages. The background predominantly consists of mixed frequencies of 2 to 3 Hz delta, mixed with some theta activity in bihemispheric region. Occasionally, there is presence of relatively normal- appearing 8 to 9 Hz alpha activity seen, which is posterior dominant, seen sporadically during this study. Background does not seem to be clearly reactive to eye opening or closing. Photic driving response was not seen. Some sporadic left temporal superimposed focal delta slowing was seen. Different stages of sleep were not clearly seen. No focal or generalized epileptiform activity was seen. EKG channel showed no obvious arrhythmia. IMPRESSION: This is an abnormal EEG due to background slowing of [id number] degree. This is suggestive of generalized cerebral dysfunction as can be seen with toxic metabolic encephalopathy or related to diffuse structural brain abnormality. Clinical correlation is recommended. Additional, occasional superimposed left temporal delta was seen, suggestive of focal cortical neuronal dysfunction. No definitive epileptiform activity was seen. MMODL / IJN: [id number] / [facility]
[2023-01-18 19:22] LABS: Glucose,Whole Blood 139 mg/dL (70-110)
[2023-01-18] MEDS: ATORVASTATIN 40 MG TAB PO SCH (20:55)
[2023-01-18] MEDS: AMITRIPTYLINE HCL 25 MG TAB PO SCH (20:55)
[2023-01-19] MEDS: ACETAMINOPHEN TAB 325 MG TAB PO PRN ×2 (03:34→14:15)
[2023-01-19] MEDS: HYDROcodone/APAP 10-325MG 1 EACH TAB PO PRN ×3 (04:53→22:03)
[2023-01-19 06:05] LABS: Glucose,Whole Blood 124 mg/dL (70-110)
[2023-01-19] MEDS: INSULIN ASPART (NovoLOG) 100 UNIT/ML VIAL SQ SCH ×4 (06:14→19:50)
[2023-01-19] MEDS: metFORMIN 500 MG TAB PO SCH ×2 (06:35→17:27)
[2023-01-19] MEDS: DAPAGLIFLOZIN PROPANEDIOL 10 MG TABLET PO SCH (06:35)
[2023-01-19] MEDS: LOSARTAN 25 MG TAB PO SCH (09:26)
[2023-01-19] MEDS: ASPIRIN 81 MG PO SCH (09:26)
[2023-01-19] MEDS: PANTOPRAZOLE 40 MG/10 ML VIAL IV SCH (09:27)
[2023-01-19] MEDS: CHOLECALCIFEROL 125 MCG (5000 IU) TABLET PO SCH (09:27)
[2023-01-19] MEDS: RIVAROXABAN 20 MG TAB PO SCH (09:27)
[2023-01-19] MEDS: PREGABALIN 75 MG CAP PO SCH ×2 (09:27→17:27)
[2023-01-19] MEDS: CYANOCOBALAMIN 500 MCG TAB PO SCH (09:27)
[2023-01-19] MEDS: LORATADINE 10 MG TAB PO SCH (09:27)
[2023-01-19] MEDS: PIOGLITAZONE 30 MG TAB PO SCH (09:27)
[2023-01-19 11:52] LABS: Glucose,Whole Blood 154 mg/dL (70-110)
--- NOTE | 2023-01-19 12:10 | P.CRDCN ---
History of Present Illness Consult date: 01/19/23 History of present illness: The patient is a 72-year-old male who follows in the office with Dr. Zhou. He is currently admitted for GI bleeding. He underwent upper endoscopy revealing 3 nonbleeding angiectasia in the proximal gastric body, which was cauterized. Neurology was consulted as the patient had had a recent CVA. Repeat MRI shows possible new focus within the right cerebellum. Anticoagulation was recently held for GI bleeding and upper endoscopy. DIAGNOSTICS: EKG shows persistent atrial fibrillation Telemetry reveals rate controlled atrial flutter MRI of the brain shows redemonstration of scattered acute/subacute CVA throughout the left parietal lobe and insular cortex. A single focus within the right cerebellum may be a new finding. Previous right balbir focus was not visualized on current MRI. Nonspecific white matter changes. WBC 7.4, hemoglobin 9.1, hematocrit 29.3, platelet 232 REVIEW OF SYSTEMS: No fever or chills. No cough or expectoration. No diaphoresis. Patient denies headache, dizziness, blurred vision, double vision. Patient denies any stomach discomfort. No nausea, vomiting. No hematochezia. No hematemesis. Denies any black stools or blood in his stools. Denies dysuria or hematuria. No muscle weakness or numbness. Denies chest pain or chest pressure. No difficulty breathing. No dizziness. PHYSICAL EXAMINATION: This is a 72-year-old male in no apparent distress at the time of my examination. HEENT: Head is atraumatic, normocephalic. Pupils are equal, round. Neck is supple. There is no jugular venous distention. No carotid bruit is heard. CHEST EXAMINATION: Lungs are clear to auscultation. No chest wall tenderness is noted on palpation or with deep breathing. HEART EXAMINATION: Heart regular rate and rhythm. S1, S2 heard. Soft systolic murmur. No gallops or rub. ABDOMEN: Soft, nontender. Bowel sounds are heard. No organomegaly noted. EXTREMITIES: 2+ peripheral pulses with no evidence of peripheral edema and no calf tenderness noted. NEUROLOGIC EXAMINATION: Patient is awake, alert and oriented x3. FINAL ASSESSMENT AND PLAN: Recent left parietal CVA Possible right cerebellar CVA Anticoagulation recently held for GI bleeding Gastric ulcers, status post cautery Persistent atrial flutter Chronic congestive heart failure Hypertension Diabetes Hyperlipidemia PLAN: Resume anticoagulation Outpatient follow-up with primary power mule operator to discuss long-term anticoagulation strategy Thank you kindly for this consultation I am dictating on behalf of Dr Getachew Zhou's history/physical and asse ssment/plan. Past Medical History Past Medical History: Atrial Fibrillation, Cancer, Diabetes Mellitus, Deep Vein Thrombosis (DVT), GERD/Reflux, Hyperlipidemia, Hypertension, Osteoarthritis (OA), Pneumonia, Prostate Disorder, Pulmonary Embolus (PE), Skin Disorder, Sleep Apnea/CPAP/BIPAP Additional Past Medical History / Comment(s): open wound to back-has visiting nurse two times per weeks,prostate ca, rt leg dvt, diverticulitis, psoriases, abd hernia,no cpap History of Any Multi-Drug Resistant Organisms: None Reported Past Surgical History: Back Surgery, Cholecystectomy, Hernia Repair, Joint Replacement, Prostate Surgery, Tonsillectomy Additional Past Surgical History / Comment(s): prostectomy, had ruptured diverticuli -colostomy and then reversed, abd hernia, tanisha cataracts, tubes in ears,total rt hip,[facility] Procedures Past Anesthesia/Blood Transfusion Reactions: No Reported Reaction Past Psychological History: No Psychological Hx Reported Additional Psychological History / Comment(s): uses a walker when up. Smoking Status: Former smoker Past Alcohol Use History: None Reported Additional Past Alcohol Use History / Comment(s): SMOKED X 28 YEARS 1PPD. Past Drug Use History: None Reported - Past Family History Father Family Medical History: Cancer Additional Family Medical History / Comment(s): prostate CA Mother Family Medical History: Deep Vein Thrombosis (DVT), Pulmonary Embolus Additional Family Medical History / Comment(s): PROSTATE CNACER Medications and Allergies Home Medications Medication Instructions Recorded Confirmed Type Atorvastatin Calcium [Lipitor] 40 mg PO HS 02/03/15 01/15/23 History Lansoprazole 30 mg PO DAILY 02/03/15 01/15/23 History Empagliflozin/Metformin HCl 2 tab PO W/BRKFST 06/13/22 01/15/23 History [Synjardy Xr 12.5-1,000 mg Tab] Furosemide [Lasix] 40 mg PO DAILY PRN 06/13/22 01/15/23 History Naloxone HCl [Narcan] 4 mg NASAL ONCE PRN 06/13/22 01/15/23 History Pioglitazone [Actos] 30 mg PO DAILY 06/13/22 01/15/23 History Potassium Chloride ER [K-Dur 20] 20 meq PO DAILY PRN 06/13/22 01/15/23 History Rivaroxaban [Xarelto] 20 mg PO DAILY #90 tab 06/14/22 01/15/23 Rx Cyanocobalamin (Vitamin B-12) 1,000 mcg PO DAILY #1 tablet 06/15/22 01/15/23 Rx [Vitamin B-12] Amitriptyline HCl [Elavil] 25 mg PO HS 01/02/23 01/15/23 History Cholecalciferol [Vitamin D3 (125 125 mcg PO DAILY 01/02/23 01/15/23 History Mcg = 5000 Iu)] Fexofenadine HCl [Nikia Allergy] 180 mg PO DAILY 01/02/23 01/15/23 History Losartan [Cozaar] 12.5 mg PO DAILY 01/02/23 01/15/23 History Pramipexole [Mirapex] 0.5 mg PO BID@1200,1800 01/02/23 01/15/23 History Semaglutide [Ozempic] 1 mg SQ WE 01/02/23 01/15/23 History Aspirin 81 mg PO DAILY tab 01/08/23 01/15/23 Rx Nitroglycerin Sl Tabs [Nitrostat] 0.4 mg SUBLINGUAL Q5M PRN tab 01/08/23 01/15/23 Rx INSULIN LISPRO (HumaLOG) [humaLOG] See Protocol SQ ACHS 01/15/23 01/15/23 History Magnesium Hydroxide [Milk of 7,200 mg PO Q48H PRN 01/15/23 01/15/23 History Magnesia Concentrate] Na Phos,M-B/Na Phos,Di-Ba [Fleet 133 ml RECTAL DAILY PRN 01/15/23 01/15/23 History Adult] bisacodyL [Dulcolax] 10 mg RECTAL DAILY PRN 01/15/23 01/15/23 History HYDROcodone/APAP 10-325MG [[place] 1 tab PO Q6H PRN 3 Days #12 tab 01/17/23 Rx 10-325] Pregabalin [Lyrica] 75 mg PO BID@0800,1700 #6 cap 01/17/23 Rx Allergies Allergy/AdvReac Type Severity Reaction Status Date / Time cephalexin monohydrate Allergy Rash/Hives Verified 01/15/23 11:51 [From Keflex] on neck Penicillins Allergy Rash/Hives Verified 01/15/23 11:51 on neck Physical Exam Vitals: Vital Signs Temp Pulse Pulse Resp BP Pulse Ox 01/19/23 08:00 97.6 F 87 16 105/62 98 01/19/23 03:34 98.0 F 88 16 128/61 93 L 01/19/23 02:00 86 01/18/23 23:31 86 16 102/59 94 L 01/18/23 20:50 97.9 F 82 16 105/58 95 01/18/23 20:00 70 01/18/23 15:50 68 16 110/65 99 01/18/23 13:50 98.3 F 107 H 18 119/72 99 Intake and Output 01/18/23 01/19/23 01/19/23 22:59 06:59 14:59 Intake Total 240 120 Output Total 475 250 Balance -235 -250 120 Intake: Oral 240 120 Output: Urine 475 250 Other: Voiding Method Urinal Urinal Urinal # Bowel Movements 1 Results 01/18/23 07:13 01/17/23 08:55 Current Medications Generic Name Dose Route Start Last Admin Trade Name Freq PRN Reason Stop Dose Admin Acetaminophen 650 mg 01/15/23 14:06 01/19/23 03:34 Acetaminophen Tab 325 Mg Tab PO 650 mg Q6HR PRN Administration Mild Pain or Fever > 100.5 Hydrocodone Bitart/Acetaminophen 1 each 01/15/23 14:10 01/19/23 04:53 Hydrocodone/Apap 10-325mg 1 Each Tab PO 1 each Q6H PRN Administration Pain Amitriptyline HCl 25 mg 01/15/23 21:00 01/18/23 20:55 Amitriptyline Hcl 25 Mg Tab PO 25 mg HS LORA Administration Aspirin 81 mg 01/18/23 09:00 01/19/23 09:26 Aspirin 81 Mg PO 81 mg DAILY LORA Administration Atorvastatin Calcium 40 mg 01/15/23 21:00 01/18/23 20:55 Atorvastatin 40 Mg Tab PO 40 mg HS LORA Administration Bisacodyl 10 mg 01/15/23 14:10 Bisacodyl 10 Mg Supp RECTAL DAILY PRN Constipation Cholecalciferol 125 mcg 01/16/23 09:00 01/19/23 09:27 Cholecalciferol 125 Mcg (5000 Iu) Tablet PO 125 mcg DAILY LORA Administration Cyanocobalamin 1,000 mcg 01/16/23 09:00 01/19/23 09:27 Cyanocobalamin 500 Mcg Tab PO 1,000 mcg DAILY LORA Administration Dapagliflozin 10 mg 01/16/23 07:30 01/19/23 06:35 Dapagliflozin Propanediol 10 Mg Tablet PO 10 mg W/BRKFST LORA Administration Furosemide 40 mg 01/15/23 14:10 Furosemide 40 Mg Tab PO DAILY PRN Edema Insulin Aspart 0 unit 01/15/23 17:30 01/19/23 06:14 Insulin Aspart (Novolog) 100 Unit/Ml Vial SQ Not Given ACHS [facility] Protocol Loratadine 10 mg 01/16/23 09:00 01/19/23 09:27 Loratadine 10 Mg Tab PO 10 mg DAILY LORA Administration Losartan Potassium 12.5 mg 01/16/23 09:00 01/19/23 09:26 Losartan 25 Mg Tab PO 12.5 mg DAILY LORA Administration Magnesium Hydroxide 2,400 mg 01/15/23 14:10 Magnesium Hydroxide 2,400 Mg/30 Ml Cup PO Q48H PRN Constipation Metformin HCl 1,000 mg 01/16/23 07:30 01/19/23 06:35 Metformin 500 Mg Tab PO 1,000 mg BID-W/MEALS LORA Administration Miscellaneous Information 1 each 01/17/23 12:31 Magnesium Replacement Protocol 1 Each Misc MISCELLANE DAILY PRN Per Protocol Protocol Naloxone HCl 0.2 mg 01/15/23 14:06 Naloxone 0.4 Mg/Ml 1 Ml Vial IV Q2M PRN Opioid Reversal Nitroglycerin 0.4 mg 01/15/23 14:10 Nitroglycerin Sl Tabs 0.4 Mg Tab SUBLINGUAL Q5M PRN Chest Pain Non-Formulary Medication 1 mg 01/16/23 09:00 01/16/23 08:16 Semaglutide [Ozempic] SQ Not Given WE [facility] Pantoprazole Sodium 40 mg 01/16/23 09:00 01/19/23 09:27 Pantoprazole 40 Mg/10 Ml Vial IV 40 mg DAILY LORA Administration Pioglitazone HCl 30 mg 01/16/23 09:00 01/19/23 09:27 Pioglitazone 30 Mg Tab PO 30 mg DAILY LORA Administration Potassium Chloride 20 meq 01/15/23 14:10 Potassium Chloride Er 20 Meq Tab.Er PO DAILY PRN with lasix Pramipexole Dihydrochloride 0.5 mg 01/15/23 18:00 01/18/23 18:29 Pramipexole 0.5 Mg Tab PO 0.5 mg BID@1200,1800 LORA Administration Pregabalin 75 mg 01/15/23 17:00 01/19/23 09:27 Pregabalin 75 Mg Cap PO 75 mg BID@0800,1700 LORA Administration Rivaroxaban 20 mg 01/18/23 09:00 01/19/23 09:27 Rivaroxaban 20 Mg Tab PO 20 mg DAILY LORA Administration Protocol Sodium Biphosphate/Sodium Phosphate 133 ml 01/15/23 14:10 Na Phos,M-B/Na Phos,Di-Ba 133 Ml Enema RECTAL DAILY PRN Constipation Intake and Output 01/18/23 01/19/23 01/19/23 22:59 06:59 14:59 Intake Total 240 120 Output Total 475 250 Balance -235 -250 120 Intake: Oral 240 120 Output: Urine 475 250 Other: Voiding Method Urinal Urinal Urinal # Bowel Movements 1 01/18/23 07:13 01/17/23 08:55
[2023-01-19] MEDS: PRAMIPEXOLE 0.5 MG TAB PO SCH ×2 (12:28→17:27)
--- NOTE | 2023-01-19 13:35 | P.PN ---
Subjective Phuong 72-year-old white male well-known to me. He was recently here for new onset CVA and then sent to [facility] for rehabilitation. He'll recurrent symptoms along with black stools and was readmitted. He's found to have GI bleed that was cauterized. It appears on MRI he has a new infarct in the right cerebellum. There is redemonstration of the scattered units of acute infarcts and left parietal lobe. Warning Bill has no labs pending. He remained stable. He complains of intermittent trouble speaking. He denies any chest pains pressures or shortness of breath. He had a little upset stomach earlier since resolved. No nausea v omiting diarrhea or constipation. Cardiology consult was reviewed. Objective - Vital Signs Vital signs: Vital Signs Temp 97.6 F 01/19/23 08:00 Pulse 87 01/19/23 08:00 Resp 16 01/19/23 08:00 BP 105/62 01/19/23 08:00 Pulse Ox 98 01/19/23 08:00 FiO2 Intake & Output 01/18/23 01/19/23 01/19/23 18:59 06:59 18:59 Intake Total 598 240 Output Total 900 275 Balance -302 -275 240 Intake: Oral 598 240 Output: Urine 900 275 Other: Voiding Method Urinal Urinal Urinal # Bowel Movements 1 - Exam GENERAL: Alert and oriented 3, obese, sitting up in chair, no acute distress. Expressive aphasia cleared at this time. NECK:Supple, no JVD LUNGS:Unlabored, Breath sounds clear to auscultation bilaterally. HEART: S1, S2, regular. Systolic murmur. ABDOMEN: Soft, obese, nontender, nondistended, +BS. No guarding, no rebound. Positive bowel sounds EXTREMITIES: 2+ peripheral pulses. No edema. NEUROLOGICAL: Cranial nerves II through XII grossly intact. SKIN: Warm, dry, no rashes noted. - Labs CBC & Chem 7: 01/18/23 07:13 01/17/23 08:55 Labs: Abnormal Lab Results - Last 24 Hours (Table) 01/18/23 01/18/23 01/19/23 Range/Units 16:19 19:20 06:03 POC Glucose (mg/dL) 142 H 139 H 124 H (70-110) mg/dL 11/18/23 Range/Units 11:37 POC Glucose (mg/dL) 154 H (70-110) mg/dL Assessment and Plan (1) Dysarthria Current Visit: Yes Status: Acute Code(s): R47.1 - DYSARTHRIA AND ANARTHRIA SNOMED Code(s): 0907933 (2) Atrial fibrillation Current Visit: Yes Status: Acute Code(s): I48.91 - UNSPECIFIED ATRIAL FIBRILLATION SNOMED Code(s): 50665540 (3) GI bleed Current Visit: Yes Status: Acute Code(s): K92.2 - GASTROINTESTINAL HEMORRHAGE, UNSPECIFIED SNOMED Code(s): 40901589 (4) History of CVA (cerebrovascular accident) Current Visit: Yes Status: Acute Code(s): Z86.73 - PRSNL HX OF TIA (TIA), AND CEREB INFRC W/O RESID DEFICITS SNOMED Code(s): 864859144 (5) Symptomatic anemia Current Visit: Yes Status: Acute Code(s): D64.9 - ANEMIA, UNSPECIFIED SNOMED Code(s): 863131860 (6) Type 2 diabetes mellitus Current Visit: Yes Status: Acute Code(s): E11.9 - TYPE 2 DIABETES MELLITUS WITHOUT COMPLICATIONS SNOMED Code(s): 17736450 (7) Aortic stenosis Current Visit: No Status: Acute Code(s): I35.0 - NONRHEUMATIC AORTIC (VALVE) STENOSIS SNOMED Code(s): 59861241 (8) Atrial flutter Current Visit: No Status: Acute Code(s): I48.92 - UNSPECIFIED ATRIAL FLUTTER SNOMED Code(s): 3712043 (9) CVA (cerebral vascular accident) Current Visit: No Status: Acute Code(s): I63.9 - CEREBRAL INFARCTION, UNSPECIFIED SNOMED Code(s): 679653547 (10) Chronic diastolic CHF (congestive heart failure) Current Visit: No Status: Acute Code(s): I50.32 - CHRONIC DIASTOLIC (CONGESTIVE) HEART FAILURE SNOMED Code(s): 116450187 (11) H/O deep venous thrombosis Current Visit: No Status: Acute Code(s): Z86.718 - PERSONAL HISTORY OF OTHER VENOUS THROMBOSIS AND EMBOLISM SNOMED Code(s): 107840837 (12) Hx of pulmonary embolus Current Visit: No Status: Acute Code(s): Z86.711 - PERSONAL HISTORY OF PU LMONARY EMBOLISM SNOMED Code(s): 467165242 (13) Mixed hyperlipidemia Current Visit: No Status: Acute Code(s): E78.2 - MIXED HYPERLIPIDEMIA SNOMED Code(s): 680274705 (14) Morbid obesity Current Visit: No Status: Acute Code(s): E66.01 - MORBID (SEVERE) OBESITY DUE TO EXCESS CALORIES SNOMED Code(s): 285535594 (15) KIRSTIN on CPAP Current Visit: No Status: Acute Code(s): G47.33 - OBSTRUCTIVE SLEEP APNEA (ADULT) (PEDIATRIC) SNOMED Code(s): 38185083 (16) Acute CVA (cerebrovascular accident) Current Visit: Yes Status: Acute Code(s): I63.9 - CEREBRAL INFARCTION, UNSPECIFIED SNOMED Code(s): 152692755 Plan: Currently his GI bleeding is under control. Cardiology cleared him. Based on the new findings on MRI, we'll await further recommendations from neurology. I'll hold off on his discharge at this time. We'll repeat labs in a.m. To continue physical therapy. Expect discharge Saturday
[2023-01-19 16:19] LABS: Glucose,Whole Blood 140 mg/dL (70-110)
[2023-01-19 19:48] LABS: Glucose,Whole Blood 128 mg/dL (70-110)
[2023-01-19] MEDS: ATORVASTATIN 40 MG TAB PO SCH (19:57)
[2023-01-19] MEDS: AMITRIPTYLINE HCL 25 MG TAB PO SCH (19:57)
[2023-01-20] MEDS: HYDROcodone/APAP 10-325MG 1 EACH TAB PO PRN ×3 (05:22→21:41)
[2023-01-20 05:53] LABS: Glucose,Whole Blood 104 mg/dL (70-110)
[2023-01-20] MEDS: INSULIN ASPART (NovoLOG) 100 UNIT/ML VIAL SQ SCH ×4 (06:04→20:45)
[2023-01-20] MEDS: DAPAGLIFLOZIN PROPANEDIOL 10 MG TABLET PO SCH (06:46)
[2023-01-20] MEDS: metFORMIN 500 MG TAB PO SCH ×2 (06:46→17:31)
--- NOTE | 2023-01-20 09:21 | P.PN ---
Subjective Progress Note Date: 01/18/23 Patient was seen for a follow-up. Patient is laying comfortably in the bed. No new focal symptoms. Objective - Vital Signs Vital signs: Vital Signs Temp 98.3 F 01/18/23 13:50 Pulse 68 01/18/23 15:50 Resp 16 01/18/23 15:50 BP 110/65 01/18/23 15:50 Pulse Ox 99 01/18/23 15:50 FiO2 Intake & Output 01/18/23 01/18/23 01/19/23 06:59 18:59 06:59 Intake Total 240 598 Output Total 100 900 25 Balance 140 -302 -25 Intake: Oral 240 598 Output: Urine 100 900 25 Other: Voiding Method Urinal Urinal # Bowel Movements 1 - Exam Essentially unchanged. - Labs CBC & Chem 7: 01/18/23 07:13 01/17/23 08:55 Labs: Abnormal Lab Results - Last 24 Hours (Table) 01/18/23 01/18/23 01/18/23 Range/Units 06:02 07:13 11:27 RBC 3.38 L (4.30-5.90) m/uL Hgb 9.1 L (13.0-17.5) gm/dL Hct 29.3 L (39.0-53.0) % RDW 16.0 H (11.5-15.5) % POC Glucose (mg/dL) 112 H 117 H (70-110) mg/dL 01/18/23 01/18/23 Range/Units 16:19 19:20 RBC (4.30-5.90) m/uL Hgb (13.0-17.5) gm/dL Hct (39.0-53.0) % RDW (11.5-15.5) % POC Glucose (mg/dL) 142 H 139 H (70-110) mg/dL Assessment and Plan Assessment: * Acute ischemic stroke (multifocal) throughout the left parietal lobe and insular cortex, and a single focus within the right cerebellum. * Recent history of acute ischemic stroke 01/03/2023, manifesting with expressive aphasia. * Previous history of recurrent amaurosis fugax right eye. Carotid stenosis ruled out. Patient states that he had 2 more episodes of amaurosis fugax in the last 2 weeks since discharge from the hospital. * Atrial fibrillation, on Xarelto * Recent GI bleed, status post endoscopy. * History of DVT * Diabetes * Hypertension * Hyperlipidemia * X tobacco use * Peripheral edema. Plan: * MRI of the brain revealed redemonstration of scattered acute/subacute CVA throughout the left parietal lobe and insular cortex. A single focus within the right cerebellum may be new from prior also representing acute/subacute CVA. A focus within the right balbir is not visualized on the current exam. Nonspecific white matter change. I personally reviewed MRI, agree with the findings. * EEG was abnormal due to background slowing of mild to moderate degree, suggestive of encephalopathy. Also there is superimposed focal slowing left temporal region, suggesting underlying focal cortical neuronal dysfunction. No obvious epileptiform activity was seen. * Patient has recurrent strokes while being on Xarelto. We will consult cardiology. Discussed with primary team. * Patient had a recent GI bleed. * Patient underwent EGD, which revealed 3 small nonbleeding NGT Shilpa in the proximal gastric body, status post cautery using a cold pool. No evidence of peptic ulcer disease. Gastroenterology recommended resuming Xarelto from today. Patient will be continued on Xarelto.
--- NOTE | 2023-01-20 09:25 | P.PN ---
Subjective Progress Note Date: 01/19/23 Patient was seen for a follow-up. Patient is laying comfortably in the bed. No new focal symptoms. Patient continues to have expressive aphasia. Patient concerned about recurrent strokes. He is concerned, he may have a big stroke, and this concerns her genuine. Objective - Vital Signs Vital signs: Vital Signs Temp 97.6 F 01/19/23 08:00 Pulse 90 01/19/23 14:00 Resp 16 01/19/23 14:00 BP 109/48 01/19/23 14:00 Pulse Ox 98 01/19/23 12:00 FiO2 Intake & Output 01/18/23 01/19/23 01/19/23 18:59 06:59 18:59 Intake Total 598 240 Output Total 900 275 Balance -302 -275 240 Intake: Oral 598 240 Output: Urine 900 275 Other: Voiding Method Urinal Urinal Urinal # Voids 1 # Bowel Movements 1 - Exam Patient is alert and awake in no distress. He has mild to moderate expressive aphasia. Word finding problem, thought block. Face is symmetric. Visual neal are full and tongue protrudes the midline. Extraocular muscles are intact. On muscle strength testing, there is left pronation, with mild drift. The strength is normal in arms and legs. Sensory touch is equal. No ataxia for [id number] testing. - Labs CBC & Chem 7: 01/18/23 07:13 01/17/23 08:55 Labs: Abnormal Lab Results - Last 24 Hours (Table) 01/18/23 01/19/23 01/19/23 Range/Units 19:20 06:03 11:37 POC Glucose (mg/dL) 139 H 124 H 154 H (70-110) mg/dL 01/19/23 Range/Units 16:12 POC Glucose (mg/dL) 140 H (70-110) mg/dL Assessment and Plan Assessment: * Acute ischemic stroke (multifocal) throughout the left parietal lobe and insular cortex, and a single focus within the right cerebellum. * Recent history of acute ischemic stroke 01/03/2023, manifesting with expressive aphasia. * Previous history of recurrent amaurosis fugax right eye. Carotid stenosis ruled out. Patient states that he had 2 more episodes of amaurosis fugax in the last 2 weeks since discharge from the hospital. * Atrial fibrillation, on Xarelto * Recent GI bleed, status post endoscopy. * History of DVT * Diabetes * Hypertension * Hyperlipidemia * X tobacco use * Peripheral edema. Plan: * Patient is experiencing recurrent ischemic strokes/TIA while being on Xarelto. It appears patient has failed Xarelto. Suggest switching to another medication like Eliquis. Will discuss with cardiology/PCP. * MRI of the brain revealed redemonstration of scattered acute/subacute CVA throughout the left parietal lobe and insular cortex. A single focus within the right cerebellum may be new from prior also representing acute/subacute CVA. A focus within the right balbir is not visualized on the current exam. Nonspecific white matter change. I personally reviewed MRI, agree with the findings. * EEG was abnormal due to background slowing of mild to moderate degree, suggestive of encephalopathy. Also there is superimposed focal slowing left temporal region, suggesting underlying focal cortical neuronal dysfunction. No obvious epileptiform activity was seen. * Patient has recurrent strokes while being on Xarelto. We will consult cardiology. Discussed with primary team. * Patient had a recent GI bleed. * Patient underwent EGD, which revealed 3 small nonbleeding NGT Shilpa in the proximal gastric body, status post cautery using a cold pool. No evidence of peptic ulcer disease. Gastroenterology recommended resuming Xarelto from today. Patient will be continued on Xarelto. * Neurologically clear, if cleared by cardiology.
[2023-01-20] MEDS: ASPIRIN 81 MG PO SCH (09:38)
[2023-01-20] MEDS: LORATADINE 10 MG TAB PO SCH (09:38)
[2023-01-20] MEDS: RIVAROXABAN 20 MG TAB PO SCH (09:38)
[2023-01-20] MEDS: PIOGLITAZONE 30 MG TAB PO SCH (09:38)
[2023-01-20] MEDS: LOSARTAN 25 MG TAB PO SCH (09:39)
[2023-01-20] MEDS: PREGABALIN 75 MG CAP PO SCH ×2 (09:39→17:31)
[2023-01-20] MEDS: PANTOPRAZOLE 40 MG/10 ML VIAL IV SCH (09:39)
[2023-01-20] MEDS: CHOLECALCIFEROL 125 MCG (5000 IU) TABLET PO SCH (09:39)
[2023-01-20] MEDS: ACETAMINOPHEN TAB 325 MG TAB PO PRN (09:40)
[2023-01-20] MEDS: CYANOCOBALAMIN 500 MCG TAB PO SCH (09:43)
[2023-01-20 09:54] LABS: Basophils % (A) 0 %; Eosinophils # (A) 0.6 k/uL (0-0.7); Eosinophils % (A) 9 %; HCT 27.3 % (39.0-53.0); HGB 8.4 gm/dL (13.0-17.5); Hypochromasia Marked; Lymphocytes # (A) 0.9 k/uL (1.0-4.8); Lymphocytes % (A) 14 %; MCH 26.8 pg (25.0-35.0); MCV 86.3 fL (80.0-100.0); Mean Platelet Volume 7.2; Monocytes # (A) 0.4 k/uL (0-1.0); Monocytes % (A) 6 %; Neutrophils # (A) 4.4 k/uL (1.3-7.7); Neutrophils % (A) 69 %; Platelet Count 198 k/uL (150-450); Poikilocytosis Slight; RBC 3.16 m/uL (4.30-5.90); RDW 15.8 % (11.5-15.5); WBC 6.4 k/uL (3.8-10.6)
[2023-01-20 10:12] LABS: African American GFR (CKD) >90 (>60 ml/min/1.73 sqM); Anion Gap 13 mmol/L; Blood Urea Nitrogen 14 mg/dL (9-20); Calcium 9.3 mg/dL (8.4-10.2); Carbon Dioxide 23 mmol/L (22-30); Chloride 98 mmol/L (98-107); Glucose 99 mg/dL (74-99); Magnesium 1.6 mg/dL (1.6-2.3); Non-African American GFR(CKD) >90 (>60 ml/min/1.73 sqM); Potassium 3.9 mmol/L (3.5-5.1); Sodium 134 mmol/L (137-145)
[2023-01-20 11:49] LABS: Glucose,Whole Blood 102 mg/dL (70-110)
--- NOTE | 2023-01-20 12:53 | P.PN ---
Eleanor Fitzgerald is a 72-year-old white male well-known to me. He was recently here for new onset CVA and then sent to [facility] for rehabilitation. He'll recurrent symptoms along with black stools and was readmitted. He's found to have GI bleed that was cauterized. It appears on MRI he has a new infarct in the right cerebellum. There is redemonstration of the scattered units of acute infarcts and left parietal lobe. Bill has no labs pending. He remained stable. He complains of intermittent trouble speaking. He denies any chest pains pressures or shortness of breath. He had a little upset stomach earlier since resolved. No nausea vomiting diarrhea or constipation. Cardiology consult was reviewed. 01/20/2023: Patient is reevaluated today. He reports loss of vision in the right eye consistent with recurrent amaurosis fugax. He has known recurrent onset CVA. Neurology had seen him recommended changing his Xarelto. He's been placed currently on Elequis Re: Joseph Seevers Xarelto this morning. He remains on aspirin daily. He denies any chest pains pressures or shortness of breath. No nausea vomiting. Does report some confusion at 2 AM upon waking up he called his previous residency. We discussed this at this most likely is related to not sleeping and a [facility]. Staff reports significant bowel movement in the past several days. Objective - Vital Signs Vital signs: Vital Signs Temp 97.9 F 01/20/23 08:00 Pulse 91 01/20/23 08:00 Resp 16 01/20/23 08:00 BP 97/55 01/20/23 08:00 Pulse Ox 98 01/20/23 08:00 FiO2 Intake & Output 01/19/23 01/20/23 01/20/23 18:59 06:59 18:59 Intake Total 240 360 Output Total 925 100 Balance 240 -925 260 Intake: Oral 240 360 Output: Urine 925 100 Other: Voiding Method Urinal Urinal Urinal # Voids 1 2 - Exam GENERAL: Alert and oriented 3, obese, sitting up in chair, no acute distress. Expressive aphasia cleared at this time. NECK:Supple, no JVD LUNGS:Unlabored, Breath sounds clear to auscultation bilaterally. HEART: S1, S2, regular. Systolic murmur. ABDOMEN: Soft, obese, nontender, nondistended, +BS. No guarding, no rebound. Positive bowel sounds EXTREMITIES: 2+ peripheral pulses. No edema. NEUROLOGICAL: Cranial nerves II through XII grossly intact. SKIN: Warm, dry, no rashes noted. - Labs CBC & Chem 7: 01/20/23 09:23 01/20/23 09:23 Labs: Abnormal Lab Results - Last 24 Hours (Table) 01/19/23 01/19/23 01/20/23 Range/Units 16:12 19:47 09:23 RBC 3.16 L (4.30-5.90) m/uL Hgb 8.4 L (13.0-17.5) gm/dL Hct 27.3 L (39.0-53.0) % RDW 15.8 H (11.5-15.5) % Lymphocytes # 0.9 L (1.0-4.8) k/uL Sodium (137-145) mmol/L POC Glucose (mg/dL) 140 H 128 H (70-110) mg/dL 01/20/23 Range/Units 09:23 RBC (4.30-5.90) m/uL Hgb (13.0-17.5) gm/dL Hct (39.0-53.0) % RDW (11.5-15.5) % Lymphocytes # (1.0-4.8) k/uL Sodium 134 L (137-145) mmol/L POC Glucose (mg/dL) (70-110) mg/dL Assessment and Plan (1) Dysarthria Current Visit: Yes Status: Acute Code(s): R47.1 - DYSARTHRIA AND ANARTHRIA SNOMED Code(s): 0358294 (2) Atrial fibrillation Current Visit: Yes Status: Acute Code(s): I48.91 - UNSPECIFIED ATRIAL FIBRILLATION SNOMED Code(s): 82732165 (3) GI bleed Current Visit: Yes Status: Acute Code(s): K92.2 - GASTROINTESTINAL HEMORRHAGE, UNSPECIFIED SNOMED Code(s): 70756844 (4) History of CVA (cerebrovascular accident) Current Visit: Yes Status: Acute Code(s): Z86.73 - PRSNL HX OF TIA (TIA), AND CEREB INFRC W/O RESID DEFICITS SNOMED Code(s): 996385592 (5) Symptomatic anemia Current Visit: Yes Status: Acute Code(s): D64.9 - ANEMIA, UNSPECIFIED SNOMED Code(s): 067009309 (6) Type 2 diabetes mellitus Current Visit: Yes Status: Acute Code(s): E11.9 - TYPE 2 DIABETES MELLITUS WITHOUT COMPLICATIONS SNOMED Code(s): 08930000 (7) Aortic stenosis Current Visit: No Status: Acute Code(s): I35.0 - NONRHEUMATIC AORTIC (VALVE) STENOSIS SNOMED Code(s): 64137143 (8) Atrial flutter Current Visit: No Status: Acute Code(s): I48.92 - UNSPECIFIED ATRIAL FLUTTER SNOMED Code(s): 5398019 (9) CVA (cerebral vascular accident) Current Visit: No Status: Acute Code(s): I63.9 - CEREBRAL INFARCTION, UNSPECIFIED SNOMED Code(s): 347446772 (10) Chronic diastolic CHF (congestive heart failure) Current Visit: No Status: Acute Code(s): I50.32 - CHRONIC DIASTOLIC (CONGESTIVE) HEART FAILURE SNOMED Code(s): 922904817 (11) H/O deep venous thrombosis Current Visit: No Status: Acute Code(s): Z86.718 - PERSONAL HISTORY OF OTHER VENOUS THROMBOSIS AND EMBOLISM SNOMED Code(s): 990526267 (12) Hx of pulmonary embolus Current Visit: No Status: Acute Code(s): Z86.711 - PERSONAL HISTORY OF PULMONARY EMBOLISM SNOMED Code(s): 670524441 (13) Mixed hyperlipidemia Current Visit: No Status: Acute Code(s): E78.2 - MIXED HYPERLIPIDEMIA SNOMED Code(s): 135190461 (14) Morbid obesity Current Visit: No Status: Acute Code(s): E66.01 - MORBID (SEVERE) OBESITY DUE TO EXCESS CALORIES SNOMED Code(s): 507692524 (15) KIRSTIN on CPAP Current Visit: No Status: Acute Code(s): G47.33 - OBSTRUCTIVE SLEEP APNEA (ADULT) (PEDIATRIC) SNOMED Code(s): 56055362 (16) Acute CVA (cerebrovascular accident) Current Visit: Yes Status: Acute Code(s): I63.9 - CEREBRAL INFARCTION, UNSPECIFIED SNOMED Code(s): 141461773 (17) Amaurosis fugax of right eye Current Visit: Yes Status: Acute Code(s): G45.3 - AMAUROSIS FUGAX SNOMED Code(s): 62792108463701136 Plan: Currently his GI bleeding is under control. Cardiology cleared him. wait on further recommendations from neurology. . We'll repeat labs in a.m. To continue physical therapy. Discontinue Xarelto in favor of Elequis this time. He'll continue on 81 mg aspirin daily. Continue his other home medications as ordered. We'll add Dulcolax and/or Colace to help with constipation Expect discharge Saturday
[2023-01-20] MEDS: IRON POLYSACCHARIDES COMPLEX 150 MG CAP PO SCH (13:40)
[2023-01-20] MEDS: PRAMIPEXOLE 0.5 MG TAB PO SCH ×2 (13:41→17:30)
[2023-01-20 16:42] LABS: Glucose,Whole Blood 106 mg/dL (70-110)
[2023-01-20 20:44] LABS: Glucose,Whole Blood 123 mg/dL (70-110)
[2023-01-20] MEDS: ATORVASTATIN 40 MG TAB PO SCH (20:47)
[2023-01-20] MEDS: AMITRIPTYLINE HCL 25 MG TAB PO SCH (20:47)
--- NOTE | 2023-01-21 00:26 | P.PN ---
Subjective Progress Note Date: 01/20/23 Patient was seen for a follow-up. Patient is sitting comfortably in the chair. Patient continues to have expressive aphasia. Patient concerned about recurrent strokes. Patient had another episode of amaurosis fugax right eye, with transient loss of vision in the lower altitudinal visual field right eye. It lasted for less than a minute. Objective - Vital Signs Vital signs: Vital Signs Temp 97.9 F 01/20/23 08:00 Pulse 83 01/20/23 14:00 Resp 16 01/20/23 14:00 BP 98/55 01/20/23 12:00 Pulse Ox 98 01/20/23 12:00 FiO2 Intake & Output 01/19/23 01/20/23 01/20/23 18:59 06:59 18:59 Intake Total 240 720 Output Total 925 100 Balance 240 -925 620 Intake: Oral 240 720 Output: Urine 925 100 Other: Voiding Method Urinal Urinal Urinal # Voids 1 2 - Exam Patient is alert and awake in no distress. He has mild to moderate expressive aphasia. Word finding problem, thought block. Face is symmetric. Visual neal are full and tongue protrudes the midline. Extraocular muscles are intact. On muscle strength testing, there is left pronation, with mild drift. The strength is normal in arms and legs. Sensory touch is equal. No ataxia for [id number] testing. - Labs CBC & Chem 7: 01/20/23 09:23 01/20/23 09:23 Labs: Abnormal Lab Results - Last 24 Hours (Table) 01/19/23 01/20/23 01/20/23 Range/Units 19:47 09: 09:23 RBC 3.16 L (4.30-5.90) m/uL Hgb 8.4 L (13.0-17.5) gm/dL Hct 27.3 L (39.0-53.0) % RDW 15.8 H (11.5-15.5) % Lymphocytes # 0.9 L (1.0-4.8) k/uL Sodium 134 L (137-145) mmol/L POC Glucose (mg/dL) 128 H (70-110) mg/dL Assessment and Plan Assessment: * Acute ischemic stroke (multifocal) throughout the left parietal lobe and insular cortex, and a single focus within the right cerebellum. * Recent history of acute ischemic stroke 01/03/2023, manifesting with expressive aphasia. * Previous history of recurrent amaurosis fugax right eye. Carotid stenosis ruled out. Patient states that he had 2 more episodes of amaurosis fugax in the last 2 weeks since discharge from the hospital. Patient had 1 episode of amaurosis fugax, involving right eye today as well. * Atrial fibrillation, on Xarelto. Patient has failed Xarelto. * Recent GI bleed, status post endoscopy. * History of DVT * Diabetes * Hypertension * Hyperlipidemia * X tobacco use * Peripheral edema. Plan: * Patient is experiencing recurrent ischemic strokes/TIA while being on Xarelto. It appears patient has failed Xarelto. Patient being switched to Eliquis. Patient received Xarelto today, therefore Eliquis will be started from the morning. * If patient continues to have symptoms of amaurosis fugax, then would suggest switching from aspirin to Plavix as well, although he does pose her hemorrhagi c risk. * MRI of the brain revealed redemonstration of scattered acute/subacute CVA thro ughout the left parietal lobe and insular cortex. A single focus within the right cerebellum may be new from prior also representing acute/subacute CVA. A focus within the right balbir is not visualized on the current exam. Nonspecific white matter change. I personally reviewed MRI, agree with the findings. * EEG was abnormal due to background slowing of mild to moderate degree, suggestive of encephalopathy. Also there is superimposed focal slowing left temporal region, suggesting underlying focal cortical neuronal dysfunction. No obvious epileptiform activity was seen. * Patient has recurrent strokes while being on Xarelto. We will consult cardiology. Discussed with primary team. * Patient had a recent GI bleed. * Patient underwent EGD, which revealed 3 small nonbleeding NGT Shilpa in the proximal gastric body, status post cautery using a cold pool. No evidence of peptic ulcer disease. Gastroenterology recommended resuming Xarelto from today. Patient will be continued on anticoagulants. Definitely avoid interruption of anticoagulation. * Neurologically clear, if cleared by cardiology. Dr. Matias Marte Will resume neurology service from the morning.
[2023-01-21 06:17] LABS: Glucose,Whole Blood 104 mg/dL (70-110)
[2023-01-21] MEDS: INSULIN ASPART (NovoLOG) 100 UNIT/ML VIAL SQ SCH ×2 (06:23→12:13)
[2023-01-21] MEDS: metFORMIN 500 MG TAB PO SCH (06:44)
[2023-01-21] MEDS: DAPAGLIFLOZIN PROPANEDIOL 10 MG TABLET PO SCH (06:44)
[2023-01-21] MEDS: LOSARTAN 25 MG TAB PO SCH (08:22)
[2023-01-21] MEDS: CYANOCOBALAMIN 500 MCG TAB PO SCH (08:23)
[2023-01-21] MEDS: IRON POLYSACCHARIDES COMPLEX 150 MG CAP PO SCH (08:24)
[2023-01-21] MEDS: LORATADINE 10 MG TAB PO SCH (08:24)
[2023-01-21] MEDS: CHOLECALCIFEROL 125 MCG (5000 IU) TABLET PO SCH (08:24)
[2023-01-21] MEDS: ASPIRIN 81 MG PO SCH (08:24)
[2023-01-21] MEDS: PREGABALIN 75 MG CAP PO SCH (08:25)
[2023-01-21] MEDS: PANTOPRAZOLE 40 MG/10 ML VIAL IV SCH (08:25)
[2023-01-21] MEDS ORDERED: APIXABAN 5 MG TAB PO SCH (09:00)
[2023-01-21 09:05] LABS: % Iron Saturation 4.82 (15.00-50.00)
[2023-01-21] MEDS: PIOGLITAZONE 30 MG TAB PO SCH (09:16)
--- NOTE | 2023-01-21 11:13 | P.PN ---
Subjective Progress Note Date: 01/21/23 The patient is a 72-year-old male who follows in the office with Dr. Zhou. He is currently admitted for GI bleeding. He underwent upper endoscopy revealing 3 nonbleeding angiectasia in the proximal gastric body, which was cauterized. Neurology was consulted as the patient had had a recent CVA. Repe at MRI shows possible new focus within the right cerebellum. Anticoagulation was recently held for GI bleeding and upper endoscopy. DIAGNOSTICS: EKG shows persistent atrial fibrillation Telemetry reveals rate controlled atrial flutter MRI of the brain shows redemonstration of scattered acute/subacute CVA throughout the left parietal lobe and insular cortex. A single focus within the right cerebellum may be a new finding. Previous right balbir focus was not visualized on current MRI. Nonspecific white matter changes. WBC 7.4, hemoglobin 9.1, hematocrit 29.3, platelet 232 01/21 Patient is seen today in follow-up. He denies having any blood and darkness to his stools. He states he has been resumed back on eliquis today which is correct. He is planning to return to [facility] for subacute rehab. Blood pressure 105/43, heart rate 102, afebrile, pulse ox 90% on room air. PHYSICAL EXAMINATION: This is a 72-year-old male in no apparent distress at the time of my examination. HEENT: Head is atraumatic, normocephalic. Pupils are equal, round. Neck is supple. There is no jugular venous distention. No carotid bruit is heard. CHEST EXAMINATION: Lungs are clear to auscultation. No chest wall tenderness is noted on palpation or with deep breathing. HEART EXAMINATION: Heart regular rate and rhythm. S1, S2 heard. Soft systolic murmur. No gallops or rub. ABDOMEN: Soft, nontender. Bowel sounds are heard. No organomegaly noted. EXTREMITIES: 2+ peripheral pulses with no evidence of peripheral edema and no calf tenderness noted. NEUROLOGIC EXAMINATION: Patient is awake, alert and oriented x3. FINAL ASSESSMENT AND PLAN: Recent left parietal CVA Possible right cerebellar CVA Anticoagulation recently held for GI bleeding Gastric ulcers, status post cautery Persistent atrial flutter Chronic congestive heart failure Hypertension Diabetes Hyperlipidemia PLAN: Patient has been resumed on anticoagulation with eliquis starting today versus Xarelto Patient may follow-up with Dr. Zhou in 2-3 weeks Nurse practitioner note has been reviewed, I agree with the documented findings and plan of care. Patient was seen and examined. Objective - Vital Signs Vital signs: Vital Signs Temp 97.9 F 01/21/23 04:37 Pulse 74 01/21/23 04:37 Resp 16 01/21/23 08:05 BP 111/67 01/21/23 04:37 Pulse Ox 97 01/21/23 04:37 FiO2 Intake & Output 01/20/23 01/21/23 01/21/23 18:59 06:59 18:59 Intake Total 960 240 190 Output Total 100 700 Balance 860 -460 190 Intake: IV 10 Invasive Line 2 10 Oral 960 240 180 Output: Urine 100 700 Other: Voiding Method Urinal Urinal Urinal # Voids 1 - Labs CBC & Chem 7: 01/20/23 09:23 01/20/23 09:23 Labs: Abnormal Lab Results - Last 24 Hours (Table) 01/20/23 01/20/23 01/20/23 Range/Units 09: 09:23 09:23 RBC 3.16 L (4.30-5.90) m/uL Hgb 8.4 L (13.0-17.5) gm/dL Hct 27.3 L (39.0-53.0) % RDW 15.8 H (11.5-15.5) % Lymphocytes # 0.9 L (1.0-4.8) k/uL Sodium 134 L (137-145) mmol/L POC Glucose (mg/dL) (70-110) mg/dL Iron 16 L (65-175) UG/DL % Saturation 4.82 L (15.00-50.00) 01/20/23 Range/Units 20:43 RBC (4.30-5.90) m/uL Hgb (13.0-17.5) gm/dL Hct (39.0-53.0) % RDW (11.5-15.5) % Lymphocytes # (1.0-4.8) k/uL Sodium (137-145) mmol/L POC Glucose (mg/dL) 123 H (70-110) mg/dL Iron (65-175) UG/DL % Saturation (15.00-50.00)
[2023-01-21 12:00] LABS: Glucose,Whole Blood 417 mg/dL (70-110)
[2023-01-21 12:00] LABS: Glucose,Whole Blood 143 mg/dL (70-110)
--- NOTE | 2023-01-21 12:13 | P.DS ---
Providers Date of admission: 01/15/23 13:48 Expected date of discharge: 01/21/23 Attending physician: Venu Oshea Consults: 01/15/23 14:06 Consult Physician Urgent Consulting Provider: Lynne Arevalo Consult Reason/Comments: Anemia, GI bleed Do you want consulting provider notified?: Yes 01/16/23 11:54 Consult Physician Routine Consulting Provider: Rosalia Conner Consult Reason/Comments: recent CVA Do you want consulting provider notified?: Yes 01/18/23 17:28 Consult Physician Urgent Consulting Provider: Kym Kearney Consult Reason/Comments: More acute strokes, all embolic, pt known to your team Do you want consulting provider notified?: Yes Primary care physician: Venu Oshea Hospital Course: Final Diagnoses: Final Diagnoses: Symptomatic blood loss anemia Recent acute ischemic CVA with expressive aphasia 01/02/23, discharged to [facility] subacute rehab on 01/08/2023 .repeat MRI reporting redemonstration of scattered acute/subacute CVA throughout the left parietal lobe and insular cortex,suggestive of possible right cerebellar CVA. COPD, stable Persistent atrial flutter, anticoagulation changed to Eliquis, related to suspected failure on Xarelto with recurrent ischemic strokes. Chronic congestive heart failure with diastolic dysfunction Mild aortic stenosis History of DVTs, PE Diabetes mellitus,II controlled Diabetic neuropathy GERD. Hyperlipidemia. Hypertension. Osteoarthritis. Obstructive Sleep apnea with home CPAP use. History of prostate cancer with prostatectomy. Morbid obesity. BMI 39 Medical debility, gait dysfunction, uses walker. History of back surgery, chronic back pain Chronic urinary incontinence Formal nicotine dependence. Patient smoked a pack a day for more than 28 years. Hospital course: This is a 72-year-old gentleman with past medical history significant for atrial flutter/fib on xarelto, CHF, mild aortic stenosis ,type 2 diabetes mellitus, GERD, hyperlipidemia, osteoarthritis, pneumonia, obstructive sleep apnea with home CPAP, diverticulitis, psoriasis, prostate cancer, bilateral legs DVT/pulmonary embolism, back surgery, former nicotine dependence, gait dysfunction and multiple other medical issues recently discharged to [facility] subacute rehab on 01 08 23 with diagnosis of acute ischemic stroke with expressive aphasia.On discharge patient's hemoglobin was 12.2. At the subacute rehab patient developed progressive weakness accompanied by dizziness, ongoing expressive aphasia, developed black stools after receiving something for constipation. On admission hemoglobin had dropped to 7.8. Platelets 181. Prior colonoscopy was performed a few years ago by Dr. Holbrook-report currently not available. Denies nausea, vomiting. Denies abdominal pain. Denies chest pain, palpitations or shortness of breath. Afebrile, normal WBC, maintaining O2 sats in the high 90s on room air. 01/17/2023 Aspirin and Xarelto remain on hold ,NPO, awaiting EGD. Denies chest pain, palpitations or shortness of breath. Afebrile, normal WBC, hemoglobin 8.7, platelets 200, renal function stable. Blood sugars controlled. Magnesium 1.5, supplementation ordered. Neurology consult in place with recommendations pending. Patient will be discharged back to [facility] rehab today, in a stable condition with guarded prognosis pending EGD results and final DC recommendations regarding anticoagulation as per both GI and neurology. Patient is a recent acute ischemic CVA initially on aspirin and Xarelto. 01/18/2023 completed EGD yesterday reporting 3 small nonbleeding angiectasia in the proximal gastric body status post cautery, no evidence of peptic ulcer disease; recommended to resume Xarelto .hemoglobin increased to 9.1, platelets 232. Evaluated by neurology yesterday, further neurology workup ordered including EEG, MRI related to new left pronator drift. Afebrile, normal WBC, magnesium 2. Denies chest pain, palpitations or shortness of breath. MRI of the brain reported redemonstration of scattered acute/subacute CVA throughout the left parietal lobe and insular cortex. A single focus within the right cerebellum may be new from prior also representing acute/subacute CVA. A focus within the right balbir is not visualized on the current exam. Nonspecific white matter change. Per neurology, patient experiencing recurrent ischemic strokes/TIA on Xarelto, appearing to have failed Xarelto and anticoagulation switched over to Eliquis. 01/21/2023 Received Eliquis this morning, denies any bleeding. Denies dark stools. Hemoglobin 8.4, platelets 198 . Vital signs stable.Denies chest pain, palpitations or shortness of breath. Cleared by cardiology for discharge.Patient will be discharged to [facility] subacute rehab today in a stable condition with guarded prognosis pending final DC recommendations and clearance per neurology. The impression and plan of care has been dictated as directed. : I performed a history and examination of this patient, discussed the same with the dictator. I agree with the dictator's note ,documented as a scribe. Any additional findings or plans will be noted. Patient Condition at Discharge: Stable Plan - Discharge Summary Discharge Rx Participant: Yes New Discharge Prescriptions: New Apixaban [Eliquis] 5 mg PO BID #0 tab Iron Polysaccharides Complex [Niferex-150] 150 mg PO DAILY cap Sennosides-Docusate Sodium [Senokot-S] 2 tab PO BID #60 tablet Continue Atorvastatin Calcium [Lipitor] 40 mg PO HS Lansoprazole 30 mg PO DAILY Potassium Chloride ER [K-Dur 20] 20 meq PO DAILY PRN PRN Reason: with lasix Amitriptyline HCl [Elavil] 25 mg PO HS Cholecalciferol [Vitamin D3 (125 Mcg = 5000 Iu)] 125 mcg PO DAILY Fexofenadine HCl [Nikia Allergy] 180 mg PO DAILY Semaglutide [Ozempic] 1 mg SQ WE Aspirin 81 mg PO DAILY tab Nitroglycerin Sl Tabs [Nitrostat] 0.4 mg SUBLINGUAL Q5M PRN tab PRN Reason: Chest Pain bisacodyL [Dulcolax] 10 mg RECTAL DAILY PRN PRN Reason: Constipation Na Phos,M-B/Na Phos,Di-Ba [Fleet Adult] 133 ml RECTAL DAILY PRN PRN Reason: Constipation Pioglitazone [Actos] 30 mg PO DAILY Furosemide [Lasix] 40 mg PO DAILY PRN PRN Reason: Edema Naloxone HCl [Narcan] 4 mg NASAL ONCE PRN PRN Reason: Overdose Empagliflozin/Metformin HCl [Synjardy Xr 12.5-1,000 mg Tab] 2 tab PO W/BRKFST Cyanocobalamin (Vitamin B-12) [Vitamin B-12] 1,000 mcg PO DAILY #1 tablet Losartan [Cozaar] 12.5 mg PO DAILY Pramipexole [Mirapex] 0.5 mg PO BID@1200,1800 INSULIN LISPRO (HumaLOG) [humaLOG] See Protocol SQ ACHS Magnesium Hydroxide [Milk of Magnesia Concentrate] 7,200 mg PO Q48H PRN PRN Reason: Constipation HYDROcodone/APAP 10-325MG [[place] 10-325] 1 tab PO Q6H PRN 3 Days #12 tab PRN Reason: Pain Changed Pregabalin [Lyrica] 75 mg PO BID@0800,1700 #6 cap Discontinued Rivaroxaban [Xarelto] 20 mg PO DAILY #90 tab Discharge Medication List Atorvastatin Calcium [Lipitor] 40 mg PO HS 02/03/15 [History] Lansoprazole 30 mg PO DAILY 02/03/15 [History] Empagliflozin/Metformin HCl [Synjardy Xr 12.5-1,000 mg Tab] 2 tab PO W/BRKFST 06/13/22 [History] Furosemide [Lasix] 40 mg PO DAILY PRN 06/13/22 [History] Naloxone HCl [Narcan] 4 mg NASAL ONCE PRN 06/13/22 [History] Pioglitazone [Actos] 30 mg PO DAILY 06/13/22 [History] Potassium Chloride ER [K-Dur 20] 20 meq PO DAILY PRN 06/13/22 [History] Cyanocobalamin (Vitamin B-12) [Vitamin B-12] 1,000 mcg PO DAILY #1 tablet 06/15/22 [Rx] Amitriptyline HCl [Elavil] 25 mg PO HS 01/02/23 [History] Cholecalciferol [Vitamin D3 (125 Mcg = 5000 Iu)] 125 mcg PO DAILY 01/02/23 [History] Fexofenadine HCl [Nikia Allergy] 180 mg PO DAILY 01/02/23 [History] Losartan [Cozaar] 12.5 mg PO DAILY 01/02/23 [History] Pramipexole [Mirapex] 0.5 mg PO BID@1200,1800 01/02/23 [History] Semaglutide [Ozempic] 1 mg SQ WE 01/02/23 [History] Aspirin 81 mg PO DAILY tab 01/08/23 [Rx] Nitroglycerin Sl Tabs [Nitrostat] 0.4 mg SUBLINGUAL Q5M PRN tab 01/08/23 [Rx] INSULIN LISPRO (HumaLOG) [humaLOG] See Protocol SQ ACHS 01/15/23 [History] Magnesium Hydroxide [Milk of Magnesia Concentrate] 7,200 mg PO Q48H PRN 01/15/23 [History] Na Phos,M-B/Na Phos,Di-Ba [Fleet Adult] 133 ml RECTAL DAILY PRN 01/15/23 [Hist ory] bisacodyL [Dulcolax] 10 mg RECTAL DAILY PRN 01/15/23 [History] HYDROcodone/APAP 10-325MG [G[place]ford 10-325] 1 tab PO Q6H PRN 3 Days #12 tab 01/17/23 [Rx] Pregabalin [Lyrica] 75 mg PO BID@0800,1700 #6 cap 01/17/23 [Rx] Apixaban [Eliquis] 5 mg PO BID #0 tab 01/21/23 [Rx] Iron Polysaccharides Complex [Niferex-150] 150 mg PO DAILY cap 01/21/23 [Rx] Sennosides-Docusate Sodium [Senokot-S] 2 tab PO BID #60 tablet 01/21/23 [Rx] Follow up Appointment(s)/Referral(s): Getachew Zhou MD [STAFF PHYSICIAN] - 2 Weeks Lynne Arevalo MD [STAFF PHYSICIAN] - As Needed Venu Oshea MD [Primary Care Provider] - 3 Days Activity/Diet/Wound Care/Special Instructions: Rajiv DUNLAP CBC,BMP in 3 days Discharge Disposition: TRANSFER TO SNF/ECF
[2023-01-21 12:23] LABS: Glucose,Whole Blood 107 mg/dL (70-110)
[2023-01-21 12:35] VITALS: BP 96/57; PULSE 93; RESP 18; TEMP 98
[2023-01-21] MEDS: PRAMIPEXOLE 0.5 MG TAB PO SCH (12:35)
[2023-01-21] MEDS: HYDROcodone/APAP 10-325MG 1 EACH TAB PO PRN (15:10)
== END 2023-01-21 16:09 | DRG 377 ==
LOC: EC 10:45 → OBSVTOIN 13:48 → 3SCARD 13:48
PROVIDERS: ADMIT Family Medicine; ATTEND Family Medicine
PROC: 0D568ZZ Destruction of Stomach, Via Natural or Artificial Opening Endoscopic (ICD-10-PCS; principal; 2023-01-17 07:30)
PROC: 4A10X4Z Monitoring of Central Nervous Electrical Activity, External Approach (ICD-10-PCS; 2023-01-18)
DX: K31.811 Angiodysplasia of stomach and duodenum with bleeding (principal); I63.541 Cerebral infarction due to unspecified occlusion or stenosis of right cerebellar artery; D62 Acute posthemorrhagic anemia; I50.32 Chronic diastolic (congestive) heart failure; G45.3 Amaurosis fugax; I48.19 Other persistent atrial fibrillation; I48.92 Unspecified atrial flutter; I11.0 Hypertensive heart disease with heart failure; I99.8 Other disorder of circulatory system; E66.01 Morbid (severe) obesity due to excess calories; Z68.39 Body mass index [BMI] 39.0-39.9, adult; H81.10 Benign paroxysmal vertigo, unspecified ear; I69.320 Aphasia following cerebral infarction; K21.9 Gastro-esophageal reflux disease without esophagitis; I25.10 Atherosclerotic heart disease of native coronary artery without angina pectoris; D53.8 Other specified nutritional anemias; E11.42 Type 2 diabetes mellitus with diabetic polyneuropathy; G89.29 Other chronic pain; R32 Unspecified urinary incontinence; Z87.891 Personal history of nicotine dependence; E53.8 Deficiency of other specified B group vitamins; E78.2 Mixed hyperlipidemia; G25.81 Restless legs syndrome; H66.90 Otitis media, unspecified, unspecified ear; K59.00 Constipation, unspecified; M19.90 Unspecified osteoarthritis, unspecified site; Z79.01 Long term (current) use of anticoagulants; Z79.82 Long term (current) use of aspirin; Z79.84 Long term (current) use of oral hypoglycemic drugs; Z79.899 Other long term (current) drug therapy; Z86.711 Personal history of pulmonary embolism; Z86.718 Personal history of other venous thrombosis and embolism; Z93.3 Colostomy status; Z90.49 Acquired absence of other specified parts of digestive tract; Z87.19 Personal history of other diseases of the digestive system; G47.33 Obstructive sleep apnea (adult) (pediatric); L40.9 Psoriasis, unspecified; I08.1 Rheumatic disorders of both mitral and tricuspid valves; R13.10 Dysphagia, unspecified; R53.1 Weakness; L89.329 Pressure ulcer of left buttock, unspecified stage; Z85.46 Personal history of malignant neoplasm of prostate; Z86.010 Personal history of colon polyps; Z88.1 Allergy status to other antibiotic agents; Z88.0 Allergy status to penicillin
CPT/HCPCS: 36415; 43255; 70450; 70551; 71046; 80048; 80053; 81003; 82272; 82728; 83540; 83550; 83735; 84484; 85025; 93005; 95816; 96361; 96374; 99285

== ENCOUNTER 2023-02-04 18:07 | Inpatient (IN) | payer MEDICARE ==
[2023-02-04 18:20] LABS: Glucose,Whole Blood 90 mg/dL (70-110)
--- NOTE | 2023-02-04 18:23 | ED ---
General Adult HPI - General Chief complaint: Neuro Symptoms/Deficit Stated complaint: GI issues Time Seen by Provider: 02/04/23 18:09 Source: patient, EMS, RN notes reviewed Mode of arrival: EMS Limitations: altered mental status - History of Present Illness Initial comments: Patient is a pleasant 72-year-old male presenting to the emergency department from nursing facility with concern for confusion. Unknown last well. Patient was found having some speech problems. Patient has no specific complaints. Patient does have history of previous GI bleeds. EMS was concerned patient did look a little bit pale. - Related Data Home Medications Medication Instructions Recorded Confirmed Atorvastatin Calcium [Lipitor] 40 mg PO HS 02/03/15 01/15/23 Lansoprazole 30 mg PO DAILY 02/03/15 01/15/23 Empagliflozin/Metformin HCl 2 tab PO W/BRKFST 06/13/22 01/15/23 [Synjardy Xr 12.5-1,000 mg Tab] Furosemide [Lasix] 40 mg PO DAILY PRN 06/13/22 01/15/23 Naloxone HCl [Narcan] 4 mg NASAL ONCE PRN 06/13/22 01/15/23 Pioglitazone [Actos] 30 mg PO DAILY 06/13/22 01/15/23 Potassium Chloride ER [K-Dur 20] 20 meq PO DAILY PRN 06/13/22 01/15/23 Amitriptyline HCl [Elavil] 25 mg PO HS 01/02/23 01/15/23 Cholecalciferol [Vitamin D3 (125 125 mcg PO DAILY 01/02/23 01/15/23 Mcg = 5000 Iu)] Fexofenadine HCl [Nikia Allergy] 180 mg PO DAILY 01/02/23 01/15/23 Losartan [Cozaar] 12.5 mg PO DAILY 01/02/23 01/15/23 Pramipexole [Mirapex] 0.5 mg PO BID@1200,1800 01/02/23 01/15/23 Semaglutide [Ozempic] 1 mg SQ WE 01/02/23 01/15/23 INSULIN LISPRO (HumaLOG) [humaLOG] See Protocol SQ ACHS 01/15/23 01/15/23 Magnesium Hydroxide [Milk of 7,200 mg PO Q48H PRN 01/15/23 01/15/23 Magnesia Concentrate] Na Phos,M-B/Na Phos,Di-Ba [Fleet 133 ml RECTAL DAILY PRN 01/15/23 01/15/23 Adult] bisacodyL [Dulcolax] 10 mg RECTAL DAILY PRN 01/15/23 01/15/23 Previous Rx's Medication Instructions Recorded Cyanocobalamin (Vitamin B-12) 1,000 mcg PO DAILY #1 tablet 06/15/22 [Vitamin B-12] Aspirin 81 mg PO DAILY tab 01/08/23 Nitroglycerin Sl Tabs [Nitrostat] 0.4 mg SUBLINGUAL Q5M PRN tab 01/08/23 HYDROcodone/APAP 10-325MG [[place] 1 tab PO Q6H PRN 3 Days #12 tab 01/17/23 10-325] Pregabalin [Lyrica] 75 mg PO BID@0800,1700 #6 cap 01/17/23 Apixaban [Eliquis] 5 mg PO BID #0 tab 01/21/23 Iron Polysaccharides Complex 150 mg PO DAILY cap 01/21/23 [Niferex-150] Sennosides-Docusate Sodium 2 tab PO BID #60 tablet 01/21/23 [Senokot-S] Allergies Allergy/AdvReac Type Severity Reaction Status Date / Time cephalexin monohydrate Allergy Rash/Hives Verified 01/15/23 11:51 [From Keflex] on neck Penicillins Allergy Rash/Hives Verified 01/15/23 11:51 on neck Review of Systems ROS Statement: Those systems with pertinent positive or pertinent negative responses have been documented in the HPI. ROS Other: All systems not noted in ROS Statement are negative. Constitutional: Denies: fever Eyes: Denies: eye pain ENT: Denies: ear pain Respiratory: Denies: cough, dyspnea Cardiovascular: Denies: chest pain Endocrine: Denies: fatigue Gastrointestinal: Denies: abdominal pain, vomiting Genitourinary: Denies: dysuria Musculoskeletal: Denies: back pain Skin: Denies: rash Neurological: Denies: headache, weakness Past Medical History Past Medical History: Atrial Fibrillation, Cancer, Diabetes Mellitus, Deep Vein Thrombosis (DVT), GERD/Reflux, Hyperlipidemia, Hypertension, Osteoarthritis (OA), Pneumonia, Prostate Disorder, Pulmonary Embolus (PE), Skin Disorder, Sleep Apnea/CPAP/BIPAP Additional Past Medical History / Comment(s): open wound to back-has visiting nurse two times per weeks,prostate ca, rt leg dvt, diverticulitis, psoriases, abd hernia,no cpap History of Any Multi-Drug Resistant Organisms: None Reported Past Surgical History: Back Surgery, Cholecystectomy, Hernia Repair, Joint Replacement, Prostate Surgery, Tonsillectomy Additional Past Surgical History / Comment(s): prostectomy, had ruptured diverticuli -colostomy and then reversed, abd hernia, tanisha cataracts, tubes in ears,total rt hip,[facility] Procedures Past Anesthesia/Blood Transfusion Reactions: No Reported Reaction Past Psychological History: No Psychological Hx Reported Smoking Status: Former smoker Past Alcohol Use History: None Reported Past Drug Use History: None Reported - Past Family History Father Family Medical History: Cancer Additional Family Medical History / Comment(s): prostate CA Mother Family Medical History: Deep Vein Thrombosis (DVT), Pulmonary Embolus Additional Family Medical History / Comment(s): PROSTATE CNACER General Exam Limitations: altered mental status General appearance: alert, in no apparent distress Head exam: Present: atraumatic, normocephalic Eye exam: Present: normal appearance ENT exam: Present: mucous membranes dry Neck exam: Present: normal inspection Respiratory exam: Present: normal lung sounds bilaterally Cardiovascular Exam: Present: irregular rhythm GI/Abdominal exam: Present: soft. Absent: tenderness Extremities exam: Present: normal inspection Neurological exam: Present: alert, CN II-XII intact. Absent: motor sensory deficit Expanded Neurological exam: Present: other (Mild slurred speech is present) Patient oriented to: Present: person, place. Absent: time Cranial nerves: EOM's Intact: Normal Sensory exam: Upper Extremity Light Touch: Normal, Lower Extremity Light Touch: Normal Motor strength exam: RUE: 5, LUE: 5, RLE: 5, LLE: 5 Eye Response: (4) open spontaneously Motor Response: (6) obeys commands Verbal Response: (4) confused conversation Psychiatric exam: Present: normal affect, normal mood Skin exam: Present: normal color Course Vital Signs 02/04/23 02/04/23 18:09 19:41 Temperature 98.2 F Pulse Rate 84 95 Respiratory 18 16 Rate Blood Pressure 99/47 100/46 O2 Sat by Pulse 99 98 Oximetry EKG Findings - EKG Results: EKG: interpreted by ERMD (Atrial flutter with a rate of 89. Low QRS did. Nonspecific T waves.), normal QRS Medical Decision Making - Medical Decision Making Was pt. sent in by a medical professional or institution (SUSIE Brewer, [facility]ER, urgent care, hospital, or fpc...) When possible be specific @ -Patient was sent in from nursing facility Did you speak to anyone other than the patient for history (EMS, parent, family, police, friend...)? What history was obtained from this source @ -EMS provides transportation history Did you review nursing and triage notes (agree or disagree)? Why? @ -[I reviewed and agree with nursing and triage notes] Were old charts reviewed (outside hosp., previous admission, EMS record, old EKG, old radiological studies, urgent care reports/EKG's, fpc records)? Report findings @ -Previous CT report reviewed Differential Diagnosis (chest pain, altered mental status, abdominal pain women, abdominal pain men, vaginal bleeding, weakness, fever, dyspnea, syncope, headache, dizziness, GI bleed, back pain, seizure, CVA, palpatations, mental health, musculoskeletal)? @ -Differential Weakness: Hypoglycemia, shock, sepsis, hyponatremia, anemia, infection, ME, ETOH, adverse medicine reaction, overdose, stroke, this is not meant to be an all-inclusive list. EKG interpreted by me (3pts min.). @ -[As above] X-rays interpreted by me (1pt min.). @ -Chest x-ray shows no acute process CT interpreted by me (1pt min.). @ -Computed tomography scan of the brain shows questionable right parietal/fro ntal changes. Left posterior parietal changes consistent with previous CT. U/S interpreted by me (1pt. min.). @ -[None done] What testing was considered but not performed or refused? (CT, X-rays, U/S, labs)? Why? @ -[None] What meds were considered but not given or refused? Why? @ -[None] Did you discuss the management of the patient with other professionals (buster stevenson i.e. SUSIE Brewer, N[facility] STOCKER, lab, RT, psych nurse, oncology social worker, beamster, teacher, police or patrol park officer, top case assembler)? Give summary @ -Case was discussed with Dr. Leigh, who will admit. Was smoking cessation discussed for >3mins.? @ -[No] Was critical care preformed (if so, how long)? @ -32 minutes critical care time Were there social determinants of health that impacted care today? How? (H omelessness, low income, unemployed, alcoholism, drug addiction, transportation, low edu. Level, literacy, decrease access to med. care, correction, rehab)? @ -[No] Was there de-escalation of care discussed even if they declined (Discuss DNR or withdrawal of care, Hospice)? DNR status @ -[No] What co-morbidities impacted this encounter? (DM, HTN, Smoking, COPD, CAD, Cancer, CVA, ARF, Chemo, Hep., AIDS, mental health diagnosis, sleep apnea, morbid obesity)? @ -[None] Was patient admitted / discharged? Hospital course, mention meds given and route, prescriptions, significant lab abnormalities, going to OR and other pertinent info. @ -Patient reevaluated. Patient updated on results and plan. Patient will be admitted with consults with neurology and GI. Patient has concern for GI hemorrhage as well as possible small stroke/TIA. Thinners will be held. Patient will receive blood transfusion. Patient is not considered a candidate for TPA. Unknown last known well. In addition there is concern for GI hemorrhage. Undiagnosed new problem with uncertain prognosis? @ -[No] Drug Therapy requiring intensive monitoring for toxicity (Heparin, Nitro, Insulin, Cardizem)? @ -Blood transfusion Were any procedures done? @ -[No] Diagnosis/symptom? @ -GI hemorrhage, TIA Acute, or Chronic, or Acute on Chronic? @ -Acute on chronic, acute Uncomplicated (without systemic symptoms) or Complicated (systemic symptoms)? @ -[default] Side effects of treatment? @ -[No] Exacerbation, Progression, or Severe Exacerbation? @ -[No] Poses a threat to life or bodily function? How? (Chest pain, USA, ME, pneumonia, PE, COPD, DKA, ARF, appy, cholecystitis, CVA, Diverticulitis, Homicidal, Suicidal, threat to staff... and all critical care pts) @ -Potential for with no hemoglobin left after GI hemorrhage - Lab Data Result diagrams: 02/04/23 18:27 02/04/23 18:27 Lab Results 02/04/23 02/04/23 02/04/23 Range/Units 18:19 18:27 18:27 WBC 8.8 (3.8-10.6) k/uL RBC 2.35 L (4.30-5.90) m/uL Hgb 5.5 L* D (13.0-17.5) gm/dL Hct 18.3 L* (39.0-53.0) % MCV 77.8 L D (80.0-100.0) fL MCH 23.5 L (25.0-35.0) pg MCHC 30.2 L (31.0-37.0) g/dL RDW 17.3 H (11.5-15.5) % Plt Count 215 (150-450) k/uL MPV 7.6 Neutrophils % 78 % Lymphocytes % 11 % Monocytes % 4 % Eosinophils % 5 % Basophils % 1 % Neutrophils # 6.9 (1.3-7.7) k/uL Lymphocytes # 1.0 (1.0-4.8) k/uL Monocytes # 0.3 (0-1.0) k/uL Eosinophils # 0.5 (0-0.7) k/uL Basophils # 0.1 (0-0.2) k/uL Manual Slide Review Performed Large Platelets Present Polychromasia Present Hypochromasia Marked Poikilocytosis Moderate Anisocytosis Slight Microcytosis Slight Ovalocytes Present PT 15.0 H (10.0-12.5) sec INR 1.5 H (<1.2) APTT 23.7 (22.0-30.0) sec Sodium (137-145) mmol/L Potassium (3.5-5.1) mmol/L Chloride (98-107) mmol/L Carbon Dioxide (22-30) mmol/L Anion Gap mmol/L BUN (9-20) mg/dL Creatinine (0.66-1.25) mg/dL Est GFR (CKD-EPI)AfAm (>60 ml/min/1.73 sqM) Est GFR (CKD-EPI)NonAf (>60 ml/min/1.73 sqM) Glucose (74-99) mg/dL POC Glucose (mg/dL) 90 (70-110) mg/dL POC Glu Granite Polisher ID Loco Luciano Calcium (8.4-10.2) mg/dL Total Bilirubin (0.2-1.3) mg/dL AST (17-59) U/L ALT (4-49) U/L Alkaline Phosphatase (38-126) U/L Creatine Kinase (55-170) U/L Total Protein (6.3-8.2) g/dL Albumin (3.5-5.0) g/dL Blood Type Recheck Bld Type Recheck Status Crossmatch 02/04/23 02/04/23 Range/Units 18:27 18:50 WBC (3.8-10.6) k/uL RBC (4.30-5.90) m/uL Hgb (13.0-17.5) gm/dL Hct (39.0-53.0) % MCV (80.0-100.0) fL MCH (25.0-35.0) pg MCHC (31.0-37.0) g/dL RDW (11.5-15.5) % Plt Count (150-450) k/uL MPV Neutrophils % % Lymphocytes % % Monocytes % % Eosinophils % % Basophils % % Neutrophils # (1.3-7.7) k/uL Lymphocytes # (1.0-4.8) k/uL Monocytes # (0-1.0) k/uL Eosinophils # (0-0.7) k/uL Basophils # (0-0.2) k/uL Manual Slide Review Large Platelets Polychromasia Hypochromasia Poikilocytosis Anisocytosis Microcytosis Ovalocytes PT (10.0-12.5) sec INR (<1.2) APTT (22.0-30.0) sec Sodium 136 L (137-145) mmol/L Potassium 4.3 (3.5-5.1) mmol/L Chloride 100 (98-107) mmol/L Carbon Dioxide 25 (22-30) mmol/L Anion Gap 11 mmol/L BUN 42 H (9-20) mg/dL Creatinine 1.07 (0.66-1.25) mg/dL Est GFR (CKD-EPI)AfAm 80 (>60 ml/min/1.73 sqM) Est GFR (CKD-EPI)NonAf 69 (>60 ml/min/1.73 sqM) Glucose 81 (74-99) mg/dL POC Glucose (mg/dL) (70-110) mg/dL POC Glu Granite Polisher ID Calcium 9.0 (8.4-10.2) mg/dL Total Bilirubin 0.9 (0.2-1.3) mg/dL AST 53 (17-59) U/L ALT 22 (4-49) U/L Alkaline Phosphatase 362 H (38-126) U/L Creatine Kinase 38 L (55-170) U/L Total Protein 5.8 L (6.3-8.2) g/dL Albumin 3.3 L (3.5-5.0) g/dL Blood Type Recheck No Previous Record Bld Type Recheck Status CABO Indicated Crossmatch See Detail Critical Care Time Critical Care Time: Yes Total Critical Care Time: 32 Disposition Clinical Impression: Transient cerebral ischemia, GI bleed Disposition: ADMITTED IP TO THIS HOSP Is patient prescribed a controlled substance at d/c from ED?: No Time of Disposition: 19:32
[2023-02-04 18:46] LABS: Anisocytosis Slight; Basophils # (A) 0.1 k/uL (0-0.2); Basophils % (A) 1 %; Eosinophils # (A) 0.5 k/uL (0-0.7); Eosinophils % (A) 5 %; Hypochromasia Marked; Lymphocytes % (A) 11 %; MCH 23.5 pg (25.0-35.0); MCHC 30.2 g/dL (31.0-37.0); Mean Platelet Volume 7.6; Microcytosis Slight; Monocytes # (A) 0.3 k/uL (0-1.0); Monocytes % (A) 4 %; Neutrophils # (A) 6.9 k/uL (1.3-7.7); Neutrophils % (A) 78 %; Platelet Count 215 k/uL (150-450); Poikilocytosis Moderate; RBC 2.35 m/uL (4.30-5.90); RDW 17.3 % (11.5-15.5); WBC 8.8 k/uL (3.8-10.6)
[2023-02-04 18:49] LABS: HCT 18.3 % (39.0-53.0); HGB 5.5 gm/dL (13.0-17.5)
[2023-02-04 18:50] LABS: MCV 77.8 fL (80.0-100.0)
--- NOTE | 2023-02-04 18:51 | XR ---
EXAMINATION TYPE: XR chest 2V DATE OF EXAM: 02/04/2023 6:46 PM CLINICAL INDICATION:Male, 72 years old with history of altered mental status; [facility] COMPARISON: Chest radiographs from 01/15/2023. TECHNIQUE: XR chest 2V Frontal and lateral views of the chest. FINDINGS: Lungs/Pleura: There is no evidence of pleural effusion, focal consolidation, or pneumothorax. Pulmonary vascularity: Unremarkable. Heart/mediastinum: Cardiomediastinal silhouette is unremarkable. Musculoskeletal: No acute osseous pathology. IMPRESSION: Stable exam, No acute cardiopulmonary disease/process.
[2023-02-04 18:52] LABS: ALT 22 U/L (4-49); AST 53 U/L (17-59); African American GFR (CKD) 80 (>60 ml/min/1.73 sqM); Albumin 3.3 g/dL (3.5-5.0); Alkaline Phosphatase 362 U/L (38-126); Anion Gap 11 mmol/L; Blood Urea Nitrogen 42 mg/dL (9-20); Carbon Dioxide 25 mmol/L (22-30); Chloride 100 mmol/L (98-107); Creatine Kinase 38 U/L (55-170); Glucose 81 mg/dL (74-99); Non-African American GFR(CKD) 69 (>60 ml/min/1.73 sqM); Potassium 4.3 mmol/L (3.5-5.1); Sodium 136 mmol/L (137-145); Total Bilirubin 0.9 mg/dL (0.2-1.3); Total Protein 5.8 g/dL (6.3-8.2)
[2023-02-04 18:53] LABS: INR 1.5 (<1.2); Partial Thromboplastin Time 23.7 sec (22.0-30.0)
--- NOTE | 2023-02-04 19:22 | CT ---
EXAMINATION TYPE: CT brain wo con CT DLP: 1152.1 mGycm, Automated exposure control for dose reduction was used. DATE OF EXAM: 02/04/2023 7:05 PM COMPARISON: MR brain 01/18/2023, CT 01/15/2023.. CLINICAL INDICATION:Male, 72 years old with history of Neuro deficit, acute, stroke suspected, ams TECHNIQUE: Brain: Axial CT images of the brain were obtained with coronal and sagittal reformats created and rev iewed. Contrast used: None. Oral contrast used: None. FINDINGS: Brain: Extra-axial spaces: No abnormal extra-axial fluid collections. Ventricular system: Within normal limits Cerebral parenchyma: Similar changes within the left parietal region as seen on prior MRI brain. Ther e are new white matter changes in the right frontal lobe series 2033 image 24 No acute intraparenchymal hemorrhage or mass effect. The remainder of the no-white junctions are well differentiated. Cerebellum: Unremarkable. Mass effect: No evidence of midline shift. Intracranial vasculature: unremarkable Soft tissues: Normal. Calvarium/osseous structures: No depressed skull fracture. Paranasal sinuses and mastoid air cells: Mild scattered paranasal sinus disease. Visualized orbits: Bilateral aphakia. IMPRESSION: 1. Indeterminate Matter changes in the right frontal lobe series 4 image 24. Consider further rosendo luation with MRI. 2. 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
[2023-02-04 19:31] LABS: Ovalocytes Present; Polychromasia Present
[2023-02-04 19:32] LABS: Large Platelets Present
[2023-02-04] MEDS ORDERED: PANTOPRAZOLE 40 MG/10 ML VIAL IVP STA (19:32)
[2023-02-04] MEDS ORDERED: NALOXONE 0.4 MG/ML 1 ML VIAL IV PRN (19:33)
[2023-02-04] MEDS: SODIUM CHLORIDE 0.9% 1,000 ML IV SCH (19:48)
[2023-02-04] MEDS ORDERED: ACETAMINOPHEN TAB 500 MG TAB PO STA (20:28)
[2023-02-05] MEDS: LOSARTAN 25 MG TAB PO SCH (09:13)
[2023-02-05] MEDS: PANTOPRAZOLE 40 MG/10 ML VIAL IV SCH (09:13)
[2023-02-05 09:27] LABS: African American GFR (CKD) >90 (>60 ml/min/1.73 sqM); Anion Gap 10 mmol/L; Blood Urea Nitrogen 36 mg/dL (9-20); Calcium 8.7 mg/dL (8.4-10.2); Carbon Dioxide 25 mmol/L (22-30); Chloride 101 mmol/L (98-107); Glucose 78 mg/dL (74-99); Non-African American GFR(CKD) 82 (>60 ml/min/1.73 sqM); Potassium 3.8 mmol/L (3.5-5.1); Sodium 136 mmol/L (137-145)
[2023-02-05 10:34] LABS: Anisocytosis Slight; Hypochromasia Marked; MCH 25.6 pg (25.0-35.0); MCHC 31.3 g/dL (31.0-37.0); MCV 81.7 fL (80.0-100.0); Mean Platelet Volume 8.4; Platelet Count 177 k/uL (150-450); Poikilocytosis Marked; RBC 2.81 m/uL (4.30-5.90); RDW 16.6 % (11.5-15.5); WBC 7.5 k/uL (3.8-10.6)
[2023-02-05 10:40] LABS: HGB 7.2 gm/dL (13.0-17.5)
[2023-02-05] MEDS: SODIUM CHLORIDE 0.9% 1,000 ML IV SCH (11:39)
[2023-02-05] MEDS ORDERED: DEXTROSE 50% SYRINGE 50 ML IVP PRN ×2 (12:19)
--- NOTE | 2023-02-05 12:23 | P.CNNES ---
History of Present Illness Consult date: 02/05/23 Requesting physician: Hosea Lira Reason for Consult: tia History of Present Illness: This is a 72-year-old gentleman who presented emergency department from the nursing facility because of confusion. History is obtained from medical record. Patient is a poor historian. Per the ED note the patient presents from nursing facility because of concern for confusion and he is having some speech problems the patient has history of previous GI and it seems that he seems a bit more pale. When he presented to our facility his hemoglobin was worse and it was 5.5 on presentation and hematocrit is 18.3. Platelets were 215. Sodium is 136, Calcium is 9.0. BUN is 42 and creatinine is 1.07. CT of the head is reported as indeterminate matter changes in the right frontal lobe series 2033 image 24. Consider further imaging evaluation with MRI. Left parietal region white matter changes compatible with prior CVA on 01/08/2023 and upon reviewing the patient's medication does not seem the patient is on any antiplatelets or anticoagulation. Upon reviewing his medical record it seems the patient was seen by Dr. Case foster on 01/21/2023 and he reported the patient has acute ischemic stroke multifocal throughout the left parietal and insular cortex and the single her focus in the right cerebellum. As well as the patient has history of prior stroke with expressive aphasia. He has history of M urocystis fugax. He has history of atrial for ablation in the past was on Xarelto but has failed Xarelto. History of recent GI bleed status post endoscopy. History of DVT. Review of Systems Limited but the positive and negative as per HPI. Past Medical History Past Medical History: Atrial Fibrillation, Cancer, Diabetes Mellitus, Deep Vein Thrombosis (DVT), GERD/Reflux, Hyperlipidemia, Hypertension, Osteoarthritis (OA), Pneumonia, Prostate Disorder, Pulmonary Embolus (PE), Skin Disorder, Sleep Apnea/CPAP/BIPAP Additional Past Medical History / Comment(s): open wound to back-has visiting nurse two times per weeks,prostate ca, rt leg dvt, diverticulitis, psoriases, abd hernia,no cpap History of Any Multi-Drug Resistant Organisms: None Reported Past Surgical History: Back Surgery, Cholecystectomy, Hernia Repair, Joint Replacement, Prostate Surgery, Tonsillectomy Additional Past Surgical History / Comment(s): prostectomy, had ruptured dive rticuli -colostomy and then reversed, abd hernia, tanisha cataracts, tubes in ears,total rt hip,[facility] Procedures Past Anesthesia/Blood Transfusion Reactions: No Reported Reaction Past Psychological History: No Psychological Hx Reported Additional Psychological History / Comment(s): uses a walker when up. Smoking Status: Former smoker Past Alcohol Use History: None Reported Additional Past Alcohol Use History / Comment(s): SMOKED X 28 YEARS 1PPD. Past Drug Use History: None Reported - Past Family History Father Family Medical History: Cancer Additional Family Medical History / Comment(s): prostate CA Mother Family Medical History: Deep Vein Thrombosis (DVT), Pulmonary Embolus Additional Family Medical History / Comment(s): PROSTATE CNACER Medications and Allergies Home Medications Medication Instructions Recorded Confirmed Type Atorvastatin Calcium [Lipitor] 40 mg PO HS 02/03/15 02/04/23 History Lansoprazole 30 mg PO DAILY 02/03/15 02/04/23 History Empagliflozin/Metformin HCl 2 tab PO W/BRKFST 06/13/22 02/04/23 History [Synjardy Xr 12.5-1,000 mg Tab] Furosemide [Lasix] 40 mg PO DAILY PRN 06/13/22 02/04/23 History Naloxone HCl [Narcan] 4 mg NASAL ONCE PRN 06/13/22 02/04/23 History Pioglitazone [Actos] 30 mg PO DAILY 06/13/22 02/04/23 History Potassium Chloride ER [K-Dur 20] 20 meq PO DAILY PRN 06/13/22 02/04/23 History Cyanocobalamin (Vitamin B-12) 1,000 mcg PO DAILY #1 tablet 06/15/22 02/04/23 Rx [Vitamin B-12] Amitriptyline HCl [Elavil] 25 mg PO HS 01/02/23 02/04/23 History Cholecalciferol [Vitamin D3 (125 125 mcg PO DAILY 01/02/23 02/04/23 History Mcg = 5000 Iu)] Fexofenadine HCl [Nikia Allergy] 180 mg PO DAILY 01/02/23 02/04/23 History Losartan [Cozaar] 12.5 mg PO DAILY 01/02/23 02/04/23 History Pramipexole [Mirapex] 0.5 mg PO BID 01/02/23 02/04/23 History Semaglutide [Ozempic] 1 mg SQ WE 01/02/23 02/04/23 History Aspirin 81 mg PO DAILY tab 01/08/23 02/04/23 Rx Nitroglycerin Sl Tabs [Nitrostat] 0.4 mg SUBLINGUAL Q5M PRN tab 01/08/23 02/04/23 Rx Magnesium Hydroxide [Milk of 7,200 mg PO Q48H PRN 01/15/23 02/04/23 History Magnesia Concentrate] Na Phos,M-B/Na Phos,Di-Ba [Fleet 133 ml RECTAL DAILY PRN 01/15/23 02/04/23 History Adult] bisacodyL [Dulcolax] 10 mg RECTAL DAILY PRN 01/15/23 02/04/23 History HYDROcodone/APAP 10-325MG [[place] 1 tab PO Q6H PRN 3 Days #12 tab 01/17/23 02/04/23 Rx 10-325] Pregabalin [Lyrica] 75 mg PO BID@0800,1700 #6 cap 01/17/23 02/04/23 Rx Apixaban [Eliquis] 5 mg PO BID #0 tab 01/21/23 02/04/23 Rx Iron Polysaccharides Complex 150 mg PO DAILY cap 01/21/23 02/04/23 Rx [Niferex-150] Sennosides-Docusate Sodium 2 tab PO BID #60 tablet 01/21/23 02/04/23 Rx [Senokot-S] Acetaminophen [Tylenol 8 Hour] 650 mg PO Q4H PRN 02/04/23 02/04/23 History Allergies Allergy/AdvReac Type Severity Reaction Status Date / Time cephalexin monohydrate Allergy Rash/Hives Verified 02/04/23 20:36 [From Keflex] on neck Penicillins Allergy Rash/Hives Verified 02/04/23 20:36 on neck Physical Examination - Vital Signs Vital Signs: Vital Signs Temp Pulse Resp BP Pulse Ox 02/05/23 11:28 98 18 110/72 95 02/05/23 10:04 79 16 101/53 97 02/05/23 09:04 83 18 98/42 99 02/05/23 09:00 85 18 105/48 02/05/23 08:00 97.0 F L 81 18 98/57 96 02/05/23 07:04 84 18 105/51 97 02/05/23 02:01 97.8 F 87 18 90/48 02/05/23 00:04 97.6 F 78 18 99/52 98 02/04/23 23:44 97.6 F 80 18 99/47 98 02/04/23 23:30 97.6 F 80 12 96/56 100 02/04/23 23:05 97.6 F 79 14 99/51 99 02/04/23 21:57 97.8 F 80 18 98/44 99 02/04/23 21:22 97.6 F 80 16 92/49 98 02/04/23 21:02 97.6 F 80 16 87/42 98 02/04/23 20:47 97.6 F 80 18 88/38 100 02/04/23 19:41 95 16 100/46 98 02/04/23 18:09 98.2 F 84 18 99/47 99 Intake and Output 02/04/23 02/05/23 02/05/23 22:59 06:59 14:59 Intake Total 0 620 Balance 0 620 Intake: Blood Product 0 620 Rc As-1 Unit 310 [id number] Rc As-1 Unit 0 310 [id number] Other: Weight 86.5 kg 86.5 kg General: Lying in bed and does not appear in acute distress. Neuro: Limited. She is awake oriented to self and he stated he is in the hospital. He is mumbling and is hypophonic. Amount of time it's hard to understand with the patient is the stating. He followed a few simple commands. The pupils are round equal reactive to light. The pupils are round 3 mm bila terally. Patient is tracking looking to the right and left and no appreciable nystagmus. No facial weakness. Motor is a strength is hard to assess individual muscle strength because of his cooperation but is able to lift up by bilateral upper more than the lower above gravity and it seems symmetrical from the limited examination. Normal tone and bulk. Sensory is hard to assess because his cooperation Reflexes as 1 positive throughout. The plantars are mute bilaterally. Results - Laboratory Findings CBC and BMP: 02/05/23 08:07 02/05/23 08:07 Abnormal Lab Findings: Abnormal Labs 02/04/23 02/04/23 02/04/23 18:27 18:27 18:27 RBC 2.35 L Hgb 5.5 L* D Hct 18.3 L* MCV 77.8 L D MCH 23.5 L MCHC 30.2 L RDW 17.3 H PT 15.0 H INR 1.5 H Sodium 136 L BUN 42 H Alkaline Phosphatase 362 H Creatine Kinase 38 L Total Protein 5.8 L Albumin 3.3 L Crossmatch 02/04/23 02/05/23 02/05/23 18:50 08:07 08:07 RBC 2.81 L Hgb 7.2 L D Hct 23.0 L MCV MCH MCHC RDW 16.6 H PT INR Sodium 136 L BUN 36 H Alkaline Phosphatase Creatine Kinase Total Protein Albumin Crossmatch See Detail Assessment and Plan Assessment: This is a 72-year-old gentleman who presented emergency department because of confusion, speech difficulty. Vision is a poor historian but is seems the patient has recent acute ischemic stroke and was last seen by Dr. Willoughby on 01/21/2023 which she had stroke over the left parietal and insular cortex as focus over the right cerebellum. He has prior strokes in the past as well ma nifesting with expressive aphasia as well as emuresis fugax. He has history of atrial fibrillation and he failed the Xarelto with history of GI bleed. His recent hemoglobin 5.5 on presentation. Expressive aphasia rule out acute stroke Acute on chronic anemia. Likely due to GI bleed. History of prior stroke and most recent was last month History of atrial fibrillation and in past was on Xarelto but per record does not seem he is on anticoagulation or antiplatlelet Straight DVT Hypertension Hyperlipidemia History of peripheral edema Plan: I ordered MRI the brain, carotid duplex. Once is felt safe by the GI in the primary team to resume antiplatelet then recommend starting aspirin 81 mg daily. Also will defer the clearance of starting anticoagulation once safe by the GI and the primary team's physician with a history of atrial fibrillation. Also once safe, resume Lipitor 40 mg daily at bedtime for seconds or stroke prophylaxis Every 4 hours neuro checks Cardiac monitoring I consulted PT OT and [employer] GI team is consulted We'll defer the rest of the medical management to primary team. DVT prophylaxis use SCDs. Thank you for the consultation Time with Patient: Greater than 30
--- NOTE | 2023-02-05 13:26 | P.CONS ---
History of Present Illness - Reason for Consult Consult date: 02/05/23 GI hemorrhage Requesting physician: Hosea Lira - Chief Complaint Neuro deficits - History of Present Illness This a pleasant 72-year-old male who was recently hospitalized for CVA in rehab that was brought into the emergency department for concerns of focal deficits with speech impairment. He has a past medical history included atrial fibrillation, CVA, DVT, diabetes mellitus, diverticulitis, prostate cancer, hypertension and hyperlipidemia. He was sent over from medical [place] for concerns of speech deficits, weakness, and confusion. He was recently hospitalized here and seen by gastroenterology at that time for concerns for anemia and GI bleed. At that time he had been reporting some dark stools. 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 His hemo globin on admission was 5.5. He was given 2 units of blood transfusion. No repeat hemoglobin available this morning. Patient was given clear liquid diet. He denies any dark stool or blood in his stool. Denies any abdominal pain, nausea or vomiting. Patient is being worked up for TIA. Neurology on consult. He has been on eliquis 5 mg twice a day, he is unsure of last dose taken. Labs WBC 8.8 hemoglobin 5.5 hematocrit 18 platelet count 215,000 and INR 1.5 sodium 136 potassium 4.3 BUN 42 creatinine 1.0 total bilirubin 0.9 AST 53 ALT 22 alkaline phosphatase 362 Review of Systems REVIEW OF SYSTEMS: CARDIOPULMONARY: No chest pain or shortness of breath. Gastrointestinal: No abdominal pain. No nausea or vomiting. No hematemesis, coffee-ground emesis. No rectal bleeding, or melena. GENITOURINARY: No dysuria or hematuria. MUSCULOSKELETAL: Reports normal range of motion. SKIN: No rashes. No jaundice. ENDOCRINE: No chills, fevers. No excessive weight gain or loss. No polydipsia or polyuria. PSYCHIATRIC: Unremarkable. NEUROLOGY: No reported difficulty with speech. Patient with recent CVA. ENT: Vision unremarkable. CONSTITUTIONAL: No recent weight loss. No fever, chills, night sweats. Past Medical History Past Medical History: Atrial Fibrillation, Cancer, Diabetes Mellitus, Deep Vein Thrombosis (DVT), GERD/Reflux, Hyperlipidemia, Hypertension, Osteoarthritis (OA), Pneumonia, Prostate Disorder, Pulmonary Embolus (PE), Skin Disorder, Sleep Apnea/CPAP/BIPAP Additional Past Medical History / Comment(s): open wound to back-has visiting nurse two times per weeks,prostate ca, rt leg dvt, diverticulitis, psoriases, abd hernia,no cpap History of Any Multi-Drug Resistant Organisms: None Reported Past Surgical History: Back Surgery, Cholecystectomy, Hernia Repair, Joint Replacement, Prostate Surgery, Tonsillectomy Additional Past Surgical History / Comment(s): prostectomy, had ruptured diverticuli -colostomy and then reversed, abd hernia, tanisha cataracts, tubes in ears,total rt hip,Pain Clinic Procedures Past Anesthesia/Blood Transfusion Reactions: No Reported Reaction Past Psychological History: No Psychological Hx Reported Additional Psychological History / Comment(s): uses a walker when up. Smoking Status: Former smoker Past Alcohol Use History: None Reported Additional Past Alcohol Use History / Comment(s): SMOKED X 28 YEARS 1PPD. Past Drug Use History: None Reported - Past Family History Father Family Medical History: Cancer Additional Family Medical History / Comment(s): prostate CA Mother Family Medical History: Deep Vein Thrombosis (DVT), Pulmonary Embolus Additional Family Medical History / Comment(s): PROSTATE CNACER Medications and Allergies Home Medications Medication Instructions Recorded Confirmed Type Atorvastatin Calcium [Lipitor] 40 mg PO HS 02/03/15 02/04/23 History Lansoprazole 30 mg PO DAILY 02/03/15 02/04/23 History Empagliflozin/Metformin HCl 2 tab PO W/BRKFST 06/13/22 02/04/23 History [Synjardy Xr 12.5-1,000 mg Tab] Furosemide [Lasix] 40 mg PO DAILY PRN 06/13/22 02/04/23 History Naloxone HCl [Narcan] 4 mg NASAL ONCE PRN 06/13/22 02/04/23 History Pioglitazone [Actos] 30 mg PO DAILY 06/13/22 02/04/23 History Potassium Chloride ER [K-Dur 20] 20 meq PO DAILY PRN 06/13/22 02/04/23 History Cyanocobalamin (Vitamin B-12) 1,000 mcg PO DAILY #1 tablet 06/15/22 02/04/23 Rx [Vitamin B-12] Amitriptyline HCl [Elavil] 25 mg PO HS 01/02/23 02/04/23 History Cholecalciferol [Vitamin D3 (125 125 mcg PO DAILY 01/02/23 02/04/23 History Mcg = 5000 Iu)] Fexofenadine HCl [Nikia Allergy] 180 mg PO DAILY 01/02/23 02/04/23 History Losartan [Cozaar] 12.5 mg PO DAILY 01/02/23 02/04/23 History Pramipexole [Mirapex] 0.5 mg PO BID 01/02/23 02/04/23 History Semaglutide [Ozempic] 1 mg SQ WE 01/02/23 02/04/23 History Aspirin 81 mg PO DAILY tab 01/08/23 02/04/23 Rx Nitroglycerin Sl Tabs [Nitrostat] 0.4 mg SUBLINGUAL Q5M PRN tab 01/08/23 02/04/23 Rx Magnesium Hydroxide [Milk of 7,200 mg PO Q48H PRN 01/15/23 02/04/23 History Magnesia Concentrate] Na Phos,M-B/Na Phos,Di-Ba [Fleet 133 ml RECTAL DAILY PRN 01/15/23 02/04/23 History Adult] bisacodyL [Dulcolax] 10 mg RECTAL DAILY PRN 01/15/23 02/04/23 History HYDROcodone/APAP 10-325MG [[place] 1 tab PO Q6H PRN 3 Days #12 tab 01/17/23 02/04/23 Rx 10-325] Pregabalin [Lyrica] 75 mg PO BID@0800,1700 #6 cap 01/17/23 02/04/23 Rx Apixaban [Eliquis] 5 mg PO BID #0 tab 01/21/23 02/04/23 Rx Iron Polysaccharides Complex 150 mg PO DAILY cap 01/21/23 02/04/23 Rx [Niferex-150] Sennosides-Docusate Sodium 2 tab PO BID #60 tablet 01/21/23 02/04/23 Rx [Senokot-S] Acetaminophen [Tylenol 8 Hour] 650 mg PO Q4H PRN 02/04/23 02/04/23 History Allergies Allergy/AdvReac Type Severity Reaction Status Date / Time cephalexin monohydrate Allergy Rash/Hives Verified 02/04/23 20:36 [From Keflex] on neck Penicillins Allergy Rash/Hives Verified 02/04/23 20:36 on neck Physical Exam Vitals: Vital Signs Temp Pulse Resp BP Pulse Ox 02/05/23 09:04 83 18 98/42 99 02/05/23 09:00 85 18 105/48 02/05/23 08:00 97.0 F L 81 18 98/57 96 02/05/23 07:04 84 18 105/51 97 02/05/23 02:01 97.8 F 87 18 90/48 02/05/23 00:04 97.6 F 78 18 99/52 98 02/04/23 23:44 97.6 F 80 18 99/47 98 02/04/23 23:30 97.6 F 80 12 96/56 100 02/04/23 23:05 97.6 F 79 14 99/51 99 02/04/23 21:57 97.8 F 80 18 98/44 99 02/04/23 21:22 97.6 F 80 16 92/49 98 02/04/23 21:02 97.6 F 80 16 87/42 98 02/04/23 20:47 97.6 F 80 18 88/38 100 02/04/23 19:41 95 16 100/46 98 02/04/23 18:09 98.2 F 84 18 99/47 99 Intake and Output 02/04/23 02/05/23 02/05/23 22:59 06:59 14:59 Intake Total 0 620 Balance 0 620 Intake: Blood Product 0 620 Rc As-1 Unit 310 [id number] Rc As-1 Unit 0 310 [id number] Other: Weight 86.5 kg 86.5 kg General appearance: The patient is alert, oriented, appears in no acute distress. HET: Head is normocephalic and atraumatic. Conjunctiva pink. Sclera anicteric. Neck: Supple without lymphadenopathy. Trachea midline. Heart: Regular. Lungs: Equal expansion, normal respiratory effort. Abdomen: Soft, nontender, nondistended with bowel sounds. No guarding or rigidity. Skin: No rashes. No jaundice. Extremities: Normal skin color and turgor. No pedal edema. Neurological: Patient currently alert and oriented, his speech is somewhat difficult to understand but not sure if this is his baseline.. Results CBC & Chem 7: 02/05/23 08:07 02/05/23 08:07 Labs: Abnormal Lab Results - Last 24 Hours (Table) 02/04/23 02/04/23 02/04/23 Range/Units 18:27 18:27 18:27 RBC 2.35 L (4.30-5.90) m/uL Hgb 5.5 L* D (13.0-17.5) gm/dL Hct 18.3 L* (39.0-53.0) % MCV 77.8 L D (80.0-100.0) fL MCH 23.5 L (25.0-35.0) pg MCHC 30.2 L (31.0-37.0) g/dL RDW 17.3 H (11.5-15.5) % PT 15.0 H (10.0-12.5) sec INR 1.5 H (<1.2) Sodium 136 L (137-145) mmol/L BUN 42 H (9-20) mg/dL Alkaline Phosphatase 362 H (38-126) U/L Creatine Kinase 38 L (55-170) U/L Total Protein 5.8 L (6.3-8.2) g/dL Albumin 3.3 L (3.5-5.0) g/dL Crossmatch 02/04/23 02/05/23 Range/Units 18:50 08:07 RBC (4.30-5.90) m/uL Hgb (13.0-17.5) gm/dL Hct (39.0-53.0) % MCV (80.0-100.0) fL MCH (25.0-35.0) pg MCHC (31.0-37.0) g/dL RDW (11.5-15.5) % PT (10.0-12.5) sec INR (<1.2) Sodium 136 L (137-145) mmol/L BUN 36 H (9-20) mg/dL Alkaline Phosphatase (38-126) U/L Creatine Kinase (55-170) U/L Total Protein (6.3-8.2) g/dL Albumin (3.5-5.0) g/dL Crossmatch See Detail Assessment and Plan (1) GI bleed Narrative/Plan: A 2-year-old male on anticoagulation for history of atrial fibrillation and pulmonary embolism presented to the emergency department with possible strokelike symptoms. Patient was recently hospitalized with CVA and at that time was found to be anemic with black stools. He underwent EGD on 01/17/[address] 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 Patient states he hasn't been noticing any black stool or dark stool or blood in his stool. No abdominal pain, nausea vomiting. However he was noted to have microcytic anemia on admission with a hemoglobin of 5.5 he is now transfused 2 units of PRBC with repeat hemoglobin is 7.2. This is a patient on anticoagulation that is currently on hold. Plan for repeat EGD tomorrow. Current Visit: Yes Status: Acute Code(s): K92.2 - GASTROINTESTINAL HEMORRHAGE, UNSPECIFIED SNOMED Code(s): 05137354 (2) Microcytic anemia Current Visit: Yes Status: Acute Code(s): D50.9 - IRON DEFICIENCY ANEMIA, UNSPECIFIED SNOMED Code(s): 790061754 (3) Angiectasia Current Visit: Yes Status: Acute Code(s): I99.8 - OTHER DISORDER OF CIRCULATORY SYSTEM SNOMED Code(s): 28666590 (4) Atrial fibrillation Current Visit: No Status: Acute Code(s): I48.91 - UNSPECIFIED ATRIAL FIBRILLATION SNOMED Code(s): 71868698 (5) Essential (primary) hypertension Current Visit: No Status: Acute Code(s): I10 - ESSENTIAL (PRIMARY) HYPERTENSION SNOMED Code(s): 35183294 (6) History of CVA (cerebrovascular accident) Current Visit: No Status: Acute Code(s): Z86.73 - PRSNL HX OF TIA (TIA), AND CEREB INFRC W/O RESID DEFICITS SNOMED Code(s): 184545681 (7) Type 2 diabetes mellitus Current Visit: No Status: Acute Code(s): E11.9 - TYPE 2 DIABETES MELLITUS WITHOUT COMPLICATIONS SNOMED Code(s): 46537870 Plan: 1. Continue symptomatic and supportive care 2. Hold anticoagulation 3. Repeat stat CBC, repeat CBC every 6 hours 4. Protonix 40 mg daily 5. Make nothing by mouth after midnight 6. Plan for EGD tomorrow if patient neurologically stable and cleared by neurology Thank you for this consultation, we will continue to follow. Dr. Jonathan Arevalo I agree with the dictator's note, documented as a scribe by Katya Toledo.
[2023-02-05 13:50] LABS: Glucose,Whole Blood 84 mg/dL (70-110)
[2023-02-05] MEDS: INSULIN ASPART (NovoLOG) 100 UNIT/ML VIAL SQ SCH ×3 (13:50→20:59)
--- NOTE | 2023-02-05 14:50 | P.HPIM ---
History of Present Illness H&P Date: 02/05/23 Chief Complaint: GI bleed This is a 72-year-old gentleman from [facility] subacute rehab with past medical history significant for recent acute ischemic stroke multifocal, throughout the left parietal and insular cortex, single focus within right cerebellum, suspected Xarelto failure and switched to ELiquis-discharged on 01/21/2023 ,prior stroke with expressive aphasia on 01/03/2023, recurrent amaurosis fugax right eye. EGD on 01/17/23 reporting 3 small nonbleeding AVMs in the proximal gastric body status post coronary no evidence of peptic ulcer disease with xarelto resumed,atrial flutter/fib , CHF, mild aortic stenosis ,type 2 diabetes mellitus, GERD, hyperlipidemia, osteoarthritis, pneumonia, obstructive sleep apnea with home CPAP, diverticulitis, psoriasis, prostate cancer, bilateral legs DVT/pulmonary embolism, back surgery, former nicotine dependence, gait d ysfunction and multiple other medical issues, brought into the ER with reports of confusion per subacute rehab ,speech impairment. Hemoglobin of 5.5 on admission. Denies rectal bleeding, dark stools. Denies nausea vomiting or diarrhea . Denies abdominal pain.Received 2 units of packed RBCs with he moglobin increased to 7.2. Denies chest pain, palpitations or shortness of breath. Afebrile. Blood pressures soft, maintaining O2 sats in the mid to high 90s on room air. WBC within normal limits, platelets 177, INR 1.5, sodium 136, potassium 3.8, bicarb 25, BUN 36, creatinine 0.9 to, alk phos 362, albumin 3.3. Chest x-ray reported stable, no acute cardiopulmonary disease/process. Brain CT reported indeterminant matter changes in the right frontal lobe series, consider further imaging with MRI, left parietal region white matter changes compatible with prior CVA on 01/18/2023. Review of Systems ROS Statement: Those systems with pertinent positive or pertinent negative responses have been documented in the HPI. ROS Other: All systems not noted in ROS Statement are negative. Past Medical History Past Medical History: Atrial Fibrillation, Cancer, Diabetes Mellitus, Deep Vein Thrombosis (DVT), GERD/Reflux, Hyperlipidemia, Hypertension, Osteoarthritis (OA), Pneumonia, Prostate Disorder, Pulmonary Embolus (PE), Skin Disorder, Sleep Apnea/CPAP/BIPAP Additional Past Medical History / Comment(s): open wound to back-has visiting nurse two times per weeks,prostate ca, rt leg dvt, diverticulitis, psoriases, abd hernia,no cpap History of Any Multi-Drug Resistant Organisms: None Reported Past Surgical History: Back Surgery, Cholecystectomy, Hernia Repair, Joint Replacement, Prostate Surgery, Tonsillectomy Additional Past Surgical History / Comment(s): prostectomy, had ruptured diverticuli -colostomy and then reversed, abd hernia, tanisha cataracts, tubes in ears,total rt hip,[facility] Clinic Procedures Past Anesthesia/Blood Transfusion Reactions: No Reported Reaction Past Psychological History: No Psychological Hx Reported Additional Psychological History / Comment(s): uses a walker when up. Smoking Status: Former smoker Past Alcohol Use History: None Reported Additional Past Alcohol Use History / Comment(s): SMOKED X 28 YEARS 1PPD. Past Drug Use History: None Reported - Past Family History Father Family Medical History: Cancer Additional Family Medical History / Comment(s): prostate CA Mother Family Medical History: Deep Vein Thrombosis (DVT), Pulmonary Embolus Additional Family Medical History / Comment(s): PROSTATE CNACER Medications and Allergies Home Medications Medication Instructions Recorded Confirmed Type Atorvastatin Calcium [Lipitor] 40 mg PO HS 02/03/15 02/04/23 History Lansoprazole 30 mg PO DAILY 02/03/15 02/04/23 History Empagliflozin/Metformin HCl 2 tab PO W/BRKFST 06/13/22 02/04/23 History [Synjardy Xr 12.5-1,000 mg Tab] Furosemide [Lasix] 40 mg PO DAILY PRN 06/13/22 02/04/23 History Naloxone HCl [Narcan] 4 mg NASAL ONCE PRN 06/13/22 02/04/23 History Pioglitazone [Actos] 30 mg PO DAILY 06/13/22 02/04/23 History Potassium Chloride ER [K-Dur 20] 20 meq PO DAILY PRN 06/13/22 02/04/23 History Cyanocobalamin (Vitamin B-12) 1,000 mcg PO DAILY #1 tablet 06/15/22 02/04/23 Rx [Vitamin B-12] Amitriptyline HCl [Elavil] 25 mg PO HS 01/02/23 02/04/23 History Cholecalciferol [Vitamin D3 (125 125 mcg PO DAILY 01/02/23 02/04/23 History Mcg = 5000 Iu)] Fexofenadine HCl [Nikia Allergy] 180 mg PO DAILY 01/02/23 02/04/23 History Losartan [Cozaar] 12.5 mg PO DAILY 01/02/23 02/04/23 History Pramipexole [Mirapex] 0.5 mg PO BID 01/02/23 02/04/23 History Semaglutide [Ozempic] 1 mg SQ WE 01/02/23 02/04/23 History Aspirin 81 mg PO DAILY tab 01/08/23 02/04/23 Rx Nitroglycerin Sl Tabs [Nitrostat] 0.4 mg SUBLINGUAL Q5M PRN tab 01/08/23 02/04/23 Rx Magnesium Hydroxide [Milk of 7,200 mg PO Q48H PRN 01/15/23 02/04/23 History Magnesia Concentrate] Na Phos,M-B/Na Phos,Di-Ba [Fleet 133 ml RECTAL DAILY PRN 01/15/23 02/04/23 History Adult] bisacodyL [Dulcolax] 10 mg RECTAL DAILY PRN 01/15/23 02/04/23 History HYDROcodone/APAP 10-325MG [[place] 1 tab PO Q6H PRN 3 Days #12 tab 01/17/23 02/04/23 Rx 10-325] Pregabalin [Lyrica] 75 mg PO BID@0800,1700 #6 cap 01/17/23 02/04/23 Rx Apixaban [Eliquis] 5 mg PO BID #0 tab 01/21/23 02/04/23 Rx Iron Polysaccharides Complex 150 mg PO DAILY cap 01/21/23 02/04/23 Rx [Niferex-150] Sennosides-Docusate Sodium 2 tab PO BID #60 tablet 01/21/23 02/04/23 Rx [Senokot-S] Acetaminophen [Tylenol 8 Hour] 650 mg PO Q4H PRN 02/04/23 02/04/23 History Allergies Allergy/AdvReac Type Severity Reaction Status Date / Time cephalexin monohydrate Allergy Rash/Hives Verified 02/04/23 20:36 [From Keflex] on neck Penicillins Allergy Rash/Hives Verified 02/04/23 20:36 on neck Physical Exam Vitals: Vital Signs Temp Pulse Resp BP Pulse Ox 02/05/23 10:04 79 16 101/53 97 02/05/23 09:04 83 18 98/42 99 02/05/23 09:00 85 18 105/48 02/05/23 08:00 97.0 F L 81 18 98/57 96 02/05/23 07:04 84 18 105/51 97 02/05/23 02:01 97.8 F 87 18 90/48 02/05/23 00:04 97.6 F 78 18 99/52 98 02/04/23 23:44 97.6 F 80 18 99/47 98 02/04/23 23:30 97.6 F 80 12 96/56 100 02/04/23 23:05 97.6 F 79 14 99/51 99 02/04/23 21:57 97.8 F 80 18 98/44 99 02/04/23 21:22 97.6 F 80 16 92/49 98 02/04/23 21:02 97.6 F 80 16 87/42 98 02/04/23 20:47 97.6 F 80 18 88/38 100 02/04/23 19:41 95 16 100/46 98 02/04/23 18:09 98.2 F 84 18 99/47 99 Intake and Output 02/04/23 02/05/23 02/05/23 22:59 06:59 14:59 Intake Total 0 620 Balance 0 620 Intake: Blood Product 0 620 Rc As-1 Unit 310 [id number] Rc As-1 Unit 0 310 [id number] Other: Weight 86.5 kg 86.5 kg GENERAL: Alert and oriented 2, lying on stretcher,expressive aphasia with low tone mumbling.NAD HEENT: Atraumatic, normocephalic, Pupils equal, round, and reactive to light,conjunctiva pink.MMM. NECK:Supple, no JVD,without lymphadenopathy. Trachea midline. LUNGS:Unlabored, equal air entry, Breath sounds clear to auscultation bilaterally. No wheezes, rales, or rhonchi. HEART: S1, S2, regular. Systolic murmur. ABDOMEN: Soft, nontender, nondistended, normoactive bowel sounds. No guarding, no rebound. Positive bowel sounds EXTREMITIES: 2+ peripheral pulses. No edema. NEUROLOGICAL: Cranial nerves II through XII grossly intact. Strength and sensation grossly intact. SKIN: Warm, dry, no rashes noted. Results CBC & Chem 7: 02/05/23 08:07 02/05/23 08:07 Labs: Abnormal Lab Results - Last 24 Hours (Table) 02/04/23 02/04/23 02/04/23 Range/Units 18:27 18:27 18:27 RBC 2.35 L (4.30-5.90) m/uL Hgb 5.5 L* D (13.0-17.5) gm/dL Hct 18.3 L* (39.0-53.0) % MCV 77.8 L D (80.0-100.0) fL MCH 23.5 L (25.0-35.0) pg MCHC 30.2 L (31.0-37.0) g/dL RDW 17.3 H (11.5-15.5) % PT 15.0 H (10.0-12.5) sec INR 1.5 H (<1.2) Sodium 136 L (137-145) mmol/L BUN 42 H (9-20) mg/dL Alkaline Phosphatase 362 H (38-126) U/L Creatine Kinase 38 L (55-170) U/L Total Protein 5.8 L (6.3-8.2) g/dL Albumin 3.3 L (3.5-5.0) g/dL Crossmatch 02/04/23 02/05/23 02/05/23 Range/Units 18:50 08:07 08:07 RBC 2.81 L (4.30-5.90) m/uL Hgb 7.2 L D (13.0-17.5) gm/dL Hct 23.0 L (39.0-53.0) % MCV (80.0-100.0) fL MCH (25.0-35.0) pg MCHC (31.0-37.0) g/dL RDW 16.6 H (11.5-15.5) % PT (10.0-12.5) sec INR (<1.2) Sodium 136 L (137-145) mmol/L BUN 36 H (9-20) mg/dL Alkaline Phosphatase (38-126) U/L Creatine Kinase (55-170) U/L Total Protein (6.3-8.2) g/dL Albumin (3.5-5.0) g/dL Crossmatch See Detail Assessment and Plan Assessment: Acute blood loss anemia accompanied by reported confusion per GERMÁN, expressive aphasia, mumbling, possible acute CVA/TIA in a patient with history of recent ischemic CVAs 2, Xarelto failure, switched to Eliquis secondary to hx of Afib. Neuro workup in progress. Recent Symptomatic blood loss anemia, status post EGD reporting 3 nonbleeding AVMs, status post cautery and argon plasma, no evidence of peptic ulcer disease Recent acute ischemic stroke with expressive aphasia 01/02/23, discharged to [facility] subacute rehab on 01/08/2023 COPD, stable Persistent atrial flutter,Eliquis on hold Chronic congestive heart failure with diastolic dysfunction Mild aortic stenosis History of DVTs, PE Diabetes mellitus,II controlled Diabetic neuropathy GERD. Hyperlipidemia. Hypertension. Osteoarthritis. Obstructive Sleep apnea with home CPAP use. History of prostate cancer with prostatectomy. Morbid obesity. BMI 39 Medical debility, gait dysfunction, uses walker. History of back surgery, chronic back pain Chronic urinary incontinence Formal nicotine dependence. Patient smoked a pack a day for more than 28 years. Plan: Continue on current medication regime ,monitoring and symptomatic treatment. Eliquis /anticoagulation placed on hold. Serial CBCs. IV fluid hydration. PPI ordered for GI prophylaxis. GI and neurology consults in place. Neuro workup in progress, brain MRI, carotid Doppler ordered. EGD scheduled for tomorrow. Prognosis guarded given multiple complex medical issues. The impression and plan of care has been dictated as directed. : I performed a history and examination of this patient, discussed the same with the dictator. I agree with the dictator's note ,documented as a scribe. Any additional findings or plans will be noted.
[2023-02-05] MEDS: HYDROcodone/APAP 10-325MG 1 EACH TAB PO PRN ×2 (14:52→23:55)
--- NOTE | 2023-02-05 15:32 | US ---
EXAMINATION TYPE: US carotid duplex BILAT DATE OF EXAM: 02/05/2023 COMPARISON: CTa 01-04-2023 CLINICAL INDICATION: Male, 72 years old with history of stroke; Stroke. Prior smoker. TECHNIQUE: Carotid duplex ultrasound examination. Indirect Doppler criteria was utilized. FINDINGS: EXAM MEASUREMENTS: RIGHT: Peak Systolic Velocity (PSV) cm/sec ----- Right CCA: 90.3 ----- Right ICA: 133 ----- Right ECA: 99.7 ICA/CCA ratio: 1.47 RIGHT: End Diastole cm/sec ----- Right CCA: 10.7 ----- Right ICA: 23.2 ----- Right ECA: 0.0 LEFT: Peak Systolic Velocity (PSV) cm/sec ----- Left CCA: 94.4 ----- Left ICA: 113 ----- Left ECA: 92.4 ICA/CCA ratio: 1.20 LEFT: End Diastole cm/sec ----- Left CCA: 15.4 ----- Left ICA: 35.5 ----- Left ECA: 0.7 VERTEBRALS (direction of flow): Right Vertebral: Not seen Left Vertebral: Antegrade Rhythm: Normal OFFICE SUPPORT SPECIALIST NOTES: Plaque seen within right bulb, left bulb, and left ICA. Elevated velocity within right mid ICA. IMPRESSION: 1. Atherosclerotic plaque with no significant hemodynamic stenosis. 2. Nonvisualization of the right vertebral artery. Criteria for Assigning % of Stenosis / Diameter reduction (Estimation based on the indirect measurements of the internal carotid artery velocities (ICA PSV). 1. Normal (no stenosis)=ICA PSV < 125 cm/s: ratio < 2.0: ICA EDV<40 cm/s. 2. Less than 50% stenosis=ICA PSV < 125 cm/s: ratio < 2.0: ICA EDV<40 cm/s. 3. 50 to 69% stenosis=ICA PSV of 125 to 230 cm/s: ration 2.0 ? 4.0: ICA EDV 40-100 cm/s. 4. Greater than 70% stenosis to near occlusion= ICA PSV > 230 cm/s: ratio > 4.0: ICA EDV > 100 cm/s. 5. Near occlusion= ICA PSV velocities may be low or undetectable: variable ratio and ICA EDV. 6. Total occlusion=unable to detect flow.
[2023-02-05 17:20] LABS: Glucose,Whole Blood 96 mg/dL (70-110)
[2023-02-05 17:31] LABS: Anisocytosis Slight; HCT 23.2 % (39.0-53.0); HGB 7.2 gm/dL (13.0-17.5); Hypochromasia Marked; MCH 25.3 pg (25.0-35.0); MCHC 31.2 g/dL (31.0-37.0); Mean Platelet Volume 7.7; Platelet Count 165 k/uL (150-450); Poikilocytosis Marked; RBC 2.87 m/uL (4.30-5.90); RDW 16.6 % (11.5-15.5); WBC 8.9 k/uL (3.8-10.6)
--- NOTE | 2023-02-05 17:51 | MR ---
EXAMINATION TYPE: MR brain wo con DATE OF EXAM: 02/05/2023 5:02 PM CLINICAL INDICATION:Male, 72 years old with history of slurred speech. cva; PHH, Slurred speech, CVA COMPARISON: MRI lumbar spine 01/18/2023.. TECHNIQUE: Multi planar, multi sequence imaging was performed through the brain including: T1, T2, In version recovery, Diffusion weighted imaging, and gradient echo imaging. No gadolinium was given. FINDINGS: More pronounced and new scattered areas of restricted diffusion are present, including area s in the right frontal lobe, the cerebellum bilaterally in the right occipital lobe and more extensiv e in the left parietal-occipital region. The no-white junctions, ventricular system, and cisterns a ppear unremarkable. Scattered foci of high T2 signal intensity are seen within the periventricular w emeka matter. Midline structures show no abnormality. The susceptibility weighted images do not reveal any evidence for micro-hemorrhage. The bone marrow signal is within normal limits. Paranasal sinuses and mastoid air cells: No significant paranasal sinus disease. Visualized orbits: Orbital contents are intact. IMPRESSION: 1. More pronounced and new scattered areas of restricted diffusion compatible with acute/subacute CVA . Now scattered throughout the right frontal lobe, the cerebellum bilaterally in the right occipital lobe and more extensive in the left parietal-occipital region. Correlate for embolic phenomenon. 2. Nonspecific white matter changes, likely secondary to small vessel ischemic disease.
[2023-02-05] MEDS ORDERED: MAGNESIUM CITRATE 296 ML BOTTLE PO ONE (20:00)
[2023-02-05 20:50] LABS: Glucose,Whole Blood 83 mg/dL (70-110)
[2023-02-05] MEDS: ATORVASTATIN 40 MG TAB PO SCH (21:11)
[2023-02-05] MEDS: AMITRIPTYLINE HCL 25 MG TAB PO SCH (21:11)
[2023-02-06] MEDS: SODIUM CHLORIDE 0.9% 1,000 ML IV SCH ×2 (00:01→06:20)
[2023-02-06 06:19] LABS: Glucose,Whole Blood 87 mg/dL (70-110)
[2023-02-06] MEDS: INSULIN ASPART (NovoLOG) 100 UNIT/ML VIAL SQ SCH ×4 (06:20→20:20)
--- NOTE | 2023-02-06 07:50 | P.CRDCN ---
History of Present Illness Consult date: 02/06/23 History of present illness: History of Present Illness: The patient is a 72-year-old male with a known history of chronic persistent atrial fibrillation, diabetes and hyperlipidemia who presented with change in mental status, weakness and was noted to be severely anemic. He has prior history of stroke and has been maintained on anticoagulation, initially Xarelto that was changed subsequently to Eliquis, it was thought that he had recurrent stroke because of failure of the initiate anticoagulation. He had a prior history of GI bleeding. On presentation he was noted to have a hemoglobin of 5.5. He is awake, answering questions, has evidence of some expressive aphasia. On questioning he denies any symptoms of chest discomfort, dizziness or palpitations. He denies any change in his breathing. He denies any syncope. His anticoagulation was held and he was transfused. He scheduled to undergo endoscopy. He continues to be in atrial fibrillation with controlled ventricular response. During his last admission his echocardiogram showed a preserved systolic function. He had moderate aortic with mild mitral and tricuspid regurgitation. His MRI showed more pronounced and new scattered areas of restricted diffusion consistent with acute and subacute CVA in the right frontal lobe and cerebellar bilaterally as well as right occipital lobe and left parietal occipital region. His carotid duplex scan showed no evidence of significant obstructive disease, his right vertebral artery was not visualized. He has underwent upper endoscopy on January 15 that showed 3 small nonbleeding angiectasia in the proximal gastric body underwent cauterization Medications: Actos, Lyrica, Lasix 40 mg as needed, Lipitor 40 mg daily, Cozaar 12.5 mg daily, aspirin once a day, Eliquis 5 mg twice a day, potassium, Ozempic Review of Systems: Limited because of the expressive aphasia Respiratory: No history of asthma, bronchitis or recent cough. GI: No nausea or vomiting . No history of peptic ulcer disease. No recent GI bleed. : No hematuria or dysuria. Nervous System: He has prior history of stroke and expressive aphasia Physical Examination: 72-year-old male, alert with expressive aphasia, following commands ,Blood pressure 120/60, Heart rate 80 Head: Normocephalic. Eyes: Sclerae nonicteric. Neck: Good carotid upstroke, no bruit, no jugular venous distention. Lungs: Clear to auscultation. Heart: Irregular rate and rhythm, S1-S2, no S3, no rub. Systolic ejection murmur. Abdomen: Soft nontender, positive bowel sounds no organomegaly. Extremities: Trace edema, intact distal pulses. Discoloration noted Labs: Hemoglobin up to 7.2, platelets 165, BUN 36, creatinine 0.92 EKG: Atrial flutter with a rate of [address]-T wave changes Impression: 1. Severe anemia with probable GI bleeding in a patient that has been anticoagulated 2. Change in mental status, probably worsened by the anemia and history of stroke 3. Permanent atrial flutteratrial fibrillation, rate controlled 4. History of hypertension 5. History of hyperlipidemia 6. History of diabetes Plan: 1. Hold anticoagulation 2. Proceed with GI workup as planned 3. The patient would benefit from left atrial appendage closure because of the recurrent bleeding and history of stroke. 4. Once stable he'll be referred to undergo the procedure as an outpatient 5. Thank you for this consult we will follow with you Past Medical History Past Medical History: Atrial Fibrillation, Cancer, Diabetes Mellitus, Deep Vein Thrombosis (DVT), GERD/Reflux, Hyperlipidemia, Hypertension, Osteoarthritis (OA), Pneumonia, Prostate Disorder, Pulmonary Embolus (PE), Skin Disorder, Sleep Apnea/CPAP/BIPAP Additional Past Medical History / Comment(s): open wound to back-has visiting nurse two times per weeks,prostate ca, rt leg dvt, diverticulitis, psoriases, abd hernia,no cpap History of Any Multi-Drug Resistant Organisms: None Reported Past Surgical History: Back Surgery, Cholecystectomy, Hernia Repair, Joint Replacement, Prostate Surgery, Tonsillectomy Additional Past Surgical History / Comment(s): prostectomy, had ruptured divert iculi -colostomy and then reversed, abd hernia, tanisha cataracts, tubes in ears,total rt hip,[facility] Clinic Procedures Past Anesthesia/Blood Transfusion Reactions: No Reported Reaction Past Psychological History: No Psychological Hx Reported Additional Psychological History / Comment(s): uses a walker when up. Smoking Status: Former smoker Past Alcohol Use History: None Reported Additional Past Alcohol Use History / Comment(s): SMOKED X 28 YEARS 1PPD. Past Drug Use History: None Reported - Past Family History Father Family Medical History: Cancer Additional Family Medical History / Comment(s): prostate CA Mother Family Medical History: Deep Vein Thrombosis (DVT), Pulmonary Embolus Additional Family Medical History / Comment(s): PROSTATE CNACER Medications and Allergies Home Medications Medication Instructions Recorded Confirmed Type Atorvastatin Calcium [Lipitor] 40 mg PO HS 02/03/15 02/04/23 History Lansoprazole 30 mg PO DAILY 02/03/15 02/04/23 History Empagliflozin/Metformin HCl 2 tab PO W/BRKFST 06/13/22 02/04/23 History [Synjardy Xr 12.5-1,000 mg Tab] Furosemide [Lasix] 40 mg PO DAILY PRN 06/13/22 02/04/23 History Naloxone HCl [Narcan] 4 mg NASAL ONCE PRN 06/13/22 02/04/23 History Pioglitazone [Actos] 30 mg PO DAILY 06/13/22 02/04/23 History Potassium Chloride ER [K-Dur 20] 20 meq PO DAILY PRN 06/13/22 02/04/23 History Cyanocobalamin (Vitamin B-12) 1,000 mcg PO DAILY #1 tablet 06/15/22 02/04/23 Rx [Vitamin B-12] Amitriptyline HCl [Elavil] 25 mg PO HS 01/02/23 02/04/23 History Cholecalciferol [Vitamin D3 (125 125 mcg PO DAILY 01/02/23 02/04/23 History Mcg = 5000 Iu)] Fexofenadine HCl [Nikia Allergy] 180 mg PO DAILY 01/02/23 02/04/23 History Losartan [Cozaar] 12.5 mg PO DAILY 01/02/23 02/04/23 History Pramipexole [Mirapex] 0.5 mg PO BID 01/02/23 02/04/23 History Semaglutide [Ozempic] 1 mg SQ WE 01/02/23 02/04/23 History Aspirin 81 mg PO DAILY tab 01/08/23 02/04/23 Rx Nitroglycerin Sl Tabs [Nitrostat] 0.4 mg SUBLINGUAL Q5M PRN tab 01/08/23 02/04/23 Rx Magnesium Hydroxide [Milk of 7,200 mg PO Q48H PRN 01/15/23 02/04/23 History Magnesia Concentrate] Na Phos,M-B/Na Phos,Di-Ba [Fleet 133 ml RECTAL DAILY PRN 01/15/23 02/04/23 History Adult] bisacodyL [Dulcolax] 10 mg RECTAL DAILY PRN 01/15/23 02/04/23 History HYDROcodone/APAP 10-325MG [[place] 1 tab PO Q6H PRN 3 Days #12 tab 01/17/23 02/04/23 Rx 10-325] Pregabalin [Lyrica] 75 mg PO BID@0800,1700 #6 cap 01/17/23 02/04/23 Rx Apixaban [Eliquis] 5 mg PO BID #0 tab 01/21/23 02/04/23 Rx Iron Polysaccharides Complex 150 mg PO DAILY cap 01/21/23 02/04/23 Rx [Niferex-150] Sennosides-Docusate Sodium 2 tab PO BID #60 tablet 01/21/23 02/04/23 Rx [Senokot-S] Acetaminophen [Tylenol 8 Hour] 650 mg PO Q4H PRN 02/04/23 02/04/23 History Allergies Allergy/AdvReac Type Severity Reaction Status Date / Time cephalexin monohydrate Allergy Rash/Hives Verified 02/04/23 20:36 [From Keflex] on neck Penicillins Allergy Rash/Hives Verified 02/04/23 20:36 on neck Physical Exam Vitals: Vital Signs Temp Pulse Pulse Resp BP BP Pulse Ox 02/06/23 04:00 97.3 F L 87 18 99/56 99 02/06/23 02:00 103 H 18 02/06/23 00:00 98.1 F 103 H 18 120/56 100 02/05/23 21:04 97.5 F L 91 16 113/56 100 02/05/23 20:25 97.9 F 88 18 98/54 98 02/05/23 20:00 91 16 02/05/23 18:23 97.8 F 81 16 104/54 02/05/23 16:00 97.5 F L 81 16 97/51 97 02/05/23 11:28 98 18 110/72 95 02/05/23 10:04 79 16 101/53 97 02/05/23 09:04 83 18 98/42 99 02/05/23 09:00 85 18 105/48 02/05/23 08:00 97.0 F L 81 18 98/57 96 Intake and Output 02/05/23 02/06/23 02/06/23 22:59 06:59 14:59 Other: Voiding Method Diaper Diaper Incontinent Incontinent # Voids 1 1 Results 02/05/23 17:09 02/05/23 08:07 CBC 02/05/23 02/05/23 Range/Units 08:07 17:09 WBC 7.5 8.9 (3.8-10.6) k/uL RBC 2.81 L 2.87 L (4.30-5.90) m/uL Hgb 7.2 L D 7.2 L (13.0-17.5) gm/dL Hct 23.0 L 23.2 L (39.0-53.0) % Plt Count 177 165 (150-450) k/uL Comprehensive Metabolic Panel 02/05/23 Range/Units 08:07 Sodium 136 L (137-145) mmol/L Potassium 3.8 (3.5-5.1) mmol/L Chloride 101 (98-107) mmol/L Carbon Dioxide 25 (22-30) mmol/L BUN 36 H (9-20) mg/dL Creatinine 0.92 (0.66-1.25) mg/dL Glucose 78 (74-99) mg/dL Calcium 8.7 (8.4-10.2) mg/dL Current Medications Generic Name Dose Route Start Last Admin Trade Name Freq PRN Reason Stop Dose Admin Hydrocodone Bitart/Acetaminophen 1 each 02/05/23 14:13 02/05/23 23:55 Hydrocodone/Apap 10-325mg 1 Each Tab PO 1 each Q6HR PRN Administration Pain Amitriptyline HCl 25 mg 02/05/23 21:00 02/05/23 21:11 Amitriptyline Hcl 25 Mg Tab PO 25 mg HS LORA Administration Atorvastatin Calcium 40 mg 02/05/23 21:00 02/05/23 21:11 Atorvastatin 40 Mg Tab PO 40 mg HS LORA Administration Dextrose/Water 25 ml 02/05/23 12:19 Dextrose 50% Syringe 50 Ml IVP PER PROTOCOL PRN Hypoglycemia Protocol Dextrose/Water 50 ml 02/05/23 12:19 Dextrose 50% Syringe 50 Ml IVP PER PROTOCOL PRN Hypoglycemia Protocol Sodium Chloride 1,000 mls @ 75 mls/hr 02/04/23 19:45 02/06/23 06:20 Saline 0.9% IV 75 mls/hr .[id number] LORA Administration Insulin Aspart 0 unit 02/05/23 12:30 02/06/23 06:20 Insulin Aspart (Novolog) 100 Unit/Ml Vial SQ Not Given ACHS LORA Protocol Losartan Potassium 12.5 mg 02/05/23 09:00 02/05/23 09:13 Losartan 25 Mg Tab PO Not Given DAILY LORA Naloxone HCl 0.2 mg 02/04/23 19:33 Naloxone 0.4 Mg/Ml 1 Ml Vial IV Q2M PRN Opioid Reversal Pantoprazole Sodium 40 mg 02/05/23 09:00 02/05/23 09:13 Pantoprazole 40 Mg/10 Ml Vial IV 40 mg DAILY LORA Administration Intake and Output 02/05/23 02/06/23 02/06/23 22:59 06:59 14:59 Other: Voiding Method Diaper Diaper Incontinent Incontinent # Voids 1 1 02/05/23 17:09 02/05/23 08:07
[2023-02-06] MEDS: LOSARTAN 25 MG TAB PO SCH (07:58)
[2023-02-06] MEDS: PANTOPRAZOLE 40 MG/10 ML VIAL IV SCH (08:07)
[2023-02-06] MEDS ORDERED: ACETAMINOPHEN IV (For NPO) 1,000 MG in EMPTY BAG 1 BAG IVPB PRN (11:14)
[2023-02-06 11:44] LABS: Glucose,Whole Blood 88 mg/dL (70-110)
[2023-02-06 11:51] LABS: Anisocytosis Slight; Basophils % (A) 0 %; Eosinophils # (A) 0.6 k/uL (0-0.7); Eosinophils % (A) 7 %; HCT 23.1 % (39.0-53.0); HGB 7.2 gm/dL (13.0-17.5); Hypochromasia Marked; Lymphocytes # (A) 0.7 k/uL (1.0-4.8); Lymphocytes % (A) 8 %; MCH 25.3 pg (25.0-35.0); MCV 81.7 fL (80.0-100.0); Monocytes # (A) 0.4 k/uL (0-1.0); Monocytes % (A) 4 %; Neutrophils # (A) 6.9 k/uL (1.3-7.7); Neutrophils % (A) 80 %; Platelet Count 150 k/uL (150-450); Poikilocytosis Marked; RBC 2.83 m/uL (4.30-5.90); RDW 17.1 % (11.5-15.5); WBC 8.6 k/uL (3.8-10.6)
[2023-02-06 12:16] LABS: African American GFR (CKD) >90 (>60 ml/min/1.73 sqM); Anion Gap 11 mmol/L; Blood Urea Nitrogen 21 mg/dL (9-20); Calcium 8.6 mg/dL (8.4-10.2); Carbon Dioxide 24 mmol/L (22-30); Chloride 104 mmol/L (98-107); Glucose 77 mg/dL (74-99); Non-African American GFR(CKD) 90 (>60 ml/min/1.73 sqM); Potassium 3.6 mmol/L (3.5-5.1); Sodium 139 mmol/L (137-145)
[2023-02-06 13:29] VITALS: BMI 27.3
[2023-02-06] MEDS ORDERED: LIDOCAINE 1% INJ 10MG/ML (20 ML MDV) ONE (13:54)
[2023-02-06] MEDS ORDERED: PROPOFOL 10 MG/ML 20 ML VIAL IV ONE (13:54)
[2023-02-06] MEDS ORDERED: IV FLUID CONTINUATION 500 ML IV ONE (14:15)
--- NOTE | 2023-02-06 14:25 | P.PCN ---
Date of Procedure: 02/06/23 Procedure(s) Performed: BRIEF HISTORY: Patient is a 72-year-old, pleasant, white male admitted hospital with maroon colored stools and hemoglobin of 5.5 g/dL. He has history of A. fib and on a liquid the last dose 2 days ago. 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 His last colonoscopy was 3 years ago. He scheduled for an upper endoscopy/enteroscopy because of clinical suspicion for upper GI source of bleeding.. PROCEDURE PERFORMED: Esophagogastroduodenoscopy/enteroscopy with argon plasma coagulation and Endo Clip placement. PREOPERATIVE DIAGNOSIS: Acute GI bleed/anemia. IV sedation per anesthesia. PROCEDURE: After informed consent was obtained, the patient was brought into the endoscopy unit. IV sedation was administered by Anesthesia under continuous monitoring. Initially the Olympus GIF-140 video endoscope was inserted into the mouth. Esophagus intubated without any difficulty. It was gradually advanced into the stomach and duodenum and carefully examined. In the third and fourth p art of the duodenum there was some fresh blood identified. Irrigation was performed. 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 There was still some oozing identified and hence Endo Clip was placed with good hemostasis.. The scope at this time was withdrawn to the stomach, adequately insufflated with air, and upon careful examination, mucosa of the antrum, mild gastritis. Mucosa of the body, cardia and the fundus appeared normal. The scope was then withdrawn into the esophagus. The GE junction was located at 39 cm from the incisors. The esophagus appeared normal. There were no erosions or ulcerations seen and the patient tolerated the procedure well. IMPRESSION: 1. 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 2. Mild gastritis. RECOMMENDATIONS: The findings of this examination were discussed with the patient . He'll be on clear liquid diet. Monitor CBC daily. Hold eliquis for 2 days..
--- NOTE | 2023-02-06 14:56 | P.PN ---
Subjective Progress Note Date: 02/06/23 I am following-up with patient and he feels he is about the same. Objective - Vital Signs Vital signs: Vital Signs Temp 97.6 F 02/06/23 12:00 Pulse 92 02/06/23 12:00 Resp 16 02/06/23 12:00 BP 117/56 02/06/23 12:00 Pulse Ox 100 02/06/23 12:00 FiO2 Intake & Output 02/05/23 02/06/23 02/06/23 18:59 06:59 18:59 Intake Total 200 Output Total 400 Balance -200 Weight 86.5 kg 86.5 kg Intake: IV 200 Output: Urine 400 Other: Voiding Method Diaper External Catheter Incontinent # Voids 1 1 - Exam General: Sitting side of bed and is not in acute distress. Neuro: The patient is awake, alert , oriented to self and place. He is following simple commands. No aphasia or neglect. Pupils are round, equal and reactive to light. No facial weakness. No dysarthria. Motor: Hard to assess individual muscle strength because of cooperation. Is lifting all extremities above gravity. SOME OF THE WORK-UP DURING THIS HOSPITAL VISIT CONSISTED OF: CT of the head is reported as indeterminate matter changes in the right frontal lobe series 2033 image 24. Consider further imaging evaluation with MRI. My the brain is reported as more pronounced and new scattered area of restricted diffusion compatible with acute/subacute CVA. Now scattered throughout the right frontal, cerebellum bilaterally in the right occipital more extensive left parietal occipital. Correlate for embolic phenomena. Nonspecific white matter changes, likely secondary due to small vessel ischemic disease. Carotid duplex is reported as atherosclerotic plaque with no significant hemodynamic stenosis. No visualization of the right vertebral artery EGD: 1. 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 2. Mild gastritis. - Labs CBC & Chem 7: 02/06/23 11:20 02/06/23 11:20 Labs: Abnormal Lab Results - Last 24 Hours (Table) 02/05/23 02/06/23 02/06/23 Range/Units 17:09 11:20 11:20 RBC 2.87 L 2.83 L (4.30-5.90) m/uL Hgb 7.2 L 7.2 L (13.0-17.5) gm/dL Hct 23.2 L 23.1 L (39.0-53.0) % RDW 16.6 H 17.1 H (11.5-15.5) % Lymphocytes # 0.7 L (1.0-4.8) k/uL BUN 21 H (9-20) mg/dL Assessment and Plan Assessment: This is a 72-year-old gentleman who presented emergency department because of confusion, speech difficulty. Vision is a poor historian but is seems the patient has recent acute ischemic stroke and was last seen by Dr. Willoughby on 01/21/2023 which she had stroke over the left parietal and insular cortex as f ocus over the right cerebellum. He has prior strokes in the past as well manifesting with expressive aphasia as well as emuresis fugax. He has history of atrial fibrillation and he failed the Xarelto with history of GI bleed. His recent hemoglobin 5.5 on presentation. Acute to subacute over bilateral hemisphere. Seems embolic especially with history of a-fib and is not on anticoagulation Acute on chronic anemia. Likely due to GI bleed. Seems third/four duodenum and has AVM s/p ablation and endo clip. History of prior stroke and most recent was last month History of atrial fibrillation and in past was on Xarelto but per record does not seem he is on anticoagulation or antiplatlelet Straight DVT Hypertension Hyperlipidemia History of peripheral edema Plan: Once is felt safe by the GI in the primary team to resume antiplatelet then recommend starting aspirin 81 mg daily. Also will defer the clearance of starting anticoagulation once safe by the GI and the primary team's physician with a history of atrial fibrillation. Also once safe, resume Lipitor 40 mg daily at bedtime for seconds or stroke prophylaxis I ordered his lipid panel as well as limited 2-D echo. Every 4 hours neuro checks Cardiac monitoring PT OT and [facility] GI team is consulted We'll defer the rest of the medical management to primary team. DVT prophylaxis use SCDs. Condition is very guarded Continue to follow. Time with Patient: Less than 30
[2023-02-06] MEDS: HYDROcodone/APAP 10-325MG 1 EACH TAB PO PRN ×2 (15:38→21:40)
--- NOTE | 2023-02-06 16:14 | P.PN ---
Subjective Progress Note Date: 02/06/23 H&P Date: 02/05/23 Chief Complaint: GI bleed This is a 72-year-old gentleman from [facility] subacute rehab with past medical history significant for recent acute ischemic stroke multifocal, throughout the left parietal and insular cortex, single focus within right cerebellum, suspected Xarelto failure and switched to ELiquis-discharged on 01/21/2023 ,prior stroke with expressive aphasia on 01/03/2023, recurrent amaurosis fugax right eye. EGD on 01/17/23 reporting 3 small nonbleeding AVMs in the proximal gastric body status post coronary no evidence of peptic ulcer disease with xarelto resumed,atrial flutter/fib , CHF, mild aortic stenosis ,type 2 diabetes mellitus, GERD, hyperlipidemia, osteoarthritis, pneumonia, obstructive sleep apnea with home CPAP, diverticulitis, psoriasis, prostate cancer, bilateral legs DVT/pulmonary embolism, back surgery, former nicotine dependence, gait dysfunction and multiple other medical issues, brought into the ER with reports of confusion per subacute rehab ,speech impairment. Hemoglobin of 5.5 on admission. Denies rectal bleeding, dark stools. Denies nausea vomiting or diarrhea . Denies abdominal pain.Received 2 units of packed RBCs with hemoglobin increased to 7.2. Denies chest pain, palpitations or shortness of breath. Afebrile. Blood pressures soft, maintaining O2 sats in the mid to high 90s on room air. WBC within normal limits, platelets 177, INR 1.5, sodium 136, potassium 3.8, bicarb 25, BUN 36, creatinine 0.9 to, alk phos 362, albumin 3.3. Chest x-ray reported stable, no acute cardiopulmonary disease/process. Brain CT reported indeterminant matter changes in the right frontal lobe series, consider further imaging with MRI, left parietal region white matter changes compatible with prior CVA on 01/18/2023. 02/06/2023 labs pending this morning.NPO, scheduled for EGD. Cardiology consultin place regarding anticoagulation in a patient with recurrent GI bleed.MRI reported more pronounced and new scattered area of restricted diffusion compatible with acute/subacute CVA. Now scattered throughout the right frontal, cerebellum bilaterally in the right occipital more extensive left parietal occipital. Correlate for embolic phenomena. Nonspecific white matter changes, likely secondary due to small vessel ischemic disease.Carotid Doppler reported no hemodynamic stenosis. Objective - Vital Signs Vital signs: Vital Signs Temp 97.6 F 02/06/23 12:00 Pulse 92 02/06/23 12:00 Resp 16 02/06/23 12:00 BP 117/56 02/06/23 12:00 Pulse Ox 100 02/06/23 12:00 FiO2 Intake & Output 02/05/23 02/06/23 02/06/23 18:59 06:59 18:59 Output Total 400 Balance -400 Weight 86.5 kg Output: Urine 400 Other: Voiding Method Diaper External Catheter Incontinent # Voids 1 1 - Exam GENERAL: Alert and oriented 2, expressive aphasia currently subsided,NAD HEENT: Atraumatic, normocephalic, Pupils equal, round, and reactive to light,conjunctiva pink. NECK:Supple, no JVD. LUNGS:Unlabored, equal air entry, Breath sounds clear to auscultation bilaterally. No wheezes, rales, or rhonchi. HEART: S1, S2, regular. Systolic murmur. ABDOMEN: Soft, nontender, nondistended, normoactive bowel sounds. No guarding, no rebound. Positive bowel sounds EXTREMITIES: 2+ peripheral pulses. No edema. NEUROLOGICAL: Cranial nerves II through XII grossly intact. Strength and sensation grossly intact. SKIN: Warm, dry, no rashes noted. - Labs CBC & Chem 7: 02/06/23 11:20 02/06/23 11:20 Labs: Abnormal Lab Results - Last 24 Hours (Table) 02/05/23 02/06/23 02/06/23 Range/Units 17:09 11:20 11:20 RBC 2.87 L 2.83 L (4.30-5.90) m/uL Hgb 7.2 L 7.2 L (13.0-17.5) gm/dL Hct 23.2 L 23.1 L (39.0-53.0) % RDW 16.6 H 17.1 H (11.5-15.5) % Lymphocytes # 0.7 L (1.0-4.8) k/uL BUN 21 H (9-20) mg/dL Assessment and Plan Assessment: Acute blood loss anemia accompanied by reported confusion per [facility], expressive aphasia, mumbling, acute -subacute CVA , in a patient with history of recent ischemic CVAs 2, Xarelto failure, switched to Eliquis secondary to hx of Afib. Neuro workup in progress. Recent Symptomatic blood loss anemia, status post EGD 01/17 reporting 3 nonbleeding AVMs, status post cautery and argon plasma, no evidence of peptic ulcer disease. Recent acute ischemic stroke with expressive aphasia, discharged to rehab. COPD, stable Persistent atrial flutter,Eliquis on hold.(Confirmed with Rajiv hunter, patient was receiving Eliquis as ordered at the [facility], prior to current admission) Chronic congestive heart failure with diastolic dysfunction Mild aortic stenosis History of DVTs, PE Diabetes mellitus,II controlled Diabetic neuropathy GERD. Hyperlipidemia. Hypertension. Osteoarthritis. Obstructive Sleep apnea with home CPAP use. History of prostate cancer with prostatectomy. Morbid obesity. BMI 39 Medical debility, gait dysfunction, uses walker. History of back surgery, chronic back pain Chronic urinary incontinence Formal nicotine dependence. Patient smoked a pack a day for more than 28 years. Plan: Continue on current medication regime ,monitoring and symptomatic treatment.Serial CBCs, labs pending.EGD pending. Eliquis /anticoagulation remain on hold. Evaluated by cardiology recommending left atrial appendage closure secondary to recurrent GI bleeds on oral anticoagulation. Maintained on IV fluid hydration, PPI. Neuro workup in progress, further recommendations pending. Prognosis guarded given multiple complex medical issues. The impression and plan of care has been dictated as directed. : I performed a history and examination of this patient, discussed the same with the dictator. I agree with the dictator's note ,documented as a scribe. Any additional findings or plans will be noted.
[2023-02-06 16:40] LABS: Glucose,Whole Blood 89 mg/dL (70-110)
[2023-02-06 19:57] LABS: Glucose,Whole Blood 108 mg/dL (70-110)
[2023-02-06] MEDS: ATORVASTATIN 40 MG TAB PO SCH (21:40)
[2023-02-06] MEDS: AMITRIPTYLINE HCL 25 MG TAB PO SCH (21:40)
[2023-02-06 22:20] LABS: Chol/HDL Ratio 1.85 Ratio; LDL Cholesterol,Calculated 22.5 mg/dL (0.0-131.0); VLDL Calculation 16.58 mg/dL (5.00-40.00)
[2023-02-07] MEDS: SODIUM CHLORIDE 0.9% 1,000 ML IV SCH ×2 (02:30→06:40)
[2023-02-07] MEDS: HYDROcodone/APAP 10-325MG 1 EACH TAB PO PRN ×2 (03:21→21:40)
[2023-02-07 06:08] LABS: Glucose,Whole Blood 109 mg/dL (70-110)
[2023-02-07] MEDS: INSULIN ASPART (NovoLOG) 100 UNIT/ML VIAL SQ SCH ×4 (06:14→20:35)
[2023-02-07] MEDS: LOSARTAN 25 MG TAB PO SCH (09:56)
[2023-02-07] MEDS: PANTOPRAZOLE 40 MG/10 ML VIAL IV SCH (09:57)
--- NOTE | 2023-02-07 11:10 | P.DS ---
Providers Date of admission: 02/04/23 19:33 Expected date of discharge: 02/07/23 Attending physician: Venu Oshea Consults: 02/04/23 19:33 Consult Physician Urgent Consulting Provider: Matias Marte Consult Reason/Comments: tia Do you want consulting provider notified?: Yes Consult Physician Urgent Consulting Provider: Lynne Arevalo Consult Reason/Comments: gi hemorrhage Do you want consulting provider notified?: Yes 02/05/23 15:09 Consult Physician Routine Consulting Provider: Fortunato eTna Consult Reason/Comments: Anticoagulation recommendations, recurrent GI bleeds Do you want consulting provider notified?: Yes Primary care physician: Venu Oshea Hospital Course: Final Diagnoses: Acute blood loss anemia accompanied by reported confusion per [facility], expressive aphasia, mumbling, acute -subacute CVA , in a patient with history of recent ischemic CVAs 2, Xarelto failure, switched to Eliquis secondary to hx of Afib. 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 * GI rec. to resume Eliquis tomorrow, Feb.08. Pt to follow up with Cardiology OP regarding potential left atrial appendage closure .* Recent Symptomatic blood loss anemia, status post EGD 01/17 reporting 3 nonbleeding AVMs, status post cautery and argon plasma, no evidence of peptic ulcer disease. Recent acute ischemic stroke with expressive aphasia, discharged to rehab. COPD, stable Persistent atrial flutter,Eliquis on hold.(Confirmed with Rajiv hunter, patient was receiving Eliquis as ordered at the [facility], prior to current admission) Chronic congestive heart failure with diastolic dysfunction Mild aortic stenosis History of DVTs, PE Diabetes mellitus,II controlled Diabetic neuropathy GERD. Hyperlipidemia. Hypertension. Osteoarthritis. Obstructive Sleep apnea with home CPAP use. History of prostate cancer with prostatectomy. Morbid obesity. BMI 39 Medical debility, gait dysfunction, uses walker. History of back surgery, chronic back pain Chronic urinary incontinence Formal nicotine dependence. Patient smoked a pack a day for more than 28 years. Hospital course:This is a 72-year-old gentleman from [facility] subacute rehab with past medical history significant for recent acute ischemic stroke multifocal, throughout the left parietal and insular cortex, single focus within right cerebellum, suspected Xarelto failure and switched to ELiquis-discharged on 01/21/2023 ,prior stroke with expressive aphasia on 01/03/2023, recurrent amaurosis fugax right eye. EGD on 01/17/23 reporting 3 small nonbleeding AVMs in the proximal gastric body status post coronary no evidence of peptic ulcer disease with xarelto resumed,atrial flutter/fib , CHF, mild aortic stenosis ,type 2 diabetes mellitus, GERD, hyperlipidemia, osteoarthritis, pneumonia, obstructive sleep apnea with home CPAP, diverticulitis, psoriasis, prostate cancer, bilateral legs DVT/pulmonary embolism, back surgery, former nicotine dependence, gait dysfunction and multiple other medical issues, brought into the ER with reports of confusion per subacute rehab ,speech impairment. Hemoglobin of 5.5 on admission. Denies rectal bleeding, dark stools. Denies nausea vomiting or diarrhea . Denies abdominal pain.Received 2 units of packed RBCs with hemoglobin increased to 7.2. Denies chest pain, palpitations or shortness of breath. Afebrile. Blood pressures soft, maintaining O2 sats in the mid to high 90s on room air. WBC within normal limits, platelets 177, INR 1.5, sodium 136, potassium 3.8, bicarb 25, BUN 36, creatinine 0.9 to, alk phos 362, albumin 3.3. Chest x-ray reported stable, no acute cardiopulmonary disease/process. Brain CT reported indeterminant matter changes in the right frontal lobe series, consider further imaging with MRI, left parietal region white matter changes compatible with prior CVA on 01/18/2023. 02/06/2023 labs pending this morning.NPO, scheduled for EGD. Cardiology consultin place regarding anticoagulation in a patient with recurrent GI bleed.MRI reported more pronounced and new scattered area of restricted diffusion compatible with acute/subacute CVA. Now scattered throughout the right frontal, cerebellum bilaterally in the right occipital more extensive left parietal occipital. Correlate for embolic phenomena. Nonspecific white matter changes, likely secondary due to small vessel ischemic disease.Carotid Doppler reported no hemodynamic stenosis. 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 Tolerated clear liquid diet, denies nausea vomiting or diarrhea. Denies any further bowel movements. Hemoglobin pending. Diet advanced to full liquids. GI recommending continuing to hold Eliquis until tomorrow, 02/08/23. Evaluated by cardiology recommended possible left atrial appendage closure outpatient .Patient will be discharged home today in stable condition with current prognosis pending hemoglobin, echo, final DC recommendations and clearance per neurology. The impression and plan of care has been dictated as directed. Dr.: I performed a history and examination of this patient, discussed the same with the dictator. I agree with the dictator's note ,documented as a scribe. Any additional findings or plans will be noted. The impression and plan of care has been dictated as directed. Dr.: I performed a history and examination of this patient, discussed the same with the dictator. I agree with the dictator's note ,documented as a scribe. Any additional findings or plans will be noted. Patient Condition at Discharge: Stable Plan - Discharge Summary Discharge Rx Participant: No New Discharge Prescriptions: New INSULIN LISPRO (HumaLOG) [humaLOG] 0 unit SQ ACHS #10 ml Continue Atorvastatin Calcium [Lipitor] 40 mg PO HS Lansoprazole 30 mg PO DAILY Potassium Chloride ER [K-Dur 20] 20 meq PO DAILY PRN PRN Reason: with lasix Amitriptyline HCl [Elavil] 25 mg PO HS Cholecalciferol [Vitamin D3 (125 Mcg = 5000 Iu)] 125 mcg PO DAILY Fexofenadine HCl [Inkia Allergy] 180 mg PO DAILY Semaglutide [Ozempic] 1 mg SQ WE Nitroglycerin Sl Tabs [Nitrostat] 0.4 mg SUBLINGUAL Q5M PRN tab PRN Reason: Chest Pain bisacodyL [Dulcolax] 10 mg RECTAL DAILY PRN PRN Reason: Constipation Na Phos,M-B/Na Phos,Di-Ba [Fleet Adult] 133 ml RECTAL DAILY PRN PRN Reason: Constipation HYDROcodone/APAP 10-325MG [[place] 10-325] 1 tab PO Q6H PRN 3 Days #12 tab PRN Reason: Pain Apixaban [Eliquis] 5 mg PO BID #0 tab Pioglitazone [Actos] 30 mg PO DAILY Furosemide [Lasix] 40 mg PO DAILY PRN PRN Reason: Edema Naloxone HCl [Narcan] 4 mg NASAL ONCE PRN PRN Reason: Overdose Empagliflozin/Metformin HCl [Synjardy Xr 12.5-1,000 mg Tab] 2 tab PO W/BRKFST Cyanocobalamin (Vitamin B-12) [Vitamin B-12] 1,000 mcg PO DAILY #1 tablet Losartan [Cozaar] 12.5 mg PO DAILY Pramipexole [Mirapex] 0.5 mg PO BID Magnesium Hydroxide [Milk of Magnesia Concentrate] 7,200 mg PO Q48H PRN PRN Reason: Constipation Iron Polysaccharides Complex [Niferex-150] 150 mg PO DAILY cap Sennosides-Docusate Sodium [Senokot-S] 2 tab PO BID #60 tablet Acetaminophen [Tylenol 8 Hour] 650 mg PO Q4H PRN PRN Reason: Pain Or Fever > 100.5 Pregabalin [Lyrica] 75 mg PO BID@0800,1700 #6 cap Discontinued Aspirin 81 mg PO DAILY tab Discharge Medication List Atorvastatin Calcium [Lipitor] 40 mg PO HS 02/03/15 [History] Lansoprazole 30 mg PO DAILY 02/03/15 [History] Empagliflozin/Metformin HCl [Synjardy Xr 12.5-1,000 mg Tab] 2 tab PO W/BRKFST 06/13/22 [History] Furosemide [Lasix] 40 mg PO DAILY PRN 06/13/22 [History] Naloxone HCl [Narcan] 4 mg NASAL ONCE PRN 06/13/22 [History] Pioglitazone [Actos] 30 mg PO DAILY 06/13/22 [History] Potassium Chloride ER [K-Dur 20] 20 meq PO DAILY PRN 06/13/22 [History] Cyanocobalamin (Vitamin B-12) [Vitamin B-12] 1,000 mcg PO DAILY #1 tablet 06/15/22 [Rx] Amitriptyline HCl [Elavil] 25 mg PO HS 01/02/23 [History] Cholecalciferol [Vitamin D3 (125 Mcg = 5000 Iu)] 125 mcg PO DAILY 01/02/23 [History] Fexofenadine HCl [Nikia Allergy] 180 mg PO DAILY 01/02/23 [History] Losartan [Cozaar] 12.5 mg PO DAILY 01/02/23 [History] Pramipexole [Mirapex] 0.5 mg PO BID 01/02/23 [History] Semaglutide [Ozempic] 1 mg SQ WE 01/02/23 [History] Nitroglycerin Sl Tabs [Nitrostat] 0.4 mg SUBLINGUAL Q5M PRN tab 01/08/23 [Rx] Magnesium Hydroxide [Milk of Magnesia Concentrate] 7,200 mg PO Q48H PRN 01/15/23 [History] Na Phos,M-B/Na Phos,Di-Ba [Fleet Adult] 133 ml RECTAL DAILY PRN 01/15/23 [History] bisacodyL [Dulcolax] 10 mg RECTAL DAILY PRN 01/15/23 [History] Iron Polysaccharides Complex [Niferex-150] 150 mg PO DAILY cap 01/21/23 [Rx] Sennosides-Docusate Sodium [Senokot-S] 2 tab PO BID #60 tablet 01/21/23 [Rx] Acetaminophen [Tylenol 8 Hour] 650 mg PO Q4H PRN 02/04/23 [History] Apixaban [Eliquis] 5 mg PO BID #0 tab 02/07/23 [Rx] HYDROcodone/APAP 10-325MG [[place] 10-325] 1 tab PO Q6H PRN 3 Days #12 tab 02/07/23 [Rx] INSULIN LISPRO (HumaLOG) [humaLOG] 0 unit SQ ACHS #10 ml 02/07/23 [Rx] Pregabalin [Lyrica] 75 mg PO BID@0800,1700 #6 cap 02/07/23 [Rx] Follow up Appointment(s)/Referral(s): Fortunato Tena MD [STAFF PHYSICIAN] - 1 Week (Re: Left atrial appendage closure in a patient with recurrent bleeding and strokes) eVnu Oshea MD [Primary Care Provider] - 3 Days
[2023-02-07 11:24] LABS: Glucose,Whole Blood 121 mg/dL (70-110)
--- NOTE | 2023-02-07 11:50 | CA ---
Transthoracic Echo Report Name: Amilcar Mccarty Age: 72 Gender: M : 1950 Exam Date: 02/07/2023 09:25 Exam Location: [facility] Ht (in): 70 Wt (lb): 190 Ordering Physician: Matias Marte MD Attending/Referring Phys: [employer] Cristian Castro Procedure CPT: Indications: limited. stroke Cardiac Hx: Technical Quality: Technically difficult study Contrast 1: Definity Total Dose (mL): 2 Contrast 2: Total Dose (mL): MEASUREMENTS (Male / Female) Normal Values 2D ECHO LV Diastolic Diameter PLAX 5.8 cm 4.2 - 5.9 / 3.9 - 5.3 cm LV Systolic Diameter PLAX 3.6 cm IVS Diastolic Thickness 1.0 cm 0.6 - 1.0 / 0.6 - 0.9 cm LVPW Diastolic Thickness 1.1 cm 0.6 - 1.0 / 0.6 - 0.9 cm LV Relative Wall Thickness 0.4 RV Internal Dim ED PLAX 3.9 cm LVOT Diameter 2.1 cm Aortic Root Diameter 3.3 cm LA Systolic Diameter LX 3.3 cm 3.0 - 4.0 / 2.7 - 3.8 cm LV Diastolic Volume MOD BP 72.9 cm??? 67 - 155 / 56 - 104 cm??? LV Systolic Volume MOD BP 45.0 cm??? - 58 / 19 - 49 cm??? LV Ejection Fraction MOD BP 38.3 % >= 55 % LV Cardiac Index MOD BP 1385.1 cm???/min???m??? LV Diastolic Volume MOD 4C 83.5 cm??? LV Systolic Volume MOD 4C 49.5 cm??? LV Ejection Fraction MOD 4C 40.6 % LV Cardiac Index MOD 4C 1681.3 cm???/min???m??? LV Diastolic Length 4C 7.6 cm LV Systolic Length 4C 6.9 cm LV Diastolic Volume MOD 2C 59.9 cm??? LV Systolic Volume MOD 2C 38.5 cm??? LV Ejection Fraction MOD 2C 35.7 % LV Cardiac Index MOD 2C 1058.7 cm???/min???m??? LV Diastolic Length 2C 7.2 cm LV Systolic Length 2C 6.5 cm LA Volume 69.7 cm??? 18 - 58 / 22 - 52 cm??? LA Volume Index 33.5 cm???/m??? 16 - 28 cm???/m??? DOPPLER AV Peak Velocity 166.3 cm/s AV Peak Gradient 11.1 mmHg AI Peak Velocity 365.3 cm/s AI Peak Gradient 53.4 mmHg AI Pressure Half Time 483.3 ms LVOT Peak Velocity 113.3 cm/s LVOT Peak Gradient 5.1 mmHg LVOT Velocity Time Integral 23.6 cm LVOT Stroke Volume 80.2 cm??? LVOT Stroke Volume Index 39.3 ml/m??? LVOT Cardiac Index 3974.5 cm???/min???m??? AV Area Cont Eq pk 2.3 cm??? MV Peak Velocity 151.6 cm/s MV Peak Gradient 9.2 mmHg MV Mean Velocity 68.6 cm/s MV Mean Gradient 2.5 mmHg MV Velocity Time Integral 38.0 cm MR Peak Velocity 463.2 cm/s MR Peak Gradient 85.8 mmHg Mitral E Point Velocity 140.7 cm/s Mitral A Point Velocity 71.9 cm/s Mitral E to A Ratio 2.0 MV Deceleration Time 162.8 ms TR Peak Velocity 266.2 cm/s TR Peak Gradient 28.3 mmHg Right Ventricular Systolic Press 33.3 mmHg PV Peak Velocity 121.8 cm/s PV Peak Gradient 5.9 mmHg FINDINGS Left Ventricle Mildly enlarged LV grzegorz. Normal wall thickness. Left ventricular ejection fraction is estimated at 55-60 %. Right Ventricle Normal right ventricular size. RVSP= 33mmHg. Right Atrium Normal right atrial size. Left Atrium Normal left atrial size. LA volume index= 34ml/m2 Mitral Valve Structurally normal mitral valve. Mild MR. Aortic Valve Aortic valve not well visualized. At least mild to moderate AV calcification. Moderate AI. Tricuspid Valve Tricuspid valve not well visualized. Mild TR. Pulmonic Valve Pulmonic valve not well visualized. No pulmonic regurgitation. Pericardium Not well visualized. Aorta Normal size aortic root. CONCLUSIONS Technically difficult study for interpretation Normal LV systolic function Moderate aortic insufficiency Previewed by: Dr. John Denis MD (Electronically Signed) Final Date: 07 February 2023 11:49
[2023-02-07 12:00] LABS: Anisocytosis Slight; HCT 23.6 % (39.0-53.0); HGB 7.3 gm/dL (13.0-17.5); Hypochromasia Marked; MCH 25.5 pg (25.0-35.0); MCHC 31.1 g/dL (31.0-37.0); MCV 82.1 fL (80.0-100.0); Mean Platelet Volume 9.2; Microcytosis Slight; Platelet Count 116 k/uL (150-450); Poikilocytosis Marked; RBC 2.87 m/uL (4.30-5.90); RDW 17.7 % (11.5-15.5)
--- NOTE | 2023-02-07 12:23 | P.PN ---
Subjective Progress Note Date: 02/07/23 Principal diagnosis: GI bleed This a pleasant 72-year-old male who was recently hospitalized for CVA in rehab that was brought into the emergency department for concerns of focal deficits with speech impairment. He has a past medical history included atrial fibrillation, CVA, DVT, diabetes mellitus, diverticulitis, prostate cancer, hypertension and hyperlipidemia. He was sent over from medical [facility] for concerns of speech deficits, weakness, and confusion. He was recently hospitalized here and seen by gastroenterology at that time for concerns for anemia and GI bleed. At that time he had been reporting some dark stools. 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 His hemoglobin on admission was 5.5. He was given 2 units of blood transfusion. No repeat hemoglobin available this morning. Patient was given clear liquid diet. He denies any dark stool or blood in his stool. Denies any abdominal pain, nausea or vomiting. Patient is being worked up for TIA. Neurology on consult. He has been on eliquis 5 mg twice a day, he is unsure of last dose taken. 02/07/2023 Patient seen and examined today as a follow-up. He is status post EGD yesterday with findings of fresh blood noted in 34th part of the duodenum with arteriovenous malformation with active oozing status post argon plasma coagulation followed by Endo Clip placement. Mild gastritis. Today patient states he is feeling better. He is not having any further black stool at this time. Eliquis remains on hold. Today's labs WBC 12.0 hemoglobin 7.3 hematocrit 23 platelet count 116,000. He is afebrile. Denies any abdominal pain, nausea or vomiting. Objective - Vital Signs Vital signs: Vital Signs Temp 97.4 F L 02/07/23 08:00 Pulse 119 H 02/07/23 08:00 Resp 16 02/07/23 08:00 BP 116/62 02/07/23 08:00 Pulse Ox 100 02/07/23 08:00 FiO2 Intake & Output 02/06/23 02/07/23 02/07/23 18:59 06:59 18:59 Intake Total 200 240 222 Output Total 650 250 Balance -450 -10 222 Weight 86.5 kg Intake: IV 200 Oral 240 222 Output: Urine 650 250 Other: Voiding Method External Catheter External Catheter External Catheter # Voids 1 - Exam General appearance: The patient is alert, oriented, appears in no acute distress. HET: Head is normocephalic and atraumatic. Conjunctiva pink. Sclera anicteric. Neck: Supple without lymphadenopathy. Abdomen: Soft, nontender, nondistended with bowel sounds. No guarding or rigidity. Extremities: Normal skin color and turgor. No pedal edema Skin: No rashes, no jaundice Neurological: No focal deficits. Alert and oriented. - Labs CBC & Chem 7: 02/07/23 11:06 12 11:20 Labs: Abnormal Lab Results - Last 24 Hours (Table) 02/06/23 02/06/23 Range/Units 11:20 11:20 RBC 2.83 L (4.30-5.90) m/uL Hgb 7.2 L (13.0-17.5) gm/dL Hct 23.1 L (39.0-53.0) % RDW 17.1 H (11.5-15.5) % Lymphocytes # 0.7 L (1.0-4.8) k/uL BUN 21 H (9-20) mg/dL Assessment and Plan (1) GI bleed Narrative/Plan: 72-year-old male on anticoagulation for history of atrial fibrillation and pulmonary embolism presented to the emergency department with possible strokelike symptoms. Patient was recently hospitalized with CVA and at that time was found to be anemic with black stools. He underwent EGD on 01/17/[address] 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 Patient states he hasn't been noticing any black stool or dark stool or blood in his stool. No abdominal pain, nausea vomiting. However he was noted to have microcytic anemia on admission with a hemoglobin of 5.5 he is now transfused 2 units of PRBC with repeat hemoglobin is 7.2. This is a patient on anticoagulation that is currently on hold. Repeat EGD with finding of AVM with active oozing status post argon plasma coagulation and Endo Clip placement. Recommend holding Eliquis for another day. We have consulted cardiology for further recommendation of anticoagulation due to patient's frequent GI bleeds and previous AVM with GI bleed. Current Visit: Yes Status: Acute Code(s): K92.2 - GASTROINTESTINAL HEMORRHAGE, UNSPECIFIED SNOMED Code(s): 03356434 (2) Microcytic anemia Current Visit: Yes Status: Acute Code(s): D50.9 - IRON DEFICIENCY ANEMIA, UNSPECIFIED SNOMED Code(s): 589469308 (3) Angiectasia Current Visit: Yes Status: Acute Code(s): I99.8 - OTHER DISORDER OF CIRCULATORY SYSTEM SNOMED Code(s): 49145175 (4) Atrial fibrillation Current Visit: No Status: Acute Code(s): I48.91 - UNSPECIFIED ATRIAL FIBRIL LATION SNOMED Code(s): 12420235 (5) Essential (primary) hypertension Current Visit: No Status: Acute Code(s): I10 - ESSENTIAL (PRIMARY) HYPERTENSION SNOMED Code(s): 21260268 (6) History of CVA (cerebrovascular accident) Current Visit: No Status: Acute Code(s): Z86.73 - PRSNL HX OF TIA (TIA), AND CEREB INFRC W/O RESID DEFICITS SNOMED Code(s): 463875141 (7) Type 2 diabetes mellitus Current Visit: No Status: Acute Code(s): E11.9 - TYPE 2 DIABETES MELLITUS WITHOUT COMPLICATIONS SNOMED Code(s): 50233206 Plan: 1. Continue symptomatic and supportive care 2. Hold eliquis for two days 3. Advance to full liquid diet, then advance as tolerated 4. He may continue his home dose PPI lansoprazole 30 mg daily 5. The patient is status post EGD with argon plasma coagulation and Endo Clip placement 6. Cardiology on consult for further recommendations for anticoagulation treatment for atrial fibrillation as patient has had frequent upper GI bleeds 7. Patient is cleared from gastroenterology for discharge Thank you for this consultation. Dr. Jonathan Arevalo I agree with the dictator's note, documented as a scribe by Katya Toledo.
--- NOTE | 2023-02-07 13:22 | P.PN ---
Subjective Progress Note Date: 02/07/23 I am following up with the patient and he feels he is doing well. Denies of any new weakness or numbness. Objective - Vital Signs Vital signs: Vital Signs Temp 97.4 F L 02/07/23 08:00 Pulse 119 H 02/07/23 08:00 Resp 16 02/07/23 08:00 BP 116/62 02/07/23 08:00 Pulse Ox 100 02/07/23 08:00 FiO2 Intake & Output 02/06/23 02/07/23 02/07/23 18:59 06:59 18:59 Intake Total 200 240 462 Output Total 650 250 Balance -450 -10 462 Weight 86.5 kg Intake: IV 200 Oral 240 462 Output: Urine 650 250 Other: Voiding Method External Catheter External Catheter External Catheter # Voids 1 - Exam General: Sitting side of bed and is not in acute distress. Neuro: The patient is awake, alert , oriented to self and place. He is following simple commands. No aphasia or neglect. Pupils are round, equal and reactive to light. No facial weakness. No dysarthria. Motor: Hard to assess individual muscle strength because of cooperation. Is lifting all extremities above gravity. SOME OF THE WORK-UP DURING THIS HOSPITAL VISIT CONSISTED OF: Lipid panel: TG 82, cholestrole 85, LDL [address] of the head is reported as indeterminate matter changes in the right frontal lobe series 2033 image 24. Consider further imaging evaluation with MRI. CT the brain is reported as more pronounced and new scattered area of restricted diffusion compatible with acute/subacute CVA. Now scattered throughout the right frontal, cerebellum bilaterally in the right occipital more extensive left parietal occipital. Correlate for embolic phenomena. Nonspecific white matter changes, likely secondary due to small vessel ischemic disease. Carotid duplex is reported as atherosclerotic plaque with no significant hemodynamic stenosis. No visualization of the right vertebral artery EGD: 1. 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 2. Mild gastritis. 2D echo: Was reported as technically difficult study for agitation. Normal left ventricle systolic function. moderate aortic insufficiency - Labs CBC & Chem 7: 02/07/23 11:06 02/06/23 11:20 Labs: Abnormal Lab Results - Last 24 Hours (Table) 02/07/23 02/07/23 Range/Units 11:06 11:22 WBC 12.0 H (3.8-10.6) k/uL RBC 2.87 L (4.30-5.90) m/uL Hgb 7.3 L (13.0-17.5) gm/dL Hct 23.6 L (39.0-53.0) % RDW 17.7 H (11.5-15.5) % Plt Count 116 L (150-450) k/uL POC Glucose (mg/dL) 121 H (70-110) mg/dL Assessment and Plan Assessment: This is a 72-year-old gentleman who presented emergency department because of confusion, speech difficulty. Vision is a poor historian but is seems the patient has recent acute ischemic stroke and was last seen by Dr. Willoughby on which she had stroke over the left parietal and insular cortex as focus over the right cerebellum. He has prior strokes in the past as well manifesting with expressive aphasia as well as emuresis fugax. He has history of atrial fibrillation and he failed the Xarelto with history of GI bleed. His recent hemoglobin 5.5 on presentation. Acute to subacute over bilateral hemisphere. Seems embolic especially with history of a-fib and is not on anticoagulation Acute on chronic anemia. Likely due to GI bleed. Seems third/four duodenum and has AVM s/p ablation and endo clip. History of prior stroke and most recent was last month History of atrial fibrillation and in past was on Xarelto but per record does not seem he is on anticoagulation or antiplatlelet Straight DVT Hypertension Hyperlipidemia History of peripheral edema Plan: Once is felt safe by the GI in the primary team to resume antiplatelet then recommend starting aspirin 81 mg daily. Also will defer the clearance of starting anticoagulation once safe by the GI and the primary team's physician with a history of atrial fibrillation. Also once safe, resume Lipitor 40 mg daily at bedtime for seconds or stroke prophylaxis Every 4 hours neuro checks Cardiac monitoring PT OT and [employer] GI team is consulted We'll defer the rest of the medical management to primary team. DVT prophylaxis use SCDs. Condition is critical. Upon discharge, patient needs to follow-up with neurologist with 1-2 weeks. Otherwise, there is no further neurological work-up. Will follow-up sporadically. Time with Patient: Less than 30
--- NOTE | 2023-02-07 14:01 | P.PN ---
Subjective Progress Note Date: 02/07/23 History of Present Illness: The patient is a 72-year-old male with a known history of chronic persistent a trial fibrillation, diabetes and hyperlipidemia who presented with change in mental status, weakness and was noted to be severely anemic. He has prior history of stroke and has been maintained on anticoagulation, initially Xarelto that was changed subsequently to Eliquis, it was thought that he had recurrent stroke because of failure of the initiate anticoagulation. He had a prior history of GI bleeding. On presentation he was noted to have a hemoglobin of 5.5. He is awake, answering questions, has evidence of some expressive aphasia. On questioning he denies any symptoms of chest discomfort, dizziness or palpitations. He denies any change in his breathing. He denies any syncope. His anticoagulation was held and he was transfused. He scheduled to undergo endoscopy. He continues to be in atrial fibrillation with controlled ventricular response. During his last admission his echocardiogram showed a preserved systolic function. He had moderate aortic with mild mitral and tricu spid regurgitation. His MRI showed more pronounced and new scattered areas of restricted diffusion consistent with acute and subacute CVA in the right frontal lobe and cerebellar bilaterally as well as right occipital lobe and left parietal occipital region. His carotid duplex scan showed no evidence of significant obstructive disease, his right vertebral artery was not visualized. He has underwent upper endoscopy on January 15 that showed 3 small nonbleeding angiectasia in the proximal gastric body underwent cauterization Medications: Actos, Lyrica, Lasix 40 mg as needed, Lipitor 40 mg daily, Cozaar 12.5 mg daily, aspirin once a day, Eliquis 5 mg twice a day, potassium, Ozempic Labs: Hemoglobin up to 7.2, platelets 165, BUN 36, creatinine 0.92 EKG: Atrial flutter with a rate of [address]-T wave changes 02/07 Patient is seen today in follow-up. Discussed with him the need for a left atrial appendage closure procedure. The patient will need to follow up in the office in the next 1 week or so. He has been hemodynamically stable, blood pressure 93/56, heart rate in the 90s, afebrile, pulse ox 100% on room air. Hemoglobin 7.3. Physical Examination: 72-year-old male, alert with expressive aphasia, following commands Head: Normocephalic. Eyes: Sclerae nonicteric. Neck: Good carotid upstroke, no bruit, no jugular venous distention. Lungs: Clear to auscultation. Heart: Irregular rate and rhythm, S1-S2, no S3, no rub. Systolic ejection murmur. Abdomen: Soft nontender, positive bowel sounds no organomegaly. Extremities: Trace edema, intact distal pulses. Discoloration noted Impression: 1. Severe anemia with probable GI bleeding in a patient that has been anticoagulated 2. Change in mental status, probably worsened by the anemia and history of stroke 3. Permanent atrial flutteratrial fibrillation, rate controlled 4. History of hypertension 5. History of hyperlipidemia 6. History of diabetes Plan: 1. Hold anticoagulation 2. The patient would benefit from left atrial appendage closure because of the recurrent bleeding and history of stroke. 3. Follow up with Dr. Zhou in 1 week 4. Patient was cleared from cardiology for discharge. Nurse practitioner note has been reviewed, I agree with the documented findings and plan of care. Patient was seen and examined. Objective - Vital Signs Vital signs: Vital Signs Temp 97.4 F L 02/07/23 12:25 Pulse 93 02/07/23 12:25 Resp 16 02/07/23 12:25 BP 93/56 02/07/23 12:25 Pulse Ox 100 02/07/23 12:25 FiO2 Intake & Output 02/06/23 02/07/23 02/07/23 18:59 06:59 18:59 Intake Total 200 240 522 Output Total 650 250 Balance -450 -10 522 Weight 86.5 kg Intake: IV 200 Oral 240 522 Output: Urine 650 250 Other: Voiding Method External Catheter External Catheter External Catheter # Voids 1 - Labs CBC & Chem 7: 02/07/23 11:06 02/06/23 11:20 Labs: Abnormal Lab Results - Last 24 Hours (Table) 02/07/23 02/07/23 Range/Units 11:06 11:22 WBC 12.0 H (3.8-10.6) k/uL RBC 2.87 L (4.30-5.90) m/uL Hgb 7.3 L (13.0-17.5) gm/dL Hct 23.6 L (39.0-53.0) % RDW 17.7 H (11.5-15.5) % Plt Count 116 L (150-450) k/uL POC Glucose (mg/dL) 121 H (70-110) mg/dL
[2023-02-07 17:08] LABS: Glucose,Whole Blood 125 mg/dL (70-110)
[2023-02-07] MEDS: AMITRIPTYLINE HCL 25 MG TAB PO SCH (20:01)
[2023-02-07] MEDS: ATORVASTATIN 40 MG TAB PO SCH (20:01)
[2023-02-07 20:28] LABS: Glucose,Whole Blood 168 mg/dL (70-110)
[2023-02-08 02:58] VITALS: RESP 16
[2023-02-08] MEDS: HYDROcodone/APAP 10-325MG 1 EACH TAB PO PRN (03:52)
[2023-02-08 06:07] LABS: Glucose,Whole Blood 106 mg/dL (70-110)
[2023-02-08] MEDS: INSULIN ASPART (NovoLOG) 100 UNIT/ML VIAL SQ SCH ×2 (06:41→11:56)
[2023-02-08] MEDS: SODIUM CHLORIDE 0.9% 1,000 ML IV SCH (06:41)
[2023-02-08] MEDS: PANTOPRAZOLE 40 MG/10 ML VIAL IV SCH (07:58)
[2023-02-08] MEDS: LOSARTAN 25 MG TAB PO SCH (07:58)
[2023-02-08 10:46] LABS: Anisocytosis Slight; HCT 23.9 % (39.0-53.0); HGB 7.3 gm/dL (13.0-17.5); Hypochromasia Marked; MCH 25.2 pg (25.0-35.0); MCHC 30.7 g/dL (31.0-37.0); MCV 82.2 fL (80.0-100.0); Mean Platelet Volume 8.7; Microcytosis Slight; Platelet Count 103 k/uL (150-450); Poikilocytosis Marked; RDW 18.1 % (11.5-15.5); WBC 9.4 k/uL (3.8-10.6)
[2023-02-08 11:29] LABS: Glucose,Whole Blood 139 mg/dL (70-110)
--- NOTE | 2023-02-08 11:59 | P.PN ---
Subjective Progress Note Date: 02/08/23 I am following-up with patient and he feels about the same. No new neurological issues. Objective - Vital Signs Vital signs: Vital Signs Temp 97.4 F L 02/08/23 07:54 Pulse 108 H 02/08/23 11:28 Resp 16 02/08/23 11:28 BP 96/51 02/08/23 11:28 Pulse Ox 100 02/08/23 11:28 FiO2 Intake & Output 02/07/23 02/08/23 02/08/23 18:59 06:59 18:59 Intake Total 740 0 0 Output Total 400 Balance 740 -400 0 Intake: Oral 740 0 0 Output: Urine 400 Male - External 400 Other: Voiding Method External Catheter Urinal Urinal # Bowel Movements 0 - Exam General: Sitting side of bed and is not in acute distress. Neuro: The patient is awake, alert , oriented to self and place. He is following simple commands. No aphasia or neglect. Pupils are round, equal and reactive to light. No facial weakness. No dysarthria. Motor: Hard to assess individual muscle strength because of cooperation. Is lifting all extremities above gravity. SOME OF THE WORK-UP DURING THIS HOSPITAL VISIT CONSISTED OF: Lipid panel: TG 82, cholestrole 85, LDL [address] of the head is reported as indeterminate matter changes in the right frontal lobe series 2033 image 24. Consider further imaging evaluation with MRI. CT the brain is reported as more pronounced and new scattered area of restricted diffusion compatible with acute/subacute CVA. Now scattered throughout the right frontal, cerebellum bilaterally in the right occipital more extensive left parietal occipital. Correlate for embolic phenomena. Nonspecific white matter changes, likely secondary due to small vessel ischemic disease. Carotid duplex is reported as atherosclerotic plaque with no significant hemodynamic stenosis. No visualization of the right vertebral artery EGD: 1. 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 2. Mild gastritis. 2D echo: Was reported as technically difficult study for agitation. Normal left ventricle systolic function. moderate aortic insufficiency - Labs CBC & Chem 7: 02/08/23 10:29 02/06/23 11:20 Labs: Abnormal Lab Results - Last 24 Hours (Table) 02/07/23 02/07/2323 Range/Units 11:06 17:06 20:24 WBC 12.0 H (3.8-10.6) k/uL RBC 2.87 L (4.30-5.90) m/uL Hgb 7.3 L (13.0-17.5) gm/dL Hct 23.6 L (39.0-53.0) % MCHC (31.0-37.0) g/dL RDW 17.7 H (11.5-15.5) % Plt Count 116 L (150-450) k/uL POC Glucose (mg/dL) 125 H 168 H (70-110) mg/dL 02/08/23 02/08/23 Range/Units 10:29 11:27 WBC (3.8-10.6) k/uL RBC 2.90 L (4.30-5.90) m/uL Hgb 7.3 L (13.0-17.5) gm/dL Hct 23.9 L (39.0-53.0) % MCHC 30.7 L (31.0-37.0) g/dL RDW 18.1 H (11.5-15.5) % Plt Count 103 L (150-450) k/uL POC Glucose (mg/dL) 139 H (70-110) mg/dL Assessment and Plan Assessment: This is a 72-year-old gentleman who presented emergency department because of confusion, speech difficulty. Vision is a poor historian but is seems the patient has recent acute ischemic stroke and was last seen by Dr. Willoughby on 01/21/2023 which she had stroke over the left parietal and insular cortex as focus over the right cerebellum. He has prior strokes in the past as well manifesting with expressive aphasia as well as emuresis fugax. He has history of atrial fibrillation and he failed the Xarelto with history of GI bleed. His recent hemoglobin 5.5 on presentation. Acute to subacute over bilateral hemisphere. Seems embolic especially with history of a-fib and is not on anticoagulation Acute on chronic anemia. Likely due to GI bleed. Seems third/four duodenum and has AVM s/p ablation and endo clip. History of prior stroke and most recent was last month History of atrial fibrillation and in past was on Xarelto but per record does not seem he is on anticoagulation or antiplatlelet Straight DVT Hypertension Hyperlipidemia History of peripheral edema Plan: Once is felt safe by the GI in the primary team to resume antiplatelet then recommend starting aspirin 81 mg daily. Also will defer the clearance of starting anticoagulation once safe by the GI and the primary team's physician with a history of atrial fibrillation. Also once safe, resume Lipitor 40 mg daily at bedtime for seconds or stroke prophylaxis Every 4 hours neuro checks Cardiac monitoring PT OT and [employer] GI team is consulted We'll defer the rest of the medical management to primary team. DVT prophylaxis use SCDs. Condition is critical. Upon discharge, patient needs to follow-up with neurologist with 1-2 weeks. Otherwise, there is no further neurological work-up. Will follow-up sporadically. Dr. Conner will start neurology service on 02/11/2023 A.M. Time with Patient: Less than 30
--- NOTE | 2023-02-08 13:57 | P.PN ---
Subjective Progress Note Date: 02/08/23 History of Present Illness: The patient is a 72-year-old male with a known history of chronic persistent a trial fibrillation, diabetes and hyperlipidemia who presented with change in mental status, weakness and was noted to be severely anemic. He has prior history of stroke and has been maintained on anticoagulation, initially Xarelto that was changed subsequently to Eliquis, it was thought that he had recurrent stroke because of failure of the initiate anticoagulation. He had a prior history of GI bleeding. On presentation he was noted to have a hemoglobin of 5.5. He is awake, answering questions, has evidence of some expressive aphasia. On questioning he denies any symptoms of chest discomfort, dizziness or palpitations. He denies any change in his breathing. He denies any syncope. His anticoagulation was held and he was transfused. He scheduled to undergo endoscopy. He continues to be in atrial fibrillation with controlled ventricular response. During his last admission his echocardiogram showed a preserved systolic function. He had moderate aortic with mild mitral and tricu spid regurgitation. His MRI showed more pronounced and new scattered areas of restricted diffusion consistent with acute and subacute CVA in the right frontal lobe and cerebellar bilaterally as well as right occipital lobe and left parietal occipital region. His carotid duplex scan showed no evidence of significant obstructive disease, his right vertebral artery was not visualized. He has underwent upper endoscopy on January 15 that showed 3 small nonbleeding angiectasia in the proximal gastric body underwent cauterization Medications: Actos, Lyrica, Lasix 40 mg as needed, Lipitor 40 mg daily, Cozaar 12.5 mg daily, aspirin once a day, Eliquis 5 mg twice a day, potassium, Ozempic Labs: Hemoglobin up to 7.2, platelets 165, BUN 36, creatinine 0.92 EKG: Atrial flutter with a rate of [address]-T wave changes 02/07 Patient is seen today in follow-up. Discussed with him the need for a left atrial appendage closure procedure. The patient will need to follow up in the office in the next 1 week or so. He has been hemodynamically stable, blood pressure 93/56, heart rate in the 90s, afebrile, pulse ox 100% on room air. Hemoglobin 7.3. 02/08 She was not discharged yesterday as he is waiting for insurance authorization for [facility]. Heart rate is 108, blood pressure 96/51, pulse ox 100% on room air. Repeat hemoglobin 7.3. Physical Examination: 72-year-old male, alert with expressive aphasia, following commands Head: Normocephalic. Eyes: Sclerae nonicteric. Neck: Good carotid upstroke, no bruit, no jugular venous distention. Lungs: Clear to auscultation. Heart: Irregular rate and rhythm, S1-S2, no S3, no rub. Systolic ejection murmur. Abdomen: Soft nontender, positive bowel sounds no organomegaly. Extremities: Trace edema, intact distal pulses. Discoloration noted Impression: 1. Severe anemia with probable GI bleeding in a patient that has been anticoa gulated 2. Change in mental status, probably worsened by the anemia and history of stroke 3. Permanent atrial flutteratrial fibrillation, rate controlled 4. History of hypertension 5. History of hyperlipidemia 6. History of diabetes Plan: 1. Hold anticoagulation 2. The patient would benefit from left atrial appendage closure because of the recurrent bleeding and history of stroke. 3. Follow up with Dr. Zhou in 1 week 4. Patient was cleared from cardiology for discharge. Nurse practitioner note has been reviewed, I agree with the documented findings and plan of care. Patient was seen and examined. Objective - Vital Signs Vital signs: Vital Signs Temp 97.4 F L 02/08/23 07:54 Pulse 108 H 02/08/23 11:28 Resp 16 02/08/23 11:28 BP 96/51 02/08/23 11:28 Pulse Ox 100 02/08/23 11:28 FiO2 Intake & Output 02/07/23 02/08/23 02/08/23 18:59 06:59 18:59 Intake Total 740 0 0 Output Total 400 Balance 740 -400 0 Intake: Oral 740 0 0 Output: Urine 400 Male - External 400 Other: Voiding Method External Catheter Urinal Urinal # Bowel Movements 0 - Labs CBC & Chem 7: 02/08/23 10:29 02/06/23 11:20 Labs: Abnormal Lab Results - Last 24 Hours (Table) 02/07/23 02/07/23 02/08/23 Range/Units 17:06 20:24 10:29 RBC 2.90 L (4.30-5.90) m/uL Hgb 7.3 L (13.0-17.5) gm/dL Hct 23.9 L (39.0-53.0) % MCHC 30.7 L (31.0-37.0) g/dL RDW 18.1 H (11.5-15.5) % Plt Count 103 L (150-450) k/uL POC Glucose (mg/dL) 125 H 168 H (70-110) mg/dL 02/08/23 Range/Units 11:27 RBC (4.30-5.90) m/uL Hgb (13.0-17.5) gm/dL Hct (39.0-53.0) % MCHC (31.0-37.0) g/dL RDW (11.5-15.5) % Plt Count (150-450) k/uL POC Glucose (mg/dL) 139 H (70-110) mg/dL
[2023-02-08 15:50] VITALS: BP 98/56; PULSE 116; TEMP 98.1
[2023-02-08 16:47] LABS: Glucose,Whole Blood 136 mg/dL (70-110)
== END 2023-02-08 17:12 | DRG 378 ==
LOC: EC 18:07 → 3SCARD 19:33
PROVIDERS: ADMIT Family Medicine; ATTEND Family Medicine
PROC: 0D598ZZ Destruction of Duodenum, Via Natural or Artificial Opening Endoscopic (ICD-10-PCS; principal; 2023-02-06 08:05)
PROC: 0W3P8ZZ Control Bleeding in Gastrointestinal Tract, Via Natural or Artificial Opening Endoscopic (ICD-10-PCS; principal; 2023-02-06 08:05)
DX: K31.811 Angiodysplasia of stomach and duodenum with bleeding (principal); D62 Acute posthemorrhagic anemia; I48.19 Other persistent atrial fibrillation; I48.92 Unspecified atrial flutter; I50.32 Chronic diastolic (congestive) heart failure; D50.9 Iron deficiency anemia, unspecified; M19.90 Unspecified osteoarthritis, unspecified site; Z85.46 Personal history of malignant neoplasm of prostate; Z90.79 Acquired absence of other genital organ(s); G47.33 Obstructive sleep apnea (adult) (pediatric); E66.01 Morbid (severe) obesity due to excess calories; Z68.39 Body mass index [BMI] 39.0-39.9, adult; E11.40 Type 2 diabetes mellitus with diabetic neuropathy, unspecified; E78.5 Hyperlipidemia, unspecified; I11.0 Hypertensive heart disease with heart failure; L40.9 Psoriasis, unspecified; K29.70 Gastritis, unspecified, without bleeding; G89.29 Other chronic pain; R53.81 Other malaise; I25.10 Atherosclerotic heart disease of native coronary artery without angina pectoris; K21.9 Gastro-esophageal reflux disease without esophagitis; I69.320 Aphasia following cerebral infarction; Z86.711 Personal history of pulmonary embolism; Z79.01 Long term (current) use of anticoagulants; Z87.01 Personal history of pneumonia (recurrent); Z79.82 Long term (current) use of aspirin; Z79.84 Long term (current) use of oral hypoglycemic drugs; Z79.899 Other long term (current) drug therapy; Z80.42 Family history of malignant neoplasm of prostate; Z86.718 Personal history of other venous thrombosis and embolism; Z93.3 Colostomy status; Z88.1 Allergy status to other antibiotic agents; Z88.0 Allergy status to penicillin; Z87.891 Personal history of nicotine dependence
CPT/HCPCS: 36415; 43255; 43270; 70450; 70551; 71046; 80048; 80053; 80061; 82550; 83036; 85025; 85027; 85610; 85730; 86850; 86900; 86901; 86920; 93005; 93306; 93880; 94760; 96361; 96374; 96376; 99291

== ENCOUNTER 2023-02-09 12:05 | Emergency (ER) | payer MEDICARE ==
[2023-02-09] MEDS ORDERED: SODIUM CHLORIDE 0.9% 1,000 ML IV ONE (12:23)
[2023-02-09] MEDS ORDERED: SODIUM CHLORIDE 0.9% 1,000 ML IV STA (12:23)
[2023-02-09 12:30] LABS: Glucose,Whole Blood 138 mg/dL (70-110)
--- NOTE | 2023-02-09 13:04 | CT ---
EXAMINATION TYPE: CT brain wo con DATE OF EXAM: 02/09/2023 COMPARISON: 02/04/2023 and 01/02/2023 HISTORY: 72-year-old male with confusion, altered mental status, code stroke TECHNIQUE: Examination was done in axial plane without intravenous contrast. Coronal and sagittal r econstructions performed. CT DLP: 1246.6 paranasal sinuses and mastoid air cells are well pneumatized. mGycm Automated exposure control for dose reduction was used. FINDINGS: There is a small 7 mm focus of acute blood anterior left parietal lobe, axial image 45 and coronal im age 46. Focal hypodensity redemonstrated posterior left parietal lobe and anterior right frontal lobe, new fr om 01/02/2023 but present on 02/04/2023 and less apparent on 01/15/2023. No mass effect, midline shift, or other extra-axial fluid collection seen. No hydrocephalus. Paranasal sinuses and mastoid air cells well pneumatized. Orbits and globes are intact. Leftward nasa l septal deviation. IMPRESSION: 1. Interval development of an acute petechial hemorrhage anterior left parietal lobe. 2. Areas of subacute infarct posterior left parietal lobe and anterior right frontal lobe are becomin g more apparent. Corresponding to areas of infarct seen on 02/04/2023. Findings new from the CT of 01/02/2023. 3. No midline shift or herniation. Critical finding called to Dr. Desir in the ER at 1:00 PM.
[2023-02-09 13:13] LABS: Anisocytosis Slight; Basophils % (A) 0 %; Eosinophils % (A) 0 %; Hypochromasia Marked; Lymphocytes # (A) 0.6 k/uL (1.0-4.8); Lymphocytes % (A) 5 %; MCH 25.4 pg (25.0-35.0); MCHC 31.4 g/dL (31.0-37.0); MCV 81.1 fL (80.0-100.0); Mean Platelet Volume 10.3; Microcytosis Slight; Monocytes # (A) 0.5 k/uL (0-1.0); Monocytes % (A) 5 %; Neutrophils % (A) 88 %; Poikilocytosis Marked; RBC 2.59 m/uL (4.30-5.90); RDW 18.4 % (11.5-15.5); WBC 11.3 k/uL (3.8-10.6)
[2023-02-09 13:16] LABS: HGB 6.6 gm/dL (13.0-17.5)
[2023-02-09 13:19] LABS: INR 1.6 (<1.2); Partial Thromboplastin Time 27.5 sec (22.0-30.0); Prothrombin Time 16.4 sec (10.0-12.5)
[2023-02-09 13:24] LABS: ALT 64 U/L (4-49); African American GFR (CKD) 81 (>60 ml/min/1.73 sqM); Albumin 2.8 g/dL (3.5-5.0); Anion Gap 10 mmol/L; Blood Urea Nitrogen 31 mg/dL (9-20); Carbon Dioxide 21 mmol/L (22-30); Chloride 107 mmol/L (98-107); Glucose 130 mg/dL (74-99); Non-African American GFR(CKD) 70 (>60 ml/min/1.73 sqM); Sodium 138 mmol/L (137-145); Total Bilirubin 3.3 mg/dL (0.2-1.3); Total Protein 5.5 g/dL (6.3-8.2)
[2023-02-09 13:35] LABS: Platelet Count 81 k/uL (150-450)
[2023-02-09 13:37] LABS: Mixed Population RBC Present
[2023-02-09] MEDS ORDERED: Kcentra PER PHARMACY 1 EACH MISC MISCELLANE PRN (13:37)
[2023-02-09] MEDS ORDERED: FAMOTIDINE 20 MG/2 ML VIAL IV STA (13:43)
[2023-02-09] MEDS ORDERED: HUMAN PROTHROMBIN COMPLX IV ONE ×2 (13:45)
[2023-02-09 13:56] LABS: AST 120 U/L (17-59); Alkaline Phosphatase 656 U/L (38-126); Magnesium 1.4 mg/dL (1.6-2.3); Potassium 4.2 mmol/L (3.5-5.1)
--- NOTE | 2023-02-09 14:01 | ED ---
Altered Mental Status HPI - General Chief Complaint: Altered Mental Status Stated Complaint: stroke-GI bleed Time Seen by Provider: 02/09/23 12:16 Source: patient, EMS, RN notes reviewed, old records reviewed Mode of arrival: EMS Limitations: altered mental status - History of Present Illness Initial Comments: 72-year-old male with a known history of prior TIA CHF chronic atrial flutter GI bleed who was discharged from this facility after being admitted for evaluation of the above he was found have evidence of TIA as well as GI bleed. His Eliquis prescription apparently was started again last night. He was awake alert oriented 4 when he went to bed last night and this morning he was found to be confused with some decreased level of consciousness and slurred speech. No focal deficits otherwise. He was transferred here for further evaluation. On evaluation patient was noted to be clinically dehydrated with hypotension. There was no reports of further GI bleeding on initial reports. MD Complaint: altered mental status, confusion - Related Data Home Medications Medication Instructions Recorded Confirmed Atorvastatin Calcium [Lipitor] 40 mg PO HS 02/03/15 02/04/23 Lansoprazole 30 mg PO DAILY 02/03/15 02/04/23 Empagliflozin/Metformin HCl 2 tab PO W/BRKFST 06/13/22 02/04/23 [Synjardy Xr 12.5-1,000 mg Tab] Furosemide [Lasix] 40 mg PO DAILY PRN 06/13/22 02/04/23 Naloxone HCl [Narcan] 4 mg NASAL ONCE PRN 06/13/22 02/04/23 Pioglitazone [Actos] 30 mg PO DAILY 06/13/22 02/04/23 Potassium Chloride ER [K-Dur 20] 20 meq PO DAILY PRN 06/13/22 02/04/23 Amitriptyline HCl [Elavil] 25 mg PO HS 01/02/23 02/04/23 Cholecalciferol [Vitamin D3 (125 125 mcg PO DAILY 01/02/23 02/04/23 Mcg = 5000 Iu)] Fexofenadine HCl [Nikia Allergy] 180 mg PO DAILY 01/02/23 02/04/23 Losartan [Cozaar] 12.5 mg PO DAILY 01/02/23 02/04/23 Pramipexole [Mirapex] 0.5 mg PO BID 01/02/23 02/04/23 Semaglutide [Ozempic] 1 mg SQ WE 01/02/23 02/04/23 Magnesium Hydroxide [Milk of 7,200 mg PO Q48H PRN 01/15/23 02/04/23 Magnesia Concentrate] Na Phos,M-B/Na Phos,Di-Ba [Fleet 133 ml RECTAL DAILY PRN 01/15/23 02/04/23 Adult] bisacodyL [Dulcolax] 10 mg RECTAL DAILY PRN 01/15/23 02/04/23 Acetaminophen [Tylenol 8 Hour] 650 mg PO Q4H PRN 02/04/23 02/04/23 Previous Rx's Medication Instructions Recorded Cyanocobalamin (Vitamin B-12) 1,000 mcg PO DAILY #1 tablet 06/15/22 [Vitamin B-12] Nitroglycerin Sl Tabs [Nitrostat] 0.4 mg SUBLINGUAL Q5M PRN tab 01/08/23 Iron Polysaccharides Complex 150 mg PO DAILY cap 01/21/23 [Niferex-150] Sennosides-Docusate Sodium 2 tab PO BID #60 tablet 01/21/23 [Senokot-S] Apixaban [Eliquis] 5 mg PO BID #0 tab 02/07/23 HYDROcodone/APAP 10-325MG [Gleason 1 tab PO Q6H PRN 3 Days #12 tab 02/07/23 10-325] INSULIN LISPRO (HumaLOG) [humaLOG] 0 unit SQ ACHS #10 ml 02/07/23 Pregabalin [Lyrica] 75 mg PO BID@0800,1700 #6 cap 02/07/23 Allergies Allergy/AdvReac Type Severity Reaction Status Date / Time cephalexin monohydrate Allergy Rash/Hives Verified 02/04/23 20:36 [From Keflex] on neck Penicillins Allergy Rash/Hives Verified 02/04/23 20:36 on neck Review of Systems ROS Statement: Those systems with pertinent positive or pertinent negative responses have been documented in the HPI. ROS Other: All systems not noted in ROS Statement are negative. Past Medical History Past Medical History: Atrial Fibrillation, Cancer, Diabetes Mellitus, Deep Vein Thrombosis (DVT), GERD/Reflux, Hyperlipidemia, Hypertension, Osteoarthritis (OA), Pneumonia, Prostate Disorder, Pulmonary Embolus (PE), Skin Disorder, Sleep Apnea/CPAP/BIPAP Additional Past Medical History / Comment(s): open wound to back-has visiting nurse two times per weeks,prostate ca, rt leg dvt, diverticulitis, psoriases, abd hernia,no cpap History of Any Multi-Drug Resistant Organisms: None Reported Past Surgical History: Back Surgery, Cholecystectomy, Hernia Repair, Joint Repla cement, Prostate Surgery, Tonsillectomy Additional Past Surgical History / Comment(s): prostectomy, had ruptured diverticuli -colostomy and then reversed, abd hernia, tanisha cataracts, tubes in ears,total rt hip,[facility] Procedures Past Anesthesia/Blood Transfusion Reactions: No Reported Reaction Past Psychological History: No Psychological Hx Reported Additional Psychological History / Comment(s): uses a walker when up. Smoking Status: Former smoker Past Alcohol Use History: None Reported Additional Past Alcohol Use History / Comment(s): SMOKED X 28 YEARS 1PPD. Past Drug Use History: None Reported - Past Family History Father Family Medical History: Cancer Additional Family Medical History / Comment(s): prostate CA Mother Family Medical History: Deep Vein Thrombosis (DVT), Pulmonary Embolus Additional Family Medical History / Comment(s): PROSTATE CNACER General Exam - General Exam Comments Initial Comments: This a well-developed well-nourished awake alert but confused male he believes it was 2067 his first year and thought [facility]. Limitations: altered mental status General appearance: alert, lethargic Head exam: Present: atraumatic, normocephalic, normal inspection Eye exam: Present: normal appearance, PERRL, EOMI. Absent: scleral icterus, conjunctival injection, periorbital swelling ENT exam: Present: mucous membranes dry Neck exam: Present: full ROM, other (Stridor. He or bruits) Respiratory exam: Present: normal lung sounds bilaterally. Absent: respiratory distress, wheezes, rales, rhonchi, stridor Cardiovascular Exam: Present: irregular rhythm GI/Abdominal exam: Present: soft, normal bowel sounds. Absent: distended, tenderness, guarding, rebound, rigid Rectal exam: Present: heme (+) stool (Burgundy-colored stool mixed with black stool), black stool Extremities exam: Present: normal inspection, full ROM, normal capillary refill. Absent: tenderness, pedal edema, joint swelling, calf tenderness Back exam: Present: normal inspection Neurological exam: Present: altered, CN II-XII intact. Absent: motor sensory deficit Psychiatric exam: Present: normal affect, normal mood Skin exam: Present: pallor Course Vital Signs 02/09/23 02/09/23 02/09/23 12:06 12:16 12:20 Temperature 98.3 F Pulse Rate 102 H 98 Respiratory 16 19 13 Rate Blood Pressure 93/45 93/45 91/46 O2 Sat by Pulse 95 60 L Oximetry 02/09/23 02/09/23 12:30 13:20 Temperature Pulse Rate 106 H Respiratory 14 19 Rate Blood Pressure 83/38 101/79 O2 Sat by Pulse 100 Oximetry - Reevaluation(s) Reevaluation #1: 02/09/23 14:14 Patient's NIH stroke scale determined to be 1 Reevaluation #2: 02/09/23 14:14 CT angios of the brain and neck held at this time. Medical Decision Making - Medical Decision Making I did discuss the findings of multiple people including a caregiver and one of his lara of commercial litigation attorney named Eric in addition to Dr. Wallis and Dr. Sharma and Dr. Gabriel patient is a full code he will be transferred to [facility] for higher level of care and neurosurgical consultation as well as due to a GI bleed and no GI available at this facility at this time. Patient is getting a blood transfusion as well as IV Pepcid and IV K Centra.Was pt. sent in by a medical professional or institution (, PA, FIELD TECHNICAL SPECIALIST, urgent care, hospital, or [facility]...) When possible be specific @ - [facility] staff Did you speak to anyone other than the patient for history (EMS, parent, family, police, friend...)? What history was obtained from this source @ -Her medication upon arrival Did you review nursing and triage notes (agree or disagree)? Why? @ -I reviewed and agree with nursing and triage notes Were old charts reviewed (outside hosp., previous admission, EMS record, old EKG, old radiological studies, urgent care reports/EKG's, [facility] records)? Report findings @ -Recent old charts were reviewed Differential Diagnosis (chest pain, altered mental status, abdominal pain women, abdominal pain men, vaginal bleeding, weakness, fever, dyspnea, syncope, headache, dizziness, GI bleed, back pain, seizure, CVA, palpatations, mental health, musculoskeletal)? @ -CVA, TIA EKG interpreted by me (3pts min.). @ -As above G interpreted by me atrial fibrillation rate of 1022 are S106 QT/QTC 326/35 low-voltage nonspecific T-wave configuration noted some artifact present X-rays interpreted by me (1pt min.). @ -X-ray to rule out renal acute process CT interpreted by me (1pt min.). @ -ET interpreted by me evidence of left parietal petechial hemorrhage U/S interpreted by me (1pt. min.). @ -None done What testing was considered but not performed or refused? (CT, X-rays, U/S, labs)? Why? @ -None What meds were considered but not given or refused? Why? @ -None Did you discuss the management of the patient with other professionals (professionals i.e. , PA, FIELD TECHNICAL SPECIALIST, lab, RT, psych nurse, psychotherapist social worker, x ray inspector, teacher, traffic officer, director of casework department)? Give summary @ -Nery Gomez Dr. [facility] Was smoking cessation discussed for >3mins.? @ -No Was critical care preformed (if so, how long)? @ -55 Were there social determinants of health that impacted care today? How? (H omelessness, low income, unemployed, alcoholism, drug addiction, transportation, low edu. Level, literacy, decrease access to med. care, [facility], rehab)? @ -No Was there de-escalation of care discussed even if they declined (Discuss DNR or withdrawal of care, Hospice)? DNR status @ -No What co-morbidities impacted this encounter? (DM, HTN, Smoking, COPD, CAD, Cancer, CVA, ARF, Chemo, Hep., AIDS, mental health diagnosis, sleep apnea, morbid obesity)? @ -Atrial flutter, CHF, TIA, patient on blood thinners Was patient admitted / discharged? Hospital course, mention meds given and route , prescriptions, significant lab abnormalities, going to OR and other pertinent info. @ -hospital course patient was transferred year to ER to [facility] or higher level of care Undiagnosed new problem with uncertain prognosis? @ -Left parietal petechial hemorrhage Drug Therapy requiring intensive monitoring for toxicity (Heparin, Nitro, Insulin, Cardizem)? @ -Atrial flutter, anticoagulation therapy Were any procedures done? @ -No Diagnosis/symptom? @ -Intracerebral bleed, acute GI bleed, anemia, altered mental status Acute, or Chronic, or Acute on Chronic? @ -Acute Uncomplicated (without systemic symptoms) or Complicated (systemic symptoms)? @ -Complicated Side effects of treatment? @ -Pencil Exacerbation, Progression, or Severe Exacerbation? @ -Progression Poses a threat to life or bodily function? How? (Chest pain, USA, DC, pneumonia, PE, COPD, DKA, ARF, appy, cholecystitis, CVA, Diverticulitis, Homicidal, Suicidal, threat to staff... and all critical care pts) @ -Yes, intra cerebral bleed, GI bleed, anemia - Lab Data Result diagrams: 02/09/23 12:38 02/09/23 12:38 Lab Results 02/09/23 02/09/23 02/09/23 Range/Units 12:29 12:38 12:38 WBC 11.3 H (3.8-10.6) k/uL RBC 2.59 L (4.30-5.90) m/uL Hgb 6.6 L* (13.0-17.5) gm/dL Hct 21.0 L (39.0-53.0) % MCV 81.1 (80.0-100.0) fL MCH 25.4 (25.0-35.0) pg MCHC 31.4 (31.0-37.0) g/dL RDW 18.4 H (11.5-15.5) % Plt Count 81 L (150-450) k/uL MPV 10.3 Neutrophils % 88 % Lymphocytes % 5 % Monocytes % 5 % Eosinophils % 0 % Basophils % 0 % Neutrophils # 10.0 H (1.3-7.7) k/uL Lymphocytes # 0.6 L (1.0-4.8) k/uL Monocytes # 0.5 (0-1.0) k/uL Eosinophils # 0.0 (0-0.7) k/uL Basophils # 0.0 (0-0.2) k/uL Manual Slide Review Performed Dimorphic RBCs Present Hypochromasia Marked Poikilocytosis Marked Anisocytosis Slight Microcytosis Slight PT 16.4 H (10.0-12.5) sec INR 1.6 H (<1.2) APTT 27.5 (22.0-30.0) sec Sodium (137-145) mmol/L Potassium (3.5-5.1) mmol/L Chloride (98-107) mmol/L Carbon Dioxide (22-30) mmol/L Anion Gap mmol/L BUN (9-20) mg/dL Creatinine (0.66-1.25) mg/dL Est GFR (CKD-EPI)AfAm (>60 ml/min/1.73 sqM) Est GFR (CKD-EPI)NonAf (>60 ml/min/1.73 sqM) Glucose (74-99) mg/dL POC Glucose (mg/dL) 138 H (70-110) mg/dL POC [employer] Consultant ID Mikhail Hicks Calcium (8.4-10.2) mg/dL Magnesium (1.6-2.3) mg/dL Total Bilirubin (0.2-1.3) mg/dL AST (17-59) U/L ALT (4-49) U/L Alkaline Phosphatase (38-126) U/L Ammonia (<30) umol/L Total Protein (6.3-8.2) g/dL Albumin (3.5-5.0) g/dL Stool Occult Blood (Negative) 02/09/23 02/09/23 02/09/23 Range/Units 12:38 12:38 13:19 WBC (3.8-10.6) k/uL RBC (4.30-5.90) m/uL Hgb (13.0-17.5) gm/dL Hct (39.0-53.0) % MCV (80.0-100.0) fL MCH (25.0-35.0) pg MCHC (31.0-37.0) g/dL RDW (11.5-15.5) % Plt Count (150-450) k/uL MPV Neutrophils % % Lymphocytes % % Monocytes % % Eosinophils % % Basophils % % Neutrophils # (1.3-7.7) k/uL Lymphocytes # (1.0-4.8) k/uL Monocytes # (0-1.0) k/uL Eosinophils # (0-0.7) k/uL Basophils # (0-0.2) k/uL Manual Slide Review Dimorphic RBCs Hypochromasia Poikilocytosis Anisocytosis Microcytosis PT (10.0-12.5) sec INR (<1.2) APTT (22.0-30.0) sec Sodium 138 (137-145) mmol/L Potassium 4.2 (3.5-5.1) mmol/L Chloride 107 (98-107) mmol/L Carbon Dioxide 21 L (22-30) mmol/L Anion Gap 10 mmol/L BUN 31 H (9-20) mg/dL Creatinine 1.06 (0.66-1.25) mg/dL Est GFR (CKD-EPI)AfAm 81 (>60 ml/min/1.73 sqM) Est GFR (CKD-EPI)NonAf 70 (>60 ml/min/1.73 sqM) Glucose 130 H (74-99) mg/dL POC Glucose (mg/dL) (70-110) mg/dL POC [employer] Consultant ID Calcium 9.0 (8.4-10.2) mg/dL Magnesium 1.4 L (1.6-2.3) mg/dL Total Bilirubin 3.3 H (0.2-1.3) mg/dL AST 120 H (17-59) U/L ALT 64 H (4-49) U/L Alkaline Phosphatase 656 H (38-126) U/L Ammonia <9 (<30) umol/L Total Protein 5.5 L (6.3-8.2) g/dL Albumin 2.8 L (3.5-5.0) g/dL Stool Occult Blood Positive (Negative) - EKG Data -: EKG Interpreted by Me EKG Comments: Atrial fibrillation with a rapid ventricular response rate of 102 QRS 106 QT since QTC 326/385 low-voltage nonspecific T-wave configuration acute process - Radiology Data Interpreted by me: Imaging interpreted by me CT the brain shows evidence of petechial hemorrhaging in the left parietal lobe no overt mass effect. Evidence of previous ischemic events Critical Care Time Critical Care Time: Yes Total Critical Care Time: 55 Disposition Clinical Impression: Intracerebral hemorrhage, Acute GI hemorrhage, Anemia, Dehydration, Delirium due to general medical condition, Elevated troponin Disposition: OTHER INSTITUTION NOT DEFINED Condition: Serious Referrals: Venu Oshea MD [Primary Care Provider] - 1-2 days Decision Date: 02/09/23 Decision Time: 14:15 - Out of Hospital Transfer - Req. Specs Out of Hospital Transfer - Requested Specifics: Other Emergency Center
[2023-02-09 14:34] LABS: Appearance,Urine Clear (Clear); Color,Urine Orange; PH, Urine 6.5 (5.0-8.0); Specific Gravity,Urine 1.015 (1.001-1.035)
[2023-02-09 14:35] LABS: Glucose,Urine (UA) 2+ (Negative); Ketones,Urine 2+ (Negative); Protein,Urine Trace (Negative)
[2023-02-09 14:36] LABS: Bilirubin,Urine 3+ (Negative)
[2023-02-09 14:37] LABS: Blood,Urine Negative (Negative); Leukocyte Esterase,Urine Negative (Negative); Nitrite,Urine Negative (Negative); Urobilinogen,Urine <2.0 mg/dL (<2.0)
--- NOTE | 2023-02-09 15:01 | XR ---
EXAMINATION TYPE: XR chest 2V DATE OF EXAM: 02/09/2023 COMPARISON: 02/04/2023 HISTORY: Altered mental status TECHNIQUE: Frontal and lateral views of the chest are obtained. FINDINGS: There is mild cardiomegaly and small to moderate increasing pleural effusions. There is mild cephaliz ation the pulmonary vasculature. Findings most consistent with mild to moderate CHF. There is no pneumothorax. The osseous structures are intact IMPRESSION: Findings most consistent with mild to moderate CHF
[2023-02-09 15:27] LABS: Amphetamine Screen,Urine Not Detected (NotDetected); Barbiturate Screen,Urine Not Detected (NotDetected); Benzodiazepines Screen,Urine Not Detected (NotDetected); Cocaine Screen,Urine Not Detected (NotDetected); Methadone Screen, Urine Not Detected (NotDetected); Opiate Screen,Urine Detected (NotDetected); Oxycodone Screen, Urine Not Detected (NotDetected); Phencyclidine Screen,Urine Not Detected (NotDetected); Tricyclic Antidepressant,Urine Detected (NotDetected); Urn Cannabinoid Scrn Not Detected (NotDetected)
--- NOTE | 2023-02-09 16:44 | XR ---
EXAMINATION TYPE: XR chest 1V confirm line [facility] DATE OF EXAM: 02/09/2023 COMPARISON: 02/09/2023 HISTORY: Line placement TECHNIQUE: Single frontal view of the chest is obtained. FINDINGS: There is a central line entering the right subclavian vein and terminating in the SVC/R junction. There is moderate cardiomegaly and mild pulmonary vascular congestion. There is no pneumothorax. The osseous structures are intact. IMPRESSION: 1. Right sided central venous catheter the tip of which is in the SVC/R junction. 2. Moderate cardiomegaly and mild pulmonary vascular congestion.
--- NOTE | 2023-02-09 16:57 | ED ---
Medical Decision Making - Lab Data Result diagrams: 02/09/23 12:38 02/09/23 12:38 Lab Results 02/09/23 02/09/23 02/09/23 Range/Units 12:29 12:38 12:38 WBC 11.3 H (3.8-10.6) k/uL RBC 2.59 L (4.30-5.90) m/uL Hgb 6.6 L* (13.0-17.5) gm/dL Hct 21.0 L (39.0-53.0) % MCV 81.1 (80.0-100.0) fL MCH 25.4 (25.0-35.0) pg MCHC 31.4 (31.0-37.0) g/dL RDW 18.4 H (11.5-15.5) % Plt Count 81 L (150-450) k/uL MPV 10.3 Neutrophils % 88 % Lymphocytes % 5 % Monocytes % 5 % Eosinophils % 0 % Basophils % 0 % Neutrophils # 10.0 H (1.3-7.7) k/uL Lymphocytes # 0.6 L (1.0-4.8) k/uL Monocytes # 0.5 (0-1.0) k/uL Eosinophils # 0.0 (0-0.7) k/uL Basophils # 0.0 (0-0.2) k/uL Manual Slide Review Performed Dimorphic RBCs Present Hypochromasia Marked Poikilocytosis Marked Anisocytosis Slight Microcytosis Slight PT 16.4 H (10.0-12.5) sec INR 1.6 H (<1.2) APTT 27.5 (22.0-30.0) sec Sodium (137-145) mmol/L Potassium (3.5-5.1) mmol/L Chloride (98-107) mmol/L Carbon Dioxide (22-30) mmol/L Anion Gap mmol/L BUN (9-20) mg/dL Creatinine (0.66-1.25) mg/dL Est GFR (CKD-EPI)AfAm (>60 ml/min/1.73 sqM) Est GFR (CKD-EPI)NonAf (>60 ml/min/1.73 sqM) Glucose (74-99) mg/dL POC Glucose (mg/dL) 138 H (70-110) mg/dL POC Glu Facilities Maintenance Technician ID Mikhail Hicks Calcium (8.4-10.2) mg/dL Magnesium (1.6-2.3) mg/dL Total Bilirubin (0.2-1.3) mg/dL AST (17-59) U/L ALT (4-49) U/L Alkaline Phosphatase (38-126) U/L Ammonia (<30) umol/L Troponin I (0.000-0.034) ng/mL Total Protein (6.3-8.2) g/dL Albumin (3.5-5.0) g/dL Urine Color Urine Appearance (Clear) Urine pH (5.0-8.0) Ur Specific [place] (1.001-1.035) Urine Protein (Negative) Urine Glucose (UA) (Negative) Urine Ketones (Negative) Urine Blood (Negative) Urine Nitrite (Negative) Urine Bilirubin (Negative) Urine Urobilinogen (<2.0) mg/dL Ur Leukocyte Esterase (Negative) Stool Occult Blood (Negative) Urine Opiates Screen (NotDetected) Ur Oxycodone Screen (NotDetected) Urine Methadone Screen (NotDetected) Ur Propoxyphene Screen (NotDetected) Ur Barbiturates Screen (NotDetected) U Tricyclic Antidepress (NotDetected) Ur Phencyclidine Scrn (NotDetected) Ur Amphetamines Screen (NotDetected) U Methamphetamines Scrn (NotDetected) U Benzodiazepines Scrn (NotDetected) Urine Cocaine Screen (NotDetected) U Marijuana (THC) Screen (NotDetected) Influenza Type A (PCR) (Not Detectd) Influenza Type B (PCR) (Not Detectd) RSV (PCR) (Not Detectd) SARS-CoV-2 (PCR) (Not Detectd) Blood Type Blood Type Recheck Bld Type Recheck Status Antibody Screen Crossmatch Spec Expiration Date 02/09/23 02/09/23 02/09/23 Range/Units 12:38 12:38 12:38 WBC (3.8-10.6) k/uL RBC (4.30-5.90) m/uL Hgb (13.0-17.5) gm/dL Hct (39.0-53.0) % MCV (80.0-100.0) fL MCH (25.0-35.0) pg MCHC (31.0-37.0) g/dL RDW (11.5-15.5) % Plt Count (150-450) k/uL MPV Neutrophils % % Lymphocytes % % Monocytes % % Eosinophils % % Basophils % % Neutrophils # (1.3-7.7) k/uL Lymphocytes # (1.0-4.8) k/uL Monocytes # (0-1.0) k/uL Eosinophils # (0-0.7) k/uL Basophils # (0-0.2) k/uL Manual Slide Review Dimorphic RBCs Hypochromasia Poikilocytosis Anisocytosis Microcytosis PT (10.0-12.5) sec INR (<1.2) APTT (22.0-30.0) sec Sodium 138 (137-145) mmol/L Potassium 4.2 (3.5-5.1) mmol/L Chloride 107 (98-107) mmol/L Carbon Dioxide 21 L (22-30) mmol/L Anion Gap 10 mmol/L BUN 31 H (9-20) mg/dL Creatinine 1.06 (0.66-1.25) mg/dL Est GFR (CKD-EPI)AfAm 81 (>60 ml/min/1.73 sqM) Est GFR (CKD-EPI)NonAf 70 (>60 ml/min/1.73 sqM) Glucose 130 H (74-99) mg/dL POC Glucose (mg/dL) (70-110) mg/dL POC Glu Facilities Maintenance Technician ID Calcium 9.0 (8.4-10.2) mg/dL Magnesium 1.4 L (1.6-2.3) mg/dL Total Bilirubin 3.3 H (0.2-1.3) mg/dL AST 120 H (17-59) U/L ALT 64 H (4-49) U/L Alkaline Phosphatase 656 H (38-126) U/L Ammonia <9 (<30) umol/L Troponin I 1.560 H* (0.000-0.034) ng/mL Total Protein 5.5 L (6.3-8.2) g/dL Albumin 2.8 L (3.5-5.0) g/dL Urine Color Urine Appearance (Clear) Urine pH (5.0-8.0) Ur Specific [place] (1.001-1.035) Urine Protein (Negative) Urine Glucose (UA) (Negative) Urine Ketones (Negative) Urine Blood (Negative) Urine Nitrite (Negative) Urine Bilirubin (Negative) Urine Urobilinogen (<2.0) mg/dL Ur Leukocyte Esterase (Negative) Stool Occult Blood (Negative) Urine Opiates Screen (NotDetected) Ur Oxycodone Screen (NotDetected) Urine Methadone Screen (NotDetected) Ur Propoxyphene Screen (NotDetected) Ur Barbiturates Screen (NotDetected) U Tricyclic Antidepress (NotDetected) Ur Phencyclidine Scrn (NotDetected) Ur Amphetamines Screen (NotDetected) U Methamphetamines Scrn (NotDetected) U Benzodiazepines Scrn (NotDetected) Urine Cocaine Screen (NotDetected) U Marijuana (THC) Screen (NotDetected) Influenza Type A (PCR) (Not Detectd) Influenza Type B (PCR) (Not Detectd) RSV (PCR) (Not Detectd) SARS-CoV-2 (PCR) (Not Detectd) Blood Type Blood Type Recheck Bld Type Recheck Status Antibody Screen Crossmatch Spec Expiration Date 02/09/23 02/09/23 02/09/23 Range/Units 13:19 13:19 13:19 WBC (3.8-10.6) k/uL RBC (4.30-5.90) m/uL Hgb (13.0-17.5) gm/dL Hct (39.0-53.0) % MCV (80.0-100.0) fL MCH (25.0-35.0) pg MCHC (31.0-37.0) g/dL RDW (11.5-15.5) % Plt Count (150-450) k/uL MPV Neutrophils % % Lymphocytes % % Monocytes % % Eosinophils % % Basophils % % Neutrophils # (1.3-7.7) k/uL Lymphocytes # (1.0-4.8) k/uL Monocytes # (0-1.0) k/uL Eosinophils # (0-0.7) k/uL Basophils # (0-0.2) k/uL Manual Slide Review Dimorphic RBCs Hypochromasia Poikilocytosis Anisocytosis Microcytosis PT (10.0-12.5) sec INR (<1.2) APTT (22.0-30.0) sec Sodium (137-145) mmol/L Potassium (3.5-5.1) mmol/L Chloride (98-107) mmol/L Carbon Dioxide (22-30) mmol/L Anion Gap mmol/L BUN (9-20) mg/dL Creatinine (0.66-1.25) mg/dL Est GFR (CKD-EPI)AfAm (>60 ml/min/1.73 sqM) Est GFR (CKD-EPI)NonAf (>60 ml/min/1.73 sqM) Glucose (74-99) mg/dL POC Glucose (mg/dL) (70-110) mg/dL POC Glu Facilities Maintenance Technician ID Calcium (8.4-10.2) mg/dL Magnesium (1.6-2.3) mg/dL Total Bilirubin (0.2-1.3) mg/dL AST (17-59) U/L ALT (4-49) U/L Alkaline Phosphatase (38-126) U/L Ammonia (<30) umol/L Troponin I (0.000-0.034) ng/mL Total Protein (6.3-8.2) g/dL Albumin (3.5-5.0) g/dL Urine Color [place] Urine Appearance Clear (Clear) Urine pH 6.5 (5.0-8.0) Ur Specific [place] 1.015 (1.001-1.035) Urine Protein Trace H (Negative) Urine Glucose (UA) 2+ H (Negative) Urine Ketones 2+ H (Negative) Urine Blood Negative (Negative) Urine Nitrite Negative (Negative) Urine Bilirubin 3+ H (Negative) Urine Urobilinogen <2.0 (<2.0) mg/dL Ur Leukocyte Esterase Negative (Negative) Stool Occult Blood (Negative) Urine Opiates Screen Detected H (NotDetected) Ur Oxycodone Screen Not Detected (NotDetected) Urine Methadone Screen Not Detected (NotDetected) Ur Propoxyphene Screen Not Detected (NotDetected) Ur Barbiturates Screen Not Detected (NotDetected) U Tricyclic Antidepress Detected H (NotDetected) Ur Phencyclidine Scrn Not Detected (NotDetected) Ur Amphetamines Screen Not Detected (NotDetected) U Methamphetamines Scrn Not Detected (NotDetected) U Benzodiazepines Scrn Not Detected (NotDetected) Urine Cocaine Screen Not Detected (NotDetected) U Marijuana (THC) Screen Not Detected (NotDetected) Influenza Type A (PCR) Not Detected (Not Detectd) Influenza Type B (PCR) Not Detected (Not Detectd) RSV (PCR) Not Detected (Not Detectd) SARS-CoV-2 (PCR) Not Detected (Not Detectd) Blood Type Blood Type Recheck Bld Type Recheck Status Antibody Screen Crossmatch Spec Expiration Date 02/09/23 02/09/23 Range/Units 13:19 15:40 WBC (3.8-10.6) k/uL RBC (4.30-5.90) m/uL Hgb (13.0-17.5) gm/dL Hct (39.0-53.0) % MCV (80.0-100.0) fL MCH (25.0-35.0) pg MCHC (31.0-37.0) g/dL RDW (11.5-15.5) % Plt Count (150-450) k/uL MPV Neutrophils % % Lymphocytes % % Monocytes % % Eosinophils % % Basophils % % Neutrophils # (1.3-7.7) k/uL Lymphocytes # (1.0-4.8) k/uL Monocytes # (0-1.0) k/uL Eosinophils # (0-0.7) k/uL Basophils # (0-0.2) k/uL Manual Slide Review Dimorphic RBCs Hypochromasia Poikilocytosis Anisocytosis Microcytosis PT (10.0-12.5) sec INR (<1.2) APTT (22.0-30.0) sec Sodium (137-145) mmol/L Potassium (3.5-5.1) mmol/L Chloride (98-107) mmol/L Carbon Dioxide (22-30) mmol/L Anion Gap mmol/L BUN (9-20) mg/dL Creatinine (0.66-1.25) mg/dL Est GFR (CKD-EPI)AfAm (>60 ml/min/1.73 sqM) Est GFR (CKD-EPI)NonAf (>60 ml/min/1.73 sqM) Glucose (74-99) mg/dL POC Glucose (mg/dL) (70-110) mg/dL POC Glu Facilities Maintenance Technician ID Calcium (8.4-10.2) mg/dL Magnesium (1.6-2.3) mg/dL Total Bilirubin (0.2-1.3) mg/dL AST (17-59) U/L ALT (4-49) U/L Alkaline Phosphatase (38-126) U/L Ammonia (<30) umol/L Troponin I (0.000-0.034) ng/mL Total Protein (6.3-8.2) g/dL Albumin (3.5-5.0) g/dL Urine Color Urine Appearance (Clear) Urine pH (5.0-8.0) Ur Specific [place] (1.001-1.035) Urine Protein (Negative) Urine Glucose (UA) (Negative) Urine Ketones (Negative) Urine Blood (Negative) Urine Nitrite (Negative) Urine Bilirubin (Negative) Urine Urobilinogen (<2.0) mg/dL Ur Leukocyte Esterase (Negative) Stool Occult Blood Positive (Negative) Urine Opiates Screen (NotDetected) Ur Oxycodone Screen (NotDetected) Urine Methadone Screen (NotDetected) Ur Propoxyphene Screen (NotDetected) Ur Barbiturates Screen (NotDetected) U Tricyclic Antidepress (NotDetected) Ur Phencyclidine Scrn (NotDetected) Ur Amphetamines Screen (NotDetected) U Methamphetamines Scrn (NotDetected) U Benzodiazepines Scrn (NotDetected) Urine Cocaine Screen (NotDetected) U Marijuana (THC) Screen (NotDetected) Influenza Type A (PCR) (Not Detectd) Influenza Type B (PCR) (Not Detectd) RSV (PCR) (Not Detectd) SARS-CoV-2 (PCR) (Not Detectd) Blood Type A Positive Blood Type Recheck A Pos Bld Type Recheck Status No Antibody Screen NEGATIVE Crossmatch See Detail Spec Expiration Date 02/12/2023 - 2339 Disposition Clinical Impression: Intracerebral hemorrhage, Acute GI hemorrhage, Anemia, Dehydration, Delirium due to general medical condition, Elevated troponin Disposition: OTHER INSTITUTION NOT DEFINED Condition: Serious Referrals: Venu Oshea MD [Primary Care Provider] - 1-2 days - Out of Hospital Transfer - Req. Specs Out of Hospital Transfer - Requested Specifics: Other Emergency Center Procedures - Central Line Placement Right SC Consent Obtained: verbal consent Patient Placed on Monitor/Pulse Ox: Yes Prep: mask, gown, gloves, other (However) Central Line Prep: Chlorhexidine scrub, sterile drapes applied Local Anesthesia Used: Lidocaine 1% Amount of Anesthesia Used (mls): 4 Ultrasound Used for Placement: No Central Line Lumen Inserted: triple Bloods Obtained for Lab: No Central Line Position: good blood return, all ports aspirated, flushed, capped, sutured in place with 3-0 nylon Dressing Applied: Tegaderm Post Procedure X-Ray: tip of catheter in good position Patient Tolerated Procedure: well Complications: none (Indication for central line peripheral eyes Blowing when attempts to use it to ultrasound lines are placed by staff will peripheral lines were not able to be used as needed for transfusion.)
[2023-02-09 18:43] VITALS: BP 90/52; PULSE 94; RESP 14; TEMP 97
== END 2023-02-09 18:15 | disposition other institution (70) ==
LOC: EC 12:05
DX: K92.2 Gastrointestinal hemorrhage, unspecified (principal); I61.9 Nontraumatic intracerebral hemorrhage, unspecified; E86.0 Dehydration; F05 Delirium due to known physiological condition; R79.89 Other specified abnormal findings of blood chemistry; I48.91 Unspecified atrial fibrillation; I11.0 Hypertensive heart disease with heart failure; I50.9 Heart failure, unspecified; K21.9 Gastro-esophageal reflux disease without esophagitis; M19.90 Unspecified osteoarthritis, unspecified site; E78.5 Hyperlipidemia, unspecified; E11.9 Type 2 diabetes mellitus without complications; Z86.73 Personal history of transient ischemic attack (TIA), and cerebral infarction without residual deficits; Z86.718 Personal history of other venous thrombosis and embolism; Z87.891 Personal history of nicotine dependence; Z88.0 Allergy status to penicillin; Z79.84 Long term (current) use of oral hypoglycemic drugs; Z79.899 Other long term (current) drug therapy
CPT/HCPCS: 99291; 96365; 96375; 96361 ×5; 36415; 93005; 86900; 86901; 80053; 82140; 83735; 84484; 85025; 85610; 85730; 86850; 86920; 82272; 81003; 80306; 87636; 71046; 70450; 36430; P9016; J3490; J7168